=== PATIENT | male | born 1955 | race Caucasian/White ===

== ENCOUNTER 2018-10-01 16:47 | Inpatient (IN) | payer SELFPAY, OTHER | END 2018-10-07 13:21 | disposition other institution (70) | LOC: 4TH 10-03 09:52 → ER 16:47 → ICU 10-02 15:25 → 4TH 10-02 15:25 → ICU 19:07 | DX: T46.902A Poisoning by unspecified agents primarily affecting the cardiovascular system, intentional self-harm, initial encounter (principal); T46.4X2A Poisoning by angiotensin-converting-enzyme inhibitors, intentional self-harm, initial encounter; T39.92XA Poisoning by unspecified nonopioid analgesic, antipyretic and antirheumatic, intentional self-harm, initial encounter; T39.012A Poisoning by aspirin, intentional self-harm, initial encounter; T45.0X2A Poisoning by antiallergic and antiemetic drugs, intentional self-harm, initial encounter; T50.902A Poisoning by unspecified drugs, medicaments and biological substances, intentional self-harm, initial encounter; R53.83 Other fatigue; R47.81 Slurred speech; I44.4 Left anterior fascicular block; F32.9 Major depressive disorder, single episode, unspecified; F10.10 Alcohol abuse, uncomplicated; F19.10 Other psychoactive substance abuse, uncomplicated; I10 Essential (primary) hypertension; E78.00 Pure hypercholesterolemia, unspecified; M25.561 Pain in right knee; M25.461 Effusion, right knee; M25.571 Pain in right ankle and joints of right foot; M77.31 Calcaneal spur, right foot ==

== ENCOUNTER 2021-01-17 08:47 | Inpatient (IN) | payer SELFPAY ==
[~2021-01-17] VITALS: Ht 180.3 cm; Wt 118.3 kg
[2021-01-17] VITALS (11 sets, daily range): BP systolic 90–132; BP diastolic 71–96
[~2021-01-17 08:47] MED LIST: ACET-2267 PO; AMLO5TAB4 PO; CRUT1EAC7 MC; IRON1TAB86 PO; LISI20TA26 PO; MELO15TA39 PO; TRM50T PO
[2021-01-17] MEDS ORDERED: NS IV 1000 ML 1,000 ML IV ONE (09:15)
[2021-01-17] MEDS ORDERED: AZITHROMYCIN INJECTION 500 MG in NS (IVPB) 250 ML IV ONE (09:15)
[2021-01-17] MEDS ORDERED: cefTRIAXone FOR IV USE 1,000 MG in WATER (STERILE) FOR INJECTION 10 ML IV ONE (09:15)
[2021-01-17] MEDS ORDERED: NS IV 1000 ML 1,000 ML IV SCH (09:15)
[2021-01-17 09:22] LABS: ABG BASE EXCESS -5.5 MMOL/L (-2.5-2.5); ABG OXYGEN SATURATION 95 % (94-100); ABG PCO2 26 MMHG (35-45); ABG PH 7.45 (7.37-7.43); ABG PO2 63 MMHG (79-93); ABG TCO2 18.9 MMOL/L (21.0-31.0)
[2021-01-17 09:23] LABS: ALLENS TEST YES-POS; INSPIRED O2 ROOM AIR; VENTILATOR NO
[2021-01-17 09:24] LABS: BASOPHILS # (AUTO) 0.1 10^3/uL (0.0-0.1); BASOPHILS % (AUTO) 1 % (0-10); EOSINOPHILS % (AUTO) 0 % (0-10); HEMATOCRIT 45 % (40-54); LYMPHOCYTES % (AUTO) 11 % (12-44); MEAN CORPUSCULAR HEMOGLOBIN 30 pg (25-34); MEAN CORPUSCULAR HGB CONC 33 g/dL (32-36); MEAN CORPUSCULAR VOLUME 89 fL (80-99); MEAN PLATELET VOLUME 9.8 fL (9.0-12.2); MONOCYTES % (AUTO) 12 % (0-12); NEUTROPHILS # (AUTO) 13.2 10^3/uL (1.8-7.8); NEUTROPHILS % (AUTO) 75 % (42-75); PLATELET COUNT 423 10^3/uL (130-400); WHITE BLOOD COUNT 17.5 10^3/uL (4.3-11.0)
--- NOTE | 2021-01-17 09:26 | ED Chest Pain ---
General Chief Complaint: Chest Pain Stated Complaint: SOB,CP,FAST HB Nursing Triage Note: Pt ambulatory to ER with c/o chest pain that began on Sunday to the left chest with no radiation. Pt also states he has been short of breath for months. Patient also complains of a cough. Pt states this morning he began to sweat and his shirt became soaked with sweat. Pt also has swelling to the left arm which he states is present since sunday. Nursing Sepsis Screen: Possible Severe Sepsis Risk Source: patient Exam Limitations: no limitations History of Present Illness Date Seen by Provider: January 17, 2021 Time Seen by Provider: 08:50 Initial Comments Patient presents ER by private conveyance from Dr[facility] where he and his are visiting because he was having chest pain sweating left arm swelling and pain for the last 24 hours. No history of heart or lung disease. He quit chewing and dipping many years ago. He smokes occasional marijuana. No history of lung disease. He feels short of breath and is worse with exertion. No mention of orthopnea. No mention of swelling in his legs just his left arm. He thinks his left arm is been swelling since last week and has attributed to rheumatoid arthritis for which he uses meloxicam. He says he been off the meloxicam for the past week because he was out. Chest pain is substernal nonreproducible to direct palpation. Not worse with deep inspiration. He has had an occasional cough. No fevers or chills. He had a [employer] COVID-19 vaccine about 1 month prior. No known sick contacts. Patient has a history of hypertension, depression, hyperlipidemia and anemia. Allergies and Home Medications Allergies Coded Allergies: No Known Drug Allergies (Unverified , 10/01/18) Home Medications Acetaminophen 500 Mg Tablet, 500-1,000 MG PO Q6H PRN for PAIN-MILD, (Reported) Amlodipine Besylate 5 Mg Tablet, 5 MG PO DAILY, (Reported) Lisinopril 20 Mg Tablet, 20 MG PO DAILY, (Reported) Meloxicam 15 Mg Tablet, 15 MG PO DAILY, (Reported) Mv, Min #36/Iron,Carbonyl/FA 1 Each Tablet, 1 TAB PO DAILY, (Reported) Patient Home Medication List Home Medication List Reviewed: Yes Review of Systems Review of Systems Constitutional: No chills; diaphoresis; No fever; malaise, weakness EENTM: No Blurred Vision, No Double Vision Respiratory: Cough, Shortness of Air Cardiovascular: Denies Chest Pain, Denies Edema Gastrointestinal: Denies Abdominal Pain, Denies Constipated, Denies Diarrhea, Denies Nausea, Denies Vomiting Genitourinary: Denies Burning, Denies Discharge Musculoskeletal: No back pain, No joint pain Skin: No pruritus, No rash Psychiatric/Neurological: Denies Headache, Denies Numbness All Other Systems Reviewed Negative Unless Noted: Yes Past Nzybvbm-Kprcxd-Xlnrxf Hx Patient Social History Alcohol Use: Regular Use Alcohol Beverage of Choice: Beer (10 a week) Drug of Choice: Cannabis Smoking Status: Former Smoker Type Used: Smokeless Tobacco Recent Infectious Disease Expo: No Past Medical History Surgeries: No Respiratory: No Cardiac: Yes High Cholesterol, Hypertension Neurological: No Genitourinary: No Gastrointestinal: No Musculoskeletal: No Endocrine: No HEENT: No Cancer: No Psychosocial: Yes Depression Integumentary: No Physical Exam Vital Signs Vital Signs - First Documented 01/17/21 01/17/21 08:50 09:10 Temp 35.5 Pulse 161 Resp 22 B/P (MAP) 118/86 (97) Pulse Ox 94 O2 Delivery Room Air O2 Flow Rate 2.00 Capillary Refill : Less Than 3 Seconds Height, Weight, BMI Height: 5'11.00" Weight: 232lbs. oz. 105.129995gv; 34.00 BMI Method:Stated General Appearance: WD/WN, Moderate Distress, Obese HEENT: PERRL/EOMI, Pharynx Normal; No Moist Mucous Membranes Neck: Full Range of Motion, Normal Inspection Respiratory: Lungs Clear, Normal Breath Sounds, Accessory Muscle Use, Respiratory Distress (Mild to moderate oxygen sats in the mid 90s with increased work of breathing.) Cardiovascular: No JVD, Irregularly Irregular, Tachycardia Gastrointestinal: Normal Bowel Sounds, No Organomegaly, Non Tender Extremity: Normal Capillary Refill, Normal Inspection, No Pedal Edema Neurologic/Psychiatric: Alert, Oriented x3, No Motor/Sensory Deficits Skin: Normal Color, Damp, Diaphoresis Focused Exam Lactate Level 01/17/21 09:00: Lactic Acid Level 2.30*H Lactic Acid Level Laboratory Tests Test 01/17/21 09:00 Lactic Acid Level 2.30 MMOL/L (0.50-2.00) *H Progress/Results/Core Measures Results/Orders Lab Results Laboratory Tests Test 01/17/21 09:00 01/17/21 09:04 Range/Units White Blood Count 17.5 H 4.3-11.0 10^3/uL Red Blood Count 5.06 4.30-5.52 10^6/uL Hemoglobin 15.0 13.3-17.7 g/dL Hematocrit 45 40-54 % Mean Corpuscular Volume 89 80-99 fL Mean Corpuscular Hemoglobin 30 25-34 pg Mean Corpuscular Hemoglobin Concent 33 32-36 g/dL Red Cell Distribution Width 13.4 10.0-14.5 % Platelet Count 423 H 130-400 10^3/uL Mean Platelet Volume 9.8 9.0-12.2 fL Immature Granulocyte % (Auto) 1 % Neutrophils (%) (Auto) 75 42-75 % Lymphocytes (%) (Auto) 11 L 12-44 % Monocytes (%) (Auto) 12 0-12 % Eosinophils (%) (Auto) 0 0-10 % Basophils (%) (Auto) 1 0-10 % Neutrophils # (Auto) 13.2 H 1.8-7.8 10^3/uL Lymphocytes # (Auto) 2.0 1.0-4.0 10^3/uL Monocytes # (Auto) 2.0 H 0.0-1.0 10^3/uL Eosinophils # (Auto) 0.0 0.0-0.3 10^3/uL Basophils # (Auto) 0.1 0.0-0.1 10^3/uL Immature Granulocyte # (Auto) 0.2 H 0.0-0.1 10^3/uL Neutrophils % (Manual) 80 % Lymphocytes % (Manual) 13 % Monocytes % (Manual) 6 % Band Neutrophils 1 % Blood Morphology Comment NORMAL Prothrombin Time 14.0 12.2-14.7 SEC INR Comment 1.0 0.8-1.4 Activated Partial Thromboplast Time 34 24-35 SEC D-Dimer 1.93 H 0.00-0.49 UG/ML Sodium Level 140 135-145 MMOL/L Potassium Level 3.9 3.6-5.0 MMOL/L Chloride Level 105 98-107 MMOL/L Carbon Dioxide Level 20 L 21-32 MMOL/L Anion Gap 15 H 5-14 MMOL/L Blood Urea Nitrogen 18 7-18 MG/DL Creatinine 1.42 H 0.60-1.30 MG/DL Estimat Glomerular Filtration Rate 50 BUN/Creatinine Ratio 13 Glucose Level 123 H 70-105 MG/DL Lactic Acid Level 2.30 *H 0.50-2.00 MMOL/L Calcium Level 10.0 8.5-10.1 MG/DL Corrected Calcium 9.7 8.5-10.1 MG/DL Total Bilirubin 2.0 H 0.1-1.0 MG/DL Aspartate Amino Transf (AST/SGOT) 25 5-34 U/L Alanine Aminotransferase (ALT/SGPT) 20 0-55 U/L Alkaline Phosphatase 97 40-136 U/L Troponin I < 0.028 <0.028 NG/ML C-Reactive Protein High Sensitivity 18.99 H 0.00-0.50 MG/DL B-Type Natriuretic Peptide 48.3 <100.0 PG/ML Total Protein 7.9 6.4-8.2 GM/DL Albumin 4.4 3.2-4.5 GM/DL Procalcitonin 0.38 H <0.10 NG/ML Coronavirus 2019 (ESTELA) Not Detected Not Detecte Blood Gas Puncture Site LT RAD Blood Gas Patient Temperature 96.0 Arterial Blood pH 7.45 H 7.37-7.43 Arterial Blood Partial Pressure CO2 26 L 35-45 MMHG Arterial Blood Partial Pressure O2 63 L 79-93 MMHG Arterial Blood HCO3 18 L 23-27 MMOL/L Arterial Blood Total CO2 18.9 L 21.0-31.0 MMOL/L Arterial Blood Oxygen Saturation 95 94-100 % Arterial Blood Base Excess -5.5 L -2.5-2.5 MMOL/L Rodrigo Test YES-POS Blood Gas Ventilator Setting NO Blood Gas Inspired Oxygen ROOM AIR Micro Results Microbiology 01/17/21 Influenza Types A,B Antigen (CELINA) - Final, Complete My Orders Orders - HA MCLAIN Cbc With Automated Diff (01/17/21 09:11) Comprehensive Metabolic Panel (01/17/21 09:11) Blood Culture (01/17/21 09:11) Sputum Culture (01/17/21 09:11) Urinalysis (01/17/21 09:11) Urine Culture (01/17/21 09:11) Protime With Inr (01/17/21 09:11) Partial Thromboplastin Time (01/17/21 09:11) Chest 1 View, Ap/Pa Only (01/17/21 09:11) Ed Iv/Invasive Line Start (01/17/21 09:11) Ed Iv/Invasive Line Start (01/17/21 09:11) Ekg Tracing (01/17/21 09:11) Troponin I (01/17/21 09:11) Vital Signs Adult Sepsis Patie Q15M (01/17/21 09:11) O2 (01/17/21 09:11) Remove Rings In Anticipation O (01/17/21 09:11) Lactic Acid Analyzer (01/17/21 09:11) Influenza A And B Antigens (01/17/21 09:11) Ceftriaxone For Iv Use (Rocephin For I (01/17/21 09:15) Azithromycin Injection (Zithromax Inject (01/17/21 09:15) BNP (01/17/21 09:11) Ed Iv/Invasive Line Start (01/17/21 09:11) Ns Iv 1000 Ml (Sodium Chloride 0.9%) (01/17/21 09:15) Ns Iv 1000 Ml (Sodium Chloride 0.9%) (01/17/21 09:15) Covid 19 Inhouse Test (01/17/21 09:11) Arterial Blood Gas (01/17/21 09:11) Procalcitonin (Pct) (01/17/21 09:19) Hs C Reactive Protein (01/17/21 09:19) Fibrin Degradation Products (01/17/21 09:19) Aspirin Chewable Tablet (Baby Aspirin Ch (01/17/21 09:30) Diltiazem Injection (Cardizem Injection) (01/17/21 09:30) Diltiazem Drip Pre-Mix (Cardizem Drip Pr (01/17/21 09:30) Manual Differential (01/17/21 09:00) Ct Angio Chest W (01/17/21 10:06) Iohexol Injection (Omnipaque 350 Mg/Ml 1 (01/17/21 10:15) Received Contrast (Hold Metformin- Contr (01/17/21 10:15) Sodium Chloride Flush (Catheter Flush Sy (01/17/21 10:15) Ns (Ivpb) (Sodium Chloride 0.9% Ivpb Bag (01/17/21 10:15) Lactated Ringers (Lr 1000 Ml Iv Solution (01/17/21 11:00) Ekg Tracing (01/17/21 11:55) Medications Given in ED Current Medications Medications Dose Ordered Sig/Elise Route Start Time Stop Time Status Last Admin Dose Admin Aspirin 324 mg ONCE ONCE PO 01/17/21 09:30 01/17/21 09:31 DC 01/17/21 09:29 324 MG Azithromycin 500 mg/Sodium Chloride 255 ml @ 250 mls/hr ONCE ONCE IV 01/17/21 09:15 01/17/21 10:16 DC 01/17/21 09:45 250 MLS/HR Ceftriaxone Sodium 1000 mg/ Sterile Water 10 ml @ 200 mls/hr ONCE ONCE IV 01/17/21 09:15 01/17/21 09:19 DC 01/17/21 09:36 200 MLS/HR Diltiazem HCl 10 mg ONCE ONCE IVP 01/17/21 09:30 01/17/21 09:31 DC 01/17/21 09:31 10 MG Iohexol 100 ml ONCE ONCE IV 01/17/21 10:15 01/17/21 10:16 DC 01/17/21 10:52 84 ML Sodium Chloride 10 ml NEEDED PRN IV 01/17/21 10:15 01/17/21 10:52 10 ML Sodium Chloride 100 ml ONCE ONCE IV 01/17/21 10:15 01/17/21 10:16 DC 01/17/21 10:52 80 ML Sodium Chloride 1,000 ml @ 0 mls/hr Q0M ONCE IV 01/17/21 09:15 01/17/21 09:19 DC 01/17/21 09:37 1,000 MLS/HR Vital Signs/I&O 01/17/21 01/17/21 01/17/21 08:50 09:10 10:32 Temp 35.5 Pulse 161 138 Resp 22 20 B/P (MAP) 118/86 (97) 94/77 (83) Pulse Ox 94 94 96 O2 Delivery Room Air Nasal Cannula Nasal Cannula O2 Flow Rate 2.00 2.00 Blood Pressure Mean: 97 Progress Progress Note #1: Time: 09:23 Progress Note Patient appears to be in A. fib with RVR. We will give him some aspirin and use some Cardizem to slow his heart rate down as well as giving him some IV fluids doing a septic work-up based on his increased respiratory rate, cough, increased heart rate possibility of pneumonia. We will get a Covid and flu swab. Initial EKG does not show any significant ST changes. ABG. Patient's oxygen saturations 98% on room air with good plethysmography. Plan to put him on 2 L by nasal cannula just to decrease his work of breathing. Progress Note #2: Time: 11:58 Progress Note Patient cardioverted on the Cardizem. His blood pressure is good 106 systolic. Plan to get a repeat EKG. Initial ECG Impression Date: January 17, 2021 Initial ECG Impression Time: 08:56 Initial ECG Rate: 160 Initial ECG Rhythm: A Fib/Flutter Initial ECG Intervals: QT (483) Initial ECG Impression: Atrial Fibrillation w/RVR Comment Atrial fibrillation with rapid ventricular response, borderline prolonged QTC. No clinically relevant ST elevation or depression. EKG : EKG Time: 12:00 Rate: 89 Rhythm: Normal Sinus Intervals: QT (473) ECG Comparisson: Changed ECG Impression: Normal, Nonspecific Changes Comment Normal sinus rhythm without clinically relevant ST changes. Diagnostic Imaging Diagonstic Imaging: Xray Plain Films/CT/US/NM/MRI: chest Comments NAME: MISTI HENSON [facility] REC#: [id number] PT STATUS: REG ER : 1955 PHYSICIAN: HA MCLAIN MD ADMIT DATE: 01/17/21/ER Draft Date of Exam:01/17/21 CHEST 1 VIEW, AP/PA ONLY EXAMINATION: Portable erect AP chest at 1030 hours. INDICATION: Chest pain. FINDINGS: The heart is mildly enlarged and the heart does seem somewhat more prominent than noted on the prior exam of 10/03/2018. The central pulmonary vascularity is also somewhat more striking than on the prior exam, but there is still no evidence for failure. There is no sign of pneumonia or pleural effusion either. The mediastinum is not widened. The osseous structures are intact. IMPRESSION: There is mild cardiomegaly but there is no evidence for an acute cardiopulmonary abnormality. Dictated on workstation # [id number] Dict: 01/17/21 1037 Trans: 01/17/21 1041 [id number] Interpreted by: VINCENT SALAZAR MD Electronically signed by: Reviewed: Reviewed by Me Diagonstic Imaging: CT (angio) Plain Films/CT/US/NM/MRI: chest Reviewed: Reviewed by Me Departure Communication (Admissions) Time/Spoke to Admitting Phy: 12:05 Discussed the case with Dr. Wilkerson and she agrees to admit the patient. Time/Spoke to Consulting Phy: 12:00 Discussed the case with Dr. Valdez, cardiology recommends [facility] and will see the patient. Impression Primary Impression: Atrial fibrillation with rapid ventricular response Additional Impressions: Sepsis Qualified Codes: A41.9 - Sepsis, unspecified organism Suspect pneumonia Disposition: ADMITTED INPATIENT Condition: Stable Admissions Decision to Admit Reason: Admit from ER (General) Decision to Admit/Date: January 17, 2021 Time/Decision to Admit Time: 09:37 Departure-Patient Inst. Referrals: NO,LOCAL PHYSICIAN (PCP/Family) Primary Care Physician HA MCLAIN January 17, 2021 09:26
[2021-01-17] MEDS ORDERED: dilTIAZem DRIP PRE-MIX 125 ML IV SCH ×2 (09:30→14:00)
[2021-01-17] MEDS ORDERED: ASPIRIN 81 MG CHEW (CHILDREN'S ASA) PO ONE (09:30)
[2021-01-17 09:31] LABS: ALBUMIN 4.4 GM/DL (3.2-4.5)
[2021-01-17 09:32] LABS: CHLORIDE 105 MMOL/L (98-107); POTASSIUM 3.9 MMOL/L (3.6-5.0); SODIUM 140 MMOL/L (135-145)
[2021-01-17 09:34] LABS: GLUCOSE 123 MG/DL (70-105); TOTAL PROTEIN 7.9 GM/DL (6.4-8.2)
[2021-01-17 09:35] LABS: CARBON DIOXIDE 20 MMOL/L (21-32)
[2021-01-17 09:37] LABS: ALKALINE PHOSPHATASE 97 U/L (40-136)
[2021-01-17 09:38] LABS: BAND NEUTROPHILS 1 %; CREATININE SERUM 1.42 MG/DL (0.60-1.30); GFR ESTIMATED 50; LYMPHOCYTES % (MANUAL) 13 %; MONOCYTES % (MANUAL) 6 %; NEUTROPHILS % (MANUAL) 80 %; RBC MORPH NORMAL
[2021-01-17 09:39] LABS: BUN/CREATININE RATIO 13
[2021-01-17 09:40] LABS: ALANINE AMINOTRANSFERASE 20 U/L (0-55)
[2021-01-17 09:56] LABS: FIBRIN DEGRADATION PRODUCTS 1.93 UG/ML (0.00-0.49)
[2021-01-17] MEDS ORDERED: NS 100 ML (IVPB) BAG IV ONE (10:15)
[2021-01-17] MEDS ORDERED: CATHETER FLUSH 10 ML SYR IV PRN (10:15)
[2021-01-17] MEDS ORDERED: HOLD METFORMIN - RECEIVED CONTRAST 20 ML VIAL IV SCH (10:15)
[2021-01-17] MEDS ORDERED: IOHEXOL 350 MG/ML 100 ML (OMNIPAQUE 350) VIAL IV ONE (10:15)
--- NOTE | 2021-01-17 10:41 | Diagnostic Imaging Report ---
EXAMINATION: Portable erect AP chest at 1030 hours. INDICATION: Chest pain. FINDINGS: The heart is mildly enlarged and the heart does seem somewhat more prominent than noted on the prior exam of 10/03/2018. The central pulmonary vascularity is also somewhat more striking than on the prior exam, but there is still no evidence for failure. There is no sign of pneumonia or pleural effusion either. The mediastinum is not widened. The osseous structures are intact. IMPRESSION: There is mild cardiomegaly but there is no evidence for an acute cardiopulmonary abnormality. Dictated by: Dictated on workstation # [id number]
[2021-01-17] MEDS ORDERED: LACTATED RINGERS 1,000 ML IV ONE (11:00)
--- NOTE | 2021-01-17 11:23 | Diagnostic Imaging Report ---
PROCEDURE: CT angiography of the chest with contrast. TECHNIQUE: Multiple contiguous axial images were obtained through the chest after uneventful bolus administration of intravenous contrast. 3D reconstructed CTA MIP acquisitions were also performed. Auto Exposure Controls were utilized during the CT exam to meet ALARA standards for radiation dose reduction. INDICATION: Shortness of breath. Chest pain. COMPARISON: Chest radiograph performed earlier the same date. FINDINGS: This helical CT pulmonary angiogram is diagnostic to the subsegmental level branches of the pulmonary artery and demonstrates no pulmonary emboli. The heart and great vessels are unremarkable. There is no pericardial effusion. Mildly prominent mediastinal lymph node is seen in the right tracheoesophageal groove measuring 0.7 cm in short axis. Prominent lymph nodes are also seen in the left axilla. No focal consolidation or pulmonary mass. No central endobronchial obstructing lesions. Mild bronchial wall thickening is present. No pneumothorax or pleural effusion. No acute osseous abnormalities. Old fracture of the sternum is noted. There is hepatic steatosis. Partial visualization of the gallbladder appears to show abnormally thickened gallbladder wall. IMPRESSION: 1. No acute pulmonary embolus. 2. Mildly prominent mediastinal and left axillary lymph nodes. These are indeterminate and followup may be considered in 12 months. 3. Partially visualized gallbladder demonstrates thickened gallbladder wall. Consider liver gallbladder ultrasound to further evaluate. 4. Hepatic steatosis. 5. Mild bronchial wall thickening, which may represent bronchitis/bronchiolitis. No focal consolidations. Dictated by: Dictated on workstation # [id number]
[2021-01-17] MEDS ORDERED: APIXABAN 5 MG (ELIQUIS) TABLET PO ONE (12:15)
[2021-01-17] MEDS ORDERED: EPINEPHrine 1 MG INJECTION 4 MG in NS (IVPB) 248 ML IV SCH (14:15)
[2021-01-17] MEDS: LACTATED RINGERS 1,000 ML IV SCH ×3 (14:42→23:40)
[2021-01-17] MEDS: NOREPINEPHRINE 8 MG/250 ML 250 ML IV SCH (14:44)
[2021-01-17] MEDS: VASOPRESSIN INJECTION 20 UNIT in NS (IVPB) 100 ML IV SCH ×2 (14:44→23:20)
[2021-01-17] MEDS ORDERED: CHOL200014 PO (15:34)
[2021-01-17] MEDS ORDERED: CETI-458 PO (15:34)
[2021-01-17] MEDS ORDERED: FURO40TA4 PO (15:34)
[2021-01-17] MEDS ORDERED: ASPI-1238 PO (15:34)
[2021-01-17] MEDS ORDERED: DIPH25TA65 PO (15:34)
[2021-01-17] MEDS ORDERED: TURM538C PO (15:34)
[2021-01-17] MEDS ORDERED: ZINC220T3 PO (15:34)
[2021-01-17] MEDS ORDERED: ATOR10TA66 PO (15:34)
[2021-01-17] MEDS ORDERED: FISH1CAP15 PO (15:34)
[2021-01-17] MEDS ORDERED: LISI40TA9 PO (15:34)
[2021-01-17] MEDS: ACETAMINOPHEN 500 MG TAB (TYLENOL) PO PRN (15:57)
--- NOTE | 2021-01-17 16:41 | Consultation-Cardiology ---
HPI-Cardiology Cardiology Consultation: Date of Consultation 01/17/21 Time Seen by a Provider: 16:10 Date of Admission 01-17-21 Attending Physician Eva Wilkerson MD Admitting Physician No,Local Physician Consulting Physician Jessica Valdez MD HPI: Chief Complaint: New onset a-fib with RVR Mr. Henson is a 65 yr old male admitted to ICU 6 from the ED with new onset a- fib with RVR. He was started on a Cardizem gtt and converted to SR with controlled rate. He reports he was recently started on Lisinopril by his PCP a few weeks ago d/t HTN. He reports he has had a dry, hacky cough since. He reports last week he had an episode of left sided chest pressure which lasted for approx a 1 1/2 days constant. He reports it was left sided with no radiation. He reports he has chronic episodes where he breaks out into a sweat, which is not new for him. He reports he has had increasing SOB. He reports this morning he had an appt to see Dr. Dubois and while looking for socks he became weak, felt his heart racing, diaphoretic and lightheaded. He reports he has had these episodes before and they typically last for a few minutes and resolve. He reports he has gouty arthritis and currently has had a flare up in his left hand and left shoulder which has limited his ability to effectively use his left hand. He states he is feeling better at this time. He does not report any fever or chills. Review of Systems-Cardiology Review of Systems Constitutional: No chills, No fever; lightheadedness Eyes: No vision change Ears/Nose/Throat: No epistaxis, No recent hearing loss Respiratory: As described under HPI Cardiovascular: As described under HPI Gastrointestinal: As described under HPI Genitourinary: No dysuria, No hematuria Musculoskeletal: As describe under HPI Skin: No rash on exposed areas, No ulcerations on exposed areas Psychiatric/Neurological: No anxiety, No depression, No seizure, No focal weakness, No syncope Hematologic: No bleeding abnormalities All Other Systems Reviewed Negative Unless Noted: Yes OXK-Muejte-Cckgxm Hx Patient Social History Smoking Status: Former Smoker 2nd Hand Smoke Exposure: No Past Medical History PMH As described under Assessment. Family Medical History Family Medical History: He denies any family h/o CAD or CVA. Allergies and Home Medications Allergies Coded Allergies: No Known Drug Allergies (Unverified , 10/01/18) Home Medications Acetaminophen 500 Mg Tablet, 500-1,000 MG PO Q6H PRN for PAIN-MILD, (Reported) Last Action: Held Amlodipine Besylate 5 Mg Tablet, 5 MG PO DAILY, (Reported) Last Action: Held Aspirin 81 Mg Tablet.dr, 81 MG PO DAILY, (Reported) Last Action: Continued Atorvastatin Calcium 10 Mg Tablet, 10 MG PO HS, (Reported) Last Action: Continued Cetirizine HCl 10 Mg Tablet, 10 MG PO DAILY PRN for ALLERGY SYMPTOMS, (Reported) Last Action: Converted Cholecalciferol (Vitamin D3) 50 Mcg Tablet, 50 MCG PO DAILY, (Reported) Last Action: Converted Diphenhydramine HCl 25 Mg Tablet, 25-50 MG PO HS PRN for SLEEP/ALLERGY SYMPTOMS, (Reported) Last Action: Continued Fish Oil/Dha/Epa 1 Each Capsule, 1 EACH PO DAILY, (Reported) Last Action: Converted Furosemide 40 Mg Tablet, 40 MG PO DAILY, (Reported) Last Action: Continued Lisinopril 40 Mg Tablet, 40 MG PO DAILY, (Reported) Last Action: Held Meloxicam 15 Mg Tablet, 15 MG PO DAILY, (Reported) Last Action: Converted Turmeric Root Extract 538 Mg Capsule, 538 MG PO DAILY, (Reported) Last Action: Held Zinc Sulfate 50 Mg Tablet, 50 MG PO DAILY, (Reported) Last Action: Held Physical Exam-Cardiology Physical Exam Vital Signs/I&O 01/17/21 01/17/21 01/17/21 01/17/21 20:00 20:00 20:12 21:00 Temp 37.0 Pulse 87 82 Resp 21 25 B/P (MAP) 116/78 (91) 119/71 (87) Pulse Ox 93 99 98 O2 Delivery Nasal Cannula Nasal Cannula Nasal Cannula O2 Flow Rate 2.00 2.00 2.00 01/17/21 01/17/21 01/18/21 01/18/21 22:00 23:00 00:00 00:00 Pulse 85 89 86 Resp 20 26 18 B/P (MAP) 122/77 (92) 115/84 (94) 114/77 (89) Pulse Ox 98 96 99 97 O2 Delivery Nasal Cannula Nasal Cannula Nasal Cannula Nasal Cannula O2 Flow Rate 2.00 2.00 2.00 2.00 01/18/21 01/18/21 01/18/21 01/18/21 01:00 01:00 02:00 03:00 Pulse 85 86 90 83 Resp 23 25 24 B/P (MAP) 119/78 (92) 121/70 (87) 125/78 (94) Pulse Ox 95 94 96 O2 Delivery Nasal Cannula Nasal Cannula Nasal Cannula O2 Flow Rate 2.00 2.00 2.00 01/18/21 01/18/21 01/18/21 01/18/21 04:00 04:00 05:00 06:00 Pulse 89 90 96 Resp 22 22 26 B/P (MAP) 141/80 (100) 132/77 (95) 124/79 (94) Pulse Ox 96 99 96 92 O2 Delivery Nasal Cannula Nasal Cannula Nasal Cannula Nasal Cannula O2 Flow Rate 2.00 2.00 2.00 2.00 01/18/21 06:37 Pulse Ox 95 O2 Delivery Nasal Cannula O2 Flow Rate 2.00 01/18/21 00:00 Intake Total 2990 ml Output Total 450 ml Balance 2540 ml Capillary Refill : Less Than 3 Seconds Constitutional: AAO x 3, well-developed, well-nourished HEENT: PERRL, hearing is well preserved, oral hygience is good Neck: No carotid bruit; carotid pulses are 2 + bilaterally Respiratory: No accessory muscle use, No respiratory distress; chest expansion is symmetric, chest is bilaterally symmetric, other (good air entry) Cardiovascular: regular rate-rhythm; No JVD; S1 and S2 Gastrointestinal: No tender; soft, round, audible bowel sounds Extremities: other (left hand with mod swelling and inflammation) Neurologic/Psychiatric: grossly intact Skin: No rash on exposed areas, No ulcerations on exposed areas Data Review Labs Laboratory Tests 01/17/21 09:00: White Blood Count 17.5H, Red Blood Count 5.06, Hemoglobin 15.0, Hematocrit 45, Mean Corpuscular Volume 89, Mean Corpuscular Hemoglobin 30, Mean Corpuscular Hemoglobin Concent 33, Red Cell Distribution Width 13.4, Platelet Count 423H, M abiodun Platelet Volume 9.8, Immature Granulocyte % (Auto) 1, Neutrophils (%) (Auto) 75, Lymphocytes (%) (Auto) 11L, Monocytes (%) (Auto) 12, Eosinophils (%) (Auto) 0, Basophils (%) (Auto) 1, Neutrophils # (Auto) 13.2H, Lymphocytes # (Auto) 2.0, Monocytes # (Auto) 2.0H, Eosinophils # (Auto) 0.0, Basophils # (Auto) 0.1, Immature Granulocyte # (Auto) 0.2H, Neutrophils % (Manual) 80, Lymphocytes % (Manual) 13, Monocytes % (Manual) 6, Band Neutrophils 1, Blood Morphology Comment NORMAL, Prothrombin Time 14.0, INR Comment 1.0, Activated Partial Thromboplast Time 34, D-Dimer 1.93H, Sodium Level 140, Potassium Level 3.9, Chloride Level 105, Carbon Dioxide Level 20L, Anion Gap 15H, Blood Urea Nitrogen 18, Creatinine 1.42H, Estimat Glomerular Filtration Rate 50, BUN/Creatinine Ratio 13, Glucose Level 123H, Lactic Acid Level 2.30*H, Calcium Level 10.0, Corrected Calcium 9.7, Total Bilirubin 2.0H, Aspartate Amino Transf (AST/SGOT) 25, Alanine Aminotransferase (ALT/SGPT) 20, Alkaline Phosphatase 97, Troponin I < 0.028, C-Reactive Protein High Sensitivity 18.99H, B-Type Natriuretic Peptide 48.3, Total Protein 7.9, Albumin 4.4, Procalcitonin 0.38H, Coronavirus 2019 (ESTELA) Not Detected 01/17/21 09:04: Blood Gas Puncture Site LT RAD, Blood Gas Patient Temperature 96.0, Arterial Blood pH 7.45H, Arterial Blood Partial Pressure CO2 26L, Arterial Blood Partial Pressure O2 63L, Arterial Blood HCO3 18L, Arterial Blood Total CO2 18.9L, Arterial Blood Oxygen Saturation 95, Arterial Blood Base Excess -5.5L, Rodrigo Test YES-POS, Blood Gas Ventilator Setting NO, Blood Gas Inspired Oxygen ROOM AIR 01/17/21 12:46: Lactic Acid Level 1.01 01/17/21 15:05: Troponin I < 0.028 01/17/21 20:50: Troponin I < 0.028 01/18/21 04:05: White Blood Count 13.5H, Red Blood Count 4.04L, Hemoglobin 11.8#L, Hematocrit 37L, Mean Corpuscular Volume 91, Mean Corpuscular Hemoglobin 29, Mean Corpuscul ar Hemoglobin Concent 32, Red Cell Distribution Width 13.5, Platelet Count 285, Mean Platelet Volume 9.6, Immature Granulocyte % (Auto) 1, Neutrophils (%) (Auto) 82H, Lymphocytes (%) (Auto) 7L, Monocytes (%) (Auto) 9, Eosinophils (%) (Auto) 1, Basophils (%) (Auto) 1, Neutrophils # (Auto) 11.1H, Lymphocytes # (Auto) 1.0, Monocytes # (Auto) 1.3H, Eosinophils # (Auto) 0.1, Basophils # (Auto) 0.1, Immature Granulocyte # (Auto) 0.1, Sodium Level 138, Potassium Level 4.0, Chloride Level 111H, Carbon Dioxide Level 17L, Anion Gap 10, Blood Urea Nitrogen 13, Creatinine 0.79, Estimat Glomerular Filtration Rate > 60, BUN/Creatinine Ratio 16, Glucose Level 111H, Calcium Level 8.7, Corrected Calcium 9.3, Total Bilirubin 1.2H, Aspartate Amino Transf (AST/SGOT) 24, Alanine Aminotransferase (ALT/SGPT) 17, Alkaline Phosphatase 74, Total Protein 6.0L, Albumin 3.3 Microbiology 01/17/21 Influenza Types A,B Antigen (CELINA) - Final, Complete Radiology NAME: MISTI HENSON [facility] REC#: [id number] PT STATUS: REG ER : 1955 PHYSICIAN: HA MCLAIN MD ADMIT DATE: 01/17/21/ER Draft Date of Exam:01/17/21 CHEST 1 VIEW, AP/PA ONLY EXAMINATION: Portable erect AP chest at 1030 hours. INDICATION: Chest pain. FINDINGS: The heart is mildly enlarged and the heart does seem somewhat more prominent than noted on the prior exam of 10/03/2018. The central pulmonary vascularity is also somewhat more striking than on the prior exam, but there is still no evidence for failure. There is no sign of pneumonia or pleural effusion either. The mediastinum is not widened. The osseous structures are intact. IMPRESSION: There is mild cardiomegaly but there is no evidence for an acute cardiopulmonary abnormality. Dictated on workstation # [id number] Dict: 01/17/21 1037 Trans: 01/17/21 1041 [id number] Interpreted by: VINCENT SALAZAR MD Electronically signed by: NAME: SIXTO,MISTI J MED REC#: [id number] PT STATUS: REG ER : 1955 PHYSICIAN: HA MCLIAN MD ADMIT DATE: 01/17/21/ER Signed Date of Exam:01/17/21 CT ANGIO CHEST W PROCEDURE: CT angiography of the chest with contrast. TECHNIQUE: Multiple contiguous axial images were obtained through the chest after uneventful bolus administration of intravenous contrast. 3D reconstructed CTA MIP acquisitions were also performed. Auto Exposure Controls were utilized during the CT exam to meet ALARA standards for radiation dose reduction. INDICATION: Shortness of breath. Chest pain. COMPARISON: Chest radiograph performed earlier the same date. FINDINGS: This helical CT pulmonary angiogram is diagnostic to the subsegmental level branches of the pulmonary artery and demonstrates no pulmonary emboli. The heart and great vessels are unremarkable. There is no pericardial effusion. Mildly prominent mediastinal lymph node is seen in the right tracheoesophageal groove measuring 0.7 cm in short axis. Prominent lymph nodes are also seen in the left axilla. No focal consolidation or pulmonary mass. No central endobronchial obstructing lesions. Mild bronchial wall thickening is present. No pneumothorax or pleural effusion. No acute osseous abnormalities. Old fracture of the sternum is noted. There is hepatic steatosis. Partial visualization of the gallbladder appears to show abnormally thickened gallbladder wall. IMPRESSION: 1. No acute pulmonary embolus. 2. Mildly prominent mediastinal and left axillary lymph nodes. These are indeterminate and followup may be considered in 12 months. 3. Partially visualized gallbladder demonstrates thickened gallbladder wall. Consider liver gallbladder ultrasound to further evaluate. 4. Hepatic steatosis. 5. Mild bronchial wall thickening, which may represent bronchitis/bronchiolitis. No focal consolidations. Dictated by: Dictated on workstation # [id number] Dict: 01/17/21 1114 Trans: 01/17/[address] [facility] [id number] Interpreted by: ANN-MARIE ABBASI DO Electronically signed by: ANN-MARIE ABBASI DO 01/17/21 1142 ECG Impression ECG Initial ECG Impression: Atrial Fibrillation w/RVR A/P-Cardiology Assessment/Admission Diagnosis New onset a-fib with RVR - first diagnosed on 01-17-21 in the ED - converted to SR Chest pain of undetermined etiology Progressive dyspnea of undetermined etiology HTN HLD Cough of undetermined etiology HLD Obese Gouty arthritis suspected sleep apnea Discussion and Recomendations New onset a-fib with RVR - converted to SR on Cardizem gtt - change to oral OAC with Eliquis Managment of gout/arthritis per medical services Advise echocardiogram to eval structures and function Advise MPI to eval perfusion Monitor lab Replace electrolytes as indicated Stop Lisinopril d/t cough which could be r/t PHYLICIA (-) Further recs will be based on his hospital course We would like to thank medical services for this consult HENNA CARDOSO January 17, 2021 16:41
[2021-01-17] MEDS ORDERED: RT-ALBUTEROL/IPRATROPIUM 3 ML (DUONEB) VIAL INH PRN (17:00)
[2021-01-17] MEDS ORDERED: REGADENOSON 0.4 MG/5 ML SYR (LEXISCAN) IV ONE (17:00)
[2021-01-17] MEDS ORDERED: LORATADINE (CLARITIN) 10 MG TAB PO PRN (17:45)
[2021-01-17] MEDS ORDERED: diphenhydrAMINE 25 MG TAB (BENADRYL) PO PRN (17:45)
--- NOTE | 2021-01-17 17:48 | Consultation-Cardiology ---
HPI-Cardiology Cardiology Consultation: Date of Consultation 01/17/21 Time Seen by a Provider: 17:10 Date of Admission Attending Physician Eva Wilkerson MD Admitting Physician No,Local Physician Consulting Physician NONA NGUYỄN MD, MA, FACP, FACC, [facility] HPI: Chief Complaint: Reason for cardiology consultation: New onset a-fib with RVR HPI Mr. Miller is a 65 yr old male admitted to ICU 6 from the ED with new onset a- fib with RVR. He was started on a Cardizem gtt and converted to SR with controlled rate. He reports he was recently started on Lisinopril by his PCP a few weeks ago d/t HTN. He reports he has had a dry, hacky cough since. He reports last week he had an episode of left sided chest pressure which lasted for approx a 1 1/2 days constant. He reports it was left sided with no radiation. He reports he has chronic episodes where he breaks out into a sweat, which is not new for him. He reports he has had increasing SOB. He reports this morning he had an appt to see Dr. Dubois and while looking for socks he became weak, felt his heart racing, diaphoretic and lightheaded. He reports he has had these episodes before and they typically last for a few minutes and resolve. He reports he has gouty arthritis and currently has had a flare up in his left hand and left shoulder which has limited his ability to effectively use his left hand. He states he is feeling better at this time. He does not report any fever or chills. Review of Systems-Cardiology Review of Systems Constitutional: No chills, No fever; lightheadedness Eyes: No vision change Ears/Nose/Throat: No epistaxis, No recent hearing loss Respiratory: As described under HPI Cardiovascular: As described under HPI Gastrointestinal: As described under HPI Genitourinary: No dysuria, No hematuria Musculoskeletal: As describe under HPI Skin: No rash on exposed areas, No ulcerations on exposed areas Psychiatric/Neurological: No anxiety, No depression, No seizure, No focal weakness, No syncope Hematologic: No bleeding abnormalities All Other Systems Reviewed Negative Unless Noted: Yes DDJ-Qwyhud-Izdkya Hx Patient Social History Smoking Status: Former Smoker 2nd Hand Smoke Exposure: No Past Medical History PMH As described under Assessment. Family Medical History Family Medical History: He denies any family h/o CAD or CVA. Allergies and Home Medications Allergies Coded Allergies: No Known Drug Allergies (Unverified , 10/01/18) Home Medications Acetaminophen 500 Mg Tablet, 500-1,000 MG PO Q6H PRN for PAIN-MILD, (Reported) Last Action: Held Amlodipine Besylate 5 Mg Tablet, 5 MG PO DAILY, (Reported) Last Action: Held Aspirin 81 Mg Tablet.dr, 81 MG PO DAILY, (Reported) Last Action: Continued Atorvastatin Calcium 10 Mg Tablet, 10 MG PO HS, (Reported) Last Action: Continued Cetirizine HCl 10 Mg Tablet, 10 MG PO DAILY PRN for ALLERGY SYMPTOMS, (Reported) Last Action: Converted Cholecalciferol (Vitamin D3) 50 Mcg Tablet, 50 MCG PO DAILY, (Reported) Last Action: Converted Diphenhydramine HCl 25 Mg Tablet, 25-50 MG PO HS PRN for SLEEP/ALLERGY SYMPTOMS, (Reported) Last Action: Continued Fish Oil/Dha/Epa 1 Each Capsule, 1 EACH PO DAILY, (Reported) Last Action: Converted Furosemide 40 Mg Tablet, 40 MG PO DAILY, (Reported) Last Action: Continued Lisinopril 40 Mg Tablet, 40 MG PO DAILY, (Reported) Last Action: Held Meloxicam 15 Mg Tablet, 15 MG PO DAILY, (Reported) Last Action: Converted Turmeric Root Extract 538 Mg Capsule, 538 MG PO DAILY, (Reported) Last Action: Held Zinc Sulfate 50 Mg Tablet, 50 MG PO DAILY, (Reported) Last Action: Held Patient Home Medication List Home Medication List Reviewed: Yes Physical Exam-Cardiology Physical Exam Vital Signs/I&O 01/17/21 01/17/21 01/17/21 01/17/21 08:50 09:10 10:32 13:26 Temp 35.5 Pulse 161 138 89 Resp 22 20 16 B/P (MAP) 118/86 (97) 94/77 (83) 115/75 Pulse Ox 94 94 96 98 O2 Delivery Room Air Nasal Cannula Nasal Cannula Nasal Cannula O2 Flow Rate 2.00 2.00 2.00 01/17/21 01/17/21 01/17/21 01/17/21 13:30 14:00 14:15 14:15 Temp 37.1 Pulse 81 81 Resp 19 19 B/P (MAP) 90/72 (78) 90/72 (78) Pulse Ox 99 98 98 O2 Delivery Nasal Cannula Nasal Cannula Nasal Cannula O2 Flow Rate 2.00 2.00 2.00 01/17/21 01/17/21 01/17/21 01/17/21 14:24 15:00 15:22 16:00 Pulse 81 84 81 Resp 15 10 B/P (MAP) 119/73 (88) 118/75 (89) Pulse Ox 97 97 O2 Delivery Nasal Cannula Nasal Cannula Nasal Cannula O2 Flow Rate 2.00 0.50 2.00 01/17/21 01/17/21 01/17/21 16:43 17:00 17:04 Temp 35.5 Pulse 161 80 Resp 16 B/P (MAP) 132/96 (108) Pulse Ox 94 98 99 O2 Delivery Nasal Cannula Nasal Cannula O2 Flow Rate 2.00 2.00 FiO2 21 Capillary Refill : Less Than 3 Seconds Constitutional: AAO x 3, well-developed, well-nourished HEENT: PERRL, hearing is well preserved, oral hygience is good Neck: No carotid bruit; carotid pulses are 2 + bilaterally Respiratory: No accessory muscle use, No respiratory distress; chest expansion is symmetric, chest is bilaterally symmetric, other (good air entry) Cardiovascular: regular rate-rhythm; No JVD; S1 and S2 Gastrointestinal: No tender; soft, round, audible bowel sounds Extremities: other (left hand with mod swelling and inflammation) Neurologic/Psychiatric: grossly intact Skin: No rash on exposed areas, No ulcerations on exposed areas Data Review Labs Laboratory Tests 01/17/21 09:00: White Blood Count 17.5H, Red Blood Count 5.06, Hemoglobin 15.0, Hematocrit 45, Mean Corpuscular Volume 89, Mean Corpuscular Hemoglobin 30, Mean Corpuscular Hemoglobin Concent 33, Red Cell Distribution Width 13.4, Platelet Count 423H, Mean Platelet Volume 9.8, Immature Granulocyte % (Auto) 1, Neutrophils (%) (Aut o) 75, Lymphocytes (%) (Auto) 11L, Monocytes (%) (Auto) 12, Eosinophils (%) (Auto) 0, Basophils (%) (Auto) 1, Neutrophils # (Auto) 13.2H, Lymphocytes # (Auto) 2.0, Monocytes # (Auto) 2.0H, Eosinophils # (Auto) 0.0, Basophils # (Auto) 0.1, Immature Granulocyte # (Auto) 0.2H, Neutrophils % (Manual) 80, Lymphocytes % (Manual) 13, Monocytes % (Manual) 6, Band Neutrophils 1, Blood Morphology Comment NORMAL, Prothrombin Time 14.0, INR Comment 1.0, Activated Partial Thromboplast Time 34, D-Dimer 1.93H, Sodium Level 140, Potassium Level 3.9, Chloride Level 105, Carbon Dioxide Level 20L, Anion Gap 15H, Blood Urea Nitrogen 18, Creatinine 1.42H, Estimat Glomerular Filtration Rate 50, BUN/Creatinine Ratio 13, Glucose Level 123H, Lactic Acid Level 2.30*H, Calcium Level 10.0, Corrected Calcium 9.7, Total Bilirubin 2.0H, Aspartate Amino Transf (AST/SGOT) 25, Alanine Aminotransferase (ALT/SGPT) 20, Alkaline Phosphatase 97, Troponin I < 0.028, C-Reactive Protein High Sensitivity 18.99H, B-Type Natriuretic Peptide 48.3, Total Protein 7.9, Albumin 4.4, Procalcitonin 0.38H, Coronavirus 2019 (ESTELA) Not Detected 01/17/21 09:04: Blood Gas Puncture Site LT RAD, Blood Gas Patient Temperature 96.0, Arterial Blood pH 7.45H, Arterial Blood Partial Pressure CO2 26L, Arterial Blood Partial Pressure O2 63L, Arterial Blood HCO3 18L, Arterial Blood Total CO2 18.9L, Arterial Blood Oxygen Saturation 95, Arterial Blood Base Excess -5.5L, Rodrigo Test YES-POS, Blood Gas Ventilator Setting NO, Blood Gas Inspired Oxygen ROOM AIR 01/17/21 12:46: Lactic Acid Level 1.01 01/17/21 15:05: Troponin I < 0.028 Microbiology 01/17/21 Influenza Types A,B Antigen (CELINA) - Final, Complete A/P-Cardiology Assessment/Admission Diagnosis New onset a-fib with RVR - first diagnosed on 01-17-21 in the ED - converted to SR Chest pain of undetermined etiology Progressive dyspnea of undetermined etiology HTN HLD Cough of undetermined etiology HLD Obese Polyarthritis, chronic. Pt reports it has been diagnosed as gout Suspected sleep apnea Discussion and Recomendations New onset a-fib with RVR - converted to SR on Cardizem gtt - change to oral OAC with Eliquis Managment of gout/arthritis per Medical services Advise echocardiogram to eval structures and function Advise MPI to eval perfusion Monitor lab Replace electrolytes as indicated Stop Lisinopril d/t cough which could be r/t PHYLICIA (-) Further recs will be based on his hospital course We would like to thank Medical services for this consult NONA NGUYỄN MD FACP FAC [facility]S January 17, 2021 17:48
[2021-01-17] MEDS: RT-ALBUTEROL/IPRATROPIUM 3 ML (DUONEB) VIAL INH SCH (18:43)
[2021-01-17] MEDS: ATORVASTATIN 10 MG TABLET PO SCH (20:16)
[2021-01-17] MEDS: APIXABAN 5 MG (ELIQUIS) TABLET PO SCH (20:16)
[2021-01-18] VITALS (23 sets, daily range): BP systolic 105–156; BP diastolic 59–85
[2021-01-18] MEDS: ACETAMINOPHEN 500 MG TAB (TYLENOL) PO PRN ×4 (00:28→20:43)
[2021-01-18] MEDS: NOREPINEPHRINE 8 MG/250 ML 250 ML IV SCH ×3 (01:19→23:40)
[2021-01-18 04:12] LABS: BASOPHILS # (AUTO) 0.1 10^3/uL (0.0-0.1); BASOPHILS % (AUTO) 1 % (0-10); EOSINOPHILS # (AUTO) 0.1 10^3/uL (0.0-0.3); EOSINOPHILS % (AUTO) 1 % (0-10); HEMATOCRIT 37 % (40-54); HEMOGLOBIN 11.8 g/dL (13.3-17.7); LYMPHOCYTES % (AUTO) 7 % (12-44); MEAN CORPUSCULAR HEMOGLOBIN 29 pg (25-34); MEAN CORPUSCULAR HGB CONC 32 g/dL (32-36); MEAN CORPUSCULAR VOLUME 91 fL (80-99); MEAN PLATELET VOLUME 9.6 fL (9.0-12.2); MONOCYTES # (AUTO) 1.3 10^3/uL (0.0-1.0); MONOCYTES % (AUTO) 9 % (0-12); NEUTROPHILS # (AUTO) 11.1 10^3/uL (1.8-7.8); NEUTROPHILS % (AUTO) 82 % (42-75); PLATELET COUNT 285 10^3/uL (130-400); WHITE BLOOD COUNT 13.5 10^3/uL (4.3-11.0)
[2021-01-18 04:37] LABS: ALANINE AMINOTRANSFERASE 17 U/L (0-55); ALBUMIN 3.3 GM/DL (3.2-4.5); ALKALINE PHOSPHATASE 74 U/L (40-136); BILIRUBIN,TOTAL 1.2 MG/DL (0.1-1.0); BUN/CREATININE RATIO 16; CALCIUM 8.7 MG/DL (8.5-10.1); CARBON DIOXIDE 17 MMOL/L (21-32); CHLORIDE 111 MMOL/L (98-107); CREATININE SERUM 0.79 MG/DL (0.60-1.30); GFR ESTIMATED > 60; GLUCOSE 111 MG/DL (70-105); SODIUM 138 MMOL/L (135-145)
[2021-01-18] MEDS: VASOPRESSIN INJECTION 20 UNIT in NS (IVPB) 100 ML IV SCH ×3 (05:58→23:40)
[2021-01-18] MEDS: LACTATED RINGERS 1,000 ML IV SCH ×2 (06:29→13:37)
[2021-01-18] MEDS: RT-ALBUTEROL/IPRATROPIUM 3 ML (DUONEB) VIAL INH SCH ×4 (06:36→18:44)
[2021-01-18] MEDS: FUROSEMIDE 40 MG (LASIX) TAB PO SCH (07:46)
[2021-01-18] MEDS: VITAMIN D3 25 MCG (1,000 UNITS) TABLET PO SCH (07:46)
[2021-01-18] MEDS: OMEGA 3 (FISH OIL) 1000 MG CAP PO SCH (07:47)
[2021-01-18] MEDS: MELOXICAM 7.5 MG (MOBIC) TABLET PO SCH (07:48)
[2021-01-18] MEDS: cefTRIAXone FOR IV USE 1,000 MG in WATER (STERILE) FOR INJECTION 10 ML IV SCH (07:49)
--- NOTE | 2021-01-18 07:53 | Diagnostic Imaging Report ---
CHEST 1 VIEW, AP/PA ONLY Indication: Shortness of air Comparison: 01/17/2021 Findings: Stable enlargement of the cardiac silhouette. Visualized lungs are clear. Posterior lower lobes are poorly evaluated by portable radiography. No pleural effusion or pneumothorax. Impression: 1. Unchanged enlargement of the cardiac silhouette. No adverse development. Dictated by: Dictated on workstation # [id number]
--- NOTE | 2021-01-18 08:06 | History & Physical-Hospitalist ---
History of Present Illness HPI/Chief Complaint Pt is a 65yoCM with a PMH of HTN, HLD, depression and RA who presented to the ER due to chest pain. He states that he has had intermittent chest pain for the past couple of days with SOB and PATRICK. He also complained of left arm pain and swelling. The left arm pain and swelling have been going on for longer though, a few days to a week. He has had similar pain when he has has RA flares in the past. He also complains of pain in her ankles, hips, and joints. He has previously need a steroid treatment when his pain has gotten this bad before. He does not currently take any DMARDs nor does he see a operating room orderly. He was to go for a stress test today but due to the pain was unable to stand and walk. Source: patient Date Seen 01/18/21 Time Seen by a Provider: 08:00 Attending Physician Enrique Wilkerson MD PCP No,Local Physician Referring Physician Date of Admission January 17, 2021 at 12:10 Home Medications & Allergies Home Medications Reviewed patient Home Medication Reconciliation performed by pharmacy medication reconciliations air moving technician and/or nursing. Patients Allergies have been reviewed. Allergies Allergies Coded Allergies No Known Drug Allergies (Unverified10/01/18) Patient Social History Marrital Status: Smoking Status: Former Smoker Immunizations Up To Date Influenza Vaccine Up-to-Date: No; Not Current First/Initial COVID19 Vaccinat: December 2020 Current Status Primary Language: Kazakh Past Medical History HTN, HLD, RA, Depression Family Medical History Family Hx: No contributory Review of Systems Constitutional: No chills; diaphoresis, fever EENTM: no symptoms reported Respiratory: No cough; dyspnea on exertion, short of breath Cardiovascular: chest pain, edema (left upper arm); No Hx of Intervention, No palpitations Gastrointestinal: No abdominal pain, No constipation, No nausea, No vomiting Genitourinary: No dysuria, No frequency Musculoskeletal: see HPI, joint pain Skin: no symptoms reported Psychiatric/Neurological: No Symptoms Reported Physical Exam Physical Exam Vital Signs Vital Signs - First Documented 01/17/21 01/17/21 01/17/21 08:50 09:10 16:43 Temp 35.5 Pulse 161 Resp 22 B/P (MAP) 118/86 (97) Pulse Ox 94 O2 Delivery Room Air O2 Flow Rate 2.00 FiO2 21 Capillary Refill : Less Than 3 Seconds Height, Weight, BMI Height: 5'11.00" Weight: 232lbs. oz. 105.254895ss; 35.92 BMI Method:Stated General Appearance: No Apparent Distress, Mild Distress (appears umcomfor table), Obese HEENT: PERRL/EOMI, Moist Mucous Membranes Neck: Normal Inspection, Supple Respiratory: Lungs Clear, No Accessory Muscle Use, No Respiratory Distress Cardiovascular: Regular Rate, Rhythm, No JVD, No Murmur Gastrointestinal: Normal Bowel Sounds, Non Tender, Soft Extremity: Normal Capillary Refill, No Calf Tenderness, No Pedal Edema, Swelling (left upper extremity) Neurologic/Psychiatric: Alert, Oriented x3, Normal Mood/Affect Results Results/Procedures Labs Laboratory Tests 01/17/21 09:00 01/18/21 04:05 Patient resulted labs reviewed. Imaging: Reviewed Imaging Report [facility] [place] [place] NAME: MISTI HENSON MED REC#: [id number] PT STATUS: REG ER : 1955 PHYSICIAN: HA MCLAIN MD ADMIT DATE: 01/17/21/ER Draft Date of Exam:01/17/21 CHEST 1 VIEW, AP/PA ONLY EXAMINATION: Portable erect AP chest at 1030 hours. INDICATION: Chest pain. FINDINGS: The heart is mildly enlarged and the heart does seem somewhat more prominent than noted on the prior exam of 10/03/2018. The central pulmonary vascularity is also somewhat more striking than on the prior exam, but there is still no evidence for failure. There is no sign of pneumonia or pleural effusion either. The mediastinum is not widened. The osseous structures are intact. IMPRESSION: There is mild cardiomegaly but there is no evidence for an acute cardiopulmonary abnormality. Dictated on workstation # [id number] Dict: 01/17/21 1037 Trans: 01/17/21 1041 [id number] Interpreted by: VINCENT SALAZAR MD Electronically signed by: [facility] [place], [place] NAME: MISTI HENSON MED REC#: [id number] PT STATUS: REG ER : 1955 PHYSICIAN: HA MCLAIN MD ADMIT DATE: 01/17/21/ER Signed Date of Exam:01/17/21 CT ANGIO CHEST W PROCEDURE: CT angiography of the chest with contrast. TECHNIQUE: Multiple contiguous axial images were obtained through the chest after uneventful bolus administration of intravenous contrast. 3D reconstructed CTA MIP acquisitions were also performed. Auto Exposure Controls were utilized during the CT exam to meet ALARA standards for radiation dose reduction. INDICATION: Shortness of breath. Chest pain. COMPARISON: Chest radiograph performed earlier the same date. FINDINGS: This helical CT pulmonary angiogram is diagnostic to the subsegmental level branches of the pulmonary artery and demonstrates no pulmonary emboli. The heart and great vessels are unremarkable. There is no pericardial effusion. Mildly prominent mediastinal lymph node is seen in the right tracheoesophageal groove measuring 0.7 cm in short axis. Prominent lymph nodes are also seen in the left axilla. No focal consolidation or pulmonary mass. No central endobronchial obstructing lesions. Mild bronchial wall thickening is present. No pneumothorax or pleural effusion. No acute osseous abnormalities. Old fracture of the sternum is noted. There is hepatic steatosis. Partial visualization of the gallbladder appears to show abnormally thickened gallbladder wall. IMPRESSION: 1. No acute pulmonary embolus. 2. Mildly prominent mediastinal and left axillary lymph nodes. These are indeterminate and followup may be considered in 12 months. 3. Partially visualized gallbladder demonstrates thickened gallbladder wall. Consider liver gallbladder ultrasound to further evaluate. 4. Hepatic steatosis. 5. Mild bronchial wall thickening, which may represent bronchitis/bronchiolitis. No focal consolidations. Dictated by: Dictated on workstation # [id number] Dict: 01/17/21 1114 Trans: 01/17/21 1142 CV [id number] Interpreted by: ANN-MARIE ABBASI DO Electronically signed by: ANN-MARIE ABBASI DO 01/17/21 1142 Assessment/Plan Admission Diagnosis A-fib with RVR Admission Status: Inpatient Order (span 2 midnights) Reason for Inpatient Admission: see below Assessment and Plan A-fib with RVR Chest pain left arm swelling Converted out of a fib on cardizem gtt Cardiology consulted, appreciate recs Plan for stress test but unable to tolerate, defer to cardiology for further work up troponin negative On eliquis for stroke prophylaxis D- dimer elevated and CTA negative for PE Will get uppe extremity usg Fever and leukocytosis CXR clear 2 days in a row Will get UA as still pending from yesterday Blood cultures pending Likely viral etiology but continue on Rocephin RA Appears to have acute flare May account for fever Will start on prednisone HTN HLD Continue home meds DVT ppx: On eliquis as above ENRIQUE WILKERSON MD January 18, 2021 08:06
[2021-01-18] MEDS ORDERED: predniSONE 20 MG TAB PO NR (08:34)
[2021-01-18] MEDS: fentaNYL INJ 100 MCG/2 ML AMP IVP PRN (09:05)
[2021-01-18] MEDS: ASPIRIN E.C. 81 MG (ECOTRIN) TAB PO SCH (09:05)
[2021-01-18] MEDS: APIXABAN 5 MG (ELIQUIS) TABLET PO SCH ×2 (09:06→20:43)
--- NOTE | 2021-01-18 10:32 | Progress Note - Cardiology ---
Cardiology SOAP Progress Note Subjective: In bed this morning Reports generalized body aches, joint pain which he feels is d/t his arthritis C/O continued SOB No c/o CP or palpitations Objective: I&O/Vital Signs 01/20/21 01/20/21 01/20/21 01/20/21 06:40 06:56 07:33 09:00 Temp 36.6 36.6 Pulse 71 95 95 Resp 20 B/P (MAP) 154/93 (113) Pulse Ox 96 90 90 O2 Delivery Room Air Room Air 01/20/21 01/20/21 01/20/21 01/20/21 09:00 11:11 11:45 12:32 Temp 36.3 Pulse 94 82 Resp 20 B/P (MAP) 150/84 (106) Pulse Ox 91 93 O2 Delivery Room Air Room Air Room Air 01/20/21 01/20/21 15:07 16:10 Temp 36.6 Pulse 80 Resp 17 B/P (MAP) 142/74 (96) Pulse Ox 92 94 O2 Delivery Room Air Room Air 01/20/21 00:00 Intake Total 1740 ml Output Total 575 ml Balance 1165 ml Weight (Pounds): 232 Weight (Calculated Kilograms): 105.301149 Constitutional: AAO x 3, well-developed, well-nourished Respiratory: No accessory muscle use, No respiratory distress; chest expansion is symmetric, chest is bilaterally symmetric, other (good air entry) Cardiovascular: regular rate-rhythm; No JVD; S1 and S2 Gastrointestional: No tender; soft, round, audible bowel sounds Extremities: other (left hand with mod swelling and inflammation) Neurologic/Psychiatric: grossly intact Skin: No rash on exposed areas, No ulcerations on exposed areas Results/Procedures: Labs Laboratory Tests 01/20/21 05:20: White Blood Count 14.7H, Red Blood Count 4.21L, Hemoglobin 12.3L, Hematocrit 38L , Mean Corpuscular Volume 89, Mean Corpuscular Hemoglobin 29, Mean Corpuscular Hemoglobin Concent 33, Red Cell Distribution Width 13.7, Platelet Count 427H, Mean Platelet Volume 10.1, Immature Granulocyte % (Auto) 1, Neutrophils (%) (Auto) 81H, Lymphocytes (%) (Auto) 12, Monocytes (%) (Auto) 6, Eosinophils (%) (Auto) 1, Basophils (%) (Auto) 1, Neutrophils # (Auto) 11.9H, Lymphocytes # (Auto) 1.7, Monocytes # (Auto) 0.9, Eosinophils # (Auto) 0.1, Basophils # (Auto) 0.1, Immature Granulocyte # (Auto) 0.1, Sodium Level 141, Potassium Level 3.7, Chloride Level 107, Carbon Dioxide Level 23, Anion Gap 11, Blood Urea Nitrogen 21H, Creatinine 0.73, Estimat Glomerular Filtration Rate > 60, BUN/Creatinine Ratio 29, Glucose Level 92, Calcium Level 9.3, Magnesium Level 1.9 Microbiology 01/18/21 Urine Culture - Final, Complete NO GROWTH 01/17/21 MRSA Screen - Final, Complete MRSA not isolated 01/17/21 Blood Culture - Preliminary, Resulted No growth Procedures NAME: MISTI HENSON [facility] REC#: [id number] PT STATUS: ADM IN : 1955 PHYSICIAN: ENRIQUE JOHNSON MD ADMIT DATE: 01/17/21/ICU Signed Date of Exam:01/18/21 CHEST 1 VIEW, AP/PA ONLY CHEST 1 VIEW, AP/PA ONLY Indication: Shortness of air Comparison: 01/17/2021 Findings: Stable enlargement of the cardiac silhouette. Visualized lungs are clear. Posterior lower lobes are poorly evaluated by portable radiography. No pleural effusion or pneumothorax. Impression: 1. Unchanged enlargement of the cardiac silhouette. No adverse development. Dictated by: Dictated on workstation # [id number] Dict: 01/18/21 0751 Trans: 01/18/21 0856 CHERRIE [id number] Interpreted by: MEDINA BROWN MD Electronically signed by: MEDINA BROWN MD 01/18/21 0856 A/P: Assessment: New onset a-fib with RVR - first diagnosed on 01-17-21 in the ED - converted to SR Chest pain of undetermined etiology Progressive dyspnea of undetermined etiology HTN HLD Cough of undetermined etiology HLD Obese Polyarthritis, chronic. Pt reports it has been diagnosed as gout Suspected sleep apnea Plan: New onset a-fib with RVR - converted to SR on Cardizem gtt - continue oral OAC with Eliquis Managment of gout/arthritis per Medical services Unable to go through with stress test today d/t diffuse body/joint discomfort - he requests it be done at a later date d/t his pain Monitor lab Replace electrolytes as indicated Stop Lisinopril d/t cough which could be r/t PHYLICIA (-) HENNA CARDOSO January 18, 2021 10:32
--- NOTE | 2021-01-18 10:55 | Diagnostic Imaging Report ---
PROCEDURE: US venous upper extremity left. INDICATION: Left upper extremity swelling and pain TECHNIQUE: Color and grayscale sonographic images with duplex Doppler evaluation of the upper extremity venous system. CORRELATION STUDY: None FINDINGS: There is no intraluminal filling defect within the visualized portion of the internal jugular, subclavian, axillary, brachial and/or basilic veins to suggest thrombus formation. Where applicable, these vessels demonstrate normal response to compression and augmentation. There is no significant soft tissue fluid collection. IMPRESSION: 1. Negative left upper extremity venous duplex Doppler evaluation. Dictated by: Dictated on workstation # [id number]
[2021-01-18 11:44] LABS: BILIRUBIN,URINE NEGATIVE (NEGATIVE); CLARITY,URINE CLEAR; COLOR,URINE YELLOW; GLUCOSE, URINE (UA) NEGATIVE (NEGATIVE); KETONES,URINE NEGATIVE (NEGATIVE); LEUKOCYTE ESTERASE ,URINE 1+ (NEGATIVE); NITRITE,URINE NEGATIVE (NEGATIVE); PH,URINE 5.5 (5-9); PROTEIN,URINE NEGATIVE (NEGATIVE)
[2021-01-18 12:01] LABS: BACTERIA,URINE TRACE /HPF; SQUAMOUS EPITHELIAL CELL,UR 0-2 /HPF
--- NOTE | 2021-01-18 17:14 | Progress Note - Cardiology ---
Cardiology SOAP Progress Note Subjective: Severe gen joint and back pain Marked gen malaise and weakness No cp No palp or syncope or shortness of breath at rest No n/v/d Objective: I&O/Vital Signs 01/18/21 01/18/21 01/18/21 01/18/21 06:00 06:37 06:55 07:00 Pulse 96 96 96 Resp 26 30 B/P (MAP) 124/79 (94) 125/68 (87) Pulse Ox 92 95 95 O2 Delivery Nasal Cannula Nasal Cannula Nasal Cannula O2 Flow Rate 2.00 2.00 2.00 01/18/21 01/18/21 01/18/21 01/18/21 07:45 07:47 07:48 08:00 Temp 38.5 38.5 38.5 Pulse 98 Resp 38 B/P (MAP) 113/84 (94) Pulse Ox 97 O2 Delivery Nasal Cannula O2 Flow Rate 2.00 01/18/21 01/18/21 01/18/21 01/18/21 08:00 08:17 08:17 08:20 Temp 37.7 37.7 Pulse 98 Resp 38 B/P (MAP) 113/84 (94) Pulse Ox 97 97 O2 Delivery Nasal Cannula Nasal Cannula O2 Flow Rate 2.00 2.00 01/18/21 01/18/21 01/18/21 01/18/21 09:00 09:00 10:00 11:00 Temp 37.7 Pulse 98 98 89 88 Resp 30 30 22 14 B/P (MAP) 156/85 (108) 156/85 (108) 140/76 (97) Pulse Ox 65 65 100 99 O2 Delivery Nasal Cannula Nasal Cannula Nasal Cannula Nasal Cannula O2 Flow Rate 2.00 2.00 2.00 2.00 01/18/21 01/18/21 01/18/21 01/18/21 11:01 12:00 12:00 12:00 Temp 37.0 Pulse 85 Resp 24 B/P (MAP) 128/72 (90) Pulse Ox 100 99 99 O2 Delivery Nasal Cannula Nasal Cannula Nasal Cannula O2 Flow Rate 1.00 1.00 2.00 01/18/21 01/18/21 01/18/21 01/18/21 12:59 13:00 14:00 14:45 Pulse 85 89 86 Resp 13 23 B/P (MAP) 124/72 (89) 122/75 (91) Pulse Ox 98 98 98 O2 Delivery Nasal Cannula Nasal Cannula Room Air O2 Flow Rate 2.00 2.00 01/18/21 01/18/21 01/18/21 15:00 15:28 16:00 Temp 36.9 Pulse 88 122 Resp 17 18 B/P (MAP) 115/73 (87) 105/73 (84) Pulse Ox 100 99 O2 Delivery Nasal Cannula Nasal Cannula O2 Flow Rate 2.00 2.00 01/18/21 00:00 Intake Total 2990 ml Output Total 450 ml Balance 2540 ml Weight (Pounds): 232 Weight (Calculated Kilograms): 105.415059 Constitutional: AAO x 3, well-developed, well-nourished Respiratory: No accessory muscle use, No respiratory distress; chest expansion is symmetric, chest is bilaterally symmetric, other (good air entry) Cardiovascular: regular rate-rhythm; No JVD; S1 and S2 Gastrointestional: No tender; soft, round, audible bowel sounds Extremities: other (left hand with mod swelling and inflammation) Neurologic/Psychiatric: grossly intact Skin: No rash on exposed areas, No ulcerations on exposed areas Results/Procedures: Labs Laboratory Tests 01/17/21 20:50: Troponin I < 0.028 01/18/21 04:05: White Blood Count 13.5H, Red Blood Count 4.04L, Hemoglobin 11.8#L, Hematocrit 37L, Mean Corpuscular Volume 91, Mean Corpuscular Hemoglobin 29, Mean Corpuscular Hemoglobin Concent 32, Red Cell Distribution Width 13.5, Platelet Count 285, Mean Platelet Volume 9.6, Immature Granulocyte % (Auto) 1, Neutrophils (%) (Auto) 82H, Lymphocytes (%) (Auto) 7L, Monocytes (%) (Auto) 9, Eosinophils (%) (Auto) 1, Basophils (%) (Auto) 1, Neutrophils # (Auto) 11.1H, Lymphocytes # (Auto) 1.0, Monocytes # (Auto) 1.3H, Eosinophils # (Auto) 0.1, Basophils # (Auto) 0.1, Immature Granulocyte # (Auto) 0.1, Sodium Level 138, Potassium Level 4.0, Chloride Level 111H, Carbon Dioxide Level 17L, Anion Gap 10, Blood Urea Nitrogen 13, Creatinine 0.79, Estimat Glomerular Filtration Rate > 60, BUN/Creatinine Ratio 16, Glucose Level 111H, Calcium Level 8.7, Corrected Calcium 9.3, Total Bilirubin 1.2H, Aspartate Amino Transf (AST/SGOT) 24, Alanine Aminotransferase (ALT/SGPT) 17, Alkaline Phosphatase 74, Total Protein 6.0L, Albumin 3.3, Procalcitonin 0.37H 01/18/21 11:15: Urine Color YELLOW, Urine Clarity CLEAR, Urine pH 5.5, Urine Specific [place] 1.015L, Urine Protein NEGATIVE, Urine Glucose (UA) NEGATIVE, Urine Ketones NEGATIVE, Urine Nitrite NEGATIVE, Urine Bilirubin NEGATIVE, Urine Urobilinogen 0.2, Urine Leukocyte Esterase 1+H, Urine RBC (Auto) NEGATIVE, Urine RBC NONE, Urine WBC 5-10H, Urine Squamous Epithelial Cells 0-2, Urine Crystals NONE, Urine Bacteria TRACE, Urine Casts NONE, Urine Mucus NEGATIVE, Urine Culture Indicated YES Microbiology 01/17/21 MRSA Screen - Final, Complete MRSA not isolated 01/17/21 Blood Culture - Preliminary, Resulted No growth Laboratory Tests 01/17/21 09:00 01/18/21 04:05 A/P: Assessment: New onset a-fib with RVR - first diagnosed on 01-17-21 in the ED - converted to SR Chest pain of undetermined etiology Progressive dyspnea of undetermined etiology HTN HLD Cough of undetermined etiology HLD Obese Polyarthritis, chronic. Pt reports it has been diagnosed as gout Suspected sleep apnea Plan: Continue long-acting dil OAC with Eliquis Managment of gout/arthritis per Medical services Unable to go through with stress test today d/t diffuse body/joint discomfort - he requests it be done at a later date d/t his pain Monitor lab Replace electrolytes as indicated Stop Lisinopril d/t cough which could be r/t PHYLICIA (-) I discussed his case with Dr Wilkerson on the phone NONA NGUYỄN MD FACP FAC CCDS January 18, 2021 17:14
[2021-01-18] MEDS: ATORVASTATIN 10 MG TABLET PO SCH (20:43)
[2021-01-19] VITALS (13 sets, daily range): BP systolic 110–146; BP diastolic 62–100
[2021-01-19] MEDS: LACTATED RINGERS 1,000 ML IV SCH ×2 (03:54→06:35)
[2021-01-19 04:25] LABS: BASOPHILS % (AUTO) 0 % (0-10); EOSINOPHILS % (AUTO) 0 % (0-10); HEMATOCRIT 35 % (40-54); HEMOGLOBIN 11.6 g/dL (13.3-17.7); LYMPHOCYTES % (AUTO) 7 % (12-44); MEAN CORPUSCULAR HEMOGLOBIN 30 pg (25-34); MEAN CORPUSCULAR HGB CONC 33 g/dL (32-36); MEAN CORPUSCULAR VOLUME 89 fL (80-99); MEAN PLATELET VOLUME 9.6 fL (9.0-12.2); MONOCYTES # (AUTO) 1.1 10^3/uL (0.0-1.0); MONOCYTES % (AUTO) 7 % (0-12); NEUTROPHILS # (AUTO) 13.4 10^3/uL (1.8-7.8); NEUTROPHILS % (AUTO) 86 % (42-75); PLATELET COUNT 333 10^3/uL (130-400); WHITE BLOOD COUNT 15.6 10^3/uL (4.3-11.0)
[2021-01-19 04:36] LABS: CHLORIDE 107 MMOL/L (98-107); POTASSIUM 3.7 MMOL/L (3.6-5.0); SODIUM 141 MMOL/L (135-145)
[2021-01-19 04:38] LABS: CALCIUM 9.1 MG/DL (8.5-10.1); GLUCOSE 117 MG/DL (70-105)
[2021-01-19 04:40] LABS: CARBON DIOXIDE 22 MMOL/L (21-32)
[2021-01-19 04:42] LABS: CREATININE SERUM 0.78 MG/DL (0.60-1.30); GFR ESTIMATED > 60
[2021-01-19 04:43] LABS: BUN/CREATININE RATIO 22
[2021-01-19 04:44] LABS: MAGNESIUM 1.8 MG/DL (1.6-2.4)
[2021-01-19] MEDS: POTASSIUM CL 10MEQ/50ML IVPB 50 ML IV SCH (04:45)
[2021-01-19] MEDS: MAGNESIUM 1 GM/100 ML IVPB 100 ML IV SCH (04:45)
[2021-01-19] MEDS: KCL 20 MEQ TAB (K-DUR) PO SCH (04:46)
[2021-01-19] MEDS: predniSONE 20 MG TAB PO SCH (06:22)
[2021-01-19] MEDS: VASOPRESSIN INJECTION 20 UNIT in NS (IVPB) 100 ML IV SCH (07:26)
[2021-01-19] MEDS: NOREPINEPHRINE 8 MG/250 ML 250 ML IV SCH (07:28)
[2021-01-19] MEDS: RT-ALBUTEROL/IPRATROPIUM 3 ML (DUONEB) VIAL INH SCH ×4 (07:47→20:52)
[2021-01-19] MEDS: ACETAMINOPHEN 500 MG TAB (TYLENOL) PO PRN ×2 (08:11→19:52)
--- NOTE | 2021-01-19 08:11 | Progress Note - Hospitalist ---
Subjective HPI/CC On Admission Date Seen by Provider: January 19, 2021 Time Seen by Provider: 08:07 Pt is a 65yoCM with a PMH of HTN, HLD, depression and RA who presented to the ER due to chest pain. He states that he has had intermittent chest pain for the past couple of days with SOB and PATRICK. He also complained of left arm pain and sw elling. The left arm pain and swelling have been going on for longer though, a few days to a week. He has had similar pain when he has has RA flares in the past. He also complains of pain in her ankles, hips, and joints. He has previously need a steroid treatment when his pain has gotten this bad before. He does not currently take any DMARDs nor does he see a physical instructor. He was to go for a stress test today but due to the pain was unable to stand and walk. Subjective/Events-last exam Pt reports feeling much better today. Pain improved. Has not been out of bed yet though. Encourage OOB activity and plan for PT/OT. Patient requests stress test tomorrow as he thinks he'll be up to it then. I advised him to discuss this with the landing man. Focused Exam Lactate Level 01/17/21 09:00: Lactic Acid Level 2.30*H 01/17/21 12:46: Lactic Acid Level 1.01 Objective Exam Vital Signs Vital Signs Date Time Temp Pulse Resp B/P (MAP) Pulse Ox O2 Delivery O2 Flow Rate FiO2 01/19/21 07:48 91 Room Air 01/19/21 07:33 37.4 01/19/21 07:28 80 146/100 01/19/21 06:00 22 01/18/21 18:00 2.00 01/17/21 16:43 21 Capillary Refill : Less Than 3 Seconds General Appearance: No Apparent Distress, Obese Respiratory: Lungs Clear, No Respiratory Distress Cardiovascular: No Murmur, Tachycardia (regular rate) Gastrointestinal: Normal Bowel Sounds, Soft Extremity: Other (left arm swelling decreased) Neurologic/Psychiatric: Alert, Oriented x3 Results/Procedures Lab Laboratory Tests 01/19/21 04:10 Patient resulted labs reviewed. Imaging: Reviewed Imaging Report Assessment/Plan Assessment and Plan Assess & Plan/Chief Complaint A-fib with RVR Chest pain left arm swelling Remains in sinus rhythm Continue oral cardizem Cardiology consulted, appreciate recs Pt requesting stress test tomorrow troponins negative On eliquis for stroke prophylaxis doppler negative for DVT Fever and leukocytosis UA negative Blood cultures NGTD Likely viral etiology but continue on Rocephin for one more day Leukocytosis down but up today likely due to steroids RA Appears to have acute flare May account for fever Continue prednisone PT/OT Consider IRU HTN HLD Continue home meds DVT ppx: On eliquis as above ENRIQUE JOHNSON MD January 19, 2021 08:11
[2021-01-19] MEDS: OMEGA 3 (FISH OIL) 1000 MG CAP PO SCH (08:12)
[2021-01-19] MEDS: MELOXICAM 7.5 MG (MOBIC) TABLET PO SCH (08:12)
[2021-01-19] MEDS: APIXABAN 5 MG (ELIQUIS) TABLET PO SCH ×2 (08:12→19:51)
[2021-01-19] MEDS: ASPIRIN E.C. 81 MG (ECOTRIN) TAB PO SCH (08:12)
[2021-01-19] MEDS: FUROSEMIDE 40 MG (LASIX) TAB PO SCH (08:13)
[2021-01-19] MEDS: VITAMIN D3 25 MCG (1,000 UNITS) TABLET PO SCH (08:13)
[2021-01-19] MEDS: cefTRIAXone FOR IV USE 1,000 MG in WATER (STERILE) FOR INJECTION 10 ML IV SCH (08:13)
--- NOTE | 2021-01-19 09:48 | Progress Note - Cardiology ---
Cardiology SOAP Progress Note Subjective: Lying in bed States his generalized body pain is somewhat better than yesterday No c/o CP or SOB Objective: I&O/Vital Signs 01/20/21 01/20/21 01/20/21 01/20/21 06:40 06:56 07:33 09:00 Temp 36.6 36.6 Pulse 71 95 95 Resp 20 B/P (MAP) 154/93 (113) Pulse Ox 96 90 90 O2 Delivery Room Air Room Air 01/20/21 01/20/21 01/20/21 01/20/21 09:00 11:11 11:45 12:32 Temp 36.3 Pulse 94 82 Resp 20 B/P (MAP) 150/84 (106) Pulse Ox 91 93 O2 Delivery Room Air Room Air Room Air 01/20/21 01/20/21 15:07 16:10 Temp 36.6 Pulse 80 Resp 17 B/P (MAP) 142/74 (96) Pulse Ox 92 94 O2 Delivery Room Air Room Air 01/20/21 00:00 Intake Total 1740 ml Output Total 575 ml Balance 1165 ml Weight (Pounds): 232 Weight (Calculated Kilograms): 105.580847 Constitutional: AAO x 3, well-developed, well-nourished Respiratory: No accessory muscle use, No respiratory distress; chest expansion is symmetric, chest is bilaterally symmetric, other (good air entry) Cardiovascular: regular rate-rhythm; No JVD; S1 and S2 Gastrointestional: No tender; soft, round, audible bowel sounds Extremities: other (left hand with mod swelling and inflammation) Neurologic/Psychiatric: grossly intact Skin: No rash on exposed areas, No ulcerations on exposed areas Results/Procedures: Labs Laboratory Tests 01/20/21 05:20: White Blood Count 14.7H, Red Blood Count 4.21L, Hemoglobin 12.3L, Hematocrit 38L , Mean Corpuscular Volume 89, Mean Corpuscular Hemoglobin 29, Mean Corpuscular Hemoglobin Concent 33, Red Cell Distribution Width 13.7, Platelet Count 427H, Mean Platelet Volume 10.1, Immature Granulocyte % (Auto) 1, Neutrophils (%) (Auto) 81H, Lymphocytes (%) (Auto) 12, Monocytes (%) (Auto) 6, Eosinophils (%) (Auto) 1, Basophils (%) (Auto) 1, Neutrophils # (Auto) 11.9H, Lymphocytes # (Auto) 1.7, Monocytes # (Auto) 0.9, Eosinophils # (Auto) 0.1, Basophils # (Auto) 0.1, Immature Granulocyte # (Auto) 0.1, Sodium Level 141, Potassium Level 3.7, Chloride Level 107, Carbon Dioxide Level 23, Anion Gap 11, Blood Urea Nitrogen 21H, Creatinine 0.73, Estimat Glomerular Filtration Rate > 60, BUN/Creatinine Ratio 29, Glucose Level 92, Calcium Level 9.3, Magnesium Level 1.9 Microbiology 01/18/21 Urine Culture - Final, Complete NO GROWTH 01/17/21 MRSA Screen - Final, Complete MRSA not isolated 01/17/21 Blood Culture - Preliminary, Resulted No growth Procedures NAME: MISTI HENSON [facility] REC#: [id number] PT STATUS: ADM IN : 1955 PHYSICIAN: ENRIQUE JOHNSON MD ADMIT DATE: 01/17/21/ICU Signed Date of Exam:01/18/21 US VENOUS UPPER EXT LT PROCEDURE: US venous upper extremity left. INDICATION: Left upper extremity swelling and pain TECHNIQUE: Color and grayscale sonographic images with duplex Doppler evaluation of the upper extremity venous system. CORRELATION STUDY: None FINDINGS: There is no intraluminal filling defect within the visualized portion of the internal jugular, subclavian, axillary, brachial and/or basilic veins to suggest thrombus formation. Where applicable, these vessels demonstrate normal response to compression and augmentation. There is no significant soft tissue fluid collection. IMPRESSION: 1. Negative left upper extremity venous duplex Doppler evaluation. Dictated by: Dictated on workstation # [id number] Dict: 01/18/21 1053 Trans: 01/18/21 1054 DO [id number] Interpreted by: JOE HARRIS DO Electronically signed by: JOE HARRIS DO 01/18/21 1054 A/P: Assessment: New onset a-fib with RVR - first diagnosed on 01-17-21 in the ED - converted to SR Chest pain of undetermined etiology Progressive dyspnea of undetermined etiology HTN HLD Cough of undetermined etiology HLD Obese Polyarthritis, chronic. Pt reports it has been diagnosed as gout Suspected sleep apnea Plan: Continue long-acting dil OAC with Eliquis Managment of gout/arthritis per Medical services MPI as an out pt once his arthritis flare up has resolved Monitor lab Replace electrolytes as indicated Stop Lisinopril d/t cough which could be r/t PHYLICIA (-) Discussed with HENNA Abad January 19, 2021 09:48
--- NOTE | 2021-01-19 10:18 | Physical Therapy Evaluation ---
PT Evaluation-General Medical Diagnosis Admission Date January 17, 2021 at 12:10 Medical Diagnosis: a-fib, weakness Onset Date: January 17, 2021 Therapy Diagnosis Therapy Diagnosis: impaired mobility, strength, endurance Height/Weight Height (Feet): 5 Height (Inches): 11.00 Weight (Pounds): 232 Precautions Precautions/Isolations: Fall Prevention, Standard Precautions Referral Physician: Rock Reason for Referral: Evaluation/Treatment Medical History Pertinent Medical History: HTN Additional Medical History hyperlipidemia, RA Reviewed History: Yes Social History Home: Single Level Current Living Status: Significant Other Entry Into Home: Stairs Without Railing PT Steps Into Home: 1 Prior Prior Level of Function SCALE: Activities may be completed with or without assistive devices. 3-Qdnndyakvz-rsmcaqk completes the activity by him/herself with no assistance from a helper. 5-Set-up or Clean-up Assistance-helper sets up or cleans up; patient completes activity. [place] assists only prior to or following the activity. 4-Supervision or Touching Assistance-helper provides verbal cues and/or touching/steadying and/or contact guard assistance as patient completes activity. Assistance may be provided throughout the activity or intermittently. 3-Partial/Moderate Assistance-helper does LESS THAN HALF the effort. [place] lifts, holds or supports trunk or limbs, but provides less than half the effort. 2-Substantial/Maximal Assistance-helper does MORE THAN HALF the effort. [place] lifts or holds trunk or limbs and provides more than half the effort. 4-Lhizvhjuy-abkqch does ALL the effort. Patient does none of the effort to complete the activity. Or, the assistance of 2 or more helpers is required for the patient to complete the activity. If activity was not attempted, code reason: 7-Patient Refused. 9-Not Applicable-not attempted and the patient did not perform the activity before the current illness, exacerbation or injury. 10-Not Attempted due to Environmental Limitations-(lack of equipment, weather restraints, etc.). 88-Not Attempted due to Medical Conditions or Safety Concerns. Bed Mobility: 6 Transfers (B,C,W/C): 6 Gait: 6 Stairs: 6 Indoor Mobility (Ambulation): Independent Stairs: Independent PT Evaluation-Current Subjective Patient in bed pre tx, agrees to PT, has 7/10 arthritis pain all over but specifically complains of his shoulders. Pt/Family Goals "to get stronger" Objective Patient Orientation: Person, Place, Situation ROM/Strength ROM Lower Extremities WNL Strength Lower Extremities LLE (hip flexion 3+/5, knee flexion 3+/5, knee extension 3+/5, dorsiflexion 4- /5), RLE (hip flexion 3+/5, knee flexion 3+/5, knee extension 3+/5, dorsiflexion 4-/5) Sensory Vision: Functional Hearing: Functional Sensation Right Lower Extremit: Intact Sensation Left Lower Extremity: Intact Transfers Roll Left to Right (QC): 3 Lying to Sitting/Side of Bed(Q: 3 Sit to Stand (QC): 3 Chair/Mwf-wn-Hdwlk Xfer(QC): 4 Gait Does the Patient Walk?: Yes Mode of Locomotion: Walk Anticipated Mode of Locomotion: Walk Distance: 5' Gait Assistive Device: FWW Comments/Gait Description CGA, cues for direction and safety, wide ARTURO, unsteady Balance Sitting Static: Fair Sitting Dynamic: Fair Standing Static: Fair Standing Dynamic: Fair Treatment BLE seated exercises x20 (AP, LAQ) Assessment/Needs Patient has impaired mobility, strength, endurance. Patient in recliner post tx with nurse call, phone, tray, all needs met, OT to take over right after PT. Patient needs min assist for supine to sit and sit to stand. Patient's functional mobility is not enough to get around at home safely at this time, needs assist or continued therapy. Rehab Potential: Fair PT Senior Care Goals Storage Administrator Goals PT Storage Administrator Goals Time Frame: January 26, 2021 Roll Left & Right (QC): 6 Sit to Lying (QC): 6 Lying-Sitting on Side/Bed(QC): 6 Sit to Stand (QC): 5 Chair/Uiw-qb-[place]ul[place] Xfer(QC): 5 Walk 10 feet (QC): 5 Walk 50ft with 2 Turns (QC): 5 PT Plan Problem List Problem List: Activity Tolerance, Functional Strength, Safety, Balance, Gait, Transfer, Bed Mobility, ROM Treatment/Plan Treatment Plan: Continue Plan of Care Treatment Plan: Bed Mobility, Education, Functional Activity [place], Functional Strength, Gait, Safety, Therapeutic Exercise, Transfers Treatment Duration: January 26, 2021 Frequency: 6 times per week Estimated Hrs Per Day: .25 hour per day Patient and/or Family Agrees t: Yes Safety Risks/Education Patient Education: Gait Training, Transfer Techniques, Correct Positioning, Safety Issues Teaching Recipient: Patient Teaching Methods: Demonstration, Discussion Response to Teaching: Reinforcement Needed Discharge Recommendations Plan Patient will perform bed mobility and transfer training, balance and endurance training, functional strengthening, stair training, gait training, and education, to improve functional mobility and independence at home. Therapy Discharge Recommendati: Home & Family, Post Acute PT Time/GCodes Time In: 935 Time Out: 950 Total Billed Treatment Time: 15 Total Billed Treatment 1 visit BINH Mcelroy' CHARLEY ARITA PT January 19, 2021 10:18
--- NOTE | 2021-01-19 10:21 | Occupational Therapy Eval ---
OT Evaluation-General/PLF Medical Diagnosis Admission Date January 17, 2021 at 12:10 Medical Diagnosis: a fib with RVR; L UE swelling Onset Date: January 17, 2021 Therapy Diagnosis Therapy Diagnosis: Decreased ADL function Height/Weight Height (Feet): 5 Height (Inches): 11.00 Weight (Pounds): 232 Precautions Precautions/Isolations: Fall Prevention, Standard Precautions Weight Bear Status Weight Bearing Restriction: Full Weight Bearing Referral Physician: Eva Wilkerson MD Referral Reason: Activity Tolerance, Self Care, Evaluation/Treatment, Strengthening/ROM Medical History Pertinent Medical History: HTN Additional Medical History HTN, MLD, Depression, RA. Current History admits to ER with intermittent chest pain for a couple days, experienced SOB and PATRICK with L UE pain (hx of RA)+ swelling for a few days to weeks per pt. CT demo's no PE, no DVT Reviewed History: Yes Social History Home: Single Level Current Living Status: Significant Other Entry Into Home: Stairs Without Railing Steps Into Home: 1 Steps Inside Home: 0 ADL-Prior Level of Function SCALE: Activities may be completed with or without assistive devices. 7-Pukcgdztdp-fxmhjvg completes the activity by him/herself with no assistance from a helper. 5-Set-up or Clean-up Assistance-helper sets up or cleans up; patient completes activity. [place] assists only prior to or following the activity. 4-Supervision or Touching Assistance-helper provides verbal cues and/or touching/steadying and/or contact guard assistance as patient completes activity. Assistance may be provided throughout the activity or intermittently. 3-Partial/Moderate Assistance-helper does LESS THAN HALF the effort. [place] lifts, holds or supports trunk or limbs, but provides less than half the effort. 2-Substantial/Maximal Assistance-helper does MORE THAN HALF the effort. [place] lifts or holds trunk or limbs and provides more than half the effort. 0-Rvdytgltq-srxqjc does ALL the effort. Patient does none of the effort to complete the activity. Or, the assistance of 2 or more helpers is required for the patient to complete the activity. If activity was not attempted, code reason: 7-Patient Refused. 9-Not Applicable-not attempted and the patient did not perform the activity before the current illness, exacerbation or injury. 10-Not Attempted due to Environmental Limitations-(lack of equipment, weather restraints, etc.). 88-Not Attempted due to Medical Conditions or Safety Concerns. ADL PLOF Comments IND with I/ADLs, no use of AD, though has walker. 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 Pt states min A from bed to chair. Pt states R shoulder pain (doesn't rate) states "stiff". Pt states has been on/off, hx of RA, states has "never been in my shoulders before." Pt's L hand wrapped, this is doffed and pt has 15-20 sec pitting edema on dorsum of hand. Pt's hand re-wrapped end of session. Agrees to tx. Mental Status/Objective Patient Orientation: Person, Place, Situation, Normal For Age Attachments: Telemetry Current Glasses/Contacts: No Hearing Aids: No Hand Dominance: Right Upper Extremity ROM WFL BUE proximally (slow/ steady shoulder flexion with increased stiffness of R shoulder) L hand has 2 cm decrease from fingers to palm toward full composite fist (increased dorsal swelling limiting finger flexion) Upper Extremity Coordination R WFL L decreased due to swelling/ hand stiffness. Upper Extremity Sensation WFL BUE per pt. Upper Extremity Strength WFL BUE proximally (4/5 R/ L shoulder flexion, no pain) decreased L freight router due to decreased composite fist ability Edema: L dorsum of hand (15-20 sec pitting) ADL-Treatment Eating (QC): 6 (per pt report, also brings water to mouth with IND.) Oral Hygiene (QC): 6 (per clinical reasoning.) On/Off Footwear (QC): 4 (SBA, increased time, doffs/ dons R sock with increased strain and stiffness in R shoulder. Educated on AE/ sock aide for use in future and where to purchase) Toileting Hygiene (QC): 3 (CGA and min A for thoroughness. ) Other Treatments Pt completes MMT/ ROM and environmental screening. Educated on OT role/ purpose. Completion of retrograde massage dorsum of L hand with wrap doffed. Pt educated on movement benefits, completes fist/ wrist flexion with finger ext/ wrist ext x10 reps. Educated to continue with wrap donned. Dons/ doffs sock with edu on AE- will benefit from sock aide. Pt sit to stand mod A from recliner, able to complete modified bottom hygiene with increased time and CGA, likely will require min A for thoroughness. Use of walker in stance, will require continued balance/ strength/ ADL training. Pt's L bandaging wrapped with increased tension distally with less proximally for optimal edema flow. Pt agrees, left in recliner with all needs met, call light in reach, urinal in reach. Denies needs. Educated to continue AROM of L UE. Education OT Patient Education: Correct positioning, Exercise program, Home exercise program, Purpose of tx/functional activities, Transfer techniques, Use of adapted equipment Teaching Recipient: Patient Teaching Methods: Demonstration, Discussion Response to Teaching: Verbalize Understanding, Return Demonstration OT Group Home Goals Demand Manager Goals Time Frame: January 26, 2021 Eating (QC): 6 Oral Hygiene (QC): 6 Toileting Hygiene (QC): 6 Shower/Bathe Self (QC): 6 Upper Body Dressing (QC): 6 Lower Body Dressing (QC): 6 On/Off Footwear (QC): 6 Additional Goals: 1-Demonstrate ADL Tasks, 2-Verbalize Understanding, 3- ImproveStrength/[place] 1=Demonstrate adherence to instructed precautions during ADL tasks. 2=Patient will verbalize/demonstrate understanding of assistive devices/modifications for ADL. 3=Patient will improve strength/tolerance for activity to enable patient to perform ADL's. OT Education/Plan Problem List/Assessment Assessment: Decreased Activ Tolerance, Decreased UE Strength, Dependent Transfers, Edema, Impaired Bed Mobility, Impaired Coordination, Impaired Funct Balance, Impaired I ADL's, Impaired Self-Care Skills Discharge Recommendations Plan/Recommendations: Continue POC Therapy Discharge Recommendati: Home & Family, Post Acute OT Equpiment Recommendations-D/C: Hip Kit Treatment Plan/Plan of Care Treatment,Training & Education: Yes Patient would benefit from OT for education, treatment and training to promote independence in ADL's, mobility, safety and/or upper extremity function for ADL's. Plan of Care: ADL Retraining, Caregiver Training, Functional Mobility, UE Funct Exercise/Act Treatment Duration: January 26, 2021 Frequency: 5 times per week Estimated Hrs Per Day: .25 hour per day Agreement: Yes Rehab Potential: Good Time/GCodes Start Time: 09:51 Stop Time: 10:08 Total Time Billed (hr/min): 17 Billed Treatment Time 1, EVM (17) LUCERO CAREY OTR January 19, 2021 10:21
--- NOTE | 2021-01-19 12:20 | Progress Note - Cardiology ---
Cardiology SOAP Progress Note Subjective: Gen malaise and weakness Joint pains better, but not resolved No cp or palp or syncope No shortness of breath at rest No n/v/d Objective: I&O/Vital Signs 01/19/21 01/19/21 01/19/21 01/19/21 01:00 01:00 02:00 03:00 Pulse 75 74 75 74 Resp 21 26 17 B/P (MAP) 110/62 (78) 115/70 (85) 121/70 (87) Pulse Ox 95 97 94 O2 Delivery Room Air Room Air Room Air 01/19/21 01/19/21 01/19/21 01/19/21 04:00 04:00 04:00 05:00 Temp 37.2 Pulse 75 71 Resp 20 21 B/P (MAP) 122/72 (89) 136/91 (106) Pulse Ox 99 95 95 O2 Delivery Room Air Room Air Room Air 01/19/21 01/19/21 01/19/21 01/19/21 06:00 06:48 07:00 07:26 Pulse 80 90 78 80 Resp 22 23 B/P (MAP) 146/100 (115) 138/80 (99) 146/100 Pulse Ox 95 92 O2 Delivery Room Air Room Air 01/19/21 01/19/21 01/19/21 01/19/21 07:28 07:33 07:48 08:00 Temp 37.4 Pulse 80 102 Resp 24 B/P (MAP) 146/100 145/84 (104) Pulse Ox 91 91 O2 Delivery Room Air Room Air 01/19/21 01/19/21 01/19/21 01/19/21 08:00 09:00 11:02 12:14 Temp 36.8 Pulse 101 90 Resp 15 18 B/P (MAP) 130/70 (90) 133/80 (97) Pulse Ox 97 94 95 93 O2 Delivery Room Air Room Air Room Air Room Air 01/19/21 00:00 Intake Total 1450 ml Output Total 1875 ml Balance -425 ml Weight (Pounds): 232 Weight (Calculated Kilograms): 105.913990 Constitutional: AAO x 3, well-developed, well-nourished Respiratory: No accessory muscle use, No respiratory distress; chest expansion is symmetric, chest is bilaterally symmetric, other (good air entry) Cardiovascular: regular rate-rhythm; No JVD; S1 and S2 Gastrointestional: No tender; soft, round, audible bowel sounds Extremities: other (left hand with mod swelling and inflammation) Neurologic/Psychiatric: grossly intact Skin: No rash on exposed areas, No ulcerations on exposed areas Results/Procedures: Labs Laboratory Tests 01/19/21 04:10: White Blood Count 15.6H, Red Blood Count 3.92L, Hemoglobin 11.6L, Hematocrit 35L , Mean Corpuscular Volume 89, Mean Corpuscular Hemoglobin 30, Mean Corpuscular Hemoglobin Concent 33, Red Cell Distribution Width 13.5, Platelet Count 333, Mean Platelet Volume 9.6, Immature Granulocyte % (Auto) 1, Neutrophils (%) (Auto ) 86H, Lymphocytes (%) (Auto) 7L, Monocytes (%) (Auto) 7, Eosinophils (%) (Auto) 0, Basophils (%) (Auto) 0, Neutrophils # (Auto) 13.4H, Lymphocytes # (Auto) 1.0, Monocytes # (Auto) 1.1H, Eosinophils # (Auto) 0.0, Basophils # (Auto) 0.0, Immature Granulocyte # (Auto) 0.1, Sodium Level 141, Potassium Level 3.7, Chloride Level 107, Carbon Dioxide Level 22, Anion Gap 12, Blood Urea Nitrogen 17, Creatinine 0.78, Estimat Glomerular Filtration Rate > 60, BUN/Creatinine Ratio 22, Glucose Level 117H, Calcium Level 9.1, Magnesium Level 1.8 Microbiology 01/17/21 MRSA Screen - Final, Complete MRSA not isolated 01/17/21 Blood Culture - Preliminary, Resulted No growth Laboratory Tests 01/18/21 04:05 01/19/21 04:10 A/P: Assessment: New onset a-fib with RVR - first diagnosed on 01-17-21 in the ED - converted to SR Chest pain and shortness of breat of undetermined etiology, currently resolved, no evidence of ACS Echo of 01/18/21: LVEF 60-65%, mild LA enlargement, PASP 25-30 mmHg HTN HLD Cough of undetermined etiology HLD Obese Polyarthritis, chronic. Pt reports it has been diagnosed as gout Suspected sleep apnea Plan: Continue long-acting dilt OAC with Eliquis Managment of gout/arthritis per Medical services [facility] as an out pt once his arthritis flare up has resolved Monitor lab Replace electrolytes as indicated Stop Lisinopril d/t cough which could be r/t PHYLICIA (-) Discussed with NONA Irwin MD FACP FAC CCDS January 19, 2021 12:20
[2021-01-19] MEDS: ATORVASTATIN 10 MG TABLET PO SCH (19:51)
[2021-01-19] MEDS: fentaNYL INJ 100 MCG/2 ML AMP IVP PRN (21:23)
[2021-01-20] VITALS (7 sets, daily range): BP systolic 142–164; BP diastolic 72–93
[2021-01-20] MEDS: predniSONE 20 MG TAB PO SCH (05:12)
[2021-01-20] MEDS: fentaNYL INJ 100 MCG/2 ML AMP IVP PRN ×3 (05:17→20:04)
[2021-01-20 06:21] LABS: BASOPHILS # (AUTO) 0.1 10^3/uL (0.0-0.1); BASOPHILS % (AUTO) 1 % (0-10); EOSINOPHILS # (AUTO) 0.1 10^3/uL (0.0-0.3); EOSINOPHILS % (AUTO) 1 % (0-10); HEMATOCRIT 38 % (40-54); HEMOGLOBIN 12.3 g/dL (13.3-17.7); LYMPHOCYTES # (AUTO) 1.7 10^3/uL (1.0-4.0); LYMPHOCYTES % (AUTO) 12 % (12-44); MEAN CORPUSCULAR HEMOGLOBIN 29 pg (25-34); MEAN CORPUSCULAR HGB CONC 33 g/dL (32-36); MEAN CORPUSCULAR VOLUME 89 fL (80-99); MEAN PLATELET VOLUME 10.1 fL (9.0-12.2); MONOCYTES # (AUTO) 0.9 10^3/uL (0.0-1.0); MONOCYTES % (AUTO) 6 % (0-12); NEUTROPHILS # (AUTO) 11.9 10^3/uL (1.8-7.8); NEUTROPHILS % (AUTO) 81 % (42-75); PLATELET COUNT 427 10^3/uL (130-400); WHITE BLOOD COUNT 14.7 10^3/uL (4.3-11.0)
[2021-01-20 06:26] LABS: CHLORIDE 107 MMOL/L (98-107); POTASSIUM 3.7 MMOL/L (3.6-5.0); SODIUM 141 MMOL/L (135-145)
[2021-01-20 06:28] LABS: CALCIUM 9.3 MG/DL (8.5-10.1); GLUCOSE 92 MG/DL (70-105)
[2021-01-20 06:30] LABS: CARBON DIOXIDE 23 MMOL/L (21-32)
[2021-01-20] MEDS: KCL 20 MEQ TAB (K-DUR) PO SCH (06:30)
[2021-01-20] MEDS: POTASSIUM CL 10MEQ/50ML IVPB 50 ML IV SCH (06:30)
[2021-01-20 06:32] LABS: CREATININE SERUM 0.73 MG/DL (0.60-1.30); GFR ESTIMATED > 60
[2021-01-20 06:33] LABS: BUN/CREATININE RATIO 29
[2021-01-20 06:34] LABS: MAGNESIUM 1.9 MG/DL (1.6-2.4)
[2021-01-20] MEDS: MAGNESIUM 1 GM/100 ML IVPB 100 ML IV SCH (06:35)
[2021-01-20] MEDS: RT-ALBUTEROL/IPRATROPIUM 3 ML (DUONEB) VIAL INH SCH ×4 (06:56→18:39)
[2021-01-20] MEDS ORDERED: cefTRIAXone 1,000 MG IV (ROCEPHIN) VIAL ONE (07:54)
[2021-01-20] MEDS: VITAMIN D3 25 MCG (1,000 UNITS) TABLET PO SCH (08:06)
[2021-01-20] MEDS: APIXABAN 5 MG (ELIQUIS) TABLET PO SCH ×2 (08:07→20:04)
[2021-01-20] MEDS: OMEGA 3 (FISH OIL) 1000 MG CAP PO SCH (08:07)
[2021-01-20] MEDS: FUROSEMIDE 40 MG (LASIX) TAB PO SCH (08:07)
[2021-01-20] MEDS: cefTRIAXone FOR IV USE 1,000 MG in WATER (STERILE) FOR INJECTION 10 ML IV SCH (08:10)
[2021-01-20] MEDS: ASPIRIN E.C. 81 MG (ECOTRIN) TAB PO SCH (08:10)
[2021-01-20] MEDS: MELOXICAM 7.5 MG (MOBIC) TABLET PO SCH (09:00)
--- NOTE | 2021-01-20 09:41 | Progress Note - Cardiology ---
Cardiology SOAP Progress Note Subjective: Joint pains better No cp or palp or syncope No n/v/d No shortness of breath Gen malaise and weakness present Objective: I&O/Vital Signs 01/20/21 01/20/21 01/20/21 01/20/21 00:00 01:00 03:48 06:40 Temp 36.9 36.8 Pulse 80 78 77 71 Resp 18 18 B/P (MAP) 142/72 (95) 164/86 (112) Pulse Ox 96 96 O2 Delivery Room Air Room Air 01/20/21 01/20/21 01/20/21 06:56 07:33 09:00 Temp 36.6 36.6 Pulse 95 95 Resp 20 B/P (MAP) 154/93 (113) Pulse Ox 96 90 90 O2 Delivery Room Air Room Air 01/20/21 00:00 Intake Total 1740 ml Output Total 575 ml Balance 1165 ml Weight (Pounds): 232 Weight (Calculated Kilograms): 105.844635 Constitutional: AAO x 3, well-developed, well-nourished Respiratory: No accessory muscle use, No respiratory distress; chest expansion is symmetric, chest is bilaterally symmetric, other (good air entry) Cardiovascular: regular rate-rhythm; No JVD; S1 and S2 Gastrointestional: No tender; soft, round, audible bowel sounds Extremities: other (left hand with mod swelling and inflammation) Neurologic/Psychiatric: grossly intact Skin: No rash on exposed areas, No ulcerations on exposed areas Results/Procedures: Labs Laboratory Tests 01/20/21 05:20: White Blood Count 14.7H, Red Blood Count 4.21L, Hemoglobin 12.3L, Hematocrit 38L , Mean Corpuscular Volume 89, Mean Corpuscular Hemoglobin 29, Mean Corpuscular Hemoglobin Concent 33, Red Cell Distribution Width 13.7, Platelet Count 427H, Mean Platelet Volume 10.1, Immature Granulocyte % (Auto) 1, Neutrophils (%) (Auto) 81H, Lymphocytes (%) (Auto) 12, Monocytes (%) (Auto) 6, Eosinophils (%) (Auto) 1, Basophils (%) (Auto) 1, Neutrophils # (Auto) 11.9H, Lymphocytes # (Auto) 1.7, Monocytes # (Auto) 0.9, Eosinophils # (Auto) 0.1, Basophils # (Auto) 0.1, Immature Granulocyte # (Auto) 0.1, Sodium Level 141, Potassium Level 3.7, Chloride Level 107, Carbon Dioxide Level 23, Anion Gap 11, Blood Urea Nitrogen 21H, Creatinine 0.73, Estimat Glomerular Filtration Rate > 60, BUN/Creatinine Ratio 29, Glucose Level 92, Calcium Level 9.3, Magnesium Level 1.9 Microbiology 01/18/21 Urine Culture - Final, Complete NO GROWTH 01/17/21 MRSA Screen - Final, Complete MRSA not isolated 01/17/21 Blood Culture - Preliminary, Resulted No growth Laboratory Tests 01/19/21 04:10 01/20/21 05:20 A/P: Assessment: New onset a-fib with RVR - first diagnosed on 01-17-21 in the ED - converted to SR Chest pain and shortness of breat of undetermined etiology, currently resolved, no evidence of ACS Echo of 01/18/21: LVEF 60-65%, mild LA enlargement, PASP 25-30 mmHg HTN HLD Cough of undetermined etiology HLD Obese Polyarthritis, chronic. Pt reports it has been diagnosed as gout Suspected sleep apnea Plan: Continue long-acting dilt OAC with Eliquis Managment of gout/arthritis per Medical services [facility] as an out pt once his arthritis flare up has resolved Monitor lab Replace electrolytes as indicated Stopped Lisinopril d/t cough which could be r/t PHYLICIA (-) NONA NGUYỄN MD FACP FAC CCDS January 20, 2021 09:41
--- NOTE | 2021-01-20 10:00 | Progress Note - Hospitalist ---
Subjective HPI/CC On Admission Date Seen by Provider: January 20, 2021 Time Seen by Provider: 09:59 Pt is a 65yoCM with a PMH of HTN, HLD, depression and RA who presented to the ER due to chest pain. He states that he has had intermittent chest pain for the past couple of days with SOB and PATRICK. He also complained of left arm pain and sw elling. The left arm pain and swelling have been going on for longer though, a few days to a week. He has had similar pain when he has has RA flares in the past. He also complains of pain in her ankles, hips, and joints. He has previously need a steroid treatment when his pain has gotten this bad before. He does not currently take any DMARDs nor does he see a caramel candy maker. He was to go for a stress test today but due to the pain was unable to stand and walk. Subjective/Events-last exam Pt reports doing well. Pain improving. No further chest pain. Focused Exam Lactate Level 01/17/21 12:46: Lactic Acid Level 1.01 Objective Exam Vital Signs Vital Signs Date Time Temp Pulse Resp B/P (MAP) Pulse Ox O2 Delivery O2 Flow Rate FiO2 01/20/21 09:00 36.6 95 90 01/20/21 07:33 20 154/93 (113) Room Air 01/18/21 18:00 2.00 01/17/21 16:43 21 Capillary Refill : Less Than 3 Seconds General Appearance: No Apparent Distress, WD/WN, Obese Respiratory: Lungs Clear, No Respiratory Distress Cardiovascular: Regular Rate, Rhythm, No Murmur Neurologic/Psychiatric: Alert, Oriented x3 Results/Procedures Lab Laboratory Tests 01/20/21 05:20 Patient resulted labs reviewed. Imaging: Reviewed Imaging Report Assessment/Plan Assessment and Plan Assess & Plan/Chief Complaint A-fib with RVR, resolved Chest pain left arm swelling Remains in sinus rhythm Continue oral cardizem Cardiology consulted, appreciate recs Defer stress test timing to cardiology troponins negative On eliquis for stroke prophylaxis doppler negative for DVT in left upper extremity Fever and leukocytosis UA negative Blood cultures NGTD Likely viral etiology or inflammatory but continue on Rocephin for one more day Leukocytosis down but up today likely due to steroids RA Appears to have acute flare May account for fever Continue prednisone PT/OT Consider IRU HTN HLD Continue home meds DVT ppx: On eliquis as above ENRIQUE JOHNSON MD January 20, 2021 10:00
--- NOTE | 2021-01-20 10:13 | Physical Therapy Daily Note ---
PT Daily Note-Current Subjective Patient agrees to PT. Pain Numeric Pain Scale: 5-Moderate Pain Location: Joint Location Body Site: Generalized Pain Description: Ache Mental Status Patient Orientation: Normal For Age Transfers SCALE: Activities may be completed with or without assistive devices. 7-Rmxhlcffap-nsokcif completes the activity by him/herself with no assistance from a helper. 5-Set-up or Clean-up Assistance-helper sets up or cleans up; patient completes activity. [place] assists only prior to or following the activity. 4-Supervision or Touching Assistance-helper provides verbal cues and/or touching/steadying and/or contact guard assistance as patient completes activity. Assistance may be provided throughout the activity or intermittently. 3-Partial/Moderate Assistance-helper does LESS THAN HALF the effort. [place] lifts, holds or supports trunk or limbs, but provides less than half the effort. 2-Substantial/Maximal Assistance-helper does MORE THAN HALF the effort. [place] lifts or holds trunk or limbs and provides more than half the effort. 3-Noyxlmxhx-cawlyj does ALL the effort. Patient does none of the effort to complete the activity. Or, the assistance of 2 or more helpers is required for the patient to complete the activity. If activity was not attempted, code reason: 7-Patient Refused. 9-Not Applicable-not attempted and the patient did not perform the activity before the current illness, exacerbation or injury. 10-Not Attempted due to Environmental Limitations-(lack of equipment, weather restraints, etc.). 88-Not Attempted due to Medical Conditions or Safety Concerns. Roll Left & Right (QC): 6 Lying to Sitting/Side of Bed(Q: 6 Sit to Stand (QC): 6 Chair/Sjt-jh-Odncl Xfer(QC): 6 Gait Training Does the Patient Walk?: Yes Distance: 300' Walk 10 feet (QC): 4 Walk 50 ft with 2 Turns(QC): 4 Walk 150 ft (QC): 4 Gait Assistive Device: FWW SBA for safety/improved gait sequence Exercises Seated Therapy Exercises: Ankle pumps, Long arc quads Seated Reps: 15 Assessment Patient is up in recliner with needs met. Increase activity as tolerated. Patient highly motivated with progress. PT Fpc Goals Dry Room Attendant Goals PT Fpc Goals Time Frame: January 26, 2021 Roll Left & Right (QC): 6 Sit to Lying (QC): 6 Lying-Sitting on Side/Bed(QC): 6 Sit to Stand (QC): 5 Chair/Wix-jd-Pwkgj Xfer(QC): 5 Walk 10 feet (QC): 5 Walk 50ft with 2 Turns (QC): 5 PT Plan Treatment/Plan Treatment Plan: Continue Plan of Care Treatment Plan: Bed Mobility, Education, Functional Activity [place], Functional Strength, Gait, Safety, Therapeutic Exercise, Transfers Treatment Duration: January 26, 2021 Frequency: 6 times per week Estimated Hrs Per Day: .25 hour per day Patient and/or Family Agrees t: Yes Time/GCodes Time In: 810 Time Out: 819 Total Billed Treatment Time: 9 Total Billed Treatment 1 visit FA 9 min DIALLO ARMSTRONG PT January 20, 2021 10:13
--- NOTE | 2021-01-20 13:55 | Occupational Ther Daily Note ---
OT Current Status-Daily Note Subjective Pt laying in bed, agreeable to OT Tx. Mental Status/Objective Patient Orientation: Person, Place, Time, Situation ADL-Treatment Therapy Code Descriptions/Definitions Functional [place] Measure: 0=Not Assessed/NA 4=Minimal Assistance 1=Total Assistance 5=Supervision or Setup 2=Maximal Assistance 6=Modified [place] 3=Moderate Assistance 7=Complete IndependenceSCALE: Activities may be completed with or without assistive devices. 0-Zkpqbhmldj-xlyzkwq completes the activity by him/herself with no assistance from a helper. 5-Set-up or Clean-up Assistance-helper sets up or cleans up; patient completes activity. [place] assists only prior to or following the activity. 4-Supervision or Touching Assistance-helper provides verbal cues and/or touching/steadying and/or contact guard assistance as patient completes activity. Assistance may be provided throughout the activity or intermittently. 3-Partial/Moderate Assistance-helper does LESS THAN HALF the effort. [place] lifts, holds or supports trunk or limbs, but provides less than half the effort. 2-Substantial/Maximal Assistance-helper does MORE THAN HALF the effort. [place] lifts or holds trunk or limbs and provides more than half the effort. 8-Osoyypuls-oxlwsz does ALL the effort. Patient does none of the effort to complete the activity. Or, the assistance of 2 or more helpers is required for the patient to complete the activity. If activity was not attempted, code reason: 7-Patient Refused. 9-Not Applicable-not attempted and the patient did not perform the activity before the current illness, exacerbation or injury. 10-Not Attempted due to Environmental Limitations-(lack of equipment, weather restraints, etc.). 88-Not Attempted due to Medical Conditions or Safety Concerns. On/Off Footwear: 3 (Min A with AE) Toileting Hygiene (QC): 6 (Pt reports IND with hygiene after BM) Other Treatment Pt laying in bed, agreeable to OT Tx. Pt declined toileting as he just returned to bed from bathroom. Pt indicates IND with toileting. Pt transferred supine to sit EOB independently. OT educated pt on using sock aide. Pt able to doff footwear at EOB without AE. Pt threaded sock onto sock aide with min verbal cues, then donned L sock with min A. Pt indicates he is interested in obtaining one at home, OT and pt discussed where to buy one (OT recommends wide sock aide). Pt then donned RLE gripper sock, no AE without assistance. Pt transferred back to bed supine, independently. Pt states he has been completing finger pumps, completing x15 reps BUEs. Post tx, pt laying in bed, call light in reach and all needs met. 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 2=Patient will verbalize/demonstrate understanding of assistive devices/modifications for ADL. 3=Patient will improve strength/tolerance for activity to enable patient to perform ADL's. OT Education/Plan Problem List/Assessment Assessment: Decreased Activ Tolerance, Decreased UE Strength, Impaired I ADL's Discharge Recommendations Plan/Recommendations: Continue POC Equpiment Recommendations-D/C: Sock Aide (wide) Treatment Plan/Plan of Care Patient would benefit from OT for education, treatment and training to promote independence in ADL's, mobility, safety and/or upper extremity function for ADL's. Plan of Care: ADL Retraining, Caregiver Training, Functional Mobility, UE Funct Exercise/Act Treatment Duration: January 26, 2021 Frequency: 5 times per week Estimated Hrs Per Day: .25 hour per day Agreement: Yes Rehab Potential: Good Time/GCodes Start Time: 13:25 Stop Time: 13:38 Total Time Billed (hr/min): 13 Billed Treatment Time 1, ADL JOLYNN PRUITT OT January 20, 2021 13:55
[2021-01-20] MEDS: ATORVASTATIN 10 MG TABLET PO SCH (20:04)
[2021-01-20] MEDS: ACETAMINOPHEN 500 MG TAB (TYLENOL) PO PRN (21:40)
[2021-01-21 00:19] VITALS: BP 153/89
[2021-01-21 03:26] VITALS: BP 148/73
[2021-01-21 05:16] LABS: BASOPHILS # (AUTO) 0.1 10^3/uL (0.0-0.1); BASOPHILS % (AUTO) 0 % (0-10); EOSINOPHILS # (AUTO) 0.1 10^3/uL (0.0-0.3); EOSINOPHILS % (AUTO) 1 % (0-10); HEMATOCRIT 38 % (40-54); HEMOGLOBIN 12.6 g/dL (13.3-17.7); LYMPHOCYTES # (AUTO) 1.8 10^3/uL (1.0-4.0); LYMPHOCYTES % (AUTO) 14 % (12-44); MEAN CORPUSCULAR HEMOGLOBIN 29 pg (25-34); MEAN CORPUSCULAR HGB CONC 33 g/dL (32-36); MEAN CORPUSCULAR VOLUME 89 fL (80-99); MEAN PLATELET VOLUME 9.6 fL (9.0-12.2); MONOCYTES # (AUTO) 0.9 10^3/uL (0.0-1.0); MONOCYTES % (AUTO) 7 % (0-12); NEUTROPHILS # (AUTO) 9.4 10^3/uL (1.8-7.8); NEUTROPHILS % (AUTO) 76 % (42-75); PLATELET COUNT 443 10^3/uL (130-400); WHITE BLOOD COUNT 12.4 10^3/uL (4.3-11.0)
[2021-01-21 05:23] LABS: CHLORIDE 106 MMOL/L (98-107); POTASSIUM 3.8 MMOL/L (3.6-5.0); SODIUM 142 MMOL/L (135-145)
[2021-01-21 05:25] LABS: CALCIUM 9.2 MG/DL (8.5-10.1); GLUCOSE 90 MG/DL (70-105)
[2021-01-21 05:27] LABS: CARBON DIOXIDE 24 MMOL/L (21-32)
[2021-01-21 05:29] LABS: CREATININE SERUM 0.73 MG/DL (0.60-1.30); GFR ESTIMATED > 60
[2021-01-21 05:30] LABS: BUN/CREATININE RATIO 29
[2021-01-21] MEDS: MAGNESIUM 1 GM/100 ML IVPB 100 ML IV SCH (05:56)
[2021-01-21] MEDS: POTASSIUM CL 10MEQ/50ML IVPB 50 ML IV SCH (05:56)
[2021-01-21] MEDS: KCL 20 MEQ TAB (K-DUR) PO SCH (05:57)
[2021-01-21] MEDS: predniSONE 20 MG TAB PO SCH (06:27)
[2021-01-21] MEDS: ACETAMINOPHEN 500 MG TAB (TYLENOL) PO PRN (06:27)
[2021-01-21] MEDS: RT-ALBUTEROL/IPRATROPIUM 3 ML (DUONEB) VIAL INH SCH ×2 (07:01→10:59)
[2021-01-21] MEDS: VITAMIN D3 25 MCG (1,000 UNITS) TABLET PO SCH (08:45)
[2021-01-21] MEDS: ASPIRIN E.C. 81 MG (ECOTRIN) TAB PO SCH (08:45)
[2021-01-21] MEDS: OMEGA 3 (FISH OIL) 1000 MG CAP PO SCH (08:45)
[2021-01-21] MEDS: MELOXICAM 7.5 MG (MOBIC) TABLET PO SCH (08:45)
[2021-01-21] MEDS: APIXABAN 5 MG (ELIQUIS) TABLET PO SCH (08:45)
[2021-01-21] MEDS: FUROSEMIDE 40 MG (LASIX) TAB PO SCH (08:45)
--- NOTE | 2021-01-21 09:14 | Progress Note - Cardiology ---
Cardiology SOAP Progress Note Subjective: Lying in bed States he wants to go home today No c/o CP, SOB or palpitations Objective: I&O/Vital Signs Weight (Pounds): 232 Weight (Calculated Kilograms): 105.251084 Constitutional: AAO x 3, well-developed, well-nourished Respiratory: No accessory muscle use, No respiratory distress; chest expansion is symmetric, chest is bilaterally symmetric, other (good air entry) Cardiovascular: regular rate-rhythm; No JVD; S1 and S2 Gastrointestional: No tender; soft, round, audible bowel sounds Extremities: other (left hand with mod swelling and inflammation) Neurologic/Psychiatric: grossly intact Skin: No rash on exposed areas, No ulcerations on exposed areas Results/Procedures: Labs Microbiology 01/18/21 Urine Culture - Final, Complete NO GROWTH 01/17/21 MRSA Screen - Final, Complete MRSA not isolated 01/17/21 Blood Culture - Final, Complete No growth A/P: Assessment: New onset a-fib with RVR - first diagnosed on 01-17-21 in the ED - converted to SR Chest pain and shortness of breat of undetermined etiology, currently resolved, no evidence of ACS Echo of 01/18/21: LVEF 60-65%, mild LA enlargement, PASP 25-30 mmHg HTN HLD Cough of undetermined etiology HLD Obese Polyarthritis, chronic. Pt reports it has been diagnosed as gout Suspected sleep apnea Plan: Continue long-acting dilt OAC with Eliquis Managment of gout/arthritis per Medical services [facility] as an out pt once his arthritis flare up has resolved Stopped Lisinopril d/t cough which could be r/t PHYLICIA (-) - cough has resolved OK to d/c home from cardiac stand point with out pt f/u in 2 weeks Continue current cardiac medication regimen HENNA CARDOSO January 21, 2021 09:14
[2021-01-21] MEDS ORDERED: ASPI-1238 PO (09:16)
[2021-01-21] MEDS ORDERED: APIX5TAB PO (09:16)
[2021-01-21] MEDS ORDERED: DILT240C91 PO (09:16)
--- NOTE | 2021-01-21 09:30 | Progress Note - Hospitalist ---
Subjective HPI/CC On Admission Date Seen by Provider: January 21, 2021 Time Seen by Provider: 09:27 Pt is a 65yoCM with a PMH of HTN, HLD, depression and RA who presented to the ER due to chest pain. He states that he has had intermittent chest pain for the past couple of days with SOB and PATRICK. He also complained of left arm pain and sw elling. The left arm pain and swelling have been going on for longer though, a few days to a week. He has had similar pain when he has has RA flares in the past. He also complains of pain in her ankles, hips, and joints. He has previously need a steroid treatment when his pain has gotten this bad before. He does not currently take any DMARDs nor does he see a director of first impressions. He was to go for a stress test today but due to the pain was unable to stand and walk. Objective Exam Vital Signs Vital Signs Date Time Temp Pulse Resp B/P (MAP) Pulse Ox O2 Delivery O2 Flow Rate FiO2 01/21/21 07:02 91 Room Air 01/21/21 07:00 88 01/21/21 03:26 36.4 17 148/73 (98) 01/18/21 18:00 2.00 01/17/21 16:43 21 Capillary Refill : Less Than 3 Seconds Results/Procedures Lab Laboratory Tests 01/21/21 04:53 Patient resulted labs reviewed. Imaging: Reviewed Imaging Report Assessment/Plan Assessment and Plan Assess & Plan/Chief Complaint A-fib with RVR, resolved Chest pain left arm swelling Remains in sinus rhythm Continue oral cardizem Cardiology consulted, appreciate recs Defer stress test timing to cardiology troponins negative On eliquis for stroke prophylaxis doppler negative for DVT in left upper extremity Fever and leukocytosis UA negative Blood cultures NGTD Likely viral etiology or inflammatory but continue on Rocephin for one more day Leukocytosis down but up today likely due to steroids RA Appears to have acute flare May account for fever Continue prednisone PT/OT Consider IRU HTN HLD Continue home meds DVT ppx: On eliquis as above ENRIQUE JOHNSON MD January 21, 2021 09:30
--- NOTE | 2021-01-21 09:31 | Discharge Summary ---
Diagnosis/Chief Complaint Date of Admission January 17, 2021 at 12:10 Date of Discharge Discharge Date: January 20, 2021 Admission Diagnosis A-fib with RVR Primary Care No,Local Physician Discharge Summary Procedures/Consulations Dr Valdez- Cardiology Discharge Physical Exam Allergies: Coded Allergies: No Known Drug Allergies (Unverified , 10/01/18) Vitals & I&Os Vital Signs Date Time Temp Pulse Resp B/P (MAP) Pulse Ox O2 Delivery O2 Flow Rate FiO2 01/21/21 09:00 91 Room Air 01/21/21 07:00 88 01/21/21 03:26 36.4 17 148/73 (98) 01/18/21 18:00 2.00 01/17/21 16:43 21 General Appearance: No Apparent Distress, WD/WN, Obese Cardiovascular: Regular Rate, Rhythm, No Murmur Gastrointestinal: Normal Bowel Sounds, Soft Neurologic/Psychiatric: Alert, Oriented x3 Hospital Course Patient was admitted to the hospital with new onset atrial fibrillation with rapid ventricular rate. He was started on cardizem gtt and converted to sinus rhythm. He was then switched to oral cardizem and did well. He was started on Eliquis for stroke prophylaxis. He was also having an RA flare and was treated with prednisone which resolved his symptoms. He was to have a stress test while inpatient but declined due to his pain. He is to follow up with Dr Valdez and his PCP Dr Dubois in the next week. Labs (last 24 hrs) Laboratory Tests 01/21/21 04:53: White Blood Count 12.4H, Red Blood Count 4.32, Hemoglobin 12.6L, Hematocrit 38L, Mean Corpuscular Volume 89, Mean Corpuscular Hemoglobin 29, Mean Corpuscular Hemoglobin Concent 33, Red Cell Distribution Width 13.4, Platelet Count 443H, Mean Platelet Volume 9.6, Immature Granulocyte % (Auto) 1, Neutrophils (%) (Auto) 76H, Lymphocytes (%) (Auto) 14, Monocytes (%) (Auto) 7, Eosinophils (%) (Auto) 1, Basophils (%) (Auto) 0, Neutrophils # (Auto) 9.4H, Lymphocytes # (Auto) 1.8, Monocytes # (Auto) 0.9, Eosinophils # (Auto) 0.1, Basophils # (Auto) 0.1, Immature Granulocyte # (Auto) 0.1, Sodium Level 142, Potassium Level 3.8, Chloride Level 106, Carbon Dioxide Level 24, Anion Gap 12, Blood Urea Nitrogen 21H, Creatinine 0.73, Estimat Glomerular Filtration Rate > 60, BUN/Creatinine Ratio 29, Glucose Level 90, Calcium Level 9.2, Magnesium Level 2.0 Microbiology 01/18/21 Urine Culture - Final, Complete NO GROWTH 01/17/21 MRSA Screen - Final, Complete MRSA not isolated 01/17/21 Blood Culture - Preliminary, Resulted No growth Patient resulted labs reviewed. Pending Labs Laboratory Tests 01/21/21 04:53: White Blood Count 12.4, Red Blood Count 4.32, Hemoglobin 12.6, Hematocrit 38, Mean Corpuscular Volume 89, Mean Corpuscular Hemoglobin 29, Mean Corpuscular Hem oglobin Concent 33, Red Cell Distribution Width 13.4, Platelet Count 443, Mean Platelet Volume 9.6, Immature Granulocyte % (Auto) 1, Neutrophils (%) (Auto) 76, Lymphocytes (%) (Auto) 14, Monocytes (%) (Auto) 7, Eosinophils (%) (Auto) 1, Basophils (%) (Auto) 0, Neutrophils # (Auto) 9.4, Lymphocytes # (Auto) 1.8, Monocytes # (Auto) 0.9, Eosinophils # (Auto) 0.1, Basophils # (Auto) 0.1, Immature Granulocyte # (Auto) 0.1, Sodium Level 142, Potassium Level 3.8, Chloride Level 106, Carbon Dioxide Level 24, Anion Gap 12, Blood Urea Nitrogen 21, Creatinine 0.73, Estimat Glomerular Filtration Rate > 60, BUN/Creatinine Ratio 29, Glucose Level 90, Calcium Level 9.2, Magnesium Level 2.0 Imaging: Reviewed Imaging Report Discussion & Recommendations Discharge Planning: >30 minutes discharge planning Discharge Home Medications: Active Scripts Active Prednisone 20 Mg Tab 20 Mg PO DAILY Take 3 tabs(60mg)daily,decrease by 1/2 tab(10mg)every other day. Aspirin EC (Aspirin) 81 Mg Tablet.dr 81 Mg PO DAILY Diltiazem 24Hr ER (Diltiazem HCl) 240 Mg Cap.er.24h 240 Mg PO DAILY Eliquis (Apixaban) 5 Mg Tablet 5 Mg PO BID Reported Benadryl Allergy (Diphenhydramine HCl) 25 Mg Tablet 25-50 Mg PO HS PRN Allergy Relief (Cetirizine HCl) 10 Mg Tablet 10 Mg PO DAILY PRN Fish Oil 1,200 mg Fish Oil (Fish Oil/Dha/Epa) 1 Each Capsule 1 Each PO DAILY Zinc (Zinc Sulfate) 50 Mg Tablet 50 Mg PO DAILY Vitamin D3 (Cholecalciferol (Vitamin D3)) 50 Mcg Tablet 50 Mcg PO DAILY Turmeric (Turmeric Root Extract) 538 Mg Capsule 538 Mg PO DAILY Atorvastatin Calcium 10 Mg Tablet 10 Mg PO HS Furosemide 40 Mg Tablet 40 Mg PO DAILY Meloxicam 15 Mg Tablet 15 Mg PO DAILY Tylenol Extra Strength (Acetaminophen) 500 Mg Tablet 500-1,000 Mg PO Q6H PRN Instructions to patient/family Please see electronic discharge instructions given to patient. Copy Copies To 1: MARLO DUBOIS KATELYN M MD January 21, 2021 09:31
[2021-01-21] MEDS ORDERED: PRD20T PO (09:37)
--- NOTE | 2021-01-21 09:38 | Discharge Inst-Simple/Standard ---
Discharge Inst-Standard Discharge Medications New, Converted or Re-Newed RX: Transmitted to Pharmacy Patient Instructions/Follow Up Plan of Care/Instructions/FU: Please continue to take your medications as written. Please follow up with your primary care doctor to follow up this hospital stay. Activity as Tolerated: Yes Discharge Diet: No Restrictions Return to The Hospital For: Chest pain, shortness of breath, racing heart, confusion, weakness, increasing pain, if you feel you are getting worse. ENRIQUE JOHNSON MD January 21, 2021 09:38
--- NOTE | 2021-01-21 10:29 | Physical Therapy Daily Note ---
PT Daily Note-Current Subjective Patient agrees to PT. Reports he is going home on this date. Mental Status Patient Orientation: Normal For Age Transfers SCALE: Activities may be completed with or without assistive devices. 8-Vmjylywdxg-pwefbfj completes the activity by him/herself with no assistance from a helper. 5-Set-up or Clean-up Assistance-helper sets up or cleans up; patient completes activity. [place] assists only prior to or following the activity. 4-Supervision or Touching Assistance-helper provides verbal cues and/or touching/steadying and/or contact guard assistance as patient completes activity. Assistance may be provided throughout the activity or intermittently. 3-Partial/Moderate Assistance-helper does LESS THAN HALF the effort. [place] lifts, holds or supports trunk or limbs, but provides less than half the effort. 2-Substantial/Maximal Assistance-helper does MORE THAN HALF the effort. [place] lifts or holds trunk or limbs and provides more than half the effort. 3-Ejwifwgul-ofcdxv does ALL the effort. Patient does none of the effort to complete the activity. Or, the assistance of 2 or more helpers is required for the patient to complete the activity. If activity was not attempted, code reason: 7-Patient Refused. 9-Not Applicable-not attempted and the patient did not perform the activity before the current illness, exacerbation or injury. 10-Not Attempted due to Environmental Limitations-(lack of equipment, weather restraints, etc.). 88-Not Attempted due to Medical Conditions or Safety Concerns. Roll Left & Right (QC): 6 Lying to Sitting/Side of Bed(Q: 6 Sit to Stand (QC): 6 Chair/Nsw-bi-Aodsn Xfer(QC): 6 Gait Training Does the Patient Walk?: Yes Distance: 275' Walk 10 feet (QC): 6 Walk 50 ft with 2 Turns(QC): 6 Walk 150 ft (QC): 6 Gait Assistive Device: FWW antalgic, functional gait sequence Exercises Seated Therapy Exercises: Ankle pumps, Shoulder Flex, Long arc quads, Shoulder Abd, Hip flexion Seated Reps: 10 Assessment Patient tolerated treatment well and is highly motivated to return to home on this date with girlfriend. PT Care Home Goals Care Home Goals PT Fancy Sewer Goals Time Frame: January 26, 2021 Roll Left & Right (QC): 6 Sit to Lying (QC): 6 Lying-Sitting on Side/Bed(QC): 6 Sit to Stand (QC): 5 Chair/Olx-ym-Gzcmd Xfer(QC): 5 Walk 10 feet (QC): 5 Walk 50ft with 2 Turns (QC): 5 PT Plan Treatment/Plan Treatment Plan: Discontinue PT, goals met Treatment Plan: Bed Mobility, Education, Functional Activity [place], Functional Strength, Gait, Safety, Therapeutic Exercise, Transfers Treatment Duration: January 26, 2021 Frequency: 6 times per week Estimated Hrs Per Day: .25 hour per day Patient and/or Family Agrees t: Yes Time/GCodes Time In: 1017 Time Out: 1026 Total Billed Treatment Time: 9 Total Billed Treatment 1 visit FA 9 min DIALLO ARMSTRONG PT January 21, 2021 10:29
--- NOTE | 2021-01-21 12:10 | Progress Note - Cardiology ---
Cardiology SOAP Progress Note Subjective: Gen weakness has improved No cp or palp or syncope or shortness of breath No n/v/d Objective: I&O/Vital Signs 01/21/21 01/21/21 01/21/21 01/21/21 00:19 01:00 03:26 07:00 Temp 36.5 36.4 Pulse 80 73 82 88 Resp 17 17 B/P (MAP) 153/89 (110) 148/73 (98) Pulse Ox 92 93 O2 Delivery Room Air Room Air 01/21/21 01/21/21 07:02 09:00 Pulse Ox 91 91 O2 Delivery Room Air Room Air 01/21/21 00:00 Intake Total 1450 ml Output Total 2415 ml Balance -965 ml Weight (Pounds): 232 Weight (Calculated Kilograms): 105.077931 Constitutional: AAO x 3, well-developed, well-nourished Respiratory: No accessory muscle use, No respiratory distress; chest expansion is symmetric, chest is bilaterally symmetric, other (good air entry) Cardiovascular: regular rate-rhythm; No JVD; S1 and S2 Gastrointestional: No tender; soft, round, audible bowel sounds Extremities: other (left hand with mod swelling and inflammation) Neurologic/Psychiatric: grossly intact Skin: No rash on exposed areas, No ulcerations on exposed areas Results/Procedures: Labs Laboratory Tests 01/21/21 04:53: White Blood Count 12.4H, Red Blood Count 4.32, Hemoglobin 12.6L, Hematocrit 38L, Mean Corpuscular Volume 89, Mean Corpuscular Hemoglobin 29, Mean Corpuscular Hemoglobin Concent 33, Red Cell Distribution Width 13.4, Platelet Count 443H, Mean Platelet Volume 9.6, Immature Granulocyte % (Auto) 1, Neutrophils (%) (Auto) 76H, Lymphocytes (%) (Auto) 14, Monocytes (%) (Auto) 7, Eosinophils (%) ( Auto) 1, Basophils (%) (Auto) 0, Neutrophils # (Auto) 9.4H, Lymphocytes # (Auto) 1.8, Monocytes # (Auto) 0.9, Eosinophils # (Auto) 0.1, Basophils # (Auto) 0.1, Immature Granulocyte # (Auto) 0.1, Sodium Level 142, Potassium Level 3.8, C hloride Level 106, Carbon Dioxide Level 24, Anion Gap 12, Blood Urea Nitrogen 21H, Creatinine 0.73, Estimat Glomerular Filtration Rate > 60, BUN/Creatinine Ratio 29, Glucose Level 90, Calcium Level 9.2, Magnesium Level 2.0 Microbiology 01/18/21 Urine Culture - Final, Complete NO GROWTH 01/17/21 MRSA Screen - Final, Complete MRSA not isolated 01/17/21 Blood Culture - Preliminary, Resulted No growth A/P: Assessment: New onset a-fib with RVR - first diagnosed on 01-17-21 in the ED - converted to SR Chest pain and shortness of breat of undetermined etiology, currently resolved, no evidence of ACS Echo of 01/18/21: LVEF 60-65%, mild LA enlargement, PASP 25-30 mmHg HTN HLD Cough of undetermined etiology HLD Obese Polyarthritis, chronic. Pt reports it has been diagnosed as gout Suspected sleep apnea Plan: Continue long-acting dilt OAC with Eliquis Managment of gout/arthritis per Medical services [facility] as an out pt once his arthritis flare up has resolved Stopped Lisinopril d/t cough which could be r/t PHYLICIA (-) - cough has resolved OK to d/c home from cardiac stand point with out pt f/u in 2 weeks NONA NGUYỄN MD FACP FAC CCDS January 21, 2021 12:10
--- NOTE | 2021-01-21 14:32 | Occupational Ther Daily Note ---
OT Current Status-Daily Note Subjective Pt AxO, no pain, upright in recliner. Pt state d/c home today without concerns upon d/c. States will be working with friend with dementia, though s/o will be present during this time at work as well for support. Mental Status/Objective Patient Orientation: Normal For Age ADL-Treatment Therapy Code Descriptions/Definitions Functional [place] Measure: 0=Not Assessed/NA 4=Minimal Assistance 1=Total Assistance 5=Supervision or Setup 2=Maximal Assistance 6=Modified [place] 3=Moderate Assistance 7=Complete IndependenceSCALE: Activities may be completed with or without assistive devices. 9-Ysoomsxjrl-tcwyuhf completes the activity by him/herself with no assistance f rom a helper. 5-Set-up or Clean-up Assistance-helper sets up or cleans up; patient completes activity. [place] assists only prior to or following the activity. 4-Supervision or Touching Assistance-helper provides verbal cues and/or touching/steadying and/or contact guard assistance as patient completes activity. Assistance may be provided throughout the activity or intermittently. 3-Partial/Moderate Assistance-helper does LESS THAN HALF the effort. [place] lifts, holds or supports trunk or limbs, but provides less than half the effort. 2-Substantial/Maximal Assistance-helper does MORE THAN HALF the effort. [place] lifts or holds trunk or limbs and provides more than half the effort. 4-Spjcjtxba-uztale does ALL the effort. Patient does none of the effort to complete the activity. Or, the assistance of 2 or more helpers is required for the patient to complete the activity. If activity was not attempted, code reason: 7-Patient Refused. 9-Not Applicable-not attempted and the patient did not perform the activity before the current illness, exacerbation or injury. 10-Not Attempted due to Environmental Limitations-(lack of equipment, weather restraints, etc.). 88-Not Attempted due to Medical Conditions or Safety Concerns. Eating (QC): 6 Oral Hygiene (QC): 6 Shower/Bathe Self (QC): 6 (States no difficulty) Upper Body Dressing (QC): 7 Lower Body Dressing (QC): 7 On/Off Footwear: 6 (donned socks IND.) Other Treatment Pt denies ADLs/ dressing. Encouraged as he is leaving this pm. Pt denies. Pt agrees to UE ex with OT demo'ing each ex with hand out provided. Pt completes 5/5 ther ex with red theraband with no c/o pain, good ability. Pt requires min cues for more difficult positioning. Pt expresses desire to return home with no concerns. Pt to d/c this afternoon. Therefore, d/c OT services at this time. Pt denies questions on HEP, encouraged to continue safe movement, complete HEP 2-3x per day and cease ex if any pain. Left in recliner with all needs met, call light in reach . Education OT Patient Education: Correct positioning, Exercise program, Home exercise program, Progress toward Goal/Update tx plan, Purpose of tx/functional activities, Safety issues Teaching Recipient: Patient Teaching Methods: Demonstration, Handout, Discussion Response to Teaching: Verbalize Understanding, Return Demonstration OT Rip/Mould Operator Goals Rip/Mould Operator Goals Time Frame: January 26, 2021 Eating (QC): 6 Oral Hygiene (QC): 6 Toileting Hygiene (QC): 6 Shower/Bathe Self (QC): 6 Upper Body Dressing (QC): 6 Lower Body Dressing (QC): 6 On/Off Footwear (QC): 6 Additional Goals: 1-Demonstrate ADL Tasks, 2-Verbalize Understanding, 3- ImproveStrength/[place] 1=Demonstrate adherence to instructed precautions during ADL tasks. 2=Patient will verbalize/demonstrate understanding of assistive devices/modifications for ADL. 3=Patient will improve strength/tolerance for activity to enable patient to perform ADL's. OT Education/Plan Problem List/Assessment Assessment: No Skilled OT Needs ID'd Discharge Recommendations Plan/Recommendations: Discontinue OT Therapy Discharge Recommendati: Home & Family Treatment Plan/Plan of Care Treatment,Training & Education: Yes Patient would benefit from OT for education, treatment and training to promote independence in ADL's, mobility, safety and/or upper extremity function for ADL's. Plan of Care: ADL Retraining, Caregiver Training, Functional Mobility, UE Funct Exercise/Act Treatment Duration: January 26, 2021 Frequency: 5 times per week Estimated Hrs Per Day: .25 hour per day Agreement: Yes Rehab Potential: Good Time/GCodes Start Time: 13:42 Stop Time: 13:55 Total Time Billed (hr/min): 13 Billed Treatment Time 1, EX (13) LUCERO CAREY OTR January 21, 2021 14:32
[2021-01-21 15:56] VITALS: BP 144/85
[2021-01-21 16:40] VITALS: BP 144/85
--- NOTE | 2021-01-26 22:33 | Physician Query Clarification ---
PQ-Uncertain Diagnosis Admission/Discharge Admission Date: January 17, 2021 at 12:10 Discharge Date: January 21, 2021 at 16:40 ENRIQUE Torres MD The medical record reflects the following clinical scenario: History/Risk Factors:65 y/o male patient admitted with new onset atrial fibrillation with rapid ventricular rate, started on Cardizem gtt, sepsis was documented only in ER provider notes only. Clinical Findings: Pulse-161, lactic acidosis- 2.30, wbc-17.5 and blood culture -no growth. Treatment:Ceftriaxone, azithromycin. Question: Is Sepsis a clinically valid diagnosis? Sepsis was documented in the Er provider notes, 01/17 with no further documentation in the medical record. Please document a response in Progress Note or Discharge Summary. 1. Yes, clinically valid, condition resolved. 2. No, condition ruled out. 3. Other, with explanation of clinical findings. 4. Undetermined, no explanation for clinical findings. PHYSICIAN RESPONSE Diagnosis clinically valid: No, conditon ruled out Please remember a lack of response to the above will prompt a phone page by CDI/Coding staff. In responding to this query, please exercise your independent professional judgment. The purpose of this communication is to more accurately reflect the complexity of your patients condition. The fact that a question is asked does not imply that any particular answer is desired or expected. Thank you for your timely response to this clarification. Requestors name: [ ] Phone # [ ] THIS PHYSICIAN QUERY FORM IS A PERMANENT PART OF THE MEDICAL RECORD HAROONERMIAS January 26, 2021 22:33 ENRIQUE JOHNSON MD February 01, 2021 12:46
== END 2021-01-21 16:40 | disposition home or self-care (01) | DRG 310 ==
LOC: EDUNIT# 08:47 → ER 08:50 → ICU 12:10 → 4TH 01-19 10:59
PROVIDERS: ADMIT Family Medicine; ATTEND Family Medicine
DX: I48.91 Unspecified atrial fibrillation (principal); M10.9 Gout, unspecified; Z20.822 Contact with and (suspected) exposure to COVID-19; I10 Essential (primary) hypertension; F32.9 Major depressive disorder, single episode, unspecified; Z87.891 Personal history of nicotine dependence; E78.00 Pure hypercholesterolemia, unspecified; M06.9 Rheumatoid arthritis, unspecified; R50.9 Fever, unspecified; D72.829 Elevated white blood cell count, unspecified; R07.9 Chest pain, unspecified; M79.89 Other specified soft tissue disorders; T38.0X5A Adverse effect of glucocorticoids and synthetic analogues, initial encounter; R06.02 Shortness of breath; R05 Cough; M13.0 Polyarthritis, unspecified; G47.39 Other sleep apnea; E66.9 Obesity, unspecified; R06.09 Other forms of dyspnea; Z79.899 Other long term (current) drug therapy; Z68.36 Body mass index [BMI] 36.0-36.9, adult; Z79.82 Long term (current) use of aspirin; Z79.01 Long term (current) use of anticoagulants
CPT/HCPCS: 36415; 71045; 71275; 80048; 80053; 81000; 82805; 83605; 83735; 83880; 84145; 84484; 85007; 85025; 85027; 85379; 85610; 85730; 86141; 87040; 87081; 87088; 87635; 87804; 93005; 93306; 94640; 94664; 94760; 96361; 96365; 96375; 96376; 99291

== ENCOUNTER → 2021-03-23 | Outpatient (CLI) | payer SELFPAY ==
[~2021-03-23] MED LIST changes: +APIX5TAB PO; +ASPI-1238 PO; +ATOR10TA66 PO; +CETI-458 PO; +CHOL200014 PO; +DILT240C91 PO; +DIPH25TA65 PO; +FISH1CAP15 PO; +FURO40TA4 PO; +LISI40TA9 PO; +PRD20T PO; +TURM538C PO; +ZINC220T3 PO
== END ==
LOC: LAB 09:34
PROVIDERS: ATTEND Family Medicine
DX: M10.9 Gout, unspecified (principal)
CPT/HCPCS: 36415; 84550

== ENCOUNTER → 2023-02-09 | Outpatient (CLI) | payer SELFPAY ==
[~2023-02-09] MED LIST changes: -CHOL200014 PO; +CHOL200052 PO
[2023-02-09 08:30] LABS: HEMATOCRIT 46 % (40-54); HEMOGLOBIN 15.7 g/dL (13.3-17.7); MEAN CORPUSCULAR HEMOGLOBIN 30 pg (25-34); MEAN CORPUSCULAR HGB CONC 34 g/dL (32-36); MEAN CORPUSCULAR VOLUME 87 fL (80-99); MEAN PLATELET VOLUME 9.8 fL (9.0-12.2); PLATELET COUNT 319 10^3/uL (130-400); WHITE BLOOD COUNT 8.1 10^3/uL (4.3-11.0)
[2023-02-09 08:57] LABS: ALBUMIN 4.3 GM/DL (3.2-4.5); BILIRUBIN,TOTAL 1.3 MG/DL (0.1-1.0); CALCIUM 9.7 MG/DL (8.5-10.1); CREATININE SERUM 0.95 MG/DL (0.60-1.30); POTASSIUM 4.2 MMOL/L (3.6-5.0)
== END ==
LOC: LAB 08:15
PROVIDERS: ATTEND Family Medicine
DX: I10 Essential (primary) hypertension (principal); I25.10 Atherosclerotic heart disease of native coronary artery without angina pectoris; E78.5 Hyperlipidemia, unspecified
CPT/HCPCS: 36415; 80053; 80061; 84153; 84443; 85027

== ENCOUNTER 2023-04-08 16:30 | Inpatient (IN) | payer SELFPAY ==
[~2023-04-08] VITALS: Ht 180.3 cm; Wt 113.4 kg
[2023-04-08] MEDS ORDERED: VANCOMYCIN INJECTION 1,000 MG in NS (IVPB) 250 ML 250 ML IV ONE (16:45)
[2023-04-08] MEDS ORDERED: PIPERACILLIN SODIUM/TAZOBACTAM 4.5 GM in NS (IVPB) 100 ML 100 ML IV ONE (16:45)
--- NOTE | 2023-04-08 16:48 | ED Integumentary General ---
General Chief Complaint: Skin/Wound Problems Stated Complaint: ULCERS ON FEET Nursing Triage Note: Patient c/o ulcer to Lt. foot that he has had about 1 year with goint to his "middle toe." Patient states he started having fevers last night with it being 101.7. Patient denies any Hx. of DM or injury. Patient states the ulcers are getting worse. Source: patient Exam Limitations: no limitations ([facility]) History of Present Illness Date Seen by Provider: Apr 08, 2023 Time Seen by Provider: 16:45 Initial Comments Patient is a 67-year-old male who presents to ED with left foot pain, left foot ulcer and second toe pain. Patient states he has been dealing with a ulcer to his left plantar foot. Has been dressing the wound with a topical ointment. States about a week ago started having some redness and swelling migrating to the left second toe and left dorsum foot. Noted a abscess versus ulcer to the left foot that eventually ruptured resulted in drainage over the past few days. Notes an odor. Reports normal sensation. Does have pain to the left foot. Denies history of diabetes. History of A-fib currently on Eliquis. States he had a temperature of one 1.7 last night. Reports increased swelling and pain to left lower extremity. Patient denies vomiting, diarrhea, chest pain, shortness of breath, headache or dizziness. Patient cleaned the foot with water and bleach mixture. ([facility] [place]) Allergies and Home Medications Allergies Coded Allergies: No Known Drug Allergies (Unverified , 10/01/18) Patient Home Medication List Home Medication List Reviewed: Yes ([facility] [place]) Acetaminophen (Tylenol Extra Strength) 500 Mg Tablet, 500-1,000 MG PO Q6H PRN for PAIN-MILD, (Reported) Entered as Reported by: FARHAT CANTU on 10/02/18 1020 Apixaban (Eliquis) 5 Mg Tablet, 5 MG PO BID Prescribed by: HENNA CARDOSO on 01/21/21 0916 Aspirin (Aspirin EC) 81 Mg Tablet.dr, 81 MG PO DAILY Prescribed by: HENNA CARDOSO on 01/21/21 0916 Atorvastatin Calcium (Atorvastatin Calcium) 10 Mg Tablet, 10 MG PO HS, (Reported) Entered as Reported by: OLI HODGES on 01/17/21 1534 Cetirizine HCl (Allergy Relief) 10 Mg Tablet, 10 MG PO DAILY PRN for ALLERGY SYMPTOMS, (Reported) Entered as Reported by: OLI HODGES on 01/17/21 153 Cholecalciferol (Vitamin D3) (Vitamin D3) 50 Mcg Tablet, 50 MCG PO DAILY, (Reported) Entered as Reported by: OLI HODGES on 01/17/21 153 Diltiazem HCl (Diltiazem 24Hr ER) 240 Mg Cap.er.24h, 240 MG PO DAILY Prescribed by: HENNA CARDOSO on 01/21/21 0916 Diphenhydramine HCl (Benadryl Allergy) 25 Mg Tablet, 25-50 MG PO HS PRN for SLEEP/ALLERGY SYMPTOMS, (Reported) Entered as Reported by: OLI HODGES on 01/17/21 153 Fish Oil/Dha/Epa (Fish Oil 1,200 mg Fish Oil) 1 Each Capsule, 1 EACH PO DAILY, (Reported) Entered as Reported by: OLI HODGES on 01/17/21 153 Furosemide (Furosemide) 40 Mg Tablet, 40 MG PO DAILY, (Reported) Entered as Reported by: OLI HODGES on 01/17/21 153 Meloxicam (Meloxicam) 15 Mg Tablet, 15 MG PO DAILY, (Reported) Entered as Reported by: FARHAT CANTU on 10/02/18 1020 Prednisone (Prednisone) 20 Mg Tab, 20 MG PO DAILY Prescribed by: ENRIQUE JOHNSON on 01/21/21 0937 Turmeric Root Extract (Turmeric) 538 Mg Capsule, 538 MG PO DAILY, (Reported) Entered as Reported by: OLI HODGES on 01/17/21 153 Zinc Sulfate (Zinc) 50 Mg Tablet, 50 MG PO DAILY, (Reported) Entered as Reported by: OLI HODGES on 01/17/21 153 Review of Systems Review of Systems Constitutional: No chills, No diaphoresis, No fever, No malaise, No weakness EENTM: No blurred vision, No double vision Respiratory: No cough, No dyspnea on exertion Cardiovascular: No chest pain Gastrointestinal: No abdominal pain, No diarrhea, No vomiting Genitourinary: No decreased output, No discharge Musculoskeletal: No back pain; joint pain, joint swelling, muscle pain Skin: change in color ([place]) All Other Systems Reviewed Negative Unless Noted: Yes ([place] [place]) Past Ktsitci-Jiguqo-Ozuqvc Hx Seasonal Allergies Seasonal Allergies: No ([place] [place]) Past Medical History Surgeries: Yes Tonsillectomy Respiratory: No Cardiac: Yes High Cholesterol, Hypertension Neurological: No Genitourinary: No Gastrointestinal: No Musculoskeletal: No Endocrine: No HEENT: No Cancer: No Psychosocial: No Depression Integumentary: No ([place] [place]) Family Medical History No contributory ([place] [place]) Physical Exam Vital Signs Vital Signs - First Documented 04/08/23 16:36 Temp 37.0 Pulse 95 Resp 20 B/P (MAP) 139/83 (101) O2 Delivery Room Air (ZAINAB RESENDEZ MD) Vital Signs Capillary Refill : ([place] [place]) General Appearance: WD/WN, no apparent distress HEENT: PERRL/EOMI, normal ENT inspection, TMs normal, pharynx normal Neck: non-tender, full range of motion, supple Cardiovascular: regular rate, rhythm, no edema, no gallop, no JVD Respiratory: chest non-tender, lungs clear, normal breath sounds, no respiratory distress, no accessory muscle use Gastrointestinal: normal bowel sounds, non tender, soft, no organomegaly Back: normal inspection, no CVA tenderness, no vertebral tenderness Extremities: other (Neurovascular intact left lower extremity. Left lower extremity with swelling erythema and warmth. Cap refill less than 2. 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 Purulent drainage and swelling of the left second toe. Ulcer noted to the left plantar foot. Odor noted.) ([place] [place]) Progress/Results/Core Measures Results/Orders Lab Results Laboratory Tests Test 04/08/23 16:50 Range/Units White Blood Count 18.7 H 4.3-11.0 10^3/uL Red Blood Count 4.63 4.30-5.52 10^6/uL Hemoglobin 14.0 13.3-17.7 g/dL Hematocrit 41 40-54 % Mean Corpuscular Volume 88 80-99 fL Mean Corpuscular Hemoglobin 30 25-34 pg Mean Corpuscular Hemoglobin Concent 34 32-36 g/dL Red Cell Distribution Width 13.5 10.0-14.5 % Platelet Count 437 H 130-400 10^3/uL Mean Platelet Volume 9.7 9.0-12.2 fL Immature Granulocyte % (Auto) 1 % Neutrophils (%) (Auto) 86 H 42-75 % Lymphocytes (%) (Auto) 5 L 12-44 % Monocytes (%) (Auto) 8 0-12 % Eosinophils (%) (Auto) 0 0-10 % Basophils (%) (Auto) 1 0-10 % Neutrophils # (Auto) 16.0 H 1.8-7.8 10^3/uL Lymphocytes # (Auto) 0.9 L 1.0-4.0 10^3/uL Monocytes # (Auto) 1.4 H 0.0-1.0 10^3/uL Eosinophils # (Auto) 0.1 0.0-0.3 10^3/uL Basophils # (Auto) 0.1 0.0-0.1 10^3/uL Immature Granulocyte # (Auto) 0.3 H 0.0-0.1 10^3/uL Neutrophils % (Manual) 82 % Lymphocytes % (Manual) 7 % Monocytes % (Manual) 7 % Eosinophils % (Manual) 1 % Band Neutrophils 3 % Erythrocyte Sedimentation Rate 98 H 0-30 MM/HR Sodium Level 140 135-145 MMOL/L Potassium Level 3.3 L 3.6-5.0 MMOL/L Chloride Level 107 98-107 MMOL/L Carbon Dioxide Level 18 L 21-32 MMOL/L Anion Gap 15 H 5-14 MMOL/L Blood Urea Nitrogen 39 H 7-18 MG/DL Creatinine 1.77 H 0.60-1.30 MG/DL Estimat Glomerular Filtration Rate 41 BUN/Creatinine Ratio 22 Glucose Level 129 H 70-105 MG/DL Lactic Acid Level 1.06 0.50-2.00 MMOL/L Calcium Level 10.1 8.5-10.1 MG/DL Corrected Calcium 10.7 H 8.5-10.1 MG/DL Total Bilirubin 1.0 0.1-1.0 MG/DL Aspartate Amino Transf (AST/SGOT) 36 H 5-34 U/L Alanine Aminotransferase (ALT/SGPT) 27 0-55 U/L Alkaline Phosphatase 125 40-136 U/L C-Reactive Protein High Sensitivity 44.63 H 0.00-0.50 MG/DL Total Protein 6.9 6.4-8.2 GM/DL Albumin 3.3 3.2-4.5 GM/DL (ZAINAB RESENDEZ MD) Medications Given in ED Current Medications Medications Dose Ordered Sig/Elise Route Start Time Stop Time Status Last Admin Dose Admin Piperacillin Sod/ Tazobactam Sod 4.5 gm/Sodium Chloride 100 ml @ 200 mls/hr ONCE ONCE IV 04/08/23 16:45 04/08/23 17:14 DC 04/08/23 17:24 200 MLS/HR Vancomycin HCl 1000 mg/Sodium Chloride 250 ml @ 250 mls/hr ONCE ONCE IV 04/08/23 16:45 04/08/23 17:44 DC 04/08/23 17:58 250 MLS/HR (ZAINAB RESENDEZ MD) Vital Signs/I&O 04/08/23 16:36 Temp 37.0 Pulse 95 Resp 20 B/P (MAP) 139/83 (101) O2 Delivery Room Air (ZAINAB RESENDEZ MD) Blood Pressure Mean: 101 Departure Communication (PCP) Reviewed previous ER visits, H&P, lab testing. Differential diagnosis cellulitis, osteomyelitis, abscess. On exam of the left foot swelling erythema drainage of the left big toe. 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 Tenderness to palpate the left second toe. Erythematous streaking with swelling of the left leg noted. Dorsalis pedis pulses and posterior tibialis pulses noted. Patient was not tachycardic or febrile. Septic protocol was initiated. CBC, CMP, CRP, blood cultures and lactic acid was ordered. White blood count returned 18. Chemistry BUN 39, creatinine 1.77, GFR 41. CRP of 44. Normal lactic acid. Started on vancomycin and Zosyn. Wound culture was obtained. X-ray did not show any bony destruction at this time. Patient was discussed with Dr. Christian general surgeon. Request n.p.o. after midnight. Stop the Eliquis. Concerned that his second toe will need to be surgically removed. Patient was discussed with Dr. Saunders hospitalist who accept the patient. Patient will be started on a liter of fluid for the acute kidney injury. Change of his creatinine from his last lab drawl in January. Patient is on Lasix. Denies history of CHF. ([place] [place]) Impression Primary Impression: Cellulitis Additional Impression: Sepsis Disposition: ADMITTED INPATIENT Condition: Stable Admissions Decision to Admit Reason: Admit from ER (General) Decision to Admit/Date: Apr 08, 2023 Time/Decision to Admit Time: 17:42 ([place] [place]) Departure-Patient Inst. Referrals: MARLO CALABRESE DO (PCP/Family) Primary Care Physician ATTENDING PHYSICIAN NOTE: I was physically present as attending physician in the emergency department during the care of this patient, but I was not directly involved in the decision making or delivery of care for this patient. (ZAINAB RESENDEZ MD) [place] Apr 08, 2023 16:48 ZAINAB RESENDEZ MD Apr 08, 2023 19:09
[2023-04-08 17:01] LABS: BASOPHILS # (AUTO) 0.1 10^3/uL (0.0-0.1); BASOPHILS % (AUTO) 1 % (0-10); EOSINOPHILS # (AUTO) 0.1 10^3/uL (0.0-0.3); EOSINOPHILS % (AUTO) 0 % (0-10); HEMATOCRIT 41 % (40-54); LYMPHOCYTES # (AUTO) 0.9 10^3/uL (1.0-4.0); LYMPHOCYTES % (AUTO) 5 % (12-44); MEAN CORPUSCULAR HEMOGLOBIN 30 pg (25-34); MEAN CORPUSCULAR HGB CONC 34 g/dL (32-36); MEAN CORPUSCULAR VOLUME 88 fL (80-99); MEAN PLATELET VOLUME 9.7 fL (9.0-12.2); MONOCYTES # (AUTO) 1.4 10^3/uL (0.0-1.0); MONOCYTES % (AUTO) 8 % (0-12); NEUTROPHILS % (AUTO) 86 % (42-75); PLATELET COUNT 437 10^3/uL (130-400); WHITE BLOOD COUNT 18.7 10^3/uL (4.3-11.0)
[2023-04-08 17:13] LABS: ALBUMIN 3.3 GM/DL (3.2-4.5); POTASSIUM 3.3 MMOL/L (3.6-5.0)
[2023-04-08 17:15] LABS: CALCIUM 10.1 MG/DL (8.5-10.1)
[2023-04-08 17:16] LABS: TOTAL PROTEIN 6.9 GM/DL (6.4-8.2)
[2023-04-08 17:20] LABS: CREATININE SERUM 1.77 MG/DL (0.60-1.30)
[2023-04-08 17:29] LABS: BAND NEUTROPHILS 3 %; LYMPHOCYTES % (MANUAL) 7 %; MONOCYTES % (MANUAL) 7 %; NEUTROPHILS % (MANUAL) 82 %
[2023-04-08 17:30] LABS: EOSINOPHILS % (MANUAL) 1 %
--- NOTE | 2023-04-08 17:32 | Diagnostic Imaging Report ---
INDICATION: 2nd toe pain. EXAMINATION: Left foot, 04/08/2023. FINDINGS: Marked degenerative changes seen at the 1st metatarsophalangeal joint. Hammertoe deformities noted in the remaining toes limiting evaluation. There is severe soft tissue swelling about the 2nd toe. No underlying osseous destructive change is appreciated with no fracture visualized. No dislocation. Lateral view with minimal subluxation questioned at the 2nd metatarsal phalangeal joint, correlate clinically. On the lateral view as well there is a lucency noted along the plantar soft tissues of the forefoot. This could be due to ulceration laceration but no abnormality along the skin. Subcutaneous air from infectious process not excluded. IMPRESSION: 1. Chronic findings at the great toe. 2. Marked soft tissue swelling of 2nd toe with no destructive changes in the underlying osseous structures. Questioned subluxation at the 2nd metatarsal phalangeal joint noted. 3. Lucency in the plantar soft tissues of the forefoot, see above discussion. Dictated by: Dictated on workstation # [id number]
[2023-04-08] MEDS ORDERED: MELATONIN 3 MG TABLET PO PRN (18:30)
[2023-04-08] MEDS ORDERED: BISACODYL 10 MG SUPPOSITORY PR PRN (18:30)
[2023-04-08] MEDS ORDERED: diphenhydrAMINE 25 MG TAB (BENADRYL) PO PRN (18:30)
[2023-04-08] MEDS ORDERED: LACTULOSE SYRUP 10GM/15ML (ENULOSE) 30ML UDC PO PRN (18:30)
[2023-04-08] MEDS ORDERED: ANTACID SUSP 30 ML UDC (MYLANTA) PO PRN (18:30)
[2023-04-08] MEDS ORDERED: ONDANSETRON 4 MG/2 ML (SDV) Z0FRAN IV PRN (18:30)
[2023-04-08] MEDS ORDERED: VANCOMYCIN INJECTION 0.1 MG in NS (IVPB) 250 ML 250 ML IV SCH (18:30)
[2023-04-08] MEDS ORDERED: polyethylene glycoL POWDER 17 GM (MIRALAX) PACK PO PRN (18:30)
[2023-04-08] MEDS ORDERED: ONDANSETRON 4 MG (ZOFRAN) ORAL DISSOLVE TAB PO PRN (18:30)
[2023-04-08] MEDS ORDERED: CALCIUM CARBONATE 500 MG CHEW TABLET PO PRN (18:30)
[2023-04-08] MEDS ORDERED: diphenhydrAMINE 50 MG/ML INJ (BENADRYL) IVP PRN (18:30)
[2023-04-08] MEDS ORDERED: MILK OF MAGNESIA 400 MG/5 ML 30 ML UDC PO PRN (18:30)
[2023-04-08] MEDS ORDERED: NS IV 1000 ML 1,000 ML ONE (18:43)
[2023-04-08] MEDS: NS IV 1000 ML 1,000 ML IV SCH (18:47)
[2023-04-08 19:46] VITALS: BP 124/77
[2023-04-08] MEDS ORDERED: VANCOMYCIN 1250 MG/NS 250 ML PREMIX IV SCH (21:15)
[2023-04-08] MEDS: SENNOSIDES 8.6 MG (SENOKOT) TAB PO SCH (21:20)
[2023-04-08] MEDS: DOCUSATE SODIUM 100 MG CAPSULE PO SCH (21:20)
[2023-04-08] MEDS: inSUlin ASPART (NovoLOG) 1 UNIT/0.01 ML (CHARGE PER UNIT) SC SCH (21:45)
[2023-04-08] MEDS: PIPERACILLIN SODIUM/TAZOBACTAM 4.5 GM in NS (IVPB) 100 ML 100 ML IV SCH (23:40)
[2023-04-08 23:41] VITALS: BP 155/84
[2023-04-08] MEDS: ACETAMINOPHEN 325 MG TABLET PO PRN (23:48)
[2023-04-09] MEDS: NS IV 1000 ML 1,000 ML IV SCH ×3 (03:37→20:25)
[2023-04-09 03:38] VITALS: BP 128/69
[2023-04-09 05:41] LABS: BASOPHILS # (AUTO) 0.1 10^3/uL (0.0-0.1); BASOPHILS % (AUTO) 1 % (0-10); EOSINOPHILS # (AUTO) 0.1 10^3/uL (0.0-0.3); EOSINOPHILS % (AUTO) 1 % (0-10); HEMATOCRIT 37 % (40-54); HEMOGLOBIN 12.3 g/dL (13.3-17.7); LYMPHOCYTES # (AUTO) 1.2 10^3/uL (1.0-4.0); LYMPHOCYTES % (AUTO) 8 % (12-44); MEAN CORPUSCULAR HEMOGLOBIN 29 pg (25-34); MEAN CORPUSCULAR HGB CONC 33 g/dL (32-36); MEAN CORPUSCULAR VOLUME 89 fL (80-99); MEAN PLATELET VOLUME 9.8 fL (9.0-12.2); MONOCYTES # (AUTO) 1.3 10^3/uL (0.0-1.0); MONOCYTES % (AUTO) 9 % (0-12); NEUTROPHILS # (AUTO) 12.3 10^3/uL (1.8-7.8); NEUTROPHILS % (AUTO) 79 % (42-75); PLATELET COUNT 411 10^3/uL (130-400); WHITE BLOOD COUNT 15.5 10^3/uL (4.3-11.0)
[2023-04-09 06:02] LABS: CALCIUM 9.3 MG/DL (8.5-10.1); CREATININE SERUM 1.28 MG/DL (0.60-1.30); POTASSIUM 3.3 MMOL/L (3.6-5.0)
[2023-04-09] MEDS: inSUlin ASPART (NovoLOG) 1 UNIT/0.01 ML (CHARGE PER UNIT) SC SCH ×4 (06:04→21:58)
[2023-04-09 07:25] VITALS: BP 126/71
[2023-04-09] MEDS: VANCOMYCIN 750 MG/NS 250 ML IVPB IV SCH ×4 (07:39→20:25)
[2023-04-09] MEDS: PIPERACILLIN SODIUM/TAZOBACTAM 4.5 GM in NS (IVPB) 100 ML 100 ML IV SCH ×3 (07:39→23:34)
[2023-04-09] MEDS: DOCUSATE SODIUM 100 MG CAPSULE PO SCH ×2 (07:43→20:24)
[2023-04-09] MEDS: SENNOSIDES 8.6 MG (SENOKOT) TAB PO SCH ×2 (07:43→20:24)
[2023-04-09] MEDS ORDERED: LOSA100T58 PO (09:48)
[2023-04-09] MEDS ORDERED: CALC-250 PO (09:48)
[2023-04-09] MEDS ORDERED: APIX5TAB PO (09:49)
[2023-04-09] MEDS ORDERED: DILT240C90 PO (09:49)
[2023-04-09] MEDS ORDERED: IBUP-2473 PO (09:51)
[2023-04-09] MEDS ORDERED: MULT-436 PO (09:52)
[2023-04-09] MEDS ORDERED: ASPI-1238 PO (09:52)
[2023-04-09 11:09] VITALS: BP 136/75
--- NOTE | 2023-04-09 11:47 | Physical Therapy Evaluation ---
PT Evaluation-General Medical Diagnosis Admission Date Apr 08, 2023 at 18:09 Medical Diagnosis: Cellulitis, left foot pain Onset Date: Apr 08, 2023 Therapy Diagnosis Therapy Diagnosis: Gait deficit, strength deficit Height/Weight Height (Feet): 5 Height (Inches): 11.00 Weight (Pounds): 232 Precautions Precautions/Isolations: Fall Prevention, Standard Precautions Weight Bear Status Right Lower Extremity: Right Full Weight Bearing Left Lower Extremity: Left Partial Weight Bearing Patient was instructed in heel only weight bearing due to wound Referral Physician: Dr. Saunders Reason for Referral: Evaluation/Treatment Medical History Pertinent Medical History: HTN Reviewed History: Yes Social History Home: Single Level Current Living Status: Significant Other Entry Into Home: Stairs Without Railing PT Steps Into Home: 2 Prior Prior Level of Function SCALE: Activities may be completed with or without assistive devices. 0-Zmyamjtmfn-dffgmyf completes the activity by him/herself with no assistance from a helper. 5-Set-up or Clean-up Assistance-helper sets up or cleans up; patient completes activity. [place] assists only prior to or following the activity. 4-Supervision or Touching Assistance-helper provides verbal cues and/or to uching/steadying and/or contact guard assistance as patient completes activity. Assistance may be provided throughout the activity or intermittently. 3-Partial/Moderate Assistance-helper does LESS THAN HALF the effort. [place] lifts, holds or supports trunk or limbs, but provides less than half the effort. 2-Substantial/Maximal Assistance-helper does MORE THAN HALF the effort. [place] lifts or holds trunk or limbs and provides more than half the effort. 6-Zakekkxhj-xohneq does ALL the effort. Patient does none of the effort to complete the activity. Or, the assistance of 2 or more helpers is required for the patient to complete the activity. If activity was not attempted, code reason: 7-Patient Refused. 9-Not Applicable-not attempted and the patient did not perform the activity before the current illness, exacerbation or injury. 10-Not Attempted due to Environmental Limitations-(lack of equipment, weather restraints, etc.). 88-Not Attempted due to Medical Conditions or Safety Concerns. Bed Mobility: 6 Transfers (B,C,W/C): 6 Gait: 6 Stairs: 6 Indoor Mobility (Ambulation): Independent Stairs: Independent Prior Devices Use: None Has FWW at home PT Evaluation-Current Objective Patient Orientation: Person, Place, Time, Situation Attachments: IV ROM/Strength ROM Lower Extremities WFLs BLEs all planes except left foot/ankle. Strength Lower Extremities 3+/5 BLEs all planes except left foot/ankle N/A Sensory Vision: Functional Hearing: Functional Sensation Right Lower Extremit: Intact Sensation Left Lower Extremity: Impaired Sensation Lower Extremities Left foot patient reports hurts, but unable to identify light touch Transfers Roll Left to Right (QC): 3 Sit to Lying (QC): 3 Lying to Sitting/Side of Bed(Q: 3 Sit to Stand (QC): 3 Chair/Cyd-lj-Bgtns Xfer(QC): 3 Gait Does the Patient Walk?: Yes Mode of Locomotion: Walk Anticipated Mode of Locomotion: Walk Distance: 4' Gait Assistive Device: FWW Balance Sitting Static: Good Sitting Dynamic: Good Standing Static: Fair Standing Dynamic: Poor Assessment/Needs Patient left foot/toes displays mild drainage which increases with mobility. Patient performs all observed bed mobility and transfers with min A. Patient ambulates 4 feet with FWW, with CGA and heel only weight bearing on left LE to avoid pressure on the left forefoot/toes. Patient in chair post treatment with all needs met, nursing notified, call light in reach. Rehab Potential: Fair PT Biostatistics Professor Goals Biostatistics Professor Goals PT Biostatistics Professor Goals Time Frame: May 12, 2023 Roll Left & Right (QC): 6 Sit to Lying (QC): 6 Lying-Sitting on Side/Bed(QC): 6 Sit to Stand (QC): 6 Chair/Rrq-uh-Gmhox Xfer(QC): 5 Toilet Transfer (QC): 5 Does the Patient Walk: Yes Walk 10 feet (QC): 4 Walk 50ft with 2 Turns (QC): 4 Walk 150 ft (QC): 4 1 Step (curb) (QC): 3 4 Steps (QC): 3 PT Plan Problem List Problem List: Activity Tolerance, Functional Strength, Safety, Balance, Gait, Transfer, Bed Mobility, ROM Treatment/Plan Treatment Plan: Continue Plan of Care Treatment Plan: Bed Mobility, Education, Functional Activity [place], Functional Strength, Group Therapy, Gait, Safety, Therapeutic Exercise, Transfers Treatment Duration: May 17, 2023 Frequency: 6 times per week Estimated Hrs Per Day: .25 hour per day Patient and/or Family Agrees t: Yes Safety Risks/Education Patient Education: Gait Training, Transfer Techniques Teaching Recipient: Patient Teaching Methods: Demonstration, Discussion Response to Teaching: Verbalize Understanding, Return Demonstration Time Time In: 1046 Time Out: 1100 DATE: Apr 09, 2023 Total Billed Treatment Time: 14 Total Billed Treatment Visit, JENIFER WYMAN PT Apr 09, 2023 11:47
--- NOTE | 2023-04-09 11:56 | Consultation-Cardiology ---
HPI-Cardiology Cardiology Consultation Date of Consultation 04/09/23 Date of Admission Time Seen by Provider: 11:50 Indication: Nonhealing wound LLE HPI Patient is a 67 y/o male with Hx of PAF, has been maintained on Eliquis, HTN, HLP. Presented to the ER with complaints of nonhealing wound to left 2nd toe for the past year, c/o increased swelling and erythema to LLE last week and onset of fever yesterday. Denies any recent chest pain, dyspnea, dizziness or lightheadedness. Home Medications & Allergies Allergies: Coded Allergies: No Known Drug Allergies (Unverified , 10/01/18) Home Medication List Reviewed: Yes IAL-Codksq-Hzbquw Hx Patient Social History Drug of Choice: Cannabis Smoking Status: Former Smoker Type Used: Smokeless Tobacco 2nd Hand Smoke Exposure: No Recent Hopitalizations: No Alcohol Use?: No Past Medical History PAF, HTN, HLP Review of Systems-General Review of Systems Constitutional: No chills, No diaphoresis, No fever, No malaise, No weakness EENTM: No blurred vision, No double vision Respiratory: No cough, No dyspnea on exertion Cardiovascular: No chest pain Gastrointestinal: No abdominal pain, No diarrhea, No vomiting Genitourinary: No decreased output, No discharge Musculoskeletal: No back pain; joint pain, joint swelling, muscle pain Skin: change in color All Other Systems Reviewed Negative Unless Noted: Yes Reviewed Test Results Reviewed Test Results Lab Laboratory Tests 04/08/23 16:50: White Blood Count 18.7H, Red Blood Count 4.63, Hemoglobin 14.0, Hematocrit 41, Mean Corpuscular Volume 88, Mean Corpuscular Hemoglobin 30, Mean Corpuscular Hemoglobin Concent 34, Red Cell Distribution Width 13.5, Platelet Count 437H, Mean Platelet Volume 9.7, Immature Granulocyte % (Auto) 1, Neutrophils (%) (Auto) 86H, Lymphocytes (%) (Auto) 5L, Monocytes (%) (Auto) 8, Eosinophils (%) (Auto) 0, Basophils (%) (Auto) 1, Neutrophils # (Auto) 16.0H, Lymphocytes # (Auto) 0.9L, Monocytes # (Auto) 1.4H, Eosinophils # (Auto) 0.1, Basophils # (Auto) 0.1, Immature Granulocyte # (Auto) 0.3H, Neutrophils % (Manual) 82, Lymphocytes % (Manual) 7, Monocytes % (Manual) 7, Eosinophils % (Manual) 1, Band Neutrophils 3, Erythrocyte Sedimentation Rate 98H, Sodium Level 140, Potassium Level 3.3L, Chloride Level 107, Carbon Dioxide Level 18L, Anion Gap 15H, Blood Urea Nitrogen 39H, Creatinine 1.77H, Estimat Glomerular Filtration Rate 41, BUN/Creatinine Ratio 22, Glucose Level 129H, Lactic Acid Level 1.06, Calcium Level 10.1, Corrected Calcium 10.7H, Total Bilirubin 1.0, Aspartate Amino Transf (AST/SGOT) 36H, Alanine Aminotransferase (ALT/SGPT) 27, Alkaline Phosphatase 125, C-Reactive Protein High Sensitivity 44.63H, Total Protein 6.9, Albumin 3.3 04/09/23 05:30: Sodium Level 141, Potassium Level 3.3L, Chloride Level 110H, Carbon Dioxide Level 18L, Anion Gap 13, Blood Urea Nitrogen 35H, Creatinine 1.28, Estimat Glomerular Filtration Rate 61, BUN/Creatinine Ratio 27, Glucose Level 92, Calcium Level 9.3 04/09/23 05:35: White Blood Count 15.5H, Red Blood Count 4.19L, Hemoglobin 12.3L, Hematocrit 37L , Mean Corpuscular Volume 89, Mean Corpuscular Hemoglobin 29, Mean Corpuscular Hemoglobin Concent 33, Red Cell Distribution Width 13.8, Platelet Count 411H, Mean Platelet Volume 9.8, Immature Granulocyte % (Auto) 3, Neutrophils (%) (Auto) 79H, Lymphocytes (%) (Auto) 8L, Monocytes (%) (Auto) 9, Eosinophils (%) (Auto) 1, Basophils (%) (Auto) 1, Neutrophils # (Auto) 12.3H, Lymphocytes # (Auto) 1.2, Monocytes # (Auto) 1.3H, Eosinophils # (Auto) 0.1, Basophils # (Auto) 0.1, Immature Granulocyte # (Auto) 0.4H 04/09/23 10:51: Glucometer 88 Microbiology 04/08/23 Blood Culture - Preliminary, Resulted Gram Positive Cocci In Chains See Comments 04/08/23 Gram Stain, Resulted Pending 04/08/23 Wound Culture - Preliminary, Resulted Strep, Beta Hemolytic Group B Physical Exam Physical Exam Vital Signs Vital Signs - First Documented 04/08/23 04/08/23 16:36 19:46 Temp 37.0 Pulse 95 Resp 20 B/P (MAP) 139/83 (101) Pulse Ox 94 O2 Delivery Room Air Capillary Refill : Height, Weight, BMI Height: 5'11.00" Weight: 232lbs. oz. 105.410497rj; 34.88 BMI Method:Stated General Appearance: No Apparent Distress, WD/WN HEENT: PERRL/EOMI Neck: Non Tender, Supple Respiratory: Chest Non Tender, Lungs Clear, Normal Breath Sounds, No Accessory Muscle Use, No Respiratory Distress Cardiovascular: Regular Rate, Rhythm, No JVD, No Murmur Gastrointestinal: Non Tender, Soft Extremity: Pedal Edema, Swelling A/P-Cardiology Admission Diagnosis LLE cellulitis LLE nonhealing wound PAF HTN Assessment/Plan LLE cellulitis, nonhealing wound left second toe. Patient reports wound has been present for approx 1 year, onset of cellulitis approx 1 week ago. Currently on IV antibiotics, planning to evaluate BLE arterial duplex. PAF, has been maintained on Eliquis, cardizem as outpatient. Echo of 01/18/21: LV EF 60-65%, mild LA enlargement, PASP 25-30 mmHg HTN, restart home medications and continue to monitor. HLP, evaluate lipid profile Obesity Probable underlying YESENIA Thank you for allowing us to participate in the management of Mr. Miller. This is Julissa Latham PA-C, as a scribe for Dr. Agarwal. Patient was seen and evaluated with Julissa, I interviewed and examined the patient, discussed the management plan and agree with the current scribed note Patient was admitted for worsening edema and pain with cellulitis and gangrene on his foot, scheduled for evaluation possible amputation of his second left toe. Has +3 pedal edema. Has history of paroxysmal atrial fibrillation Patient is scheduled for arterial Doppler, maintained on oral anticoagulation with Eliquis Restart blood pressure and cholesterol medication Educated about compliance with medications. JULISSA HATHAWAY Apr 09, 2023 11:56 ALEJANDRO AGARWAL MD Apr 09, 2023 14:49
--- NOTE | 2023-04-09 11:58 | Occupational Therapy Eval ---
OT Evaluation-General/PLF Medical Diagnosis Admission Date Apr 08, 2023 at 18:09 Medical Diagnosis: Cellulitis, left foot pain Onset Date: Apr 08, 2023 Therapy Diagnosis Therapy Diagnosis: weakness Height/Weight Height (Feet): 5 Height (Inches): 11.00 Weight (Pounds): 232 Precautions Precautions/Isolations: Fall Prevention, Standard Precautions, Pressure Ulcer Weight Bear Status Weight Bearing Restriction: Partial Weight Bearing (heel cris LLE) Referral Physician: Dr. Saunders Referral Reason: Self Care, Evaluation/Treatment Medical History Pertinent Medical History: HTN Additional Medical History Patient is a 67-year-old male who presents to ED with left foot pain, left foot ulcer and second toe pain. Patient states he has been dealing with a ulcer to his left plantar foot. Has been dressing the wound with a topical ointment. States about a week ago started having some redness and swelling migrating to the left second toe and left dorsum foot. Noted a abscess versus ulcer to the left foot that eventually ruptured resulted in drainage over the past few days. Notes an odor. Reports normal sensation. Does have pain to the left foot. Reviewed History: Yes Social History Home: Single Level Current Living Status: Significant Other Entry Into Home: Stairs Without Railing Steps Into Home: 2 ADL-Prior Level of Function SCALE: Activities may be completed with or without assistive devices. 6-Zjfsjbdiiv-mhqtksy completes the activity by him/herself with no assistance from a helper. 5-Set-up or Clean-up Assistance-helper sets up or cleans up; patient completes activity. [place] assists only prior to or following the activity. 4-Supervision or Touching Assistance-helper provides verbal cues and/or touching/steadying and/or contact guard assistance as patient completes activity. Assistance may be provided throughout the activity or intermittently. 3-Partial/Moderate Assistance-helper does LESS THAN HALF the effort. [place] lifts, holds or supports trunk or limbs, but provides less than half the effort. 2-Substantial/Maximal Assistance-helper does MORE THAN HALF the effort. [place] lifts or holds trunk or limbs and provides more than half the effort. 7-Bcfqspwcm-qyrnwp does ALL the effort. Patient does none of the effort to complete the activity. Or, the assistance of 2 or more helpers is required for the patient to complete the activity. If activity was not attempted, code reason: 7-Patient Refused. 9-Not Applicable-not attempted and the patient did not perform the activity before the current illness, exacerbation or injury. 10-Not Attempted due to Environmental Limitations-(lack of equipment, weather restraints, etc.). 88-Not Attempted due to Medical Conditions or Safety Concerns. Self Care: Independent Functional Cognition: Independent Drive Self: Yes OT Current Status Subjective Agreeable to OT Pain Numeric Pain Scale: 7 Location: Left Location Body Site: Foot Pain Description: Throbbing (when positioned downward) Mental Status/Objective Patient Orientation: Person, Place, Time, Situation Attachments: IV Current Upper Extremity ROM BUE ROM WFLS Upper Extremity Coordination INTACT Upper Extremity Strength -4/5 BUE ADL-Treatment Eating (QC): 88 (NPO) Oral Hygiene (QC): 5 Shower/Bathe Self (QC): 88 Upper Body Dressing (QC): 4 Lower Body Dressing (QC): 2 On/Off Footwear (QC): 2 Toileting Hygiene (QC): 7 (using urinal) Education OT Patient Education: Correct positioning, Modified ADL techniques, Progress toward Goal/Update tx plan, Purpose of tx/functional activities, Reviewed precautions, Rehab process, Safety issues, Transfer techniques Teaching Recipient: Patient Teaching Methods: Demonstration, Discussion Response to Teaching: Reinforcement Needed OT Freight Coordinator Goals Freight Coordinator Goals Toileting Hygiene (QC): 5 Shower/Bathe Self (QC): 5 Upper Body Dressing (QC): 5 Lower Body Dressing (QC): 5 1=Demonstrate adherence to instructed precautions during ADL tasks. 2=Patient will verbalize/demonstrate understanding of assistive devices/modifications for ADL. 3=Patient will improve strength/tolerance for activity to enable patient to p erform ADL's. OT Education/Plan Problem List/Assessment Assessment: Decreased Activ Tolerance, Decreased Safety Aware, Decreased UE Strength, Impaired Self-Care Skills Discharge Recommendations Plan/Recommendations: Continue POC Therapy Discharge Recommendati: Post Acute OT Treatment Plan/Plan of Care Treatment,Training & Education: Yes Patient would benefit from OT for education, treatment and training to promote independence in ADL's, mobility, safety and/or upper extremity function for ADL's. Plan of Care: ADL Retraining, Concurrent Therapy, Functional Mobility, Group Exercise/Act as Ind, UE Funct Exercise/Act Treatment Duration: Apr 13, 2023 Frequency: 3 times per week (3-5times per week) Estimated Hrs Per Day: .25 hour per day Agreement: Yes Rehab Potential: Fair Time Start Time: 11:30 Stop Time: 11:46 DATE: Apr 09, 2023 Total Time Billed (hr/min): 16 Billed Treatment Time EVM 16 YAZMIN SANDY OT Apr 09, 2023 11:58
--- NOTE | 2023-04-09 12:12 | History & Physical-Hospitalist ---
ROMAN ESCALERA 04/09/23 1212: History of Present Illness HPI/Chief Complaint Alexander Miller is a 67 yo M with a PMH of obesity, HTN, hyperlipidemia and AFib who presented to the ED on 04/08 for for left 2nd toe pain, swelling and discoloration x 10 days and a left plantar ulcer x 1 year. He was found to have severe sepsis due to cellulitis vs osteomyelitis and was admitted to [facility]. He states that his ulcer has been asymptomatic and stable in size (~ 1 cm); he has been applying Providine to the area 2x/day. Around 10 days ago, a "blue-black color" and swelling "spread" from the site of the ulcer to the ankle and 2nd toe, after which he began to experience pain of the tenderness of the 2nd toe, particularly with toe flexion and walking. This morning, he rates his pain as a 7/10. He denies sensory changes to the lower extremity. He has a 15- pack year smoking history and quit roughly 25 years ago. He does not drink alcohol or use other [facility] drugs. He denies any history of abnormal blood sugar and or incidences of extremity pain/numbness outside of this event. He denies cardiac conditions other than Afib and takes furosemide for hypertension. He claims to see his PCP regularly (last appointment was 1 month ago). He denies N/V/D, SOB, or chest pain. Source: patient Exam Limitations: no limitations Date Seen 04/09/23 Time Seen by a Provider: 11:30 Attending Physician Audi Dubois DO PCP Admitting Physician: Abbi Saunders MD Attending Physician: Abbi Saunders MD Referring Physician Date of Admission Apr 08, 2023 at 18:09 Home Medications & Allergies Home Medications Reviewed patient Home Medication Reconciliation performed by pharmacy medication reconciliations claims technician and/or nursing. Patients Allergies have been reviewed. Allergies Allergies Coded Allergies No Known Drug Allergies (Unverified10/01/18) Past Tzwsncr-Tanntg-Qgjsso Hx Patient Social History Marrital Status: single Tobacco Use?: No Smoking Status: Former Smoker Use of E-Cig and/or Vaping dev: No Substance use?: No Alcohol Use?: No Alcohol Frequency: Once in a while Pt feels they are or have been: No Seasonal Allergies Seasonal Allergies: No Current Status Advance Directives: No Communicates: Verbally Primary Language: Afghan Preferred Spoken Language: Afghan Is interpretation needed?: No Implanted or Applied Medical D: None Past Medical History Surgeries: Tonsillectomy High Cholesterol, Hypertension Depression HTN, HLD, RA, Depression Family Medical History No contributory Review of Systems Constitutional: no symptoms reported EENTM: no symptoms reported Gastrointestinal: no symptoms reported Genitourinary: no symptoms reported Skin: change in color (blue discloration of 2nd toe and ankle), lesions (plantar ulcer ), other (plantar ulcer ) Psychiatric/Neurological: No Symptoms Reported Physical Exam Physical Exam Vital Signs Vital Signs - First Documented 04/08/23 04/08/23 16:36 19:46 Temp 37.0 Pulse 95 Resp 20 B/P (MAP) 139/83 (101) Pulse Ox 94 O2 Delivery Room Air Capillary Refill : Height, Weight, BMI Height: 5'11.00" Weight: 232lbs. oz. 105.314171rm; 34.88 BMI Method:Stated General Appearance: No Apparent Distress HEENT: PERRL/EOMI Neck: Non Tender, Supple Respiratory: Chest Non Tender, Lungs Clear, Normal Breath Sounds Cardiovascular: Regular Rate, Rhythm, No Murmur, Other (normal radial pulses and normal right popliteal artery pulse. left lower extremity periperal pulses difficult to assess due to swelling. ) Gastrointestinal: Normal Bowel Sounds, Non Tender Extremity: No Calf Tenderness, Inflammation (left foot), Pedal Edema (2+ pitting on dorsum of left foot ), Other (1 cm ulcer on plantar foot; necrotic changes of left 2nd toe, marked edema and warmth of toes and dorsal foot, minimal leg hair bilaterally) Neurologic/Psychiatric: Alert, Oriented x3 Skin: Normal Color, Warm/Dry Results Results/Procedures Labs Laboratory Tests 04/08/23 16:50 04/09/23 05:30 04/09/23 05:35 Patient resulted labs reviewed. Assessment/Plan Admission Diagnosis Left foot ulcer, left foot cellulitis, severe sepsis Assessment and Plan Plantar ulcer of the left foot Cellulitis vs osteomyelitis of the left foot Severe sepsis - CXR 04/08 showing marked soft tissue swelling of 2nd toe with no destructive changes in the underlying osseous structures - Peripheral cultures resulted gram + cocci in chains, wound culture resulted Group B streptococcus - Vancomycin 750 mg 250 ml @ 250/hr and Piperacillin-Tazobactam 4.5 gm 100 ml @ 25 mL/hr - Surgery consulted; they plan to take patient to the OR for debridement and assess need for further intervention - No history of DM; glucose readings have been within normal ranges (92-129) since admission and A1c is pending - Peripheral vascular disease is a likely inciting factor in the context of HTN, HLD, and smoking history; doppler US ordered and cardiology consulted HIRAM - Secondary to severe sepsis - Creatinine 1.28 compared to 1.77 at admission (04/08) - Continue IV fluids HTN - Normotensive at this time - Hold losartan and furosemide until resolution of HIRAM Atrial fibrillation - Continue diltiazem 240 mg - Continue apixaban; will hold prior to surgery Hypokalemia - Start KCl ENRIQUE WILKERSON MD 04/09/23 1503: Assessment/Plan Admission Diagnosis Admission Status: Inpatient Order (span 2 midnights) Reason for Inpatient Admission: see below Assessment and Plan Pt admitted with severe sepsis from cellulitis and concern for underlying oxteomyelitis. Continue IV abx. Discussed with Dr Christian and likely to go to OR tomorrow for amputation. Given chronicity of ulcer and will get arterial study to evaluate for PAD and consult cardiology. Hold eliquis for surgery. Supervisory-Addendum Brief Verification & Attestation Participated in pt care: history, MDM, physical Personally performed: exam, history, MDM, supervision of care Care discussed with: Medical Student Procedures: n/a Results interpretation: Verified all documentation Verification and Attestation of Medical Student E/M Service A medical student performed and documented this service in my presence. I reviewed and verified all information documented by the medical student and made modifications to such information, when appropriate. I personally performed the physical exam and medical decision making. Enrique Wilkerson, Apr 09, 2023,15:03 ROMAN ESCALERA Apr 09, 2023 12:12 ENRIQUE WILKERSON MD Apr 09, 2023 15:03
[2023-04-09 16:04] VITALS: BP 135/76
[2023-04-09] MEDS: ACETAMINOPHEN 325 MG TABLET PO PRN ×2 (16:06→20:25)
--- NOTE | 2023-04-09 16:33 | Diagnostic Imaging Report ---
PROCEDURE: US Bilateral lower extremity arterial. TECHNIQUE: Multiple real-time grayscale images are obtained through both lower extremity arterial systems with color Doppler imaging and color Doppler spectral analysis. INDICATION: Nonhealing wound of the left foot. FINDINGS: In the right leg, the patient has triphasic waveforms and normal transition from the groin to the ankles. In the left leg, the patient has triphasic waveforms in the common and deep femoral arteries but monophasic in the superficial femoral artery which is maintained throughout the left leg. There are still normal velocities throughout the left leg. IMPRESSION: There is no occlusion or hemodynamically significant stenosis seen in the arterial system of the left leg. Dictated by: Dictated on workstation # [id number]
--- NOTE | 2023-04-09 18:31 | Consultation - Surgery ---
History of Present Illness History of Present Illness Patient Consulted On(ying/time) 04/09/23 18:26 Date Seen by Provider: Apr 09, 2023 Time Seen by Provider: 12:30 Reason for Visit: Nonhealing wound LLE History of Present Illness Issue consult requested for left second toe infection and plantar wound left foot. Patient is 67-year-old male who states he has had a wound on the bottom of his left foot for approximately a year. He has been taking care of himself. Patient last 2 weeks started having swelling and some drainage from his left second toe. It continued to worsen and nothing made it better nothing made it worse. Patient seeks further evaluation emergency department. X-rays did not demonstrate any bony erosion. Allergies and Home Medications Allergies Coded Allergies: No Known Drug Allergies (Unverified , 10/01/18) Patient Home Medication List Home Medication List Reviewed: Yes Acetaminophen (Tylenol Extra Strength) 500 Mg Tablet, 1,000 MG PO Q6H PRN for PAIN-MILD, (Reported) Entered as Reported by: FARHAT CANTU on 10/02/18 1020 Last Action: Reviewed Apixaban (Eliquis) 5 Mg Tablet, 5 MG PO BID, (Reported) Entered as Reported by: CARLENE ANNE on 04/09/23948 Last Action: Reviewed Aspirin (Aspirin EC) 81 Mg Tablet.dr, 81 MG PO DAILY, (Reported) Entered as Reported by: CARLENE ANNE on 04/09/23951 Last Action: Reviewed Atorvastatin Calcium (Atorvastatin Calcium) 10 Mg Tablet, 10 MG PO HS, (R eported) Entered as Reported by: OLI HODGES on 01/17/211533 Last Action: Reviewed Cholecalciferol (Vitamin D3) (Vitamin D3) 125 Mcg (5000 Unit) Tablet, 250 MCG PO DAILY, (Reported) Entered as Reported by: CARLENE ANNE on 04/09/2348 Last Action: Reviewed Diltiazem HCl (Diltiazem 24Hr Cd) 240 Mg Cap.er.24h, 240 MG PO DAILY, (Reported) Entered as Reported by: CARLENE ANNE on 04/09/23948 Last Action: Continued Furosemide (Furosemide) 40 Mg Tablet, 40 MG PO DAILY, (Reported) Entered as Reported by: OLI HODGES on 01/17/211533 Last Action: Reviewed Ibuprofen (Ibuprofen) 200 Mg Tablet, 600 MG PO Q8H PRN for PAIN-MILD (1-4), (Reported) Entered as Reported by: CARLENE ANNE on 04/09/23 0951 Last Action: Reviewed Losartan Potassium (Losartan Potassium) 100 Mg Tablet, 100 MG PO DAILY, (Reported) Entered as Reported by: CARLENE ANNE on 04/09/23 0948 Last Action: Reviewed Meloxicam (Meloxicam) 15 Mg Tablet, 15 MG PO DAILY, (Reported) Entered as Reported by: FARHAT CANTU on 10/02/18 1020 Last Action: Reviewed Multivitamin with Minerals (One Daily Complete) 1 Each Tablet, 1 EACH PO DAILY, (Reported) Entered as Reported by: CARLENE ANNE on 04/09/23 0952 Last Action: Reviewed Zinc Sulfate (Zinc) 50 Mg Tablet, 50 MG PO DAILY, (Reported) Entered as Reported by: OLI HODGES on 01/17/21 1534 Last Action: Reviewed Discontinued Medications Cholecalciferol (Vitamin D3) (Vitamin D3) 50 Mcg Tablet, 50 MCG PO DAILY, (Reported) Discontinued Reason: Prescription changed Entered as Reported by: OLI HODGES on 01/17/21 153 Past Nzmnyvx-Vnenle-Yrykcr Hx Patient Social History Drug of Choice: Cannabis Smoking Status: Former Smoker Former Smoker, Quit: Sep 17, 2019 Type Used: Smokeless Tobacco 2nd Hand Smoke Exposure: No Recent Hopitalizations: No Alcohol Use?: No Seasonal Allergies Seasonal Allergies: No Surgeries History of Surgeries: Yes Surgeries: Tonsillectomy Respiratory History of Respiratory Disorde: No Cardiovascular History of Cardiac Disorders: Yes Cardiac Disorders: High Cholesterol, Hypertension Neurological History of Neurological Disord: No Genitourinary History of Genitourinary Disor: No Gastrointestinal History of Gastrointestinal Di: No Musculoskeletal History of Musculoskeletal Dis: No Endocrine History of Endocrine Disorders: No HEENT History of HEENT Disorders: No Cancer History of Cancer: No Psychosocial History of Psychiatric Problem: No Behavioral Health Disorders: Depression Integumentary History of Skin or Integumenta: No Reviewed Nursing Assessment Reviewed/Agree w Nursing PMH: Yes Family Medical History Significant Family History: No Pertinent Family Hx Review of Systems-General Constitutional: No chills, No diaphoresis EENTM: No blurred vision, No double vision Respiratory: No cough, No dyspnea on exertion Cardiovascular: No chest pain, No palpitations Gastrointestinal: No nausea, No vomiting Genitourinary: No decreased output, No discharge Musculoskeletal: No back pain; other (left foot infection) Skin: other (left foot erythema) Psychiatric/Neurological: Denies Anxiety, Denies Depressed, Denies Emotional Problems All Other Systems Reviewed Negative Unless Noted: Yes (Negative excepted noted.) Physical Exam-General Problems Physical Exam Vital Signs Vital Signs - First Documented 04/08/23 04/08/23 16:36 19:46 Temp 37.0 Pulse 95 Resp 20 B/P (MAP) 139/83 (101) Pulse Ox 94 O2 Delivery Room Air Capillary Refill : General Appearance: WD/WN, no apparent distress HEENT: PERRL/EOMI, normal ENT inspection Neck: non-tender, supple Respiratory: chest non-tender, no respiratory distress, no accessory muscle use Cardiovascular: regular rate, rhythm, no JVD Gastrointestinal: non tender, soft Rectal: deferred Back: normal inspection, no CVA tenderness Extremities: swelling, other (left second toe with edema and drainage, plantar chronic ulcer) Neurologic/Psychiatric: alert, normal mood/affect, oriented x 3 Skin: warm/dry, other (erythema left foot) Lymphatic: no adenopathy Data Review Labs Laboratory Tests 04/09/23 05:30: Sodium Level 141, Potassium Level 3.3L, Chloride Level 110H, Carbon Dioxide Level 18L, Anion Gap 13, Blood Urea Nitrogen 35H, Creatinine 1.28, Estimat Glomerular Filtration Rate 61, BUN/Creatinine Ratio 27, Glucose Level 92, Calcium Level 9.3 04/09/23 05:35: White Blood Count 15.5H, Red Blood Count 4.19L, Hemoglobin 12.3L, Hematocrit 37L , Mean Corpuscular Volume 89, Mean Corpuscular Hemoglobin 29, Mean Corpuscular Hemoglobin Concent 33, Red Cell Distribution Width 13.8, Platelet Count 411H, Mean Platelet Volume 9.8, Immature Granulocyte % (Auto) 3, Neutrophils (%) (Auto) 79H, Lymphocytes (%) (Auto) 8L, Monocytes (%) (Auto) 9, Eosinophils (%) (Auto) 1, Basophils (%) (Auto) 1, Neutrophils # (Auto) 12.3H, Lymphocytes # (Auto) 1.2, Monocytes # (Auto) 1.3H, Eosinophils # (Auto) 0.1, Basophils # (Auto) 0.1, Immature Granulocyte # (Auto) 0.4H 04/09/23 10:51: Glucometer 88 04/09/23 16:07: Glucometer 86 Microbiology 04/08/23 Blood Culture - Preliminary, Resulted Strep, Beta Hemolytic Group B See Comments 04/08/23 Gram Stain - Final, Resulted 04/08/23 Wound Culture - Preliminary, Resulted Strep, Beta Hemolytic Group B Assessment/Plan Assessment/Plan Assessment/Plan left foot cellulitis left 2nd toe abscess chronic plantar ulcer left foot on abx anticoagulation on hold discussed risks and benefits of left second toe amputation all other indicated procedures i think this is necessary due to the severeity of the infection of the toe. Will need wound care till healed Would also benefit from wound care for the chronic ulcer npo after midnight. surgery tomorrow. OSEAS TUBBS DO Apr 09, 2023 18:31
[2023-04-09 19:45] VITALS: BP 125/71
[2023-04-09 23:30] VITALS: BP 125/58
[2023-04-10] VITALS (9 sets, daily range): BP systolic 123–144; BP diastolic 60–78
[2023-04-10] MEDS: ACETAMINOPHEN 325 MG TABLET PO PRN (00:17)
[2023-04-10] MEDS: NS IV 1000 ML 1,000 ML IV SCH ×2 (02:38→05:06)
[2023-04-10] MEDS: inSUlin ASPART (NovoLOG) 1 UNIT/0.01 ML (CHARGE PER UNIT) SC SCH ×4 (05:01→22:02)
[2023-04-10] MEDS ORDERED: LIDOCAINE/EPI 1%-1:100,000 (XYLOCAINE) 20ML ONE (06:51)
[2023-04-10] MEDS ORDERED: ONDANSETRON 4 MG/2 ML (SDV) Z0FRAN ONE (06:59)
[2023-04-10] MEDS ORDERED: fentaNYL INJ 100 MCG/2 ML AMP ONE (06:59)
[2023-04-10] MEDS ORDERED: MIDAZOLAM 2 MG/2 ML (VERSED) VIAL ONE (06:59)
[2023-04-10] MEDS ORDERED: PROPOFOL INJECTION 50 ML IV ONE (07:29)
--- NOTE | 2023-04-10 07:36 | Progress Note - Surgery ---
Subjective Date Seen by a Provider: Apr 10, 2023 Time Seen by a Provider: 07:24 Subjective/Events-last exam No changes or concerns. Foot still with some drainage from left 2nd toe. Denies n/v fever sweats chills shortness of breath or chest pain. Focused Exam Lactate Level 04/08/23 16:50: Lactic Acid Level 1.06 Objective Exam Vital Signs Date Time Temp Pulse Resp B/P (MAP) Pulse Ox O2 Delivery O2 Flow Rate FiO2 04/10/23 04:41 37.6 78 18 129/72 (91) 94 Room Air 04/10/23 01:00 70 04/09/23 23:30 37.4 79 18 125/58 (80) 94 Room Air 04/09/23 20:30 Room Air 04/09/23 19:45 37.4 73 18 125/71 (89) 94 Room Air 04/09/23 19:01 78 04/09/23 17:28 37.2 04/09/23 16:36 36.6 04/09/23 16:06 37.9 04/09/23 16:04 37.9 76 18 135/76 (95) 94 Room Air 04/09/23 13:00 76 04/09/23 11:09 37.2 81 18 136/75 (95) 93 Room Air 04/09/23 08:00 Room Air I & O 04/10/23 07:00 Intake Total 3790 ml Output Total 1800 ml Balance 1990 ml Capillary Refill : General Appearance: No Apparent Distress, WD/WN HEENT: PERRL/EOMI Neck: Non Tender, Supple Respiratory: Chest Non Tender, No Accessory Muscle Use, No Respiratory Distress Cardiovascular: Regular Rate, Rhythm, No JVD, No Murmur Gastrointestinal: non tender, soft Extremity: Pedal Edema, Swelling, Other (left 2nd toe erythema and with abscess, ) Neurologic/Psychiatric: Alert, Oriented x3 Skin: Normal Color, Warm/Dry, Other (dorsum of foot superificial skin changes and chronic ulcer plantar surface) Lymphatic: No Adenopathy Results Lab Laboratory Tests 04/09/23 10:51: Glucometer 88 04/09/23 16:07: Glucometer 86 04/09/23 20:54: Glucometer 92 04/10/23 04:44: Glucometer 94 Microbiology 04/08/23 Blood Culture - Preliminary, Resulted Strep, Beta Hemolytic Group B See Comments 04/08/23 Gram Stain - Final, Resulted 04/08/23 Wound Culture - Preliminary, Resulted Strep, Beta Hemolytic Group B Assessment/Plan Assessment/Plan Assessment/Plan left foot cellulitis left 2nd toe abscess chronic plantar ulcer left foot on abx anticoagulation on hold discussed risks and benefits of left second toe amputation all other indicated procedures i think this is necessary due to the severity of the infection of the toe. Will need wound care till healed Would also benefit from wound care for the chronic ulcer npo surgery today OSEAS TUBBS DO Apr 10, 2023 07:36
[2023-04-10] MEDS ORDERED: TROUGH ORDER-PHARMACY XX NR (08:00)
--- NOTE | 2023-04-10 08:12 | Progress Note-Post Operative ---
Post-Operative Progess Note Surgeon (s)/Flamer Sealer (s) Surgeon OSEAS TUBBS DO Flamer Sealer: na Pre-Operative Diagnosis left 2nd to abscess Post-Operative Diagnosis same Procedure & Operative Findings Date of Procedure 04/10/23 Procedure Performed/Findings left ankle block, amputation left 2nd toe Anesthesia Type mac c block Estimated Blood Loss Estimated blood loss (mL): minimal Specimens/Packing Specimens Removed left 2nd toe, culture Packing: iodoform OSEAS TUBBS DO Apr 10, 2023 08:11
[2023-04-10] MEDS ORDERED: morphine INJ 10 MG/ML 1ML (SYR OR VIAL) IVP ONE (08:15)
--- NOTE | 2023-04-10 08:16 | Anesthesia-General Post-Op ---
MAC Patient Condition Mental Status/LOC: Same as Preop Cardiovascular: Satisfactory Nausea/Vomiting: Absent Respiratory: Satisfactory Pain: Controlled Complications: Absent Post Op Complications Complications None Follow Up Care/Instructions Patient Instructions None needed. Anesthesiology Discharge Order Discharge Order Patient is doing well, no complaints, stable vital signs, no apparent adverse anesthesia problems. No complications reported per nursing. HANANE PICHARDO CRNA Apr 10, 2023 08:16
[2023-04-10] MEDS ORDERED: LACTATED RINGERS 1,000 ML IV PRN (08:30)
[2023-04-10 09:02] LABS: BASOPHILS # (AUTO) 0.1 10^3/uL (0.0-0.1); BASOPHILS % (AUTO) 1 % (0-10); EOSINOPHILS # (AUTO) 0.1 10^3/uL (0.0-0.3); EOSINOPHILS % (AUTO) 1 % (0-10); HEMATOCRIT 37 % (40-54); HEMOGLOBIN 12.2 g/dL (13.3-17.7); LYMPHOCYTES # (AUTO) 1.4 10^3/uL (1.0-4.0); LYMPHOCYTES % (AUTO) 10 % (12-44); MEAN CORPUSCULAR HEMOGLOBIN 30 pg (25-34); MEAN CORPUSCULAR HGB CONC 33 g/dL (32-36); MEAN CORPUSCULAR VOLUME 90 fL (80-99); MEAN PLATELET VOLUME 9.5 fL (9.0-12.2); MONOCYTES # (AUTO) 1.3 10^3/uL (0.0-1.0); MONOCYTES % (AUTO) 9 % (0-12); NEUTROPHILS # (AUTO) 10.3 10^3/uL (1.8-7.8); NEUTROPHILS % (AUTO) 74 % (42-75); PLATELET COUNT 422 10^3/uL (130-400); WHITE BLOOD COUNT 13.9 10^3/uL (4.3-11.0)
[2023-04-10 09:21] LABS: CALCIUM 9.4 MG/DL (8.5-10.1); CREATININE SERUM 0.83 MG/DL (0.60-1.30); POTASSIUM 3.6 MMOL/L (3.6-5.0)
[2023-04-10] MEDS: DOCUSATE SODIUM 100 MG CAPSULE PO SCH ×2 (09:26→20:02)
[2023-04-10] MEDS: SENNOSIDES 8.6 MG (SENOKOT) TAB PO SCH ×2 (09:26→20:02)
[2023-04-10] MEDS ORDERED: PIPERACILLIN SODIUM/TAZOBACTAM 4.5 GM in NS (IVPB) 100 ML 100 ML IV SCH (09:30)
[2023-04-10] MEDS: ceFAZolin INJECTION 2,000 MG in NS (IVPB) 50 ML 50 ML IV SCH ×2 (10:17→17:53)
[2023-04-10] MEDS: VANCOMYCIN 1 GM/NS 250 ML IVPB IV SCH ×4 (10:18→22:08)
--- NOTE | 2023-04-10 10:35 | Occupational Ther Daily Note ---
OT Current Status-Daily Note Subjective Feels a little groggy Pain Numeric Pain Scale: 4 Location: Right Pain Description: Throbbing Mental Status/Objective Patient Orientation: Person, Place, Time, Situation ADL-Treatment Moved to EOB w/ VCs, GF is present during session, Therapy Code Descriptions/Definitions Functional [place] Measure: 0=Not Assessed/NA 4=Minimal Assistance 1=Total Assistance 5=Supervision or Setup 2=Maximal Assistance 6=Modified [place] 3=Moderate Assistance 7=Complete IndependenceSCALE: Activities may be completed with or without assistive devices. 0-Kkzurkwivx-pggfggs completes the activity by him/herself with no assistance from a helper. 5-Set-up or Clean-up Assistance-helper sets up or cleans up; patient completes activity. [place] assists only prior to or following the activity. 4-Supervision or Touching Assistance-helper provides verbal cues and/or touching/steadying and/or contact guard assistance as patient completes activity. Assistance may be provided throughout the activity or intermittently. 3-Partial/Moderate Assistance-helper does LESS THAN HALF the effort. [place] lifts, holds or supports trunk or limbs, but provides less than half the effort. 2-Substantial/Maximal Assistance-helper does MORE THAN HALF the effort. [place] lifts or holds trunk or limbs and provides more than half the effort. 4-Jyhpgzsas-bfqtwj does ALL the effort. Patient does none of the effort to complete the activity. Or, the assistance of 2 or more helpers is required for the patient to complete the activity. If activity was not attempted, code reason: 7-Patient Refused. 9-Not Applicable-not attempted and the patient did not perform the activity before the current illness, exacerbation or injury. 10-Not Attempted due to Environmental Limitations-(lack of equipment, weather restraints, etc.). 88-Not Attempted due to Medical Conditions or Safety Concerns. Eating (QC): 6 Oral Hygiene (QC): 5 Shower/Bathe Self (QC): 88 Upper Body Dressing (QC): 5 Lower Body Dressing (QC): 3 On/Off Footwear: 2 Toileting Hygiene (QC): 3 Toilet Transfer (QC): 3 HEEL pressure only or WB transfer Other Treatment Chair pushups instructed for Strength gains. Education OT Patient Education: Correct positioning, Exercise program Teaching Recipient: Patient, Significant Other Teaching Methods: Demonstration, Discussion Response to Teaching: Verbalize Understanding, Reinforcement Needed OT Bullet Assembly Press Operator Goals Group Home Goals Toileting Hygiene (QC): 5 Shower/Bathe Self (QC): 5 Upper Body Dressing (QC): 5 Lower Body Dressing (QC): 5 1=Demonstrate adherence to instructed precautions during ADL tasks. 2=Patient will verbalize/demonstrate understanding of assistive devices/modifications for ADL. 3=Patient will improve strength/tolerance for activity to enable patient to perform ADL's. OT Education/Plan Discharge Recommendations Plan/Recommendations: Continue POC Therapy Discharge Recommendati: Post Acute OT Treatment Plan/Plan of Care Treatment,Training & Education: Yes Patient would benefit from OT for education, treatment and training to promote independence in ADL's, mobility, safety and/or upper extremity function for ADL's. Plan of Care: ADL Retraining, Concurrent Therapy, Functional Mobility, Group Exercise/Act as Ind, UE Funct Exercise/Act Treatment Duration: Apr 13, 2023 Frequency: 3 times per week (3-5times per week) Estimated Hrs Per Day: .25 hour per day Agreement: Yes Rehab Potential: Fair Time Start Time: 09:30 Stop Time: 09:48 DATE: Apr 10, 2023 Total Time Billed (hr/min): 18 Billed Treatment Time ADL 18 YAZMIN SANDY OT Apr 10, 2023 10:35
--- NOTE | 2023-04-10 10:52 | Progress Note - Hospitalist ---
ROMAN ESCALERA 04/10/23 1052: Subjective HPI/CC On Admission Alexander Miller is a 67 yo M with a PMH of obesity, HTN, hyperlipidemia and AFib who presented to the ED on 04/08 for for left 2nd toe pain, swelling and discoloration x 10 days and a left plantar ulcer x 1 year. He was found to have severe sepsis due to cellulitis vs osteomyelitis and was admitted to [facility]. He states that his ulcer has been asymptomatic and stable in size (~ 1 cm); he has been applying Providine to the area 2x/day. Around 10 days ago, a "blue-black color" and swelling "spread" from the site of the ulcer to the ankle and 2nd toe, after which he began to experience pain of the tenderness of the 2nd toe, particularly with toe flexion and walking. This morning, he rates his pain as a 7/10. He denies sensory changes to the lower extremity. He has a 15- pack year smoking history and quit roughly 25 years ago. He does not drink alcohol or use other [facility] drugs. He denies any history of abnormal blood sugar and or incidences of extremity pain/numbness outside of this event. He denies cardiac conditions other than Afib and takes furosemide for hypertension. He claims to see his PCP regularly (last appointment was 1 month ago). He denies N/V/D, SOB, or chest pain. Subjective/Events-last exam The patient underwent amputation of the left 2nd digit this morning. He appears comfortable and and rates his foot pain as a 5-6 at this time. He denies chills, dysuria, chest pain, palpitations, shortness of breath and N/V/D. Focused Exam Lactate Level 04/08/23 16:50: Lactic Acid Level 1.06 Objective Exam Vital Signs Vital Signs Date Time Temp Pulse Resp B/P (MAP) Pulse Ox O2 Delivery O2 Flow Rate FiO2 04/10/23 08:57 37.4 72 18 128/70 (89) 92 Room Air 0.00 Capillary Refill : General Appearance: No Apparent Distress HEENT: PERRL/EOMI, Moist Mucous Membranes Neck: Non Tender, Supple Respiratory: Lungs Clear, Normal Breath Sounds Cardiovascular: Regular Rate, Rhythm, Normal Peripheral Pulses Gastrointestinal: Normal Bowel Sounds, Non Tender Extremity: No Calf Tenderness Neurologic/Psychiatric: Alert, Oriented x3 Results/Procedures Lab Laboratory Tests 04/10/23 08:50 Patient resulted labs reviewed. Assessment/Plan Assessment and Plan Assess & Plan/Chief Complaint Plantar ulcer of the left foot Cellulitis vs osteomyelitis of the left foot S/p amuptation of the left 2nd digit (04/10) Severe sepsis - resolved as of 04/10 - CXR 04/08 showing marked soft tissue swelling of 2nd toe with no destructive changes in the underlying osseous structures - Peripheral cultures resulted gram + cocci in chains, wound culture resulted Group B streptococcus - Cefazolin 50 ml @ 100 mls/lhr since 04/10; vancomycin and piperacillin- tazobactam from 04/08 - 04/10 - Bilateral lower extremity arterial US on 04/09 negative for occlusion or hemodynamically significant stenosis - Prediabetes; AIc this visit 6.0 without prior history of hyperglycemia HIRAM - resolved as of 04/10 Prediabetes - New diagnosis - HbAIc this visit 6.0 Atrial fibrillation - Continue diltiazem 240 mg - Holding home apixiban - Plan to restart DVT prophylaxis on 04/11 HTN - Normotensive at this time - Continue holding losartan and furosemide ENRIQUE WILKERSON MD 04/10/23 1329: Assessment/Plan Assessment and Plan Assess & Plan/Chief Complaint Patient POD #0 from amputation of 2nd toe today. Continue IV abx. Pain regimen. Wound care to see. Supervisory-Addendum Brief Verification & Attestation Participated in pt care: history, MDM, physical Personally performed: exam, history, MDM, supervision of care Care discussed with: Medical Student Procedures: n/a Results interpretation: Verified all documentation Verification and Attestation of Medical Student E/M Service A medical student performed and documented this service in my presence. I reviewed and verified all information documented by the medical student and made modifications to such information, when appropriate. I personally performed the physical exam and medical decision making. Enrique Wilkerson, Apr 10, 2023,13:29 ROMAN ESCALERA Apr 10, 2023 10:52 ENRIQUE WILKERSON MD Apr 10, 2023 13:29
--- NOTE | 2023-04-10 11:59 | Physical Therapy Daily Note ---
PT Daily Note-Current Subjective Patient sitting in chair with family in the room, agreeable to treatment. Rates pain at 7/10 in left foot. Messaged Dr. Christian who gave verbal order for left foot Heel only weight bearing. Pain Section J - Health Conditions 1. Rarely or not at all 2. Occasionally 3. Frequently 4. Almost constantly 8. Unable to answer Pain Effect on Sleep: 2 Pain Interference with Therapy: 3 Pain Interference w/Day-to-Day: 3 Mental Status Patient Orientation: Person, Place, Time, Situation Transfers SCALE: Activities may be completed with or without assistive devices. 6-Xawfvigdfl-inpeyyh completes the activity by him/herself with no assistance from a helper. 5-Set-up or Clean-up Assistance-helper sets up or cleans up; patient completes activity. [place] assists only prior to or following the activity. 4-Supervision or Touching Assistance-helper provides verbal cues and/or touching/steadying and/or contact guard assistance as patient completes activity. Assistance may be provided throughout the activity or intermittently. 3-Partial/Moderate Assistance-helper does LESS THAN HALF the effort. [place] lifts, holds or supports trunk or limbs, but provides less than half the effort. 2-Substantial/Maximal Assistance-helper does MORE THAN HALF the effort. [place] lifts or holds trunk or limbs and provides more than half the effort. 4-Palyilehm-godqxx does ALL the effort. Patient does none of the effort to complete the activity. Or, the assistance of 2 or more helpers is required for the patient to complete the activity. If activity was not attempted, code reason: 7-Patient Refused. 9-Not Applicable-not attempted and the patient did not perform the activity before the current illness, exacerbation or injury. 10-Not Attempted due to Environmental Limitations-(lack of equipment, weather restraints, etc.). 88-Not Attempted due to Medical Conditions or Safety Concerns. Sit to Stand (QC): 3 Chair/Gzp-kt-Knqed Xfer(QC): 3 Weight Bearing Right Lower Extremity: Right Full Weight Bearing Left Lower Extremity: Left Partial Weight Bearing Patient was instructed in heel only weight bearing due to wound Gait Training Does the Patient Walk?: No and Walking Goal IS indicated Exercises Supine Ex: Ankle pumps, Quad Set, Glut sets Supine Reps: 20 Seated Therapy Exercises: Long arc quads, Hip flexion, Hamstring Curls, Hip abd/add Seated Reps: 10 Assessment Current Status: Fair Progress Patient had surgery this morning of left toe amputation. Patient performed the above listed therapeutic exercises. Patient performed sit to stand with min/mod A and focus on heel only weight bearing. Patient able to tolerate standing ~2 minutes. Patient in chair post treatment with all needs met, nursing notified, call light in hand. PT Curriculum Facilitator Goals Curriculum Facilitator Goals PT Curriculum Facilitator Goals Time Frame: May 12, 2023 Roll Left & Right (QC): 6 Sit to Lying (QC): 6 Lying-Sitting on Side/Bed(QC): 6 Sit to Stand (QC): 6 Chair/Juj-im-Czxkx Xfer(QC): 5 Toilet Transfer (QC): 5 Does the Patient Walk: Yes Walk 10 feet (QC): 4 Walk 50ft with 2 Turns (QC): 4 Walk 150 ft (QC): 4 1 Step (curb) (QC): 3 4 Steps (QC): 3 PT Plan Treatment/Plan Treatment Plan: Continue Plan of Care Treatment Plan: Bed Mobility, Education, Functional Activity [place], Functional Strength, Group Therapy, Gait, Safety, Therapeutic Exercise, Transfers Treatment Duration: May 17, 2023 Frequency: 6 times per week Estimated Hrs Per Day: .25 hour per day Patient and/or Family Agrees t: Yes Safety Risks/Education Patient Education: Transfer Techniques Teaching Recipient: Patient Teaching Methods: Demonstration, Discussion Response to Teaching: Reinforcement Needed Time Time In: 1022 Time Out: 1040 DATE: Apr 10, 2023 Total Billed Treatment Time: 18 Total Billed Treatment Visit, Ex JENIFER MARTIN PT Apr 10, 2023 11:59
--- NOTE | 2023-04-10 13:38 | OPERATIVE REPORT ---
DATE OF SERVICE: 04/10/2023 PREOPERATIVE DIAGNOSIS: Left second toe abscess. POSTOPERATIVE DIAGNOSIS: Left second toe abscess. PROCEDURE: Left ankle block amputation of the left second toe. SURGEON: Oseas Christian DO ANESTHESIA: MAC with block. ESTIMATED BLOOD LOSS: Minimal. COMPLICATIONS: None. INDICATIONS: The patient is a 67-year-old male with an abscess left second toe and cellulitis of the left lower extremity. This toe due to the infection does not appear to be viable and we discussed risks and benefits, and options and he wishes to proceed with procedure. Consent was signed in chart. DESCRIPTION OF PROCEDURE: The patient was taken to the operating suite where he was prepped and draped in sterile fashion. Timeout was performed. Left ankle block was performed by injecting posterior, medial and lateral aspects of the ankle and then fanning the local on the dorsal aspect of the foot. Once block effect took place, a #15 blade scalpel was used to circumferentially cut around the base of the left second toe. Cautery was used to cut down through the skin down through the subcutaneous tissues, tendons until I was at the base of the metatarsal joint. This was then amputated. Hemostasis was achieved. A culture was obtained. The wound was then irrigated with copious amounts of irrigation and then packed with iodoform. The patient tolerated the procedure well without complications, taken to recovery room in stable condition. Job ID: [id number] DocumentID: [id number] Dictated Date: 04/10/2023 08:40:42 Paralegal Instructor Date: 04/10/2023 13:36:00 Dictated By: OSEAS CHRISTIAN DO
[2023-04-11] VITALS (7 sets, daily range): BP systolic 128–164; BP diastolic 68–90
[2023-04-11] MEDS: ceFAZolin INJECTION 2,000 MG in NS (IVPB) 50 ML 50 ML IV SCH ×2 (00:50→09:51)
[2023-04-11] MEDS: ACETAMINOPHEN 325 MG TABLET PO PRN ×3 (00:59→12:45)
[2023-04-11] MEDS: inSUlin ASPART (NovoLOG) 1 UNIT/0.01 ML (CHARGE PER UNIT) SC SCH ×4 (06:02→20:13)
[2023-04-11 06:27] LABS: BASOPHILS # (AUTO) 0.1 10^3/uL (0.0-0.1); BASOPHILS % (AUTO) 1 % (0-10); EOSINOPHILS # (AUTO) 0.1 10^3/uL (0.0-0.3); EOSINOPHILS % (AUTO) 1 % (0-10); HEMATOCRIT 35 % (40-54); HEMOGLOBIN 11.5 g/dL (13.3-17.7); LYMPHOCYTES # (AUTO) 1.4 10^3/uL (1.0-4.0); LYMPHOCYTES % (AUTO) 10 % (12-44); MEAN CORPUSCULAR HEMOGLOBIN 30 pg (25-34); MEAN CORPUSCULAR HGB CONC 33 g/dL (32-36); MEAN CORPUSCULAR VOLUME 91 fL (80-99); MEAN PLATELET VOLUME 9.6 fL (9.0-12.2); MONOCYTES # (AUTO) 1.4 10^3/uL (0.0-1.0); MONOCYTES % (AUTO) 10 % (0-12); NEUTROPHILS # (AUTO) 10.5 10^3/uL (1.8-7.8); NEUTROPHILS % (AUTO) 73 % (42-75); PLATELET COUNT 407 10^3/uL (130-400); WHITE BLOOD COUNT 14.5 10^3/uL (4.3-11.0)
[2023-04-11 06:30] LABS: POTASSIUM 3.8 MMOL/L (3.6-5.0)
[2023-04-11 06:31] LABS: CALCIUM 9.2 MG/DL (8.5-10.1)
[2023-04-11 06:35] LABS: CREATININE SERUM 0.75 MG/DL (0.60-1.30)
[2023-04-11] MEDS: SENNOSIDES 8.6 MG (SENOKOT) TAB PO SCH ×2 (07:48→19:59)
[2023-04-11] MEDS: DOCUSATE SODIUM 100 MG CAPSULE PO SCH ×2 (07:48→19:59)
--- NOTE | 2023-04-11 09:44 | Occupational Ther Daily Note ---
OT Current Status-Daily Note Subjective Patient voices concerns w/ going home and reports none will be able to help him. OT facilitated Patient in problem solving Dc plan and availability of friends or family and girlfriend to assist once home. Pain Numeric Pain Scale: 8 Location: Left Location Body Site: Foot Pain Description: Ache, Pressure Mental Status/Objective Patient Orientation: Person, Place, Time, Situation Attachments: IV, Oxygen ADL-Treatment Saturated bed, odor of garments. OT intervention for full shower and garment change, water resistance bag on areas for IV and amputation of foot provided. Patient education for posture w/ mobility, transfers and sitting on shower bench, education to use all other limbs/ extremities to perform tasks and recall with patient that only heel WB permitted, Therapy Code Descriptions/Definitions Functional [place] Measure: 0=Not Assessed/NA 4=Minimal Assistance 1=Total Assistance 5=Supervision or Setup 2=Maximal Assistance 6=Modified [place] 3=Moderate Assistance 7=Complete IndependenceSCALE: Activities may be completed with or without assistive devices. 8-Hxxvkdokcy-qutmihk completes the activity by him/herself with no assistance from a helper. 5-Set-up or Clean-up Assistance-helper sets up or cleans up; patient completes activity. Paia assists only prior to or following the activity. 4-Supervision or Touching Assistance-helper provides verbal cues and/or touching/steadying and/or contact guard assistance as patient completes activity. Assistance may be provided throughout the activity or intermittently. 3-Partial/Moderate Assistance-helper does LESS THAN HALF the effort. Paia lifts, holds or supports trunk or limbs, but provides less than half the effort. 2-Substantial/Maximal Assistance-helper does MORE THAN HALF the effort. Paia lifts or holds trunk or limbs and provides more than half the effort. 7-Salvxlktp-ivuabn does ALL the effort. Patient does none of the effort to complete the activity. Or, the assistance of 2 or more helpers is required for the patient to complete the activity. If activity was not attempted, code reason: 7-Patient Refused. 9-Not Applicable-not attempted and the patient did not perform the activity before the current illness, exacerbation or injury. 10-Not Attempted due to Environmental Limitations-(lack of equipment, weather restraints, etc.). 88-Not Attempted due to Medical Conditions or Safety Concerns. Eating (QC): 6 Oral Hygiene (QC): 5 Bathing Location: L Arm, R Arm, L Upper Leg, R Upper Leg, R Lower Leg (including foot), Abdomen, Buttocks, Perineal Area Shower/Bathe Self (QC): 3 (Assistance required for back, below knees front/back legs, buttock and with standing to cleanse jean area) Upper Body Dressing (QC): 4 Lower Body Dressing (QC): 3 On/Off Footwear: 3 Toileting Hygiene (QC): 4 Toilet Transfer (QC): 4 Multiple cues for posture, Patient continually leans forearms on FWW handles Other Treatment AROM THE EX for BLEs d/t slow responses and timeliness to position self to EOB and lift LEs for bathing and dressing tasks. Patient attempts several times to hold thigh to lift LE off floor, OT facilitate use of muscles in leg to move leg. Reminded patient that the amputation w/ of toe and movement of remaining limbs and joints is imperative to better circulation and mobility. HEP provided on white board for patient to complete several times throughout the day Education OT Patient Education: Correct positioning, Exercise program, Home exercise program, Modified ADL techniques, Progress toward Goal/Update tx plan, Purpose of tx/functional activities, Reviewed precautions, Rehab process, Safety issues, Transfer techniques, Use of adapted equipment Teaching Recipient: Patient Teaching Methods: Demonstration, Handout, Discussion Response to Teaching: Verbalize Understanding, Reinforcement Needed OT Detention Goals Embryology Professor Goals Toileting Hygiene (QC): 5 Shower/Bathe Self (QC): 5 Upper Body Dressing (QC): 5 Lower Body Dressing (QC): 5 1=Demonstrate adherence to instructed precautions during ADL tasks. 2=Patient will verbalize/demonstrate understanding of assistive devices/modifications for ADL. 3=Patient will improve strength/tolerance for activity to enable patient to perform ADL's. OT Education/Plan Problem List/Assessment Assessment: Decreased Activ Tolerance, Decreased UE Strength, Impaired Bed Mobility, Impaired Coordination, Impaired Funct Balance, Impaired Self-Care Skills Discharge Recommendations Plan/Recommendations: Continue POC Treatment Plan/Plan of Care Treatment,Training & Education: Yes Patient would benefit from OT for education, treatment and training to promote independence in ADL's, mobility, safety and/or upper extremity function for ADL's. Plan of Care: ADL Retraining, Concurrent Therapy, Functional Mobility, Group Exercise/Act as Ind, UE Funct Exercise/Act Treatment Duration: Apr 13, 2023 Frequency: 3 times per week (3-5times per week) Estimated Hrs Per Day: .25 hour per day Agreement: Yes Rehab Potential: Fair Time Start Time: 09:32 Stop Time: 10:20 DATE: Apr 11, 2023 Total Time Billed (hr/min): 58 Billed Treatment Time ADL 3, EX 1 58 min YAZMIN SANDY OT Apr 11, 2023 09:44
[2023-04-11] MEDS: VANCOMYCIN 1 GM/NS 250 ML IVPB IV SCH ×4 (09:51→21:58)
[2023-04-11] MEDS ORDERED: APIXABAN 5 MG TABLET PO ONE (10:45)
--- NOTE | 2023-04-11 11:12 | Cardiology Progress Note ---
Subjective Date Seen by Provider: Apr 11, 2023 Time Seen by Provider: 08:40 Subjective/Events-last exam Patient asleep in bed, easily awakens to answer questions. Denies any chest pain or palpitations. Focused Exam Lactate Level 04/08/23 16:50: Lactic Acid Level 1.06 Objective-Cardiology Exam Last Set of Vital Signs Vital Signs 04/11/23 15:35 Temp 37.5 Pulse 76 Resp 22 B/P (MAP) 164/81 (108) Pulse Ox 94 O2 Delivery Nasal Cannula O2 Flow Rate 1.00 I&O Intake and Output 04/11/23 00:00 Intake Total 3680 ml Output Total 1950 ml Balance 1730 ml Intake Oral 1600 ml IV Total 2080 ml Output Urine Total 1950 ml General: Alert, Oriented X3 HEENT: Atraumatic Neck: Supple Lungs: Clear to Auscultation Heart: Regular Rate, Normal S1, Normal S2 Abdomen: Normal Bowel Sounds, Soft Extremities: Other (LLE cellulitis and edema. L foot with C/D/I dressing.) Neuro: Normal Speech, Cranial Nerves 3-12 NL Psych/Mental Status: Mental Status NL, Mood NL Results Lab Laboratory Tests 04/11/23 05:50 A/P-Cardiology Admission Diagnosis LLE cellulitis LLE nonhealing wound PAF HTN Assessment/Plan LLE cellulitis, nonhealing wound left second toe. Patient reports wound has been present for approx 1 year, onset of cellulitis approx 1 week ago. Currently on IV antibiotics. s/p Left 2nd toe amputation with Dr. Christian on 04/10/23. Arterial duplex done 04/09/23 showing no occlusion or hemodynamically significant stenosis seen in the arterial system of the left leg. PAF, has been maintained on Eliquis, cardizem as outpatient. Echo of 01/18/21: LVEF 60-65%, mild LA enlargement, PASP 25-30 mmHg. Restart Eliquis when ok with surgeon. HTN, mildly elevated, continue to monitor. HLP, evaluate lipid profile Obesity Probable underlying YESENIA Supervisory-Addendum Brief Supervisory Addendum Participated in pt care: history, MDM, physical Personally performed: exam, history, MDM Care discussed with: ISMAEL Results interpretation: Verified all documentation Notes: Patient was seen and evaluated with Julissa, examination performed, management plan was discussed, agree with the current scribed note, I made few changes to the note using Italic font Patient was seen at bedside, laying down comfortably Underwent his amputation yesterday Recovering well Denied any chest pain Monitor blood pressure No changes today. Restart Nirav. JULISSA HATHAWAY Apr 11, 2023 11:12 ALEJANDRO VILA MD Apr 11, 2023 15:37
[2023-04-11] MEDS ORDERED: HYPOCHLOROUS ACID/NaCl (VASHE) 250 ML IR SCH (12:30)
[2023-04-11] MEDS ORDERED: IOHEXOL 350 MG/ML 100 ML (OMNIPAQUE 350) VIAL IV ONE (12:45)
[2023-04-11] MEDS ORDERED: HOLD METFORMIN - RECEIVED CONTRAST 20 ML VIAL IV SCH (12:45)
[2023-04-11] MEDS ORDERED: NS 100 ML (IVPB) BAG IV ONE (12:45)
[2023-04-11] MEDS ORDERED: FUROSEMIDE 40 MG/4 ML INJ (LASIX) IVP ONE (13:15)
--- NOTE | 2023-04-11 13:30 | Diagnostic Imaging Report ---
PROCEDURE: US left lower extremity venous. TECHNIQUE: Multiple real-time grayscale images were obtained over the left lower extremity in various projections. Additional duplex Doppler and color Doppler images were also obtained. INDICATION: Left leg pain and swelling. FINDINGS: The veins of the left leg have good color filling and compressibility. There is phasic flow and normal response to augmentation. IMPRESSION: Negative venous Doppler of the left leg. Dictated by: Dictated on workstation # [id number]
--- NOTE | 2023-04-11 15:26 | Diagnostic Imaging Report ---
PROCEDURE: CT left lower extremity with contrast. TECHNIQUE: Multiple axial images of the left lower extremity were obtained after intravenous administration of iodinated contrast. Auto Exposure Controls were utilized during the CT exam to meet ALARA standards for radiation dose reduction. INDICATION: Left foot and ankle cellulitis and osteomyelitis. COMPARISON: Radiographs from 04/08/2023. FINDINGS: No acute fracture is seen in the left foot. There has been amputation of the second toe at the MTP joint since the prior exam. There is packing in the wound, which extends down to the bone. No erosion or periosteal reaction is seen of the second metatarsal head. There is severe degenerative change in the first MTP joint. There are moderate degenerative changes in the ankle. Alignment appears normal. No findings of osteomyelitis are appreciated on CT. MRI is more sensitive for evaluation. There is superficial soft tissue edema about the ankle and foot. There is a soft tissue ulceration plantar to the second MTP joint with underlying edema. No rim-enhancing fluid collections are seen. There is generalized muscular atrophy. There is mildly increased fluid in the flexor hallucis longus tendon sheath posteriorly and inferiorly. Tendons and ligaments are not well evaluated by CT. There is calcification in the Achilles tendon which may be from remote injury. IMPRESSION: 1. Recent postsurgical changes from second toe amputation with the open defect extending down to the second metatarsal head. No CT findings of osteomyelitis are seen. 2. Soft tissue ulceration plantar to the second MTP joint with underlying edema. No rim-enhancing fluid collection is seen. 3. Degenerative changes in the left foot, most severe at the first MTP joint. 4. Flexor hallucis longus tenosynovitis. 5. Diffuse superficial soft tissue edema. Dictated by: Dictated on workstation # [id number]
--- NOTE | 2023-04-11 15:27 | Physical Therapy Progress Note ---
Therapy Progress Note Patient refused PT treatment due to severe pain. Will attempt treatment again tomorrow and progress per patient tolerance. JENIFER MARTIN PT Apr 11, 2023 15:26
[2023-04-11] MEDS ORDERED: PIPERACILLIN SODIUM/TAZOBACTAM 4.5 GM in NS (IVPB) 100 ML 100 ML IV NR (15:30)
--- NOTE | 2023-04-11 17:16 | Progress Note - Hospitalist ---
ROMAN ESCALERA 04/11/23 1716: Subjective HPI/CC On Admission Alexander Miller is a 67 yo M with a PMH of obesity, HTN, hyperlipidemia and AFib who presented to the ED on 04/08 for for left 2nd toe pain, swelling and discoloration x 10 days and a left plantar ulcer x 1 year. He was found to have severe sepsis due to cellulitis vs osteomyelitis and was admitted to [facility]. He states that his ulcer has been asymptomatic and stable in size (~ 1 cm); he has been applying Providine to the area 2x/day. Around 10 days ago, a "blue-black color" and swelling "spread" from the site of the ulcer to the ankle and 2nd toe, after which he began to experience pain of the tenderness of the 2nd toe, particularly with toe flexion and walking. This morning, he rates his pain as a 7/10. He denies sensory changes to the lower extremity. He has a 15- pack year smoking history and quit roughly 25 years ago. He [facility] not drink alcohol or use other [facility]. He denies any history of abnormal blood sugar and or incidences of extremity pain/numbness outside of this event. He denies cardiac conditions other than Afib and takes furosemide for hypertension. He claims to see his PCP regularly (last appointment was 1 month ago). He denies N/V/D, SOB, or chest pain. Subjective/Events-last exam The patient reports unchanged left foot pain (6-7/10). He notes that he has had a decreased appetite post-op and that he has not had a bowel movement says since admission. He endorses normal urine output (0.72 ml/kg/hr yesterday). He denies chest pain, shortness of breath, N/V/D Objective Exam Vital Signs Vital Signs Date Time Temp Pulse Resp B/P (MAP) Pulse Ox O2 Delivery O2 Flow Rate FiO2 04/11/23 15:35 37.5 76 22 164/81 (108) 94 Nasal Cannula 1.00 Capillary Refill : General Appearance: No Apparent Distress HEENT: PERRL/EOMI Respiratory: Chest Non Tender, No Respiratory Distress Cardiovascular: Regular Rate, Rhythm Gastrointestinal: Non Tender Extremity: No Calf Tenderness, Pedal Edema (pitting edema of the left lower extremity) Neurologic/Psychiatric: Alert, Oriented x3, Other (sensation intact bilateral lower extremities ) Skin: Normal Color Results/Procedures Lab Laboratory Tests 04/11/23 05:50 Patient resulted labs reviewed. Assessment/Plan Assessment and Plan Assess & Plan/Chief Complaint Plantar ulcer of the left foot Cellulitis vs osteomyelitis of the left foot 1 day s/p amuptation of the left 2nd digit (04/10) Severe sepsis - resolved as of 04/10 - CXR 04/08 showing marked soft tissue swelling of 2nd toe with no destructive changes in the underlying osseous structures - Peripheral cultures resulted gram + cocci in chains, wound culture resulted Group B streptococcus - Wound culture resulted s. aureus, psuedomonas, beta hemolytic gorup B; susceptibility pending - Piperacillin-Tazobactam restarted 04/11, Cefazolin since 04/10; Vancomycin and piperacillin-tazobactam from 04/08 - 04/10 - Bilateral lower extremity arterial US on 04/09 negative for occlusion or hemodynamically significant stenosis - Prediabetes; AIc this visit 6.0 without prior history of hyperglycemia HIRAM - resolved as of 04/10 Prediabetes - New diagnosis - HbAIc this visit 6.0 Atrial fibrillation - Continue diltiazem 240 mg - Restarted apixiban 5 mg 04/11 HTN - Normotensive at this time - Continue holding losartan and furosemide ENRIQUE WILKERSON MD 04/11/23 1900: Assessment/Plan Assessment and Plan Assess & Plan/Chief Complaint Patient reports doing ok today. Still having pain but controlled with meds. Pseudomonas growing on culture now so will resume Vanc. Wound care consult. Concerned about edema so CT ordered to evaluate for soft tissue infection. Discussed with Dr Trejo for wound care and with Dr Christian for surgery. PT/OT to continue. Supervisory-Addendum Brief Verification & Attestation Participated in pt care: history, MDM, physical Personally performed: exam, history, MDM, supervision of care Care discussed with: Medical Student Procedures: n/a Results interpretation: Verified all documentation Verification and Attestation of Medical Student E/M Service A medical student performed and documented this service in my presence. I reviewed and verified all information documented by the medical student and made modifications to such information, when appropriate. I personally performed the physical exam and medical decision making. Enrique Wilkerson, Apr 11, 2023,18:55 ROMAN ESCALERA Apr 11, 2023 17:16 ENRIQUE WILKERSON MD Apr 11, 2023 19:00
--- NOTE | 2023-04-11 18:29 | Progress Note - Surgery ---
Subjective Date Seen by a Provider: Apr 11, 2023 Time Seen by a Provider: 18:25 Subjective/Events-last exam Pain controlled. Swelling in left foot. Some raw superficial dorsal aspect of foot. Was previously soaking in bleach water. Had fever earlier thinks it broke now. Denies n/v fever sweats chills shortness of breath or chest pain. Objective Exam Vital Signs Date Time Temp Pulse Resp B/P (MAP) Pulse Ox O2 Delivery O2 Flow Rate FiO2 04/11/23 15:35 37.5 76 22 164/81 (108) 94 Nasal Cannula 1.00 04/11/23 14:32 38.2 04/11/23 13:00 78 04/11/23 12:45 38.9 04/11/23 12:45 38.9 04/11/23 11:38 37.3 84 20 152/80 (104) 92 Nasal Cannula 2.00 04/11/23 08:30 Nasal Cannula 2.00 04/11/23 08:10 36.6 68 18 153/81 (105) 90 Nasal Cannula 2.00 04/11/23 07:00 62 04/11/23 06:04 37.0 04/11/23 05:56 37.0 04/11/23 04:57 37.8 04/11/23 04:05 37.8 68 18 128/73 (91) 89 Room Air 04/11/23 01:00 86 04/11/23 00:59 37.8 04/11/23 00:41 37.8 77 20 151/79 (103) 90 Room Air 04/10/23 20:02 37.6 77 22 132/67 (88) 90 Room Air 04/10/23 20:00 37.6 77 22 132/60 (84) 90 Room Air 04/10/23 19:25 Room Air 04/10/23 19:00 69 I & O 04/11/23 07:00 Intake Total 2630 ml Output Total 1825 ml Balance 805 ml Capillary Refill : General Appearance: No Apparent Distress HEENT: PERRL/EOMI Neck: Non Tender, Supple Respiratory: Chest Non Tender, No Respiratory Distress Cardiovascular: Regular Rate, Rhythm Gastrointestinal: non tender, soft Extremity: No Calf Tenderness, Pedal Edema (pitting edema of the left lower extremity), Other (left second toe open wound) Neurologic/Psychiatric: Alert, Oriented x3, Other (sensation intact bilateral lower extremities ) Skin: Normal Color Lymphatic: No Adenopathy Results Lab Laboratory Tests 04/10/23 19:17: Glucometer 109 04/11/23 05:50: White Blood Count 14.5H, Red Blood Count 3.86L, Hemoglobin 11.5L, Hematocrit 35L , Mean Corpuscular Volume 91, Mean Corpuscular Hemoglobin 30, Mean Corpuscular Hemoglobin Concent 33, Red Cell Distribution Width 14.1, Platelet Count 407H, Mean Platelet Volume 9.6, Immature Granulocyte % (Auto) 6, Neutrophils (%) (Auto) 73, Lymphocytes (%) (Auto) 10L, Monocytes (%) (Auto) 10, Eosinophils (%) (Auto) 1, Basophils (%) (Auto) 1, Neutrophils # (Auto) 10.5H, Lymphocytes # (Auto) 1.4, Monocytes # (Auto) 1.4H, Eosinophils # (Auto) 0.1, Basophils # (Auto) 0.1, Immature Granulocyte # (Auto) 0.9H, Sodium Level 140, Potassium Level 3.8, Chloride Level 110H, Carbon Dioxide Level 20L, Anion Gap 10, Blood Urea Nitrogen 16, Creatinine 0.75, Estimat Glomerular Filtration Rate 98, BUN/Creatinine Ratio 21, Glucose Level 102, Calcium Level 9.2 04/11/23 05:53: Glucometer 92 04/11/23 11:26: Glucometer 79 04/11/23 15:49: Glucometer 84 Microbiology 04/10/23 Gram Stain - Final, Resulted 04/10/23 Anaerobic Culture, Resulted Pending 04/10/23 Surgical Culture - Preliminary, Resulted Strep, Beta Hemolytic Group B Staphylococcus species Culture In Progress 04/10/23 Fungal Culture 1 - Preliminary, Resulted Culture In Progress 04/09/23 MRSA Screen - Final, Complete MRSA not isolated 04/08/23 Blood Culture - Final, Complete Strep, Beta Hemolytic Group B See Comments Assessment/Plan Assessment/Plan Assessment/Plan left foot cellulitis left 2nd toe abscess chronic plantar ulcer left foot s/p left second toe amputation on abx Ct left lower ext:1. Recent postsurgical changes from second toe amputation with the open defect extending down to the second metatarsal head. No CT findings of osteomyelitis are seen. 2. Soft tissue ulceration plantar to the second MTP joint with underlying edema. No rim-enhancing fluid collection is seen. 3. Degenerative changes in the left foot, most severe at the first MTP joint. 4. Flexor hallucis longus tenosynovitis. 5. Diffuse superficial soft tissue edema. Will need wound care till healed Would also benefit from wound care for the chronic ulcer Fever resolved, continue to monitor. Heal walking on left foot. Incentive spirometry OSEAS TUBBS DO Apr 11, 2023 18:29
--- NOTE | 2023-04-11 18:41 | Wound Care Assessment ---
Wound Care Assessment Date Seen by Provider: Apr 11, 2023 Time Seen by Provider: 18:35 Chief Complaint L 1 toe and foot infection HPI This 67 year old gentleman presented to the ER with gross edema and erythema to left foot. He reports ulceration to L. 2 toe and plantar foot for >1 year. His PCP (Dr. Dubois) advised he see wound care long ago (September) but patient declined due to a desire to "continue working and ability to heal it up himself". He is noted to now have GBS bacteremia as well as wound infection. He was taken to the OR for surgical debridement/amputation yesterday. He does have a wound on his plantar MTH that probes up to site of amputation. He does also have significant edema and maceration extending to above his ankle. On my visualization today, he had weeping from his lateral malleolus and anterior foot concerning for further infection, abscess or residual osteomyelitis. I did check CT to rule out necrotizing fasciitis as well. CT did not reveal necrotizing fasciitis, further abscess, or osteomyelitis. He is currently on broad spectrum antibiotics with a culture primarily positive for GBS, but also with MSSA and pseudomonas in small amounts. BC also positive for GBS. He does not have a h/o DM2. Arterial dopplers with monophasic flow to L. superficial femoral without significant stenosis. Further evaluation may be indicated in the future should he fail to heal. He does have risk factors for PAD (atrial fibrillation). Past Medical History: Admits Heart Disease, Admits Peripheral Artery Disease Smoking Status: Former Smoker Recreational Drug Use: No Review of Systems General: Other (Obesity) Exam Vital Signs Date Time Temp Pulse Resp B/P (MAP) Pulse Ox O2 Delivery O2 Flow Rate FiO2 04/11/23 15:35 37.5 76 22 164/81 (108) 94 Nasal Cannula 1.00 Capillary Refill : General Appearance: WD/WN, obese HEENT: other (Normal hearing) Neck: full range of motion Respiratory: other (continuous O2 and SOA with conversation) Extremities: pedal edema Neurologic/Psychiatric: alert, normal mood/affect, oriented x 3 Skin Problem Location: lower extremities Skin Character: bullous, drainage, erythema, swelling Wound assessment: amputation of 2 toe. Exposed bone appears viable. There is no epithelialization. Drainage is large and serosanguous. Granulation is none. Necrotic is none. Margins flat. Probes from amputation site to plantar surface (2 MTH). Weeping over anterior foot extending to ankle with fluctuance. Results Laboratory Tests 04/10/23 19:17: Glucometer 109 04/11/23 05:50: White Blood Count 14.5H, Red Blood Count 3.86L, Hemoglobin 11.5L, Hematocrit 35L , Mean Corpuscular Volume 91, Mean Corpuscular Hemoglobin 30, Mean Corpuscular Hemoglobin Concent 33, Red Cell Distribution Width 14.1, Platelet Count 407H, Mean Platelet Volume 9.6, Immature Granulocyte % (Auto) 6, Neutrophils (%) (Auto) 73, Lymphocytes (%) (Auto) 10L, Monocytes (%) (Auto) 10, Eosinophils (%) (Auto) 1, Basophils (%) (Auto) 1, Neutrophils # (Auto) 10.5H, Lymphocytes # (Auto) 1.4, Monocytes # (Auto) 1.4H, Eosinophils # (Auto) 0.1, Basophils # (Auto) 0.1, Immature Granulocyte # (Auto) 0.9H, Sodium Level 140, Potassium Level 3.8, Chloride Level 110H, Carbon Dioxide Level 20L, Anion Gap 10, Blood Urea Nitrogen 16, Creatinine 0.75, Estimat Glomerular Filtration Rate 98, BUN/Creatinine Ratio 21, Glucose Level 102, Calcium Level 9.2 04/11/23 05:53: Glucometer 92 04/11/23 11:26: Glucometer 79 04/11/23 15:49: Glucometer 84 Microbiology 04/10/23 Gram Stain - Final, Resulted 04/10/23 Anaerobic Culture, Resulted Pending 04/10/23 Surgical Culture - Preliminary, Resulted Strep, Beta Hemolytic Group B Staphylococcus species Culture In Progress 04/10/23 Fungal Culture 1 - Preliminary, Resulted Culture In Progress 04/09/23 MRSA Screen - Final, Complete MRSA not isolated 04/08/23 Blood Culture - Final, Complete Strep, Beta Hemolytic Group B See Comments Microbiology 04/10/23 Gram Stain - Final, Resulted 04/10/23 Anaerobic Culture, Resulted Pending 04/10/23 Surgical Culture - Preliminary, Resulted Strep, Beta Hemolytic Group B Staphylococcus species Culture In Progress 04/10/23 Fungal Culture 1 - Preliminary, Resulted Culture In Progress 04/09/23 MRSA Screen - Final, Complete MRSA not isolated Assessment/Plan/Dx Assessment: 1. Osteomyelitis 2 toe with chronic ulceration 2. Cellulitis L. foot/ankle 3. Peripheral neuropathy 4. GBS bacteremia (source wound infection) 5. Obesity 6. Atrial fibrillation 7. PAD Plan: 1. Vashe packing daily and prn. Would be reasonable candidate for wound vac once compliance established and periwound amenable (not currently). 2. Agree with antibiotics (per primary team). Prolonged targeted course indicated with his bacteremia and presumed osteomyelitis 3. Will need podiatry upon healing for orthotics 4. Primary team 5. Primary team 6. Primary team 7. Should patient fail to heal with conventional treatments, further arterial evaluation may be indicated in light of ultrasound and medical history JASON BEAULIEU MD Apr 11, 2023 18:41
[2023-04-11] MEDS: APIXABAN 5 MG TABLET PO SCH (19:59)
[2023-04-11] MEDS ORDERED: TROUGH ORDER-PHARMACY XX NR (21:00)
[2023-04-11] MEDS: PIPERACILLIN SODIUM/TAZOBACTAM 4.5 GM in NS (IVPB) 100 ML 100 ML IV SCH (21:58)
[2023-04-12 03:55] VITALS: BP 148/82
[2023-04-12] MEDS: PIPERACILLIN SODIUM/TAZOBACTAM 4.5 GM in NS (IVPB) 100 ML 100 ML IV SCH ×3 (04:57→22:34)
[2023-04-12] MEDS: inSUlin ASPART (NovoLOG) 1 UNIT/0.01 ML (CHARGE PER UNIT) SC SCH ×4 (05:00→21:01)
[2023-04-12 06:07] LABS: BASOPHILS # (AUTO) 0.1 10^3/uL (0.0-0.1); BASOPHILS % (AUTO) 1 % (0-10); EOSINOPHILS # (AUTO) 0.1 10^3/uL (0.0-0.3); EOSINOPHILS % (AUTO) 1 % (0-10); HEMATOCRIT 37 % (40-54); LYMPHOCYTES # (AUTO) 1.4 10^3/uL (1.0-4.0); LYMPHOCYTES % (AUTO) 9 % (12-44); MEAN CORPUSCULAR HEMOGLOBIN 30 pg (25-34); MEAN CORPUSCULAR HGB CONC 33 g/dL (32-36); MEAN CORPUSCULAR VOLUME 91 fL (80-99); MEAN PLATELET VOLUME 9.5 fL (9.0-12.2); MONOCYTES # (AUTO) 1.2 10^3/uL (0.0-1.0); MONOCYTES % (AUTO) 7 % (0-12); NEUTROPHILS # (AUTO) 12.2 10^3/uL (1.8-7.8); NEUTROPHILS % (AUTO) 76 % (42-75); PLATELET COUNT 405 10^3/uL (130-400); WHITE BLOOD COUNT 16.1 10^3/uL (4.3-11.0)
[2023-04-12 06:21] LABS: POTASSIUM 3.7 MMOL/L (3.6-5.0)
[2023-04-12 06:23] LABS: CALCIUM 9.5 MG/DL (8.5-10.1)
[2023-04-12 06:27] LABS: CREATININE SERUM 0.76 MG/DL (0.60-1.30)
[2023-04-12 07:27] VITALS: BP 164/88
[2023-04-12] MEDS: SENNOSIDES 8.6 MG (SENOKOT) TAB PO SCH ×2 (08:27→19:17)
[2023-04-12] MEDS: DOCUSATE SODIUM 100 MG CAPSULE PO SCH ×2 (08:27→19:16)
[2023-04-12] MEDS: APIXABAN 5 MG TABLET PO SCH ×2 (08:27→19:17)
--- NOTE | 2023-04-12 09:09 | Cardiology Progress Note ---
Subjective Date Seen by Provider: Apr 12, 2023 Time Seen by Provider: 08:25 Subjective/Events-last exam Patient is in bed, denies any chest pain or dyspnea. Objective-Cardiology Exam Last Set of Vital Signs Vital Signs 04/12/23 15:19 Temp 37.8 Pulse 78 Resp 18 B/P (MAP) 137/75 (95) Pulse Ox 98 O2 Delivery Nasal Cannula O2 Flow Rate 2.50 I&O Intake and Output 04/12/23 00:00 Intake Total 2230 ml Output Total 2275 ml Balance -45 ml Intake Oral 1880 ml IV Total 350 ml Output Urine Total 2275 ml General: Alert, Oriented X3 HEENT: Atraumatic Neck: Supple Lungs: Clear to Auscultation Heart: Regular Rate, Normal S1, Normal S2 Abdomen: Normal Bowel Sounds, Soft Extremities: Other (LLE cellulitis and edema. L foot with C/D/I dressing.) Neuro: Normal Speech, Cranial Nerves 3-12 NL Psych/Mental Status: Mental Status NL, Mood NL Results Lab Laboratory Tests 04/12/23 05:58 A/P-Cardiology Admission Diagnosis LLE cellulitis LLE nonhealing wound PAF HTN Assessment/Plan LLE cellulitis, nonhealing wound left second toe. Patient reports wound has been present for approx 1 year, onset of cellulitis approx 1 week ago. Currently on IV antibiotics. s/p Left 2nd toe amputation with Dr. Christian on 04/10/23. Arterial duplex done 04/09/23 showing no occlusion or hemodynamically significant stenosis seen in the arterial system of the left leg. PAF, has been maintained on Eliquis, cardizem as outpatient. Echo of 01/18/21: LVEF 60-65%, mild LA enlargement, PASP 25-30 mmHg. Eliquis restarted. Hypertension, poor control, maintained on losartan I will add hydrochlorothiazide 25 mg daily Hyperlipidemia, I will evaluate lipid profile in a.m. Obesity Probable underlying YESENIA LEE HATHAWAY Apr 12, 2023 09:09 ALEJANDRO VILA MD Apr 12, 2023 15:38
[2023-04-12] MEDS: VANCOMYCIN 1 GM/NS 250 ML IVPB IV SCH ×4 (10:33→21:09)
--- NOTE | 2023-04-12 10:59 | Physical Therapy Daily Note ---
PT Daily Note-Current Subjective Patient agrees to therapy. Pain Numeric Pain Scale: 8 Location: Left Location Body Site: Foot Pain Description: Acute Section J - Health Conditions 1. Rarely or not at all 2. Occasionally 3. Frequently 4. Almost constantly 8. Unable to answer Pain Effect on Sleep: 2 Pain Interference with Therapy: 3 Pain Interference w/Day-to-Day: 3 Transfers SCALE: Activities may be completed with or without assistive devices. 2-Uiucryunag-sozgopv completes the activity by him/herself with no assistance from a helper. 5-Set-up or Clean-up Assistance-helper sets up or cleans up; patient completes activity. [place] assists only prior to or following the activity. 4-Supervision or Touching Assistance-helper provides verbal cues and/or touc kaveh/steadying and/or contact guard assistance as patient completes activity. Assistance may be provided throughout the activity or intermittently. 3-Partial/Moderate Assistance-helper does LESS THAN HALF the effort. [place] lifts, holds or supports trunk or limbs, but provides less than half the effort. 2-Substantial/Maximal Assistance-helper does MORE THAN HALF the effort. [place] lifts or holds trunk or limbs and provides more than half the effort. 7-Ukatpkdfw-mqjycy does ALL the effort. Patient does none of the effort to complete the activity. Or, the assistance of 2 or more helpers is required for the patient to complete the activity. If activity was not attempted, code reason: 7-Patient Refused. 9-Not Applicable-not attempted and the patient did not perform the activity before the current illness, exacerbation or injury. 10-Not Attempted due to Environmental Limitations-(lack of equipment, weather restraints, etc.). 88-Not Attempted due to Medical Conditions or Safety Concerns. Sit to Stand (QC): 1 (attempted to attain stand, however, unable to complete) Weight Bearing Right Lower Extremity: Right Full Weight Bearing Left Lower Extremity: Left Partial Weight Bearing Patient was instructed in heel only weight bearing due to wound Exercises Supine Ex: Ankle pumps, Quad Set, Heel Slides, Straight leg raise Supine Reps: 12 (in recliner with bilateral LE elevated) Seated Therapy Exercises: Long arc quads Seated Reps: 15 Assessment Patient progressing slowly with treatment plan. Patient, per physician, will transfer to [facility] tomorrow 04/13/2023 PT Fdc Goals Fdc Goals PT Java Android Developer Goals Time Frame: May 12, 2023 Roll Left & Right (QC): 6 Sit to Lying (QC): 6 Lying-Sitting on Side/Bed(QC): 6 Sit to Stand (QC): 6 Chair/Ijv-or-Ghivk Xfer(QC): 5 Toilet Transfer (QC): 5 Does the Patient Walk: Yes Walk 10 feet (QC): 4 Walk 50ft with 2 Turns (QC): 4 Walk 150 ft (QC): 4 1 Step (curb) (QC): 3 4 Steps (QC): 3 PT Plan Treatment/Plan Treatment Plan: Continue Plan of Care Treatment Plan: Bed Mobility, Education, Functional Activity [place], Functional Strength, Group Therapy, Gait, Safety, Therapeutic Exercise, Transfers Treatment Duration: May 17, 2023 Frequency: 6 times per week Estimated Hrs Per Day: .25 hour per day Patient and/or Family Agrees t: Yes Time Time In: 927 Time Out: 950 DATE: Apr 12, 2023 Total Billed Treatment Time: 23 Total Billed Treatment 1 visit EX x 2 23 min DIALLO ARMSTRONG PT Apr 12, 2023 10:59
[2023-04-12] MEDS: FUROSEMIDE 40 MG (LASIX) TAB PO SCH (11:17)
[2023-04-12] MEDS: ACETAMINOPHEN 325 MG TABLET PO PRN ×2 (11:18→19:16)
[2023-04-12] MEDS: LOSARTAN 100 MG (COZAAR) TABLET PO SCH (11:18)
--- NOTE | 2023-04-12 11:23 | Occupational Ther Daily Note ---
OT Current Status-Daily Note Subjective Agreeable to OT intervention, rates arreola /, nurse notified and patient provided pain medication, OT returned following pain reduction. Pain Numeric Pain Scale: 8 Comment: Nicolasa reports arreola radiates towards knes from Anterior mid distal limb Mental Status/Objective Patient Orientation: Person, Place, Time, Situation Attachments: IV, Telemetry ADL-Treatment Requires Max assist to don sock for preparation to stand and perform BUE ther ex. Patient initially agrees to stand and changes his mind, stating he is too tired Therapy Code Descriptions/Definitions Functional [place] Measure: 0=Not Assessed/NA 4=Minimal Assistance 1=Total Assistance 5=Supervision or Setup 2=Maximal Assistance 6=Modified [place] 3=Moderate Assistance 7=Complete IndependenceSCALE: Activities may be completed with or without assistive devices. 7-Wioqmhbxys-qnhdbqq completes the activity by him/herself with no assistance from a helper. 5-Set-up or Clean-up Assistance-helper sets up or cleans up; patient completes activity. [place] assists only prior to or following the activity. 4-Supervision or Touching Assistance-helper provides verbal cues and/or touching/steadying and/or contact guard assistance as patient completes activity. Assistance may be provided throughout the activity or intermittently. 3-Partial/Moderate Assistance-helper does LESS THAN HALF the effort. [place] lifts, holds or supports trunk or limbs, but provides less than half the effort. 2-Substantial/Maximal Assistance-helper does MORE THAN HALF the effort. [place] lifts or holds trunk or limbs and provides more than half the effort. 6-Pvirmvzvl-dkjqti does ALL the effort. Patient does none of the effort to complete the activity. Or, the assistance of 2 or more helpers is required for the patient to complete the activity. If activity was not attempted, code reason: 7-Patient Refused. 9-Not Applicable-not attempted and the patient did not perform the activity before the current illness, exacerbation or injury. 10-Not Attempted due to Environmental Limitations-(lack of equipment, weather restraints, etc.). 88-Not Attempted due to Medical Conditions or Safety Concerns. Eating (QC): 6 Oral Hygiene (QC): 6 (sitting) Shower/Bathe Self (QC): 88 (do not uncover wound at this time) Upper Body Dressing (QC): 5 Lower Body Dressing (QC): 3 On/Off Footwear: 3 Toileting Hygiene (QC): 3 Toilet Transfer (QC): 2 Other Treatment Functional ther ex intervention d/t patient lack of mobility and movement when not in presence of therapy team Education OT Patient Education: Correct positioning, Exercise program, Modified ADL techniques, Progress toward Goal/Update tx plan, Purpose of tx/functional activities, Reviewed precautions, Rehab process, Safety issues, Transfer techniques Teaching Recipient: Patient Teaching Methods: Demonstration, Discussion Response to Teaching: Verbalize Understanding, Reinforcement Needed OT Jail Goals Pharmacy Salesperson Goals Toileting Hygiene (QC): 5 Shower/Bathe Self (QC): 5 Upper Body Dressing (QC): 5 Lower Body Dressing (QC): 5 1=Demonstrate adherence to instructed precautions during ADL tasks. 2=Patient will verbalize/demonstrate understanding of assistive devices/modifications for ADL. 3=Patient will improve strength/tolerance for activity to enable patient to perform ADL's. OT Education/Plan Problem List/Assessment Assessment: Decreased Activ Tolerance, Decreased Safety Aware, Decreased UE Strength, Impaired Bed Mobility, Impaired Coordination, Impaired Funct Balance, Impaired I ADL's, Impaired Self-Care Skills Discharge Recommendations Plan/Recommendations: Continue POC Therapy Discharge Recommendati: Post Acute OT Treatment Plan/Plan of Care Treatment,Training & Education: Yes Patient would benefit from OT for education, treatment and training to promote independence in ADL's, mobility, safety and/or upper extremity function for ADL's. Plan of Care: ADL Retraining, Concurrent Therapy, Functional Mobility, Group Exercise/Act as Ind, UE Funct Exercise/Act Treatment Duration: Apr 13, 2023 Frequency: 3 times per week (3-5times per week) Estimated Hrs Per Day: .25 hour per day Agreement: Yes Rehab Potential: Fair Time Start Time: 09:05 Stop Time: 09:18 DATE: Apr 12, 2023 Total Time Billed (hr/min): 23 Billed Treatment Time [id number] 13 minutes, interrupted time resume [id number] EX 2 23 min YAZMIN SANDY OT Apr 12, 2023 11:23
--- NOTE | 2023-04-12 11:40 | Diagnostic Imaging Report ---
EXAMINATION: Chest 1 view HISTORY: Shortness breath COMPARISON: 01/18/2021 FINDINGS: The lungs are clear without edema or pneumonia. No pleural effusion or pneumothorax. Heart size is normal. IMPRESSION: 1. Clear lungs. Dictated by: Dictated on workstation # [id number]
[2023-04-12 12:00] VITALS: BP 166/88
--- NOTE | 2023-04-12 13:29 | Progress Note - Surgery ---
Subjective Date Seen by a Provider: Apr 12, 2023 Time Seen by a Provider: 11:10 Subjective/Events-last exam Sitting in chair. Less edema to left leg. It is feeling better as well. Lasix helps he states. Has a little shortness of breath. Denies n/v fever sweats chill or chest pain. Objective Exam Vital Signs Date Time Temp Pulse Resp B/P (MAP) Pulse Ox O2 Delivery O2 Flow Rate FiO2 04/12/23 12:00 38.0 85 22 166/88 (114) 37 Nasal Cannula 2.00 04/12/23 08:46 Nasal Cannula 2.00 04/12/23 07:27 36.7 79 20 164/88 (113) 97 Nasal Cannula 2.00 04/12/23 07:03 71 04/12/23 03:55 36.6 65 20 148/82 (104) 95 Nasal Cannula 1.00 04/12/23 01:04 67 04/11/23 23:17 36.0 66 20 135/68 (90) 94 Nasal Cannula 1.00 04/11/23 20:11 Nasal Cannula 1.00 04/11/23 19:58 37.6 82 18 162/90 (114) 95 Nasal Cannula 2.00 04/11/23 19:00 86 04/11/23 15:35 37.5 76 22 164/81 (108) 94 Nasal Cannula 1.00 04/11/23 14:32 38.2 I & O 04/12/23 06:59 Intake Total 2030 ml Output Total 2200 ml Balance -170 ml Capillary Refill : General Appearance: No Apparent Distress HEENT: PERRL/EOMI Neck: Non Tender, Supple Respiratory: Chest Non Tender, No Respiratory Distress Cardiovascular: Regular Rate, Rhythm Gastrointestinal: non tender, soft Extremity: No Calf Tenderness, Pedal Edema (pitting edema of the left lower extremity- less than yesterday), Other (left second toe open wound) Neurologic/Psychiatric: Alert, Oriented x3, Other (sensation intact bilateral lower extremities ) Skin: Normal Color, Other (left foot with dorsal aspect superficial emaceration) Lymphatic: No Adenopathy Results Lab Laboratory Tests 04/11/23 15:49: Glucometer 84 04/11/23 20:11: Glucometer 161H 04/11/23 21:10: Vancomycin Level Trough 9.6L 04/11/23 23:21: Glucometer 139H 04/12/23 04:59: Glucometer 114H 04/12/23 05:58: White Blood Count 16.1H, Red Blood Count 4.04L, Hemoglobin 12.0L, Hematocrit 37L , Mean Corpuscular Volume 91, Mean Corpuscular Hemoglobin 30, Mean Corpuscular Hemoglobin Concent 33, Red Cell Distribution Width 13.8, Platelet Count 405H, Mean Platelet Volume 9.5, Immature Granulocyte % (Auto) 7, Neutrophils (%) (Auto) 76H, Lymphocytes (%) (Auto) 9L, Monocytes (%) (Auto) 7, Eosinophils (%) (Auto) 1, Basophils (%) (Auto) 1, Neutrophils # (Auto) 12.2H, Lymphocytes # (Auto) 1.4, Monocytes # (Auto) 1.2H, Eosinophils # (Auto) 0.1, Basophils # (Auto) 0.1, Immature Granulocyte # (Auto) 1.1H, Sodium Level 140, Potassium Level 3.7, Chloride Level 108H, Carbon Dioxide Level 23, Anion Gap 9, Blood Urea Nitrogen 14, Creatinine 0.76, Estimat Glomerular Filtration Rate 97, BUN/Creatinine Ratio 18, Glucose Level 104, Calcium Level 9.5 04/12/23 11:08: Glucometer 96 Microbiology 04/10/23 Gram Stain - Final, Resulted 04/10/23 Anaerobic Culture, Resulted Pending 04/10/23 Surgical Culture - Preliminary, Resulted Strep, Beta Hemolytic Group B Staphylococcus species Culture In Progress 04/10/23 Fungal Culture 1 - Preliminary, Resulted Culture In Progress 04/09/23 MRSA Screen - Final, Complete MRSA not isolated 04/08/23 Blood Culture - Final, Complete Strep, Beta Hemolytic Group B See Comments Assessment/Plan Assessment/Plan Assessment/Plan left foot cellulitis left 2nd toe abscess chronic plantar ulcer left foot s/p left second toe amputationon abx Will need wound care till healed Would also benefit from wound care for the chronic ulcer Heal walking on left foot. Incentive spirometry Will get chest xray since slight shortness of breath. Dressing changed with wound care OSEAS TUBBS DO Apr 12, 2023 13:29
[2023-04-12 15:19] VITALS: BP 137/75
[2023-04-12] MEDS: MELOXICAM 7.5 MG (MOBIC) TABLET PO SCH (15:58)
--- NOTE | 2023-04-12 16:12 | Discharge Summary ---
ROMAN ESCALERA 04/12/23 1612: Diagnosis/Chief Complaint Date of Admission Apr 08, 2023 at 18:09 Date of Discharge Discharge Date: Apr 13, 2023 Admission Diagnosis Cellulitis vs osteomyelitis Severe sepsis Acute kidney injury Primary Care Audi Dubois DO Discharge Diagnosis S/p amputation of the left second digit Edema of left lower extremity Leukocytosis Discharge Summary Discharge Physical Exam Allergies: Coded Allergies: No Known Drug Allergies (Unverified , 10/01/18) Vitals & I&Os Vital Signs Date Time Temp Pulse Resp B/P (MAP) Pulse Ox O2 Delivery O2 Flow Rate FiO2 04/12/23 13:54 81 04/12/23 12:00 38.0 22 166/88 (114) 37 Nasal Cannula 2.00 General Appearance: No Apparent Distress HEENT: PERRL/EOMI Respiratory: Chest Non Tender, Lungs Clear, Normal Breath Sounds, No Accessory Muscle Use Cardiovascular: Regular Rate, Rhythm Gastrointestinal: Normal Bowel Sounds, Non Tender Extremity: Swelling (left lower extremity; improved compared to yesterday's assesment ) Skin: Normal Color, Warm/Dry, Other (sparse leg hair bilaterally ) Neurologic/Psychiatric: Alert, Oriented x3, Other (sensation intact) Hospital Course Alexander Miller is a 67 yo M with a PMH of obesity, HTN, hyperlipidemia and AFib who presented to the ED on 04/08 for left 2nd toe pain rated 7/10, swelling and discoloration x 10 days and a left plantar ulcer x 1 year. He described the ulcer as asymptomatic and stated he had treated with area with Providine 2x/day and soaked his feet in "bleach water" once the day prior to admission. He denies any history of diabetes/hyperglycemia. ED workup revealed WBC of 18, CRP of 45, BUN of 39, creatinine of 1.77. CXR showed marked soft tissue swelling of the second toe without destructive changes in underlying osseus structures. Empiric coverage with vancomycin and zosin initiated and general surgery was consulted. He was admitted to [facility] for management of cellulitis vs osteomyelitis, severe sepsis, and acute kidney injury secondary to sepsis. General surgery felt the 2nd digit required amputation, therefor no MRI/further workup for osteomyelitis was done at that time. Debridement and amputation was performed on 04/10. The patient's HIRAM and sepsis resolved this day. Peripheral cultures resulted Group B streptococcus on 04/10, and wound cultures resulted Group B streptococcus, staphylococcus aureus, psuedomonas aeruginosa on 04/11; empiric antibiotics were narrowed to Cefazolin on 04/10 and piperacillin-tazobactram was restarted on 04/11. The patient developed progressive left lower extremity post- op and began to feel bilateral pain below the knee; wound care ordered CT due to concerns of worsening soft tissue infection. CT did not reveal necrotizing fasciitis, further abscess, or osteomyelitis. The factors precipitating the patient's ulcer and cellulitis remain unclear; AIc resulted 6.0 and a lower extremity arterial US was negative for occlusion or hemodynamically significant stenosis. Occupational therapy graded the patient's dressing, on/off footwhere, and toilet hygeine/transfer at 2-3 with intermediate designer goals of 5; the patient was therefore transferred to inpatient rehab on 04/12. Labs (last 24 hrs) Laboratory Tests 04/11/23 20:11: Glucometer 161H 04/11/23 21:10: Vancomycin Level Trough 9.6L 04/11/23 23:21: Glucometer 139H 04/12/23 04:59: Glucometer 114H 04/12/23 05:58: White Blood Count 16.1H, Red Blood Count 4.04L, Hemoglobin 12.0L, Hematocrit 37L , Mean Corpuscular Volume 91, Mean Corpuscular Hemoglobin 30, Mean Corpuscular Hemoglobin Concent 33, Red Cell Distribution Width 13.8, Platelet Count 405H, Mean Platelet Volume 9.5, Immature Granulocyte % (Auto) 7, Neutrophils (%) (Auto) 76H, Lymphocytes (%) (Auto) 9L, Monocytes (%) (Auto) 7, Eosinophils (%) (Auto) 1, Basophils (%) (Auto) 1, Neutrophils # (Auto) 12.2H, Lymphocytes # (Auto) 1.4, Monocytes # (Auto) 1.2H, Eosinophils # (Auto) 0.1, Basophils # (Auto) 0.1, Immature Granulocyte # (Auto) 1.1H, Sodium Level 140, Potassium Level 3.7, Chloride Level 108H, Carbon Dioxide Level 23, Anion Gap 9, Blood Urea Nitrogen 14, Creatinine 0.76, Estimat Glomerular Filtration Rate 97, BUN/Creatinine Ratio 18, Glucose Level 104, Calcium Level 9.5 04/12/23 11:08: Glucometer 96 Microbiology 04/10/23 Gram Stain - Final, Resulted 04/10/23 Anaerobic Culture, Resulted Pending 04/10/23 Surgical Culture - Preliminary, Resulted Strep agalactiae Group B Staphylococcus species Culture In Progress 04/10/23 Fungal Culture 1 - Preliminary, Resulted Culture In Progress 04/09/23 MRSA Screen - Final, Complete MRSA not isolated 04/08/23 Blood Culture - Final, Complete Strep, Beta Hemolytic Group B See Comments Patient resulted labs reviewed. Pending Labs Laboratory Tests 04/12/23 11:08: Glucometer 96 Discharge Home Medications: Active Scripts Active Reported One Daily Complete (Multivitamin with Minerals) 1 Each Tablet 1 Each PO DAILY Aspirin EC (Aspirin) 81 Mg Tablet.dr 81 Mg PO DAILY Ibuprofen 200 Mg Tablet 600 Mg PO Q8H PRN TAKES 3 (200MG) TABS Eliquis (Apixaban) 5 Mg Tablet 5 Mg PO BID Diltiazem 24Hr Cd (Diltiazem HCl) 240 Mg Cap.er.24h 240 Mg PO DAILY Losartan Potassium 100 Mg Tablet 100 Mg PO DAILY Vitamin D3 (Cholecalciferol (Vitamin D3)) 125 Mcg (5000 Unit) Tablet 250 Mcg PO DAILY TAKES 2 (125MCG) TABS Zinc (Zinc Sulfate) 50 Mg Tablet 50 Mg PO DAILY Atorvastatin Calcium 10 Mg Tablet 10 Mg PO HS Furosemide 40 Mg Tablet 40 Mg PO DAILY Meloxicam 15 Mg Tablet 15 Mg PO DAILY Tylenol Extra Strength (Acetaminophen) 500 Mg Tablet 1,000 Mg PO Q6H PRN TAKES 2 (500MG) TABS Instructions to patient/family Please see electronic discharge instructions given to patient. ENRIQUE WILKERSON MD 04/13/23 0938: Discharge Summary Discharge Physical Exam Allergies: Coded Allergies: No Known Drug Allergies (Unverified , 10/01/18) Discussion & Recommendations Discharge Planning: >30 minutes discharge planning Supervisory-Addendum Brief Verification & Attestation Participated in pt care: history, MDM, physical Personally performed: exam, history, MDM, supervision of care Care discussed with: Medical Student Procedures: n/a Results interpretation: Verified all documentation Verification and Attestation of Medical Student E/M Service A medical student performed and documented this service in my presence. I reviewed and verified all information documented by the medical student and made modifications to such information, when appropriate. I personally performed the physical exam and medical decision making. Enrique Wilkerson, Apr 13, 2023,09:38 ROMAN ESCALERA Apr 12, 2023 16:12 ENRIQUE WILKERSON MD Apr 13, 2023 09:38
[2023-04-12 19:10] VITALS: BP 145/81
[2023-04-12 23:23] VITALS: BP 116/62
[2023-04-13 03:56] VITALS: BP 143/76
[2023-04-13] MEDS: PIPERACILLIN SODIUM/TAZOBACTAM 4.5 GM in NS (IVPB) 100 ML 100 ML IV SCH (04:39)
[2023-04-13] MEDS: inSUlin ASPART (NovoLOG) 1 UNIT/0.01 ML (CHARGE PER UNIT) SC SCH (05:28)
[2023-04-13 05:44] LABS: BASOPHILS # (AUTO) 0.1 10^3/uL (0.0-0.1); BASOPHILS % (AUTO) 1 % (0-10); EOSINOPHILS # (AUTO) 0.1 10^3/uL (0.0-0.3); EOSINOPHILS % (AUTO) 0 % (0-10); HEMATOCRIT 37 % (40-54); HEMOGLOBIN 12.3 g/dL (13.3-17.7); LYMPHOCYTES # (AUTO) 1.3 10^3/uL (1.0-4.0); LYMPHOCYTES % (AUTO) 7 % (12-44); MEAN CORPUSCULAR HEMOGLOBIN 30 pg (25-34); MEAN CORPUSCULAR HGB CONC 34 g/dL (32-36); MEAN CORPUSCULAR VOLUME 90 fL (80-99); MEAN PLATELET VOLUME 9.3 fL (9.0-12.2); MONOCYTES # (AUTO) 1.1 10^3/uL (0.0-1.0); MONOCYTES % (AUTO) 6 % (0-12); NEUTROPHILS # (AUTO) 14.4 10^3/uL (1.8-7.8); NEUTROPHILS % (AUTO) 81 % (42-75); PLATELET COUNT 435 10^3/uL (130-400); WHITE BLOOD COUNT 17.9 10^3/uL (4.3-11.0)
[2023-04-13 05:51] LABS: POTASSIUM 3.4 MMOL/L (3.6-5.0)
[2023-04-13 05:52] LABS: CALCIUM 9.5 MG/DL (8.5-10.1)
[2023-04-13 05:56] LABS: CREATININE SERUM 0.77 MG/DL (0.60-1.30)
[2023-04-13 07:30] VITALS: BP 143/86
--- NOTE | 2023-04-13 08:20 | Progress Note - Hospitalist ---
Subjective HPI/CC On Admission Date Seen by Provider: Apr 13, 2023 Alexander Miller is a 67 yo M with a PMH of obesity, HTN, hyperlipidemia and AFib who presented to the ED on 04/08 for for left 2nd toe pain, swelling and discoloration x 10 days and a left plantar ulcer x 1 year. He was found to have severe sepsis due to cellulitis vs osteomyelitis and was admitted to [facility] [place]. He states that his ulcer has been asymptomatic and stable in size (~ 1 cm); he has been applying Providine to the area 2x/day. Around 10 days ago, a "blue-black color" and swelling "spread" from the site of the ulcer to the ankle and 2nd toe, after which he began to experience pain of the tenderness of the 2nd toe, particularly with toe flexion and walking. This morning, he rates his pain as a 7/10. He denies sensory changes to the lower extremity. He has a 15- pack year smoking history and quit roughly 25 years ago. He does not drink alcohol or use other friends hospital drugs. He denies any history of abnormal blood sugar and or incidences of extremity pain/numbness outside of this event. He denies cardiac conditions other than Afib and takes furosemide for hypertension. He c laims to see his PCP regularly (last appointment was 1 month ago). He denies N/V/D, SOB, or chest pain. Subjective/Events-last exam Pt was to DC yesterday to IRF but due to arthritic pain delayed. Reports feeling better today. Will DC to IRF. Objective Exam Vital Signs Vital Signs Date Time Temp Pulse Resp B/P (MAP) Pulse Ox O2 Delivery O2 Flow Rate FiO2 04/13/23 07:30 36.2 75 18 143/86 (105) 95 Nasal Cannula 2.00 Capillary Refill : General Appearance: No Apparent Distress, Chronically ill Cardiovascular: Regular Rate, Rhythm, No Murmur Gastrointestinal: Normal Bowel Sounds, Soft Extremity: Other (left leg wrapped in gauze and PHYLICIA bandage) Neurologic/Psychiatric: Alert, Oriented x3 Results/Procedures Lab Laboratory Tests 04/13/23 05:32 Patient resulted labs reviewed. Assessment/Plan Assessment and Plan Assess & Plan/Chief Complaint Plan to DC to IRF for intensive therapy. He will continue on IV abx there. Surgery following. Resumed NSAIDs as creatinine is better. Will need to follow up with surgery or wound care up final discharge. ENRIQUE JOHNSON MD Apr 13, 2023 08:20
[2023-04-13] MEDS: DOCUSATE SODIUM 100 MG CAPSULE PO SCH (08:43)
[2023-04-13] MEDS: SENNOSIDES 8.6 MG (SENOKOT) TAB PO SCH (08:43)
[2023-04-13] MEDS: FUROSEMIDE 40 MG (LASIX) TAB PO SCH (08:46)
[2023-04-13] MEDS: VANCOMYCIN 1 GM/NS 250 ML IVPB IV SCH ×2 (08:46)
[2023-04-13] MEDS: APIXABAN 5 MG TABLET PO SCH (08:46)
[2023-04-13] MEDS: LOSARTAN 100 MG (COZAAR) TABLET PO SCH (08:46)
[2023-04-13] MEDS: MELOXICAM 7.5 MG (MOBIC) TABLET PO SCH (08:46)
[2023-04-13] MEDS ORDERED: MIRTAZAPINE 15 MG (REMERON) TAB PO SCH (09:00)
--- NOTE | 2023-04-13 10:45 | Cardiology Progress Note ---
Subjective Date Seen by Provider: Apr 13, 2023 Time Seen by Provider: 10:44 Subjective/Events-last exam Patient was seen at bedside, laying down in bed. No new complaint Review of Systems General: No Chills, No Night Sweats, No Fatigue, No Malaise, No Appetite, No Other HEENT: No Head Aches, No Visual Changes, No Eye Pain, No Ear Pain, No Dysphasia, No Sinus Congestion, No Post Nasal Drip, No Sore Throat, No Other Pulmonary: No Dyspnea, No Cough, No Pleuritic Chest Pain, No Other Cardiovascular: No: Chest Pain, Palpitations, Orthopnea, Paroxysmal Noc. Dyspnea, Edema, Lt Headedness, Other Objective-Cardiology Exam Last Set of Vital Signs Vital Signs 04/13/23 04/13/23 07:30 08:00 Temp 36.2 Pulse 75 Resp 18 B/P (MAP) 143/86 (105) Pulse Ox 95 O2 Delivery Nasal Cannula O2 Flow Rate 2.00 I&O Intake and Output 04/13/23 00:00 Intake Total 3310 ml Output Total 2400 ml Balance 910 ml Intake Oral 2710 ml IV Total 600 ml Output Urine Total 2400 ml General: Alert, Oriented X3 HEENT: Atraumatic Neck: Supple Lungs: Clear to Auscultation Heart: Regular Rate, Normal S1, Normal S2 Abdomen: Normal Bowel Sounds, Soft Extremities: No Clubbing, Other (LLE cellulitis and edema. L foot with C/D/I dressing.) Skin: No Rashes Neuro: Normal Speech, Cranial Nerves 3-12 NL Psych/Mental Status: Mental Status NL, Mood NL Results Lab Laboratory Tests 04/13/23 05:32 A/P-Cardiology Admission Diagnosis LLE cellulitis LLE nonhealing wound PAF HTN Assessment/Plan LLE cellulitis, nonhealing wound left second toe. Patient reports wound has been present for approx 1 year, onset of cellulitis approx 1 week ago. Currently on IV antibiotics. s/p Left 2nd toe amputation with Dr. Christian on 04/10/23. Arterial duplex done 04/09/23 showing no occlusion or hemodynamically significant stenosis seen in the arterial system of the left leg. PAF, has been maintained on Eliquis, cardizem as outpatient. Echo of 01/18/21: LVEF 60-65%, mild LA enlargement, PASP 25-30 mmHg. Eliquis restarted. Hypertension, better control, maintained on losartan and hydrochlorothiazide Continue to monitor Hyperlipidemia, I will evaluate lipid profile in a.m. Obesity Probable underlying YESENIA ALEJANDRO VILA MD Apr 13, 2023 10:45
== END 2023-04-13 10:30 | DRG 854 ==
LOC: EDUNIT# 16:30 → ER 16:33 → 4TH 18:09
PROVIDERS: ADMIT Internal Medicine; ATTEND Internal Medicine
PROC: 0Y6S0Z0 Detachment at Left 2nd Toe, Complete, Open Approach (ICD-10-PCS; principal; 2023-04-10 07:29)
DX: A41.9 Sepsis, unspecified organism (principal); L02.612 Cutaneous abscess of left foot; L03.116 Cellulitis of left lower limb; L97.429 Non-pressure chronic ulcer of left heel and midfoot with unspecified severity; N17.9 Acute kidney failure, unspecified; M86.8X7 Other osteomyelitis, ankle and foot; I48.0 Paroxysmal atrial fibrillation; I10 Essential (primary) hypertension; E66.9 Obesity, unspecified; G47.33 Obstructive sleep apnea (adult) (pediatric); Z87.891 Personal history of nicotine dependence; Z79.82 Long term (current) use of aspirin; Z79.899 Other long term (current) drug therapy; E78.00 Pure hypercholesterolemia, unspecified; F32.A Depression, unspecified; R65.20 Severe sepsis without septic shock; Z68.34 Body mass index [BMI] 34.0-34.9, adult; Z79.01 Long term (current) use of anticoagulants; E87.6 Hypokalemia
CPT/HCPCS: 36415; 71045; 73630; 73701; 80048; 80053; 80061; 80202; 82947; 83036; 83605; 85007; 85025; 85027; 85652; 86141; 87040; 87070; 87075; 87077; 87081; 87101; 87186; 87205; 93925; 94664; 96374; 96375

== ENCOUNTER 2023-04-13 08:34 | Inpatient (IN) | payer SELFPAY ==
[~2023-04-13] VITALS: Ht 180.3 cm; Wt 114.3 kg
[~2023-04-13 08:34] MED LIST changes: +CALC-250 PO; +DILT240C90 PO; +IBUP-2473 PO; +LOSA100T58 PO; +MULT-436 PO
--- NOTE | 2023-04-13 10:59 | PM&R Post Admission Assessment ---
PM&R Date of Visit: Apr 13, 2023 Time of Visit: 11:00 History of Present Illness Chief complaint: Debility following left second toe amputation from osteomyelitis HPI: This is a 67-year-old male clinic patient of Dr. Dubois who has a past medical history of hypertension who presents to inpatient rehab after a slow recovery from left second toe amputation due to osteomyelitis that have been present for about a year. He is having a difficult time recovering and will need aggressive therapy. I did review his [facility] course. It appears that he has no evidence of any vascular stenosis that required intervention in order to help the amputation site heal. Past Tadrjkp-Drowhq-Satnkg Hx Past Med/Social Hx: Reviewed Nursing Past Med/Soc Hx, Reviewed and Corrections made Patient Social History Marrital Status: single Employed/Student: retired Alcohol Use: Denies Use Alcohol Beverage of Choice: Beer Drug of Choice: Cannabis Smoking Status: Former Smoker Former Smoker, Quit: Sep 17, 2019 Type Used: Smokeless Tobacco 2nd Hand Smoke Exposure: No Recent Hopitalizations: No Seasonal Allergies Seasonal Allergies: No Past Medical History Surgeries: Orthopedic, Tonsillectomy Cardiac: Atrial Fibrillation, High Cholesterol, Hypertension Psychosocial: Depression Family History No Pertinent Family Hx No contributory 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 PM&R Allergy/Meds/Data Review Allergies Coded Allergies: No Known Drug Allergies (Unverified , 10/01/18) Home Medications Scheduled Apixaban (Eliquis), 5 MG PO BID, (Reported) Aspirin (Aspirin EC), 81 MG PO DAILY, (Reported) Atorvastatin Calcium (Atorvastatin Calcium), 10 MG PO HS, (Reported) Cholecalciferol (Vitamin D3) (Vitamin D3), 250 MCG PO DAILY, (Reported) Diltiazem HCl (Diltiazem 24Hr Cd), 240 MG PO DAILY, (Reported) Furosemide (Furosemide), 40 MG PO DAILY, (Reported) Losartan Potassium (Losartan Potassium), 100 MG PO DAILY, (Reported) Meloxicam (Meloxicam), 15 MG PO DAILY, (Reported) Multivitamin with Minerals (One Daily Complete), 1 EACH PO DAILY, (Reported) Zinc Sulfate (Zinc), 50 MG PO DAILY, (Reported) Scheduled PRN Acetaminophen (Tylenol Extra Strength), 1,000 MG PO Q6H PRN for PAIN-MILD, (Reported) Ibuprofen (Ibuprofen), 600 MG PO Q8H PRN for PAIN-MILD (1-4), (Reported) Discontinued Medications Cholecalciferol (Vitamin D3) (Vitamin D3), 50 MCG PO DAILY, (Reported) Discontinued Reason: Prescription changed Current Medications Current Medications Reviewed Review of Systems Constitutional: see HPI, malaise, weakness Cardiovascular: no symptoms reported Gastrointestinal: no symptoms reported Genitourinary: no symptoms reported Musculoskeletal: no symptoms reported Skin: no symptoms reported Psychiatric/Neurological: Weakness Physical Exam Physical Exam Vital Signs Capillary Refill : Height, Weight, BMI Height: 5'11.00" Weight: 232lbs. oz. [id number]; 34.88 BMI Method:Stated General Appearance: No Apparent Distress, WD/WN, Chronically ill Eyes: Bilateral Eye Normal Inspection, Bilateral Eye PERRL HEENT: PERRL/EOMI, Normal ENT Inspection, Pharynx Normal Neck: Full Range of Motion, Normal Inspection, Non Tender, Supple, Carotid Bruit Respiratory: Chest Non Tender, Lungs Clear, Normal Breath Sounds, No Accessory Muscle Use, No Respiratory Distress Cardiovascular: Regular Rate, Rhythm, No Edema, No Gallop, No JVD, No Murmur, Normal Peripheral Pulses Gastrointestinal: Normal Bowel Sounds, No Organomegaly, No Pulsatile Mass, Non Tender, Soft Back: Normal Inspection, No CVA Tenderness, No Vertebral Tenderness Extremity: Normal Capillary Refill, Normal Inspection, Normal Range of Motion, Non Tender, No Calf Tenderness, No Pedal Edema Neurologic/Psychiatric: Alert, Oriented x3, estate planning director II-XII Norm as Tested, Abnormal Gait, Depressed Affect, Motor Weakness (Generalized weakness) Skin: Normal Color, Warm/Dry, Other ( left foot in dressing) Lymphatic: No Adenopathy PM&R Medical Assessment & Plan REHAB/MEDICAL ASSESSMENT AND PLAN: REHAB IMPAIRMENT GROUP: Debility ETIOLOGIC DIAGNOSIS: Amputation of left second toe due to osteomyelitis and chronic ulceration The comorbidities that impact the patients function and/or functional outcome by: advanced age, noncompliance history, slow healing amputation site high risk for infection REHAB PLAN: The patient is being admitted to our comprehensive inpatient rehabilitation facility and can tolerate the intensity of service consisting of at least: 180 minutes of therapy a day, 5 out of 7 days a week Rehab treatment will consist of: PT and OT will focus on regaining function with use of assistive devices in order to regain function with use of other t echniques to increase ADL independence in order to return home with significant other The patient/family has a good understanding of our discharge process and will benefit from an interdisciplinary inpatient rehabilitation program. The patient has potential to make improvement and is in need of at least two of the following multidisciplinary therapies including but not limited to physical, occupational, speech, and prosthetics and orthotics. Additionally the patient will need services from respiratory, nutritional services, wound care, psychology, etc. (Customize this to each patient). Given the patients complex condition and risk of further medical complications, rehabilitation services cannot be safely or effectively provided at a lower level of care such as a detention facility. BARRIERS TO DISCHARGE: history of noncompliance ESTIMATED LOS: 10 days DISPOSITION: home RELEVANT CHANGES SINCE PREADMISSION SCREENING: I have compared the patients medical and functional status at the time of the preadmission screening and there are: no changes PROGNOSIS: good REHABILITATION GOALS: 1. PT and OT will focus on regaining function with use of assistive devices in order to regain function with use of other techniques to increase ADL independ ence in order to return home with significant other All the above goals were reviewed with the patient and he/she is in agreement. By signing this document, I acknowledge that I have personally performed a full physical examination on this patient within 24 hours of admission to this inpatient rehabilitation facility and have determined the patient to be able to tolerate the above course of treatment at an intensive level for a reasonable period of time. I will be completing a detailed individualized Plan of Care for this patient by day #4 of the patients stay based upon the Preadmission Screen, the Post-Admission Evaluation, and the therapy evaluations. Admission Dx/Comorbidities: (1) Amputation of toe ICD Codes: S98.139A - Complete traumatic amputation of one unspecified lesser toe, initial encounter (2) Atrial fibrillation with rapid ventricular response Status: Acute ICD Codes: I48.91 - Unspecified atrial fibrillation Assessment/Plan Assessment and Plan Assess & Plan/Chief Complaint Assessment: Debility following left second toe amputation with slow recovery History of left second toe osteomyelitis Hypertension Hyperlipidemia Atrial fibrillation Rheumatoid arthritis Peripheral vascular disease Obesity Plan: Home meds Cardiology appreciated Fall risk Pain control IBAN LEI DO Apr 13, 2023 10:59
[2023-04-13] MEDS ORDERED: ALPRAZolam 0.25 MG TABLET PO PRN (11:00)
[2023-04-13] MEDS ORDERED: diphenhydrAMINE 25 MG TABLET PO PRN ×2 (11:00→11:15)
[2023-04-13] MEDS ORDERED: guaiFENesin/CODEINE 10ML UDC PO PRN (11:00)
[2023-04-13] MEDS ORDERED: LOPERAMIDE 2 MG (IMODIUM) TABLET PO PRN (11:00)
[2023-04-13] MEDS ORDERED: MELATONIN 3 MG TABLET PO PRN ×2 (11:00→11:15)
[2023-04-13] MEDS ORDERED: BISACODYL 10 MG SUPPOSITORY PR PRN ×2 (11:00→11:15)
[2023-04-13] MEDS ORDERED: DOCUSATE SODIUM 100 MG CAPSULE PO PRN (11:00)
[2023-04-13] MEDS ORDERED: Sodium Phosphate/Sodium Biphosphate ADULT enema PR PRN (11:00)
[2023-04-13] MEDS ORDERED: LACTULOSE SYRUP 10GM/15ML 30ML UDC PO PRN (11:00)
[2023-04-13] MEDS ORDERED: ONDANSETRON 4 MG (ZOFRAN) ORAL DISSOLVE TAB PO PRN ×2 (11:00→11:15)
[2023-04-13] MEDS ORDERED: CALCIUM CARBONATE 500 MG CHEW TABLET PO PRN ×2 (11:00→11:15)
--- NOTE | 2023-04-13 11:00 | Occupational Therapy Eval ---
OT Evaluation-General/PLF Medical Diagnosis Admission Date Apr 13, 2023 at 10:30 Medical Diagnosis: s/p 2nd left toe ampuation, debility Onset Date: Apr 08, 2023 Therapy Diagnosis Therapy Diagnosis: weakness, debility Height/Weight Height (Feet): 5 Height (Inches): 11.00 Weight (Pounds): 232 Precautions Precautions/Isolations: Fall Prevention, Standard Precautions Weight Bear Status Weight Bearing Restriction: Partial Weight Bearing WBS (Ord/Comment): HEEL weight only, may wear ortho boot Referral Referral Reason: Activity Tolerance, Self Care, Evaluation/Treatment, Strengthening/ROM Medical History Pertinent Medical History: HTN Additional Medical History Patient is a 67-year-old male who presents to ED 04/08/23 with left foot pain, left foot ulcer and second toe pain. Patient states he has been dealing with a ulcer to his left plantar foot. Has been dressing the wound with a topical o intment. States about a week ago started having some redness and swelling migrating to the left second toe and left dorsum foot. Noted a abscess versus ulcer to the left foot that eventually ruptured resulted in drainage over the past few days. Left 2nd toe amputation 04/10/23/ Transfer to [facility] 04/13/23 Current History Additional PMH: suicide attemtpt Reviewed History: Yes Social History Home: Single Level Current Living Status: Significant Other Steps Into Home: 2 ADL-Prior Level of Function SCALE: Activities may be completed with or without assistive devices. 9-Ezurlgpgbt-ihhmhbc completes the activity by him/herself with no assistance from a helper. 5-Set-up or Clean-up Assistance-helper sets up or cleans up; patient completes activity. Distant assists only prior to or following the activity. 4-Supervision or Touching Assistance-helper provides verbal cues and/or touching/steadying and/or contact guard assistance as patient completes activity. Assistance may be provided throughout the activity or intermittently. 3-Partial/Moderate Assistance-helper does LESS THAN HALF the effort. Distant lif ts, holds or supports trunk or limbs, but provides less than half the effort. 2-Substantial/Maximal Assistance-helper does MORE THAN HALF the effort. Distant lifts or holds trunk or limbs and provides more than half the effort. 6-Wxxxmgkmk-tjizdh does ALL the effort. Patient does none of the effort to complete the activity. Or, the assistance of 2 or more helpers is required for the patient to complete the activity. If activity was not attempted, code reason: 7-Patient Refused. 9-Not Applicable-not attempted and the patient did not perform the activity before the current illness, exacerbation or injury. 10-Not Attempted due to Environmental Limitations-(lack of equipment, weather restraints, etc.). 88-Not Attempted due to Medical Conditions or Safety Concerns. ADL PLOF Comments Has FWW at home, does not use Self Care: Independent Functional Cognition: Independent DME/Equipment: Grab Bars, Tub/Shower OT Current Status Subjective Agreeable to OT Pain Numeric Pain Scale: 8 Location Body Site: Knee Mental Status/Objective Patient Orientation: Person, Place, Time, Situation Attachments: Oxygen (2.5 liters NC) Current Glasses/Contacts: Yes Hearing Aids: No Dentures/Partials: No Hand Dominance: Right Upper Extremity ROM BUE ROM WFLS Upper Extremity Coordination INTACT GOOD BUEs Upper Extremity Sensation BUE INTACT Upper Extremity Strength 4/5 BUE, however ashley snot sustain w/ mobility and use of FWW to offload for heel WB only LLE Frequent leaning forward w/ forearms on handles of FWW ADL-Treatment Eating (QC): 88 Oral Hygiene (QC): 88 Shower/Bathe Self (QC): 88 Upper Body Dressing (QC): 88 Lower Body Dressing (QC): 88 On/Off Footwear (QC): 88 Toileting Hygiene (QC): 88 ADL not performed, patient will shower later in day, LLE wound dressing change scheduled Education OT Patient Education: Correct positioning, Exercise program, Modified ADL techniques, Progress toward Goal/Update tx plan, Purpose of tx/functional activities, Reviewed precautions, Rehab process, Safety issues, Transfer techniques, Use of adapted equipment Teaching Recipient: Patient Teaching Methods: Demonstration, Discussion Response to Teaching: Verbalize Understanding, Reinforcement Needed BIMS CAM BIMS Expression of Ideas and Wants: Without Difficulty Understanding Verbal Content: Understands Brief Interview/Mental Status: Yes IRF LAMIN BIMS: IRF LAMIN BIMS Response (Comments) Value Repitition of Three Words Three 3 Recalls Socks Yes, No Cue Required 2 Recalls Blue Yes, No Cue Required 2 Recalls Bed Yes, No Cue Required 2 Year Correct 3 Month Accurate Within 5 Days 2 Day Correct 1 Total 15 Patient Normally Able to Recal: Staff Names and faces, That he/she in a [facility] CAM Mental Status Change/Baseline: 0 Inattention: 0 Disorganized thinkin Altered level of consciousness: 0 OT Short Term Goals Short Term Goals Time Frame: Apr 18, 2023 Eatin Oral hygiene: 6 OT Mcfp Goals Mcfp Goals Eating (QC): 6 Oral Hygiene (QC): 6 Toileting Hygiene (QC): 6 Shower/Bathe Self (QC): 6 Upper Body Dressing (QC): 6 Lower Body Dressing (QC): 6 On/Off Footwear (QC): 6 1=Demonstrate adherence to instructed precautions during ADL tasks. 2=Patient will verbalize/demonstrate understanding of assistive devices/modifications for ADL. 3=Patient will improve strength/tolerance for activity to enable patient to perform ADL's. OT Education/Plan Problem List/Assessment Assessment: Decreased Activ Tolerance, Decreased UE Strength, Impaired Funct Balance, Impaired I ADL's, Impaired Self-Care Skills Discharge Recommendations Plan/Recommendations: Continue POC Treatment Plan/Plan of Care Treatment,Training & Education: Yes Patient would benefit from OT for education, treatment and training to promote independence in ADL's, mobility, safety and/or upper extremity function for ADL's. Plan of Care: ADL Retraining, Caregiver Training, Concurrent Therapy, Functio nal Mobility, Group Exercise/Act as Ind, Orthotic Fitting/Training, UE Funct Exercise/Act Treatment Duration: Apr 27, 2023 Frequency: At least 5 of 7 days/Wk (IRF) Estimated Hrs Per Day: 1.5 hours per day Agreement: Yes Rehab Potential: Good Time Start Time: 11:10 Stop Time: 11:30 DATE: Apr 13, 2023 Total Time Billed (hr/min): 20 Billed Treatment Time EVM 20 min YAZMIN SANDY OT Apr 13, 2023 11:00
[2023-04-13] MEDS ORDERED: polyethylene glycoL POWDER 17 GM (MIRALAX) PACK PO PRN (11:15)
[2023-04-13] MEDS ORDERED: MILK OF MAGNESIA 400 MG/5 ML 30 ML UDC PO PRN (11:15)
[2023-04-13] MEDS ORDERED: diphenhydrAMINE INJ 50 MG/ML VIAL IVP PRN (11:15)
[2023-04-13] MEDS ORDERED: ONDANSETRON 4 MG/2 ML (SDV) Z0FRAN IV PRN (11:15)
[2023-04-13] MEDS ORDERED: ANTACID SUSP 30 ML UDC (MYLANTA) PO PRN (11:15)
[2023-04-13] MEDS ORDERED: ACETAMINOPHEN 325 MG TABLET PO PRN (11:15)
--- NOTE | 2023-04-13 11:35 | Wound Care Assessment ---
Wound Care Assessment Date Seen by Provider: Apr 13, 2023 Time Seen by Provider: 11:29 Chief Complaint Cellulitis, GBS bacteremia, presumed osteomyelitis HPI This 67 year old gentleman presented to the ER with gross edema and erythema to left foot. He reports ulceration to L. 2 toe and plantar foot for >1 year. His PCP (Dr. Dubois) advised he see wound care long ago (September) but patient declined due to a desire to "continue working and ability to heal it up himself". He is noted to have GBS bacteremia as well as wound infection. He was taken to the OR for surgical debridement/amputation. He does have a wound on his plantar MTH that probes to site of amputation. I did check CT to rule out necrotizing fasciitis as well. CT did not reveal necrotizing fasciitis, further abscess, or osteomyelitis. He is currently on vancomycin and zosyn appropriately with a culture primarily positive for GBS, but also with MSSA and pseudomonas in small amounts. He does not have a h/o DM2. Arterial dopplers with monophasic flow to L. superficial femoral without significant stenosis. Further evaluation may be indicated in the future should he fail to heal. He does have risk factors for PAD (atrial fibrillation).Today, his edema and erythema are greatly improved. Wound bed still needs improvement in viability. I will order continued dressings accordingly and strongly urged he follow up as outpatient with my clinic. He remains high risk for loss of limb. Past Medical History: Admits Heart Disease, Admits Peripheral Artery Disease Review of Systems General: Other (Obesity) Pulmonary: Dyspnea (with conversation (improved)) Cardiovascular: Edema Exam Capillary Refill : General Appearance: no apparent distress, obese HEENT: other (No hearing loss) Neck: full range of motion Respiratory: no accessory muscle use, other (SOA with conversation (improved)) Extremities: pedal edema Neurologic/Psychiatric: alert, normal mood/affect, oriented x 3 Skin: other Skin Problem Location: lower extremities Skin Character: bullous, drainage, erythema, swelling Wound assessment: 3.5x1.5x1.5cm. The epithelialization is none. There is tunneling to the plantar surface at 2 MTH. Drainage is large and serosanguinous. Granulation is none. Necrotic is large and slough. Margins flat. There is viable bone exposed. Erythema, edema and weeping of periwound (greatly improved from last evaluation) Assessment/Plan/Dx Assessment: 1. Osteomyelitis 2 toe with chronic ulceration 2. Cellulitis L. foot/ankle 3. Peripheral neuropathy 4. GBS bacteremia (source wound infection) 5. Obesity 6. Atrial fibrillation 7. PAD Plan: 1. Vashe packing bid. Barrier ointment to periwound (thick layer bid). May consider wound vac if periwound improves 2. Agree with vanc and zosyn. Prolonged targeted course indicated with his bacteremia and presumed osteomyelitis 3. Will need podiatry upon healing for orthotics 4. Primary team 5. Primary team 6. Primary team 7. Should patient fail to heal with conventional treatments, further arterial evaluation may be indicated in light of ultrasound and medical history JASON BEAULIEU MD Apr 13, 2023 11:35
[2023-04-13] MEDS: oxyCODONE IMMEDIATE RELEASE 5 MG TABLET PO PRN ×3 (11:53→22:20)
--- NOTE | 2023-04-13 11:54 | ST Cognitive Linguistic Eval ---
Speech Evaluation-General Medical Diagnosis s/p 2nd left toe ampuation, debility Onset Date: Apr 08, 2023 Therapy Diagnosis Therapy Diagnosis: WNL Cognition Precautions Precautions/Isolations: Fall Prevention, Standard Precautions Referral Referring Physician: Dr. Pickett Reason for Referral: Evaluation/Treatment Medical History Pertinent Medical History: HTN suicide attempt Current History Patient is a 67-year-old male who presents to ED 04/08/23 with left foot pain, left foot ulcer and second toe pain. Patient states he has been dealing with a ulcer to his left plantar foot. Has been dressing the wound with a topical ointment. States about a week ago started having some redness and swelling migrating to the left second toe and left dorsum foot. Noted a abscess versus ulcer to the left foot that eventually ruptured resulted in drainage over the past few days. Left 2nd toe amputation 04/10/23/ Transfer to ARU 04/13/23 Reviewed History: Yes Social History Current Living Status: Significant Other Speech PLF-Current Status Prior Level of Function Pt reports he lives at home with his girlfriend. He states he manages his own medications and typically takes them from a bottle. He reports his girlfriend assists with managing the finances. 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 Subjective Pt is sitting up in the recliner. Pt was just transfered to ARU. Pt is pleasant and cooperative. Pt appears slightly lethargic and as if he doesn't feel well. Pain Numeric Pain Scale: 8 Location: Right, Left Location Body Site: Knee Language Eval: Auditory Comprehends Simple Yes/No Ques: Functional Follows 1-Step Commands: Functional Follows General Conversations: Functional Language Eval: Verbal Language Completes Spontaneous Greeting: Functional Imitates Simple Words/Phrases: Functional Word Finding: Functional Requests Basic Needs: Functional States Basic Personal Info: Functional Objective Cognitive Domain Attention: WNL Memory: Mild Problem Solving: Functional Executive Functions: WNL Visuospatial Skills: WNL Composite Severity Rating: WNL Clock Drawing Severity Rating: WNL Score: 25 Objective Formal/Standardized Tests SLUMS Results Oral Motor/Speech Production Appears WNL Impression Pt's cognition appears WNL at this time. Pt does well with answering orientation questions, completing mental manipulation, executive functioning and problems. Pt demonstrates slight difficulty with delay recall of words, he was able to recall 2/5 independently and 5/5 with min verbal prompts. JUNIOR ASSISTANT MANAGER will see pt for one more session to complete medication management. Speech Short Term Goals Short Term Goals Short Term Goals Pt to complete medication management with 100% accuracy independently. Speech-Plan Patient/Family Goals Patient/Family Goals: Pt's goal is to return home with his girlfriend. Treatment Plan Speech Therapy Treatment Plan: Continue Plan of Care Frequency: 1 time per week Estimated Hrs Per Day: .25 hour per day Rehab Potential: Good Pt/Family Agrees to Plan: Yes Safety Risks/Education Teaching Recipient: Patient Teaching Methods: Discussion Response to Teaching: Verbalize Understanding Education Topics Provided: Pt educated on the role of the JUNIOR ASSISTANT MANAGER, purpose of evaluation, results, and recommendations. Pt receptive and verbalized understanding. Discharge Recommendations Pt will likely not require speech therapy services following d/c from ARU. Time Speech Therapy Time In: 10:50 Speech Therapy Time Out: 11:10 DATE: Apr 13, 2023 Total Billed Time: 20 Billed Treatment Time S/L Audra Quezada Speech Therapy Apr 13, 2023 11:54
[2023-04-13] MEDS: PIPERACILLIN SODIUM/TAZOBACTAM 4.5 GM in NS (IVPB) 100 ML 100 ML IV SCH ×2 (11:57→20:38)
--- NOTE | 2023-04-13 13:36 | Physical Therapy Evaluation ---
PT Evaluation-General Medical Diagnosis Admission Date Apr 13, 2023 at 10:30 Medical Diagnosis: S/P 2nd left toe amputation, debility Onset Date: Apr 08, 2023 Therapy Diagnosis Therapy Diagnosis: Decreased strength, Decreased functional mobility Height/Weight Height (Feet): 5 Height (Inches): 11.00 Weight (Pounds): 232 Precautions Precautions/Isolations: Fall Prevention, Standard Precautions Weight Bear Status Right Lower Extremity: Right Full Weight Bearing Left Lower Extremity: Left Partial Weight Bearing Patient was instructed in L heel only weight bearing due to wound Referral Physician: Piyush Reason for Referral: Evaluation/Treatment Medical History Pertinent Medical History: HTN Additional Medical History High cholesterol, HTN, Depression Current History 04/08/23 pt went to ED for L foot pain; 04/10/23 s/p L 2nd toe amputation; 04/13/23 ARU admission Reviewed History: Yes Social History Home: Single Level Current Living Status: Significant Other Entry Into Home: Stairs Without Railing PT Steps Into Home: 2 Pt lives in a single story home with his SO. 2 steps to enter with no HR. Tub shower, no SC, GBs, tall toilet Prior Prior Level of Function SCALE: Activities may be completed with or without assistive devices. 4-Xazrubuveh-ejmstgh completes the activity by him/herself with no assistance from a helper. 5-Set-up or Clean-up Assistance-helper sets up or cleans up; patient completes activity. [place] assists only prior to or following the activity. 4-Supervision or Touching Assistance-helper provides verbal cues and/or touching/steadying and/or contact guard assistance as patient completes activity. Assistance may be provided throughout the activity or intermittently. 3-Partial/Moderate Assistance-helper does LESS THAN HALF the effort. [place] lifts, holds or supports trunk or limbs, but provides less than half the effort. 2-Substantial/Maximal Assistance-helper does MORE THAN HALF the effort. [place] lifts or holds trunk or limbs and provides more than half the effort. 6-Tygxpolnp-rrjcwm does ALL the effort. Patient does none of the effort to complete the activity. Or, the assistance of 2 or more helpers is required for the patient to complete the activity. If activity was not attempted, code reason: 7-Patient Refused. 9-Not Applicable-not attempted and the patient did not perform the activity before the current illness, exacerbation or injury. 10-Not Attempted due to Environmental Limitations-(lack of equipment, weather restraints, etc.). 88-Not Attempted due to Medical Conditions or Safety Concerns. Bed Mobility: 6 Transfers (B,C,W/C): 6 Gait: 6 Stairs: 6 Wheelchair Mobility: 9 Indoor Mobility (Ambulation): Independent Stairs: Independent Prior Devices Use: None At PLOF, pt was Int with no AD and driving. Pt has a FWW and SPC. PT Evaluation-Current Subjective Pt is agreeable to PT eval. Reported B knee pain at 8/10. Pain Numeric Pain Scale: 8 Location Body Site: Knee (B) Section J - Health Conditions 1. Rarely or not at all 2. Occasionally 3. Frequently 4. Almost constantly 8. Unable to answer Pain Effect on Sleep: 4 Pain Interference with Therapy: 4 Pain Interference w/Day-to-Day: 4 Pt/Family Goals Safely return home Objective Patient Orientation: Person, Place, Time, Situation Attachments: IV ROM/Strength ROM Upper Extremities See OT eval ROM Lower Extremities WFL Strength Upper Extremities See OT note Strength Lower Extremities B LE MMT = 3+/5 grossly Integumentary/Posture Integumentary See nurses note Bowel Incontinence: No Bladder Incontinence: No Sensory Vision: Functional Hearing: Functional Hand Dominance: Right Sensation Right Upper Extremit: Intact Sensation Left Upper Extremity: Intact Sensation Right Lower Extremit: Intact Sensation Left Lower Extremity: Intact Transfers Roll Left & Right (QC): 4 Sit to Lying (QC): 3 Lying to Sitting/Side of Bed(Q: 4 Sit to Stand (QC): 2 Chair/Osa-ox-Pfafb Xfer(QC): 2 Toilet Transfer (QC): 2 Car Transfer (QC): 88 Gait Does the Patient Walk?: Yes Mode of Locomotion: Both Anticipated Mode of Locomotion: Walk Walk 10 feet (QC): 3 Walk 50 ft with 2 Turns(QC): 88 Walk 150 ft (QC): 88 Walking 10ft/uneven surface-QC: 88 Distance: 10ft Gait Assistive Device: FWW Wheelchair Training Does the Pt Use a Wheelchair?: No Wheel 50 ft with 2 turns (QC): 9 Wheel 150 ft (QC): 9 Type of Wheelchair: N/A Stairs 1 Step (curb) (QC): 88 4 Steps (QC): 88 12 Steps (QC): 88 Walking Assistive Device: Walker Balance Sitting Static: Good Sitting Dynamic: Fair Standing Static: Fair Standing Dynamic: Poor Picking up an Object (QC): 3 Special Test Comments KU standing balance scale = 1+/5 (goal = 4/5) Treatment PT eval completed Assessment/Needs Pt tolerated PT eval well with good effort Rehab Potential: Good Post Rehab Potential-Barriers: B knee pain; weakness Equipment Needs SC, ramp PT Mcfp Goals Mcfp Goals PT Mcfp Goals Time Frame: Apr 25, 2023 Roll Left to Right (QC): 6 (Pt will be Mod I with bed mobility ) Sit to Lying (QC): 6 (Pt will be Mod I with bed mobility ) Lying-Sitting on Side/Bed(QC): 6 (Pt will be Mod I with bed mobility ) Sit to Stand (QC): 4 (Pt will be SBA for functional transfers ) Chair/Jkg-tu-Crozh Xfer(QC): 4 (Pt will be SBA for functional transfers ) Toilet/Commode Transfer (QC): 4 (Pt will be SBA for functional transfers ) Car Transfer (QC): 4 (Pt will be SBA for functional transfers ) Does the Patient Walk: Yes Walk 10 feet (QC): 4 (Pt will be SBA for walking with the FWW ) Walk 10ft-Uneven Surface(QC): 4 (Pt will be SBA for walking with the FWW ) Walk 50ft with 2 Turns (QC): 4 (Pt will be SBA for walking with the FWW ) Walk 150 ft (QC): 4 (Pt will be SBA for walking with the FWW ) Does the Pt use WC or Scooter?: No Wheel 50 feet with 2 turns (QC: 9 Type: N/A Wheel 150 feet: 9 Type: N/A 1 Step (curb) (QC): 4 (SBA for steps ) 4 Steps (QC): 4 (SBA for steps ) 12 Steps (QC): 9 Picking up an Object (QC): 6 (with hides inspector ) KU standing balance goal = 4/5 PT Plan Problem List Problem List: Activity Tolerance, Functional Strength, Safety, Balance, Gait, Transfer, Bed Mobility, ROM Treatment/Plan Treatment Plan: Continue Plan of Care Treatment Plan: Bed Mobility, Concurrent Therapy, Education, Functional Activity [place], Functional Strength, Group Therapy, Gait, Safety, Therapeutic Exercise, Transfers Treatment Duration: Apr 25, 2023 Frequency: At least 5 of 7 days/Wk (IRF) Estimated Hrs Per Day: 1.5 hours per day Patient and/or Family Agrees t: Yes Safety Risks/Education Patient Education: Gait Training, Transfer Techniques, Issued Written HEP, Reviewed Precautions, Reviewed Use of Ice, Correct Positioning, Safety Issues Teaching Recipient: Patient Teaching Methods: Demonstration, Discussion Response to Teaching: Verbalize Understanding, Return Demonstration, Reinforcement Needed Discharge Recommendations Therapy Discharge Recommendati: Home & Family Equpiment Recommendations-D/C: Shower Chair Discharge Status/Home Program Cont per POC Barriers to Progress B knee pain; weakness Target Placement Home with family Time Time In: 1130 Time Out: 1155 DATE: Apr 13, 2023 Total Billed Treatment Time: 25 Total Billed Treatment 25 min ANTONIO ANNE PT Apr 13, 2023 13:36
--- NOTE | 2023-04-13 14:57 | Occupational Ther Daily Note ---
OT Current Status-Daily Note Subjective Pt alert, sitting in recliner. Pt agrees to therapy. Pt c/o knee pain 02/24. Co-treat with PT([id number]), skills of 2 clinicians required to decrease fall risk, increase overall strength, decrease knee/foot pain and increase activity tolerance. PT focusing on sit to stands, ambulation, bed mobility and transfers while OT focusing on B UE placement during mobility, functional mobility and ADLs. Mental Status/Objective Patient Orientation: Person, Place, Time, Situation ADL-Treatment Set up for UBD. Sponge bath sitting in recliner, pt cleansed upper body, jean area and upper legs then assist for lower legs/R foot and 2 person assist when cleansing buttocks due to pt unable to offload hands to reach buttocks. Pt requires assistance for footwear and to thread clothing over feet then assist to hike pants over hips. Pt declines oral care though demonstrates ability to complete independently in sitting. Pt continues to need 2 person assist for safety to complete sit to stand and SPT using FWW. See PT notes for ambulation distance and assist. Mod A for EOB <--> supine. After therapy, pt lying in bed with call light/phone in reach. All needs met in room. Therapy Code Descriptions/Definitions Functional [place] Measure: 0=Not Assessed/NA 4=Minimal Assistance 1=Total Assistance 5=Supervision or Setup 2=Maximal Assistance 6=Modified [place] 3=Moderate Assistance 7=Complete IndependenceSCALE: Activities may be completed with or without assistive devices. 3-Ryxhiombns-lhaowdi completes the activity by him/herself with no assistance from a helper. 5-Set-up or Clean-up Assistance-helper sets up or cleans up; patient completes activity. [place] assists only prior to or following the activity. 4-Supervision or Touching Assistance-helper provides verbal cues and/or touching/steadying and/or contact guard assistance as patient completes activity. Assistance may be provided throughout the activity or intermittently. 3-Partial/Moderate Assistance-helper does LESS THAN HALF the effort. [place] lifts, holds or supports trunk or limbs, but provides less than half the effort. 2-Substantial/Maximal Assistance-helper does MORE THAN HALF the effort. [place] lifts or holds trunk or limbs and provides more than half the effort. 2-Oqahzxbal-asujjr does ALL the effort. Patient does none of the effort to complete the activity. Or, the assistance of 2 or more helpers is required for the patient to complete the activity. If activity was not attempted, code reason: 7-Patient Refused. 9-Not Applicable-not attempted and the patient did not perform the activity before the current illness, exacerbation or injury. 10-Not Attempted due to Environmental Limitations-(lack of equipment, weather restraints, etc.). 88-Not Attempted due to Medical Conditions or Safety Concerns. Eating (QC): 6 Oral Hygiene (QC): 6 Shower/Bathe Self (QC): 1 Upper Body Dressing (QC): 5 Lower Body Dressing (QC): 1 On/Off Footwear: 2 Toileting Hygiene (QC): 1 OT Short Term Goals Short Term Goals Time Frame: Apr 18, 2023 Eatin Oral hygiene: 6 OT Intermediate Goals Intermediate Goals Acute change in mental status: 0 Inattention: 0 Disorganized thinkin Altered level of consciousness: 0 Eating (QC): 6 Oral Hygiene (QC): 6 Toileting Hygiene (QC): 6 Shower/Bathe Self (QC): 6 Upper Body Dressing (QC): 6 Lower Body Dressing (QC): 6 On/Off Footwear (QC): 6 1=Demonstrate adherence to instructed precautions during ADL tasks. 2=Patient will verbalize/demonstrate understanding of assistive devices/modifications for ADL. 3=Patient will improve strength/tolerance for activity to enable patient to perform ADL's. OT Education/Plan Problem List/Assessment Assessment: Decreased Activ Tolerance, Decreased UE Strength, Impaired Bed Mobility, Impaired Funct Balance, Impaired Self-Care Skills, Restricted Funct UE ROM Discharge Recommendations Plan/Recommendations: Continue POC Treatment Plan/Plan of Care Patient would benefit from OT for education, treatment and training to promote independence in ADL's, mobility, safety and/or upper extremity function for ADL's. Plan of Care: ADL Retraining, Caregiver Training, Concurrent Therapy, Functional Mobility, Group Exercise/Act as Ind, Orthotic Fitting/Training, UE Funct Exercise/Act Treatment Duration: Apr 27, 2023 Frequency: At least 5 of 7 days/Wk (IRF) Estimated Hrs Per Day: 1.5 hours per day Agreement: Yes Rehab Potential: Good Time Start Time: 13:20 Stop Time: 14:20 DATE: Apr 13, 2023 Total Time Billed (hr/min): 60 Billed Treatment Time 1 visit-ADL 3 (50 min) FA 1 (10 min) co-treat with PT 60 min EUFEMIA BOWEN Apr 13, 2023 14:57
--- NOTE | 2023-04-13 15:13 | Physical Therapy Daily Note ---
PT Daily Note-Current Subjective Pt alert, sitting in recliner. Pt agrees to PT/OT Pt c/o B knee pain 02/24. Co-tx with OT ([id number]), skills of 2 clinicians required to decrease fall risk, increase overall strength, decrease knee/foot pain and increase activity tolerance. PT focusing on sit to stands, ambulation, bed mobility and transfers, while OT focusing on B UE placement during mobility, functional mobility and ADLs. Pain Numeric Pain Scale: 6 Location Body Site: Knee (B) Section J - Health Conditions 1. Rarely or not at all 2. Occasionally 3. Frequently 4. Almost constantly 8. Unable to answer Pain Effect on Sleep: 4 Pain Interference with Therapy: 4 Pain Interference w/Day-to-Day: 4 Mental Status Attachments: IV Transfers SCALE: Activities may be completed with or without assistive devices. 7-Ntbtveoszy-yuquxih completes the activity by him/herself with no assistance from a helper. 5-Set-up or Clean-up Assistance-helper sets up or cleans up; patient completes activity. [place] assists only prior to or following the activity. 4-Supervision or Touching Assistance-helper provides verbal cues and/or touching/steadying and/or contact guard assistance as patient completes activity. Assistance may be provided throughout the activity or intermittently. 3-Partial/Moderate Assistance-helper does LESS THAN HALF the effort. [place] lifts, holds or supports trunk or limbs, but provides less than half the effort. 2-Substantial/Maximal Assistance-helper does MORE THAN HALF the effort. [place] lifts or holds trunk or limbs and provides more than half the effort. 7-Dweotkfir-mvtelw does ALL the effort. Patient does none of the effort to complete the activity. Or, the assistance of 2 or more helpers is required for the patient to complete the activity. If activity was not attempted, code reason: 7-Patient Refused. 9-Not Applicable-not attempted and the patient did not perform the activity be fore the current illness, exacerbation or injury. 10-Not Attempted due to Environmental Limitations-(lack of equipment, weather restraints, etc.). 88-Not Attempted due to Medical Conditions or Safety Concerns. Sit to Lying (QC): 4 Sit to Stand (QC): 2 Chair/Sho-ey-Eengf Xfer(QC): 2 Weight Bearing Right Lower Extremity: Right Full Weight Bearing Left Lower Extremity: Left Partial Weight Bearing Patient was instructed in L heel only weight bearing due to wound Gait Training Does the Patient Walk?: Yes Walk 10 feet (QC): 3 Gait Assistive Device: FWW Treatments Set up for UBD. Sponge bath sitting in recliner, pt cleansed upper body, jean area and upper legs then assist for lower legs/R foot and 2 person assist when cleansing buttocks due to pt unable to offload hands to reach buttocks. Pt re quires assistance for footwear and to thread clothing over feet then assist to hike pants over hips. Pt declines oral care though demonstrates ability to complete independently in sitting. Pt continues to need 2 person assist for safety to complete sit to stand and SPT using FWW. Pt completed sit to stand transfers x 2 from recliner with Min A x 2. Pt ambulated 10ft with the FWW and Min A (w/c follow). Pt required Mod A x 2 from the w/c. Pt completed w/c > bed stand turn transfer with Min A with the FWW. Pt sit to supine with SBA/Min A. Pt edu about HEP, with handout provided. After therapy, pt lying in bed with call light/phone in reach and ice on L knee. All needs met in room. Assessment Current Status: Good Progress Pt tolerated PT well with good effort PT Chemical Analytical Sampler Goals Chemical Analytical Sampler Goals PT Chemical Analytical Sampler Goals Time Frame: Apr 25, 2023 Roll Left & Right (QC): 6 (Pt will be Mod I with bed mobility ) Sit to Lying (QC): 6 (Pt will be Mod I with bed mobility ) Lying-Sitting on Side/Bed(QC): 6 (Pt will be Mod I with bed mobility ) Sit to Stand (QC): 4 (Pt will be SBA for functional transfers ) Chair/Zbx-oi-Uqisf Xfer(QC): 4 (Pt will be SBA for functional transfers ) Toilet Transfer (QC): 4 (Pt will be SBA for functional transfers ) Car Transfer (QC): 4 (Pt will be SBA for functional transfers ) Does the Patient Walk: Yes Walk 10 feet (QC): 4 (Pt will be SBA for walking with the FWW ) Walk 50ft with 2 Turns (QC): 4 (Pt will be SBA for walking with the FWW ) Walk 150 ft (QC): 4 (Pt will be SBA for walking with the FWW ) Walking 10ft on Uneven Surface: 4 (Pt will be SBA for walking with the FWW ) 1 Step (curb) (QC): 4 (SBA for steps ) 4 Steps (QC): 4 (SBA for steps ) 12 Steps (QC): 9 Picking up an Object (QC): 6 (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 ) Does the Pt use WC or Scooter?: No Wheel 50 feet with 2 turns (QC: 9 Type: N/A Wheel 150 feet: 9 Type: N/A PT Plan Problem List Problem List: Activity Tolerance, Functional Strength, Safety, Balance, Gait, Transfer, Bed Mobility, ROM Treatment/Plan Treatment Plan: Continue Plan of Care Treatment Plan: Bed Mobility, Concurrent Therapy, Education, Functional Activity [place], Functional Strength, Group Therapy, Gait, Safety, Therapeutic Exercise, Transfers Treatment Duration: Apr 25, 2023 Frequency: At least 5 of 7 days/Wk (IRF) Estimated Hrs Per Day: 1.5 hours per day Patient and/or Family Agrees t: Yes Safety Risks/Education Patient Education: Gait Training, Transfer Techniques, Issued Written HEP, Reviewed Precautions, Reviewed Use of Ice, Safety Issues Teaching Recipient: Patient Teaching Methods: Demonstration, Discussion Response to Teaching: Verbalize Understanding, Return Demonstration, Reinforcement Needed Discharge Recommendations Therapy Discharge Recommendati: Home & Family Equpiment Recommendations-D/C: Shower Chair Discharge Status/Home Program Cont per POC Barriers to Progress B knee pain/weakness Target Placement Home with family Time Time In: 1320 Time Out: 1420 DATE: Apr 13, 2023 Total Billed Treatment Time: 60 Total Billed Treatment 60 min total; co-tx for 60 min from [id number] FA x 2 GT x 1 EX x 1 ANTONIO REICH PT Apr 13, 2023 15:13
[2023-04-13] MEDS: inSUlin ASPART 1 UNIT/0.01 ML (PER UNIT) SC SCH ×2 (16:49→22:18)
[2023-04-13 20:01] VITALS: BP 123/71
[2023-04-13] MEDS ORDERED: DOCUSATE SODIUM 100 MG CAPSULE PO SCH (21:00)
[2023-04-13] MEDS ORDERED: SENNA W/DOCUSATE (SENOKOT S) TABLET PO SCH (21:00)
[2023-04-13] MEDS: polyethylene glycoL POWDER 17 GM (MIRALAX) PACK PO SCH (22:00)
[2023-04-13] MEDS: SENNOSIDES 8.6 MG (SENOKOT) TAB PO SCH (22:20)
[2023-04-13] MEDS: DOCUSATE SODIUM 100 MG CAPSULE PO SCH (22:20)
[2023-04-13] MEDS: VANCOMYCIN INJECTION 1,000 MG in NS (IVPB) 250 ML 250 ML IV SCH (22:25)
[2023-04-13] MEDS: APIXABAN 5 MG TABLET PO SCH (22:25)
[2023-04-14] MEDS: PIPERACILLIN SODIUM/TAZOBACTAM 4.5 GM in NS (IVPB) 100 ML 100 ML IV SCH ×3 (04:24→20:17)
[2023-04-14 05:57] LABS: BASOPHILS # (AUTO) 0.1 10^3/uL (0.0-0.1); BASOPHILS % (AUTO) 1 % (0-10); EOSINOPHILS # (AUTO) 0.1 10^3/uL (0.0-0.3); EOSINOPHILS % (AUTO) 1 % (0-10); HEMATOCRIT 36 % (40-54); HEMOGLOBIN 11.9 g/dL (13.3-17.7); LYMPHOCYTES # (AUTO) 1.2 10^3/uL (1.0-4.0); LYMPHOCYTES % (AUTO) 8 % (12-44); MEAN CORPUSCULAR HEMOGLOBIN 30 pg (25-34); MEAN CORPUSCULAR HGB CONC 33 g/dL (32-36); MEAN CORPUSCULAR VOLUME 89 fL (80-99); MEAN PLATELET VOLUME 9.4 fL (9.0-12.2); MONOCYTES # (AUTO) 1.1 10^3/uL (0.0-1.0); MONOCYTES % (AUTO) 6 % (0-12); NEUTROPHILS # (AUTO) 13.4 10^3/uL (1.8-7.8); NEUTROPHILS % (AUTO) 80 % (42-75); PLATELET COUNT 452 10^3/uL (130-400); WHITE BLOOD COUNT 16.6 10^3/uL (4.3-11.0)
[2023-04-14 06:15] LABS: ALBUMIN 2.8 GM/DL (3.2-4.5)
[2023-04-14 06:16] LABS: CALCIUM 9.4 MG/DL (8.5-10.1)
[2023-04-14 06:18] LABS: TOTAL PROTEIN 6.3 GM/DL (6.4-8.2)
[2023-04-14 06:19] LABS: BILIRUBIN,TOTAL 0.6 MG/DL (0.1-1.0)
[2023-04-14 06:21] LABS: CREATININE SERUM 0.8 MG/DL (0.60-1.30)
[2023-04-14] MEDS: inSUlin ASPART 1 UNIT/0.01 ML (PER UNIT) SC SCH ×4 (06:27→21:45)
--- NOTE | 2023-04-14 06:52 | PM&R Progress Note ---
Subjective HPI/CC On Admission Date Seen by Provider: Apr 14, 2023 Time Seen by Provider: 12:30 Subjective/Events-last exam 04/14/2023: Very slow recovery Patient seems to lack the motivation overall on an on-going basis Updated patient on his borderline DM with hga1c 6.0 so offered DM education Sunday Wound needs aggressive care IV abx maintained Review of Systems General: Fatigue, Malaise Musculoskeletal: leg pain Objective Exam Vital Signs Vital Signs Date Time Temp Pulse Resp B/P (MAP) Pulse Ox O2 Delivery O2 Flow Rate FiO2 04/14/23 08:03 94 Room Air 0.00 04/14/23 07:40 37.5 77 18 130/78 (95) Capillary Refill : General Appearance: No Apparent Distress, WD/WN, Chronically ill HEENT: PERRL/EOMI, Normal ENT Inspection, Pharynx Normal Neck: Full Range of Motion, Normal Inspection, Non Tender, Supple, Carotid Bruit Respiratory: Chest Non Tender, Lungs Clear, Normal Breath Sounds, No Accessory Muscle Use, No Respiratory Distress Cardiovascular: Regular Rate, Rhythm, No Edema, No Gallop, No JVD, No Murmur, Normal Peripheral Pulses Gastrointestinal: Normal Bowel Sounds, No Organomegaly, No Pulsatile Mass, Non Tender, Soft Back: Normal Inspection, No CVA Tenderness, No Vertebral Tenderness Extremity: Normal Capillary Refill, Normal Inspection, Normal Range of Motion, Non Tender, No Calf Tenderness, No Pedal Edema Neurologic/Psychiatric: Alert, Oriented x3, laborer laboratory II-XII Norm as Tested, Abnormal Gait, Depressed Affect, Motor Weakness (Generalized weakness) Skin: Normal Color, Warm/Dry, Other ( left foot in dressing) Lymphatic: No Adenopathy Results/Procedures Lab Laboratory Tests 04/14/23 05:50 Patient resulted labs reviewed. FIM Transfers Therapy Code Descriptions/Definitions Functional [place] Measure: 0=Not Assessed/NA 4=Minimal Assistance 1=Total Assistance 5=Supervision or Setup 2=Maximal Assistance 6=Modified [place] 3=Moderate Assistance 7=Complete IndependenceSCALE: Activities may be completed with or without assistive devices. 1-Vjyaqwcgya-dffcpkd completes the activity by him/herself with no assistance from a helper. 5-Set-up or Clean-up Assistance-helper sets up or cleans up; patient completes activity. [place] assists only prior to or following the activity. 4-Supervision or Touching Assistance-helper provides verbal cues and/or touching/steadying and/or contact guard assistance as patient completes activity. Assistance may be provided throughout the activity or intermittently. 3-Partial/Moderate Assistance-helper does LESS THAN HALF the effort. [place] lifts, holds or supports trunk or limbs, but provides less than half the effort. 2-Substantial/Maximal Assistance-helper does MORE THAN HALF the effort. [place] lifts or holds trunk or limbs and provides more than half the effort. 5-Lngjeocmu-ywectc does ALL the effort. Patient does none of the effort to complete the activity. Or, the assistance of 2 or more helpers is required for the patient to complete the activity. If activity was not attempted, code reason: 7-Patient Refused. 9-Not Applicable-not attempted and the patient did not perform the activity before the current illness, exacerbation or injury. 10-Not Attempted due to Environmental Limitations-(lack of equipment, weather restraints, etc.). 88-Not Attempted due to Medical Conditions or Safety Concerns. Roll Left to Right (QC): 4 Sit to Lying (QC): 4 Sit to Stand (QC): 2 Chair/Hkc-nn-Zwqla Xfer(QC): 2 Car Transfer (QC): 88 Gait Training Does the Patient Walk?: Yes Walk 10 feet (QC): 3 Walk 50 ft with 2 Turns(QC): 88 Walk 150 ft (QC): 88 Walking 10ft/uneven surface-QC: 88 Gait Assistive Device: FWW Wheelchair Training Does the Pt Use a Wheelchair?: No Wheel 50 ft with 2 turns (QC): 9 Wheel 150 ft (QC): 9 Type of Wheelchair: N/A Stair Training 1 Step (curb) (QC): 88 4 Steps (QC): 88 12 Steps (QC): 88 Balance Picking up an Object (QC): 3 ADL-Treatment Eating (QC): 6 Oral Hygiene (QC): 6 Shower/Bathe Self (QC): 1 Upper Body Dressing (QC): 5 Lower Body Dressing (QC): 1 On/Off Footwear (QC): 2 Toileting Hygiene (QC): 1 Assessment/Plan Assessment and Plan Assess & Plan/Chief Complaint Assessment: Debility following left second toe amputation with slow recovery History of left second toe osteomyelitis Hypertension Hyperlipidemia Atrial fibrillation Rheumatoid arthritis Peripheral vascular disease Obesity DM HGA1C 6.0 04/08/23 Poor motivation Constipation Plan: Home meds Cardiology appreciated Fall risk Pain control 04/14/2023: DM education Sunday Aggressive bowel regimen (1) Amputation of toe (2) Atrial fibrillation with rapid ventricular response Status: IBAN Guillermo DO Apr 14, 2023 06:51
--- NOTE | 2023-04-14 06:52 | Individualized Plan of Care ---
Individualized Plan of Care Rehab Nursing IPOC Order Admission Date Apr 13, 2023 at 10:30 Current Orders Orders Admission Arrival Bed Request (04/13/23 10:41) Admission Order(Inpt,Obs,Sdc) (04/13/23 10:59) Vital Signs: Per Unit Policy ( 08,16,00 (04/13/23 10:59) Garret Cardenas 09,21 (04/13/23 10:59) Sequential Compression Device [id number] (04/13/23 10:59) Alumnae Secretary-Inpt Rehab Con (04/13/23 10:59) Rehab Nursing Orders-Ipoc (04/13/23 10:59) Physical Therapy Rehab Orders (04/13/23 10:59) Occupational Therapy Rehab Ord (04/13/23 10:59) Speech Therapy Rehab Orders (04/13/23 10:59) Cbc With Automated Diff (04/14/23 06:00) Comprehensive Metabolic Panel (04/14/23 06:00) Precautions (Aru) (04/13/23 10:59) Weekly Weight WEEK (04/13/23 10:59) Rehab-Intensity Of Therapy (04/13/23 10:59) Initiate Admission Nursing Pro .admission (04/13/23 10:59) Alprazolam Tablet (Alprazolam Tablet) (04/13/23 11:00) Calcium Carbonate Chew Tablet (Calcium C (04/13/23 11:00) Diphenhydramine Tablet (Benadryl Tablet) (04/13/23 11:00) Docusate Sodium Capsule (Colace Capsule) (04/13/23 21:00) Docusate Sodium Capsule (Colace Capsule) (04/13/23 11:00) Bisacodyl Suppository (Bisacodyl Supposi (04/13/23 11:00) Lactulose Oral Solution (Enulose Oral So (04/13/23 11:00) Na Phos/Na Biphos Enema (Fleet Enema Vasyl (04/13/23 11:00) Guaifenesin/Codeine Syrup (Robitussin Ac (04/13/23 11:00) Loperamide Tablet (Imodium Tablet) (04/13/23 11:00) Melatonin Tablet (Melatonin Tablet) (04/13/23 11:00) Polyethylene Glycol Powder Pkt (Miralax (04/13/23 21:00) Ondansetron Oral Dissolve Tab (Zofran (04/13/23 11:00) Senna S Tablet (Senokot S Tablet) (04/13/23 21:00) Acetaminophen Tablet (Acetaminophen Ta (04/13/23 11:00) Initiate Admission Nursing Pro .admission (04/13/23 10:59) Code/Resuscitation (04/13/23 11:01) Accucheck Achs ACHS (04/13/23 11:01) Dressing Order (Intervention) DAILY (04/13/23 11:01) Incentive Spirometry (Nursing) Q2H (04/13/23 11:01) Vital Signs: Every 4 Hours (Or (04/13/23 11:01) Weight Bearing Restrictions (04/13/23 11:01) Apixaban Tablet (Apixaban Tablet) (04/13/23 21:00) Diphenhydramine Injection (Benadryl Inje (04/13/23 11:15) Diphenhydramine Tablet (Benadryl Tablet) (04/13/23 11:15) Docusate Sodium Capsule (Colace Capsule) (04/13/23 21:00) Bisacodyl Suppository (Bisacodyl Supposi (04/13/23 11:15) Lactulose Oral Solution (Enulose Oral So (04/13/23 11:15) Furosemide Tablet (Lasix Tablet) (04/14/23 09:00) Hydrochlorothiazide Cap/Tablet (Hctz Cap (04/14/23 09:00) Losartan Tablet (Cozaar Tablet) (04/14/23 09:00) Melatonin Tablet (Melatonin Tablet) (04/13/23 11:15) Meloxicam Tablet (Mobic Tablet) (04/14/23 09:00) Magnesium Hydroxide Oral Susp (Mom Oral (04/13/23 11:15) Polyethylene Glycol Powder Pkt (Miralax (04/13/23 11:15) Antacid Suspension (Mylanta Suspension (04/13/23 11:15) Insulin Aspart (Novolog) (Novolog (Charg (04/13/23 16:00) Sennosides Tablet (Senokot Tablet) (04/13/23 21:00) Calcium Carbonate Chew Tablet (Calcium C (04/13/23 11:15) Acetaminophen Tablet (Acetaminophen Ta (04/13/23 11:15) Vancomycin Injection (Vancomycin Injecti (04/13/23 22:00) Piperacillin Sodium/Tazobactam (Zosyn Vi (04/13/23 12:00) Ondansetron Injection (Zofran Injectio (04/13/23 11:15) Ondansetron Oral Dissolve Tab (Zofran (04/13/23 11:15) Diltiazem Cd 24 Hr Capsule (Cardizem Cd (04/14/23 09:00) Oxycodone Immediate Rel Tablet (Oxyir Ta (04/13/23 11:15) Consult General Surgery (04/13/23 11:01) Consult Wound Care Physician (04/13/23 11:01) Incentive Spirometry Initial (04/13/23 11:01) Incentive Spirometry (Nursing) Q2H (04/13/23 11:01) Dressing Order (Intervention) BID (04/13/23 11:25) Hypochlorous Acid/Sod Chloride (Vashe Wo (04/13/23 11:30) Heart Healthy (04/13/23 Lunch) Patient Visit (04/13/23 ) Speech Sound Lang Comp (04/13/23 ) Patient Visit (04/13/23 ) Pt Eval Moderate Complexity (04/13/23 ) Patient Visit (04/13/23 ) Functional Activities, Ea 15 (04/13/23 ) Gait Training, Ea 15 Min (04/13/23 ) Exercise Therap, Ea 15 Min (04/13/23 ) Potassium Chloride (Tablet) (K Dur Table (04/14/23 07:00) Trough Order (Trough Order-Pharmacy Orde (04/15/23 09:00) Vancomycin,Trough (04/15/23 09:00) Diabetes Education (04/14/23 13:02) Rehab Nursing Orders: Ongoing Assess. of Function Status, Bladder Management, Bladder Scan, Bladder Training, Bowel Management, Bowel Training, Disease Management & Educaiton, DVT Prophylaxis, Fall Prevention, Fluid/Electrolyte/Nutrition Mgmt, Infection Prevention, Medication Management & Education, Management of Risks & Complications, Management of Skin Intergrity, Nutrition Management, Pain Management, Patient/Family Support, Safety Management, Weight Bearing Precaution, Wound Management Intensity of Therapy to be met Patient to be seen: Min.3h per day/5 of 7d PT IPOC Problem List: Activity Tolerance, Functional Strength, Safety, Balance, Gait, Transfer, Bed Mobility, ROM Treatment Plan: Continue Plan of Care Bed Mobility, Concurrent Therapy, Education, Functional Activity [place], Functional Strength, Group Therapy, Gait, Safety, Therapeutic Exercise, Transfers Treatment Duration: Apr 25, 2023 Frequency: At least 5 of 7 days/Wk (IRF) Estimated Hrs Per Day: 1.5 hours per day OT IPOC Problems: Decreased Activ Tolerance, Decreased UE Strength, Impaired Bed Mobility, Impaired Funct Balance, Impaired Self-Care Skills, Restricted Funct UE ROM OT Treatment, Training and Edu: Yes Plan of Care: ADL Retraining, Caregiver Training, Concurrent Therapy, Functional Mobility, Group Exercise/Act as Ind, Orthotic Fitting/Training, UE Funct Exercise/Act Treatment Duration: Apr 27, 2023 Frequency: At least 5 of 7 days/Wk (IRF) Estimated Hrs Per Day: 1.[address] IPOC Speech Therapy Treatment Plan: Continue Plan of Care Treatment Duration: Apr 13, 2023 Frequency: 1 time per week Estimated Hrs Per Day: .25 hour per day Alumnae Secretary/Case Mgmt Alumnae Secretary/Case Managemen: Discharge Planning Dietitian/Robotics Software Engineer Dietitian/Robotics Software Engineer to monitor nutritional status and make changes and/or recommendations as needed and work with speech pathology on dietary upgrades as the occur. Physician IPOC Medical Issues being managed closely and that require the 24 hour availability of a physician: Recent toe amputation with current wound infection and borderline DM which is new will require close monitoring especially given poor motivation in general Medical Issues: Bowel/Bladder Function, DVT Prophylaxis, Falls Precautions, Fluid/Electrolyte/Nutrition Balance, Infection Protection, Pain Management, Weight Bearing Precautions, Wound Care Brief Synthesis of Preadmission Screen, Post-Admission Evaluation, and Therapy Evaluations: PT OT will focus on regaining function in order to return back to baseline with increasing stamina and independence in ADL's Medical Prognosis: Fair Anticipated Length of Stay: 10 days BIAN LEI DO Apr 14, 2023 06:52
[2023-04-14] MEDS: oxyCODONE IMMEDIATE RELEASE 5 MG TABLET PO PRN ×5 (07:16→23:55)
[2023-04-14 07:40] VITALS: BP 130/78
[2023-04-14] MEDS: ACETAMINOPHEN 325 MG TABLET PO PRN (07:46)
[2023-04-14] MEDS: DOCUSATE SODIUM 100 MG CAPSULE PO SCH ×2 (07:47→21:45)
[2023-04-14] MEDS: FUROSEMIDE 40 MG TABLET PO SCH (07:47)
[2023-04-14] MEDS: POTASSIUM CHLORIDE 20 MEQ TABLET PO SCH (07:47)
[2023-04-14] MEDS: MELOXICAM 7.5 MG (MOBIC) TABLET PO SCH (07:48)
[2023-04-14] MEDS: APIXABAN 5 MG TABLET PO SCH ×2 (07:48→22:14)
[2023-04-14] MEDS: dilTIAZem ER 240 MG CAPSULE PO SCH (07:48)
[2023-04-14] MEDS: LOSARTAN 100 MG (COZAAR) TABLET PO SCH (07:48)
[2023-04-14] MEDS: polyethylene glycoL POWDER 17 GM (MIRALAX) PACK PO SCH ×2 (07:48→21:45)
[2023-04-14] MEDS: SENNOSIDES 8.6 MG (SENOKOT) TAB PO SCH ×2 (07:49→21:45)
[2023-04-14] MEDS: VANCOMYCIN INJECTION 1,000 MG in NS (IVPB) 250 ML 250 ML IV SCH ×2 (09:58→22:14)
[2023-04-14] MEDS: LACTULOSE SYRUP 10GM/15ML 30ML UDC PO PRN (13:06)
[2023-04-14 20:15] VITALS: BP 116/74
[2023-04-15] MEDS: PIPERACILLIN SODIUM/TAZOBACTAM 4.5 GM in NS (IVPB) 100 ML 100 ML IV SCH ×3 (04:12→20:21)
[2023-04-15] MEDS: POTASSIUM CHLORIDE 20 MEQ TABLET PO SCH (06:31)
[2023-04-15] MEDS: inSUlin ASPART 1 UNIT/0.01 ML (PER UNIT) SC SCH ×4 (06:31→20:51)
[2023-04-15] MEDS: oxyCODONE IMMEDIATE RELEASE 5 MG TABLET PO PRN ×5 (06:32→22:55)
--- NOTE | 2023-04-15 06:55 | PM&R Progress Note ---
Subjective HPI/CC On Admission Date Seen by Provider: Apr 15, 2023 Time Seen by Provider: 12:00 Subjective/Events-last exam 04/15/2023: Patient doing about the same Poor motivation Flat affect Midline will be attempted because Dr. Christian wants IV antibiotics to continue 04/14/2023: Very slow recovery Patient seems to lack the motivation overall on an on-going basis Updated patient on his borderline DM with hga1c 6.0 so offered DM education Sunday Wound needs aggressive care IV abx maintained Review of Systems General: Fatigue, Malaise Objective Exam Vital Signs Vital Signs Date Time Temp Pulse Resp B/P (MAP) Pulse Ox O2 Delivery O2 Flow Rate FiO2 04/15/23 08:34 36.3 66 18 119/65 (83) 95 04/14/23 21:30 Room Air 04/14/23 08:03 0.00 Capillary Refill : General Appearance: No Apparent Distress, WD/WN, Chronically ill HEENT: PERRL/EOMI, Normal ENT Inspection, Pharynx Normal Neck: Full Range of Motion, Normal Inspection, Non Tender, Supple, Carotid Bruit Respiratory: Chest Non Tender, Lungs Clear, Normal Breath Sounds, No Accessory Muscle Use, No Respiratory Distress Cardiovascular: Regular Rate, Rhythm, No Edema, No Gallop, No JVD, No Murmur, Normal Peripheral Pulses Gastrointestinal: Normal Bowel Sounds, No Organomegaly, No Pulsatile Mass, Non Tender, Soft Back: Normal Inspection, No CVA Tenderness, No Vertebral Tenderness Extremity: Normal Capillary Refill, Normal Inspection, Normal Range of Motion, Non Tender, No Calf Tenderness, No Pedal Edema Neurologic/Psychiatric: Alert, Oriented x3, building coordinator II-XII Norm as Tested, Abnormal Gait, Depressed Affect, Motor Weakness (Generalized weakness) Skin: Normal Color, Warm/Dry, Other ( left foot in dressing) Lymphatic: No Adenopathy Results/Procedures Lab Patient resulted labs reviewed. FIM Transfers Therapy Code Descriptions/Definitions Functional [place] Measure: 0=Not Assessed/NA 4=Minimal Assistance 1=Total Assistance 5=Supervision or Setup 2=Maximal Assistance 6=Modified [place] 3=Moderate Assistance 7=Complete IndependenceSCALE: Activities may be completed with or without assistive devices. 3-Jddjsclxnu-wyiqzdh completes the activity by him/herself with no assistance from a helper. 5-Set-up or Clean-up Assistance-helper sets up or cleans up; patient completes activity. [place] assists only prior to or following the activity. 4-Supervision or Touching Assistance-helper provides verbal cues and/or touching/steadying and/or contact guard assistance as patient completes ac tivity. Assistance may be provided throughout the activity or intermittently. 3-Partial/Moderate Assistance-helper does LESS THAN HALF the effort. [place] lifts, holds or supports trunk or limbs, but provides less than half the effort. 2-Substantial/Maximal Assistance-helper does MORE THAN HALF the effort. [place] lifts or holds trunk or limbs and provides more than half the effort. 3-Hyngmwqvk-ytanqx does ALL the effort. Patient does none of the effort to complete the activity. Or, the assistance of 2 or more helpers is required for the patient to complete the activity. If activity was not attempted, code reason: 7-Patient Refused. 9-Not Applicable-not attempted and the patient did not perform the activity before the current illness, exacerbation or injury. 10-Not Attempted due to Environmental Limitations-(lack of equipment, weather restraints, etc.). 88-Not Attempted due to Medical Conditions or Safety Concerns. Roll Left to Right (QC): 4 Sit to Lying (QC): 4 Sit to Stand (QC): 2 Chair/Klj-xb-Wmezg Xfer(QC): 2 Car Transfer (QC): 88 Gait Training Does the Patient Walk?: Yes Walk 10 feet (QC): 3 Walk 50 ft with 2 Turns(QC): 88 Walk 150 ft (QC): 88 Walking 10ft/uneven surface-QC: 88 Gait Assistive Device: FWW Wheelchair Training Does the Pt Use a Wheelchair?: No Wheel 50 ft with 2 turns (QC): 9 Wheel 150 ft (QC): 9 Type of Wheelchair: N/A Stair Training 1 Step (curb) (QC): 88 4 Steps (QC): 88 12 Steps (QC): 88 Balance Picking up an Object (QC): 3 ADL-Treatment Eating (QC): 6 Oral Hygiene (QC): 6 Shower/Bathe Self (QC): 1 Upper Body Dressing (QC): 5 Lower Body Dressing (QC): 1 On/Off Footwear (QC): 2 Toileting Hygiene (QC): 1 Assessment/Plan Assessment and Plan Assess & Plan/Chief Complaint Assessment: Debility following left second toe amputation with slow recovery History of left second toe osteomyelitis Hypertension Hyperlipidemia Atrial fibrillation Rheumatoid arthritis Peripheral vascular disease Obesity DM HGA1C 6.0 04/08/23 Poor motivation Constipation Plan: Home meds Cardiology appreciated Fall risk Pain control 04/14/2023: DM education Sunday Aggressive bowel regimen 04/15/2023: Midline Supportive care (1) Amputation of toe (2) Atrial fibrillation with rapid ventricular response Status: Acute IBAN LEI DO Apr 15, 2023 06:55
[2023-04-15 08:34] VITALS: BP 119/65
[2023-04-15] MEDS: APIXABAN 5 MG TABLET PO SCH ×2 (08:38→21:56)
[2023-04-15] MEDS: MELOXICAM 7.5 MG (MOBIC) TABLET PO SCH (08:38)
[2023-04-15] MEDS: LOSARTAN 100 MG (COZAAR) TABLET PO SCH (08:38)
[2023-04-15] MEDS: FUROSEMIDE 40 MG TABLET PO SCH (08:39)
[2023-04-15] MEDS: dilTIAZem ER 240 MG CAPSULE PO SCH (08:39)
[2023-04-15] MEDS: DOCUSATE SODIUM 100 MG CAPSULE PO SCH ×2 (08:43→21:56)
[2023-04-15] MEDS: SENNOSIDES 8.6 MG (SENOKOT) TAB PO SCH ×2 (08:43→21:56)
[2023-04-15] MEDS ORDERED: TROUGH ORDER-PHARMACY XX ONE (09:00)
--- NOTE | 2023-04-15 10:06 | Progress Note - Surgery ---
Subjective Date Seen by a Provider: Apr 15, 2023 Time Seen by a Provider: 10:02 Subjective/Events-last exam Doing okay. Foot feeling better. Swelling down. Tolerating dressing changes. Objective Exam Vital Signs Date Time Temp Pulse Resp B/P (MAP) Pulse Ox O2 Delivery O2 Flow Rate FiO2 04/15/23 08:34 36.3 66 18 119/65 (83) 95 04/14/23 21:30 95 Room Air 04/14/23 20:15 37.3 78 20 116/74 (88) 95 Room Air I & O 04/15/23 07:00 Intake Total 1550 ml Output Total 2100 ml Balance -550 ml Capillary Refill : General Appearance: No Apparent Distress, WD/WN, Chronically ill HEENT: PERRL/EOMI, Normal ENT Inspection, Pharynx Normal Neck: Full Range of Motion, Normal Inspection, Non Tender, Supple, Carotid Bruit Respiratory: Chest Non Tender, Normal Breath Sounds, No Accessory Muscle Use, No Respiratory Distress Cardiovascular: Regular Rate, Rhythm, No JVD Gastrointestinal: non tender, soft Extremity: Normal Capillary Refill, Normal Range of Motion, Non Tender, No Calf Tenderness, No Pedal Edema, Pedal Edema, Other (left 2nd toe ampuation open wo und and small ucer plantar surface) Neurologic/Psychiatric: Alert, Oriented x3, piece goods packer II-XII Norm as Tested, Abnormal Gait, Depressed Affect, Motor Weakness (Generalized weakness) Skin: Normal Color, Warm/Dry, Other ( left foot in dressing) Lymphatic: No Adenopathy Results Lab Laboratory Tests 04/14/23 12:38: Glucometer 151H 04/14/23 16:43: Glucometer 104 04/14/23 21:49: Glucometer 132H 04/15/23 06:22: Glucometer 146H 04/15/23 09:45: Assessment/Plan Assessment/Plan Assessment/Plan left 2nd toe open wound lower ext edema foot looking slightly better continue wound care. OSEAS TUBBS DO Apr 15, 2023 10:06
[2023-04-15] MEDS: VANCOMYCIN INJECTION 1,000 MG in NS (IVPB) 250 ML 250 ML IV SCH ×2 (10:40→21:56)
[2023-04-15] MEDS: polyethylene glycoL POWDER 17 GM (MIRALAX) PACK PO SCH ×2 (11:02→20:51)
[2023-04-15 19:34] VITALS: BP 132/69
[2023-04-16] MEDS: PIPERACILLIN SODIUM/TAZOBACTAM 4.5 GM in NS (IVPB) 100 ML 100 ML IV SCH ×3 (04:04→21:07)
[2023-04-16] MEDS: oxyCODONE IMMEDIATE RELEASE 5 MG TABLET PO PRN ×5 (04:04→21:07)
[2023-04-16 06:14] LABS: BASOPHILS # (AUTO) 0.1 10^3/uL (0.0-0.1); BASOPHILS % (AUTO) 0 % (0-10); EOSINOPHILS # (AUTO) 0.1 10^3/uL (0.0-0.3); EOSINOPHILS % (AUTO) 0 % (0-10); HEMATOCRIT 36 % (40-54); LYMPHOCYTES # (AUTO) 1.4 10^3/uL (1.0-4.0); LYMPHOCYTES % (AUTO) 9 % (12-44); MEAN CORPUSCULAR HEMOGLOBIN 30 pg (25-34); MEAN CORPUSCULAR HGB CONC 33 g/dL (32-36); MEAN CORPUSCULAR VOLUME 89 fL (80-99); MEAN PLATELET VOLUME 9.1 fL (9.0-12.2); MONOCYTES # (AUTO) 0.6 10^3/uL (0.0-1.0); MONOCYTES % (AUTO) 4 % (0-12); NEUTROPHILS # (AUTO) 13.4 10^3/uL (1.8-7.8); NEUTROPHILS % (AUTO) 85 % (42-75); PLATELET COUNT 686 10^3/uL (130-400); WHITE BLOOD COUNT 15.7 10^3/uL (4.3-11.0)
--- NOTE | 2023-04-16 06:21 | PM&R Progress Note ---
Subjective HPI/CC On Admission Date Seen by Provider: Apr 16, 2023 Time Seen by Provider: 09:00 Subjective/Events-last exam 04/16/2023: Improved overall No pain reported IV abx maintained Midline maintained Labs reviewed 04/15/2023: Patient doing about the same Poor motivation Flat affect Midline will be attempted because Dr. Christian wants IV antibiotics to continue 04/14/2023: Very slow recovery Patient seems to lack the motivation overall on an on-going basis Updated patient on his borderline DM with hga1c 6.0 so offered DM education Sunday Wound needs aggressive care IV abx maintained Review of Systems General: Fatigue, Malaise Objective Exam Vital Signs Vital Signs Date Time Temp Pulse Resp B/P (MAP) Pulse Ox O2 Delivery O2 Flow Rate FiO2 04/16/23 20:10 36.3 71 20 157/88 (111) 95 Room Air 04/16/23 07:41 0.00 0.00 Capillary Refill : General Appearance: No Apparent Distress, WD/WN, Chronically ill HEENT: PERRL/EOMI, Normal ENT Inspection, Pharynx Normal Neck: Full Range of Motion, Normal Inspection, Non Tender, Supple, Carotid Bruit Respiratory: Chest Non Tender, Lungs Clear, Normal Breath Sounds, No Accessory Muscle Use, No Respiratory Distress Cardiovascular: Regular Rate, Rhythm, No Edema, No Gallop, No JVD, No Murmur, Normal Peripheral Pulses Gastrointestinal: Normal Bowel Sounds, No Organomegaly, No Pulsatile Mass, Non Tender, Soft Back: Normal Inspection, No CVA Tenderness, No Vertebral Tenderness Extremity: Normal Capillary Refill, Normal Inspection, Normal Range of Motion, Non Tender, No Calf Tenderness, No Pedal Edema Neurologic/Psychiatric: Alert, Oriented x3, administrative receptionist II-XII Norm as Tested, Abnormal Gait, Depressed Affect, Motor Weakness (Generalized weakness) Skin: Normal Color, Warm/Dry, Other ( left foot in dressing) Lymphatic: No Adenopathy Results/Procedures Lab Laboratory Tests 04/16/23 06:05 Patient resulted labs reviewed. FIM Transfers Therapy Code Descriptions/Definitions Functional [place] Measure: 0=Not Assessed/NA 4=Minimal Assistance 1=Total Assistance 5=Supervision or Setup 2=Maximal Assistance 6=Modified [place] 3=Moderate Assistance 7=Complete IndependenceSCALE: Activities may be completed with or without assistive devices. 9-Tqgklkqhyv-glfeneu completes the activity by him/herself with no assistance from a helper. 5-Set-up or Clean-up Assistance-helper sets up or cleans up; patient completes activity. [place] assists only prior to or following the activity. 4-Supervision or Touching Assistance-helper provides verbal cues and/or touching/steadying and/or contact guard assistance as patient completes activity. Assistance may be provided throughout the activity or intermittently. 3-Partial/Moderate Assistance-helper does LESS THAN HALF the effort. [place] lifts, holds or supports trunk or limbs, but provides less than half the effort. 2-Substantial/Maximal Assistance-helper does MORE THAN HALF the effort. [place] lifts or holds trunk or limbs and provides more than half the effort. 0-Mwkuhcugn-knwewn does ALL the effort. Patient does none of the effort to complete the activity. Or, the assistance of 2 or more helpers is required for the patient to complete the activity. If activity was not attempted, code reason: 7-Patient Refused. 9-Not Applicable-not attempted and the patient did not perform the activity before the current illness, exacerbation or injury. 10-Not Attempted due to Environmental Limitations-(lack of equipment, weather restraints, etc.). 88-Not Attempted due to Medical Conditions or Safety Concerns. Roll Left to Right (QC): 4 Sit to Lying (QC): 4 Sit to Stand (QC): 2 Chair/Pqu-vs-Cwuxx Xfer(QC): 2 Car Transfer (QC): 88 Gait Training Does the Patient Walk?: Yes Walk 10 feet (QC): 3 Walk 50 ft with 2 Turns(QC): 88 Walk 150 ft (QC): 88 Walking 10ft/uneven surface-QC: 88 Gait Assistive Device: FWW Wheelchair Training Does the Pt Use a Wheelchair?: No Wheel 50 ft with 2 turns (QC): 9 Wheel 150 ft (QC): 9 Type of Wheelchair: N/A Stair Training 1 Step (curb) (QC): 88 4 Steps (QC): 88 12 Steps (QC): 88 Balance Picking up an Object (QC): 3 ADL-Treatment Eating (QC): 6 Oral Hygiene (QC): 6 Shower/Bathe Self (QC): 1 Upper Body Dressing (QC): 5 Lower Body Dressing (QC): 1 On/Off Footwear (QC): 2 Toileting Hygiene (QC): 1 Assessment/Plan Assessment and Plan Assess & Plan/Chief Complaint Assessment: Debility following left second toe amputation with slow recovery History of left second toe osteomyelitis Hypertension Hyperlipidemia Atrial fibrillation Rheumatoid arthritis Peripheral vascular disease Obesity DM HGA1C 6.0 04/08/23 Poor motivation Constipation Plan: Home meds Cardiology appreciated Fall risk Pain control 04/14/2023: DM education Sunday Aggressive bowel regimen 04/15/2023: Midline Supportive care 04/16/2023: IV abx via midline (1) Amputation of toe (2) Atrial fibrillation with rapid ventricular response Status: Acute IBAN LEI DO Apr 16, 2023 06:21
[2023-04-16 06:22] LABS: ALBUMIN 2.9 GM/DL (3.2-4.5); POTASSIUM 3.6 MMOL/L (3.6-5.0)
[2023-04-16 06:23] LABS: CALCIUM 9.8 MG/DL (8.5-10.1)
[2023-04-16 06:24] LABS: TOTAL PROTEIN 6.8 GM/DL (6.4-8.2)
[2023-04-16 06:26] LABS: BILIRUBIN,TOTAL 0.6 MG/DL (0.1-1.0)
[2023-04-16 06:28] LABS: CREATININE SERUM 0.77 MG/DL (0.60-1.30)
[2023-04-16] MEDS: inSUlin ASPART 1 UNIT/0.01 ML (PER UNIT) SC SCH ×4 (06:31→21:14)
[2023-04-16 06:55] LABS: EOSINOPHILS % (MANUAL) 2 %; LYMPHOCYTES % (MANUAL) 8 %; MONOCYTES % (MANUAL) 7 %; NEUTROPHILS % (MANUAL) 83 %; RBC MORPH NORMAL
[2023-04-16 06:56] LABS: PLATELET ESTIMATE INCREASED; TOXIC GRANULATION/VACUOLAZATIO 2+
[2023-04-16] MEDS: POTASSIUM CHLORIDE 20 MEQ TABLET PO SCH (06:58)
[2023-04-16 07:41] VITALS: BP 132/69
[2023-04-16 08:05] VITALS: BP 155/88
[2023-04-16] MEDS: MELOXICAM 7.5 MG (MOBIC) TABLET PO SCH (08:18)
[2023-04-16] MEDS: DOCUSATE SODIUM 100 MG CAPSULE PO SCH ×2 (08:18→21:08)
[2023-04-16] MEDS: dilTIAZem ER 240 MG CAPSULE PO SCH (08:18)
[2023-04-16] MEDS: LOSARTAN 100 MG (COZAAR) TABLET PO SCH (08:18)
[2023-04-16] MEDS: FUROSEMIDE 40 MG TABLET PO SCH (08:18)
[2023-04-16] MEDS: APIXABAN 5 MG TABLET PO SCH ×2 (08:18→21:07)
[2023-04-16] MEDS: SENNOSIDES 8.6 MG (SENOKOT) TAB PO SCH ×2 (08:18→21:07)
[2023-04-16] MEDS: polyethylene glycoL POWDER 17 GM (MIRALAX) PACK PO SCH ×2 (08:20→21:08)
--- NOTE | 2023-04-16 08:47 | Occupational Ther Daily Note ---
OT Current Status-Daily Note Subjective Pt alert, lying in bed. Pt agrees to therapy. Pt c/o knee pain, nrsg aware and brought pain meds. Mental Status/Objective Patient Orientation: Person, Place, Time Attachments: IV ADL-Treatment Pt agrees to shower. Independent with eating. Pt mod A for sit <--> stand from higher surface. SPT using FWW, min A. Transferred in/out of shower using w/c, grabbars and BSC. Pt completed shower sitting 100% of the time on BSC using grabbars, LHS and hand held shower, set up for covering IV site and L foot. Set up for UBD. Pt threaded feet into pants then min A to stabilize in standing while pt hiked over hips. Max A for footwear. Independent sitting at sink for oral care and grooming. After session, pt sitting in recliner with call l ight/phone in reach. All needs met in room. Therapy Code Descriptions/Definitions Functional [place] Measure: 0=Not Assessed/NA 4=Minimal Assistance 1=Total Assistance 5=Supervision or Setup 2=Maximal Assistance 6=Modified [place] 3=Moderate Assistance 7=Complete IndependenceSCALE: Activities may be completed with or without assistive devices. 4-Chpdbfslad-mclzzrr completes the activity by him/herself with no assistance from a helper. 5-Set-up or Clean-up Assistance-helper sets up or cleans up; patient completes activity. [place] assists only prior to or following the activity. 4-Supervision or Touching Assistance-helper provides verbal cues and/or touching/steadying and/or contact guard assistance as patient completes activity. Assistance may be provided throughout the activity or intermittently. 3-Partial/Moderate Assistance-helper does LESS THAN HALF the effort. [place] lifts, holds or supports trunk or limbs, but provides less than half the effort. 2-Substantial/Maximal Assistance-helper does MORE THAN HALF the effort. [place] lifts or holds trunk or limbs and provides more than half the effort. 6-Lsdgeaket-crsxht does ALL the effort. Patient does none of the effort to complete the activity. Or, the assistance of 2 or more helpers is required for the patient to complete the activity. If activity was not attempted, code reason: 7-Patient Refused. 9-Not Applicable-not attempted and the patient did not perform the activity before the current illness, exacerbation or injury. 10-Not Attempted due to Environmental Limitations-(lack of equipment, weather restraints, etc.). 88-Not Attempted due to Medical Conditions or Safety Concerns. Eating (QC): 6 Oral Hygiene (QC): 6 Shower/Bathe Self (QC): 5 Upper Body Dressing (QC): 5 Lower Body Dressing (QC): 3 On/Off Footwear: 2 Education OT Patient Education: Modified ADL techniques, Transfer techniques Teaching Recipient: Patient Teaching Methods: Demonstration, Discussion Response to Teaching: Verbalize Understanding, Return Demonstration, Reinforcement Needed OT Short Term Goals Short Term Goals Time Frame: Apr 18, 2023 Eatin Oral hygiene: 6 OT Half-Way Goals Injection Molding Supervisor Goals Acute change in mental status: 0 Inattention: 0 Disorganized thinkin Altered level of consciousness: 0 Eating (QC): 6 Oral Hygiene (QC): 6 Toileting Hygiene (QC): 6 Shower/Bathe Self (QC): 6 Upper Body Dressing (QC): 6 Lower Body Dressing (QC): 6 On/Off Footwear (QC): 6 1=Demonstrate adherence to instructed precautions during ADL tasks. 2=Patient will verbalize/demonstrate understanding of assistive devices/modifications for ADL. 3=Patient will improve strength/tolerance for activity to enable patient to perform ADL's. OT Education/Plan Problem List/Assessment Assessment: Decreased Activ Tolerance, Decreased UE Strength, Impaired Funct Balance, Impaired Self-Care Skills Discharge Recommendations Plan/Recommendations: Continue POC Treatment Plan/Plan of Care Patient would benefit from OT for education, treatment and training to promote independence in ADL's, mobility, safety and/or upper extremity function for ADL's. Plan of Care: ADL Retraining, Caregiver Training, Concurrent Therapy, Functional Mobility, Group Exercise/Act as Ind, Orthotic Fitting/Training, UE Funct Exercise/Act Treatment Duration: Apr 27, 2023 Frequency: At least 5 of 7 days/Wk (IRF) Estimated Hrs Per Day: 1.5 hours per day Agreement: Yes Rehab Potential: Good Time Start Time: 07:15 Stop Time: 08:45 DATE: Apr 16, 2023 Total Time Billed (hr/min): 90 Billed Treatment Time 1 visit-ADL 6 (90 min) EUFEMIA BOWEN Apr 16, 2023 08:47
[2023-04-16] MEDS: VANCOMYCIN INJECTION 1,000 MG in NS (IVPB) 250 ML 250 ML IV SCH ×2 (09:02→20:01)
--- NOTE | 2023-04-16 09:53 | Physical Therapy Daily Note ---
PT Daily Note-Current Subjective PT in recliner upon entering the room and willing for therapy. pt stated 7/10 pain in B Knees and has already been given pain med. pt to speak with about B Knee pain this day. PT was left in recliner with call light and all needs met at the end of therapy. pt pain did not increase. Pain Section J - Health Conditions 1. Rarely or not at all 2. Occasionally 3. Frequently 4. Almost constantly 8. Unable to answer Pain Effect on Sleep: 4 Pain Interference with Therapy: 4 Pain Interference w/Day-to-Day: 4 Mental Status Patient Orientation: Person, Place, Time, Situation Transfers SCALE: Activities may be completed with or without assistive devices. 4-Dacrcddrhu-kzznyzn completes the activity by him/herself with no assistance from a helper. 5-Set-up or Clean-up Assistance-helper sets up or cleans up; patient completes activity. [place] assists only prior to or following the activity. 4-Supervision or Touching Assistance-helper provides verbal cues and/or touching/steadying and/or contact guard assistance as patient completes activity. Assistance may be provided throughout the activity or intermittently. 3-Partial/Moderate Assistance-helper does LESS THAN HALF the effort. [place] lifts, holds or supports trunk or limbs, but provides less than half the effort. 2-Substantial/Maximal Assistance-helper does MORE THAN HALF the effort. [place] lifts or holds trunk or limbs and provides more than half the effort. 9-Xeuenqoeh-hziuez does ALL the effort. Patient does none of the effort to complete the activity. Or, the assistance of 2 or more helpers is required for the patient to complete the activity. If activity was not attempted, code reason: 7-Patient Refused. 9-Not Applicable-not attempted and the patient did not perform the activity before the current illness, exacerbation or injury. 10-Not Attempted due to Environmental Limitations-(lack of equipment, weather restraints, etc.). 88-Not Attempted due to Medical Conditions or Safety Concerns. Sit to Stand (QC): 4 Weight Bearing Right Lower Extremity: Right Full Weight Bearing Left Lower Extremity: Left Partial Weight Bearing Patient was instructed in L heel only weight bearing due to wound Gait Training Walk 10 feet (QC): 4 Treatments PT is able to preform sit to stand transfers x 5 with CGA at // bars pushing up from WC standing at // bar for 30 sec. pt executed stand pivot transfers with CGA and RW from WC to chair with CGA x 5. PT is able to ambulate 15 with RW and CGA 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 Quality Assurance/R&D Lab Technician Goals [facility] Goals PT Quality Assurance/R&D Lab Technician Goals Time Frame: Apr 25, 2023 Roll Left & Right (QC): 6 (Pt will be Mod I with bed mobility ) Sit to Lying (QC): 6 (Pt will be Mod I with bed mobility ) Lying-Sitting on Side/Bed(QC): 6 (Pt will be Mod I with bed mobility ) Sit to Stand (QC): 4 (Pt will be SBA for functional transfers ) Chair/Xkn-cx-Nckoj Xfer(QC): 4 (Pt will be SBA for functional transfers ) Toilet Transfer (QC): 4 (Pt will be SBA for functional transfers ) Car Transfer (QC): 4 (Pt will be SBA for functional transfers ) Does the Patient Walk: Yes Walk 10 feet (QC): 4 (Pt will be SBA for walking with the FWW ) Walk 50ft with 2 Turns (QC): 4 (Pt will be SBA for walking with the FWW ) Walk 150 ft (QC): 4 (Pt will be SBA for walking with the FWW ) Walking 10ft on Uneven Surface: 4 (Pt will be SBA for walking with the FWW ) 1 Step (curb) (QC): 4 (SBA for steps ) 4 Steps (QC): 4 (SBA for steps ) 12 Steps (QC): 9 Picking up an Object (QC): 6 (with supervisor grips ) Does the Pt use WC or Scooter?: No Wheel 50 feet with 2 turns (QC: 9 Type: N/A Wheel 150 feet: 9 Type: N/A PT Plan Treatment/Plan Treatment Plan: Continue Plan of Care Treatment Plan: Bed Mobility, Concurrent Therapy, Education, Functional Activity [place], Functional Strength, Group Therapy, Gait, Safety, Therapeutic Exercise, Transfers Treatment Duration: Apr 25, 2023 Frequency: At least 5 of 7 days/Wk (IRF) Estimated Hrs Per Day: 1.5 hours per day Patient and/or Family Agrees t: Yes Time Time In: 0900 Time Out: 0930 DATE: Apr 16, 2023 Total Billed Treatment Time: 30 Total Billed Treatment 1 EX x 2 Sarika Garcia [employer] Apr 16, 2023 09:53
[2023-04-16] MEDS: HYPOCHLOROUS ACID/NaCl (VASHE) 250 ML IR SCH (13:24)
--- NOTE | 2023-04-16 13:39 | Physical Therapy Daily Note ---
PT Daily Note-Current Subjective PT in recliner upon arrival and willing for therapy. pt reports 7/10 pain in B K and has already had pain med. pt was left in recliner with call light and all needs met after therapy. Pain Section J - Health Conditions 1. Rarely or not at all 2. Occasionally 3. Frequently 4. Almost constantly 8. Unable to answer Pain Effect on Sleep: 4 Pain Interference with Therapy: 4 Pain Interference w/Day-to-Day: 4 Transfers SCALE: Activities may be completed with or without assistive devices. 9-Cefcgxebrd-cpsejhp completes the activity by him/herself with no assistance from a helper. 5-Set-up or Clean-up Assistance-helper sets up or cleans up; patient completes activity. [place] assists only prior to or following the activity. 4-Supervision or Touching Assistance-helper provides verbal cues and/or touching/steadying and/or contact guard assistance as patient completes activity. Assistance may be provided throughout the activity or intermittently. 3-Partial/Moderate Assistance-helper does LESS THAN HALF the effort. [place] lifts, holds or supports trunk or limbs, but provides less than half the effort. 2-Substantial/Maximal Assistance-helper does MORE THAN HALF the effort. [place] lifts or holds trunk or limbs and provides more than half the effort. 6-Gnocaidvj-jesowl does ALL the effort. Patient does none of the effort to complete the activity. Or, the assistance of 2 or more helpers is required for the patient to complete the activity. If activity was not attempted, code reason: 7-Patient Refused. 9-Not Applicable-not attempted and the patient did not perform the activity before the current illness, exacerbation or injury. 10-Not Attempted due to Environmental Limitations-(lack of equipment, weather restraints, etc.). 88-Not Attempted due to Medical Conditions or Safety Concerns. Weight Bearing Right Lower Extremity: Right Full Weight Bearing Left Lower Extremity: Left Partial Weight Bearing Patient was instructed in L heel only weight bearing due to wound Treatments PT is able to preform sit to stand transfers x 5 with CGA at // bars pushing up from WC standing at // bar for 30 sec. pt executed stand pivot transfers with CGA and RW from WC to chair with CGA x 5. 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 Goals Time Frame: Apr 25, 2023 Roll Left & Right (QC): 6 (Pt will be Mod I with bed mobility ) Sit to Lying (QC): 6 (Pt will be Mod I with bed mobility ) Lying-Sitting on Side/Bed(QC): 6 (Pt will be Mod I with bed mobility ) Sit to Stand (QC): 4 (Pt will be SBA for functional transfers ) Chair/Itt-aj-Vcutu Xfer(QC): 4 (Pt will be SBA for functional transfers ) Toilet Transfer (QC): 4 (Pt will be SBA for functional transfers ) Car Transfer (QC): 4 (Pt will be SBA for functional transfers ) Does the Patient Walk: Yes Walk 10 feet (QC): 4 (Pt will be SBA for walking with the FWW ) Walk 50ft with 2 Turns (QC): 4 (Pt will be SBA for walking with the FWW ) Walk 150 ft (QC): 4 (Pt will be SBA for walking with the FWW ) Walking 10ft on Uneven Surface: 4 (Pt will be SBA for walking with the FWW ) 1 Step (curb) (QC): 4 (SBA for steps ) 4 Steps (QC): 4 (SBA for steps ) 12 Steps (QC): 9 Picking up an Object (QC): 6 (with fire department battalion chief ) Does the Pt use WC or Scooter?: No Wheel 50 feet with 2 turns (QC: 9 Type: N/A Wheel 150 feet: 9 Type: N/A PT Plan Treatment/Plan Treatment Plan: Continue Plan of Care Treatment Plan: Bed Mobility, Concurrent Therapy, Education, Functional Activity Chetan, Functional Strength, Group Therapy, Gait, Safety, Therapeutic Exercise, Transfers Treatment Duration: Apr 25, 2023 Frequency: At least 5 of 7 days/Wk (IRF) Estimated Hrs Per Day: 1.5 hours per day Patient and/or Family Agrees t: Yes Time Time In: 1030 Time Out: 1130 DATE: Apr 16, 2023 Total Billed Treatment Time: 60 Total Billed Treatment 1 FA x 3 GT x 1 Sarika Garcia SEQUINS SPOOLER Apr 16, 2023 13:39
[2023-04-16 20:10] VITALS: BP 157/88
[2023-04-17] MEDS: oxyCODONE IMMEDIATE RELEASE 5 MG TABLET PO PRN ×5 (01:11→19:32)
[2023-04-17] MEDS: PIPERACILLIN SODIUM/TAZOBACTAM 4.5 GM in NS (IVPB) 100 ML 100 ML IV SCH ×3 (04:21→22:40)
--- NOTE | 2023-04-17 05:44 | PM&R Progress Note ---
Subjective HPI/CC On Admission Date Seen by Provider: Apr 17, 2023 Time Seen by Provider: 09:00 Subjective/Events-last exam 04/17/2023: Patient doing much better Ambulating around better Pain is still an issue Bowel regimen maintained Changing out midline due to irritated site on right arm 04/16/2023: Improved overall No pain reported IV abx maintained Midline maintained Labs reviewed 04/15/2023: Patient doing about the same Poor motivation Flat affect Midline will be attempted because Dr. Christian wants IV antibiotics to continue 04/14/2023: Very slow recovery Patient seems to lack the motivation overall on an on-going basis Updated patient on his borderline DM with hga1c 6.0 so offered DM education Sunday Wound needs aggressive care IV abx maintained Review of Systems General: Fatigue, Malaise Objective Exam Vital Signs Vital Signs Date Time Temp Pulse Resp B/P (MAP) Pulse Ox O2 Delivery O2 Flow Rate FiO2 04/17/23 20:10 Room Air 04/17/23 20:10 36.5 70 16 137/75 (95) 93 04/16/23 07:41 0.00 0.00 Capillary Refill : General Appearance: No Apparent Distress, WD/WN, Chronically ill HEENT: PERRL/EOMI, Normal ENT Inspection, Pharynx Normal Neck: Full Range of Motion, Normal Inspection, Non Tender, Supple, Carotid Bruit Respiratory: Chest Non Tender, Lungs Clear, Normal Breath Sounds, No Accessory Muscle Use, No Respiratory Distress Cardiovascular: Regular Rate, Rhythm, No Edema, No Gallop, No JVD, No Murmur, Normal Peripheral Pulses Gastrointestinal: Normal Bowel Sounds, No Organomegaly, No Pulsatile Mass, Non Tender, Soft Back: Normal Inspection, No CVA Tenderness, No Vertebral Tenderness Extremity: Normal Capillary Refill, Normal Inspection, Normal Range of Motion, Non Tender, No Calf Tenderness, No Pedal Edema Neurologic/Psychiatric: Alert, Oriented x3, studio engineer II-XII Norm as Tested, Abnormal Gait, Depressed Affect, Motor Weakness (Generalized weakness) Skin: Normal Color, Warm/Dry, Other ( left foot in dressing) Lymphatic: No Adenopathy Results/Procedures Lab Patient resulted labs reviewed. [facility] Transfers Therapy Code Descriptions/Definitions Functional [place] Measure: 0=Not Assessed/NA 4=Minimal Assistance 1=Total Assistance 5=Supervision or Setup 2=Maximal Assistance 6=Modified [place] 3=Moderate Assistance 7=Complete IndependenceSCALE: Activities may be completed with or without assistive devices. 2-Hvwutuildu-pyrbjyr completes the activity by him/herself with no assistance from a helper. 5-Set-up or Clean-up Assistance-helper sets up or cleans up; patient completes activity. [place] assists only prior to or following the activity. 4-Supervision or Touching Assistance-helper provides verbal cues and/or touching/steadying and/or contact guard assistance as patient completes activity. Assistance may be provided throughout the activity or intermittently. 3-Partial/Moderate Assistance-helper does LESS THAN HALF the effort. [place] lifts, holds or supports trunk or limbs, but provides less than half the effort. 2-Substantial/Maximal Assistance-helper does MORE THAN HALF the effort. [place] lifts or holds trunk or limbs and provides more than half the effort. 8-Xqsldrhkj-slttxs does ALL the effort. Patient does none of the effort to complete the activity. Or, the assistance of 2 or more helpers is required for the patient to complete the activity. If activity was not attempted, code reason: 7-Patient Refused. 9-Not Applicable-not attempted and the patient did not perform the activity before the current illness, exacerbation or injury. 10-Not Attempted due to Environmental Limitations-(lack of equipment, weather restraints, etc.). 88-Not Attempted due to Medical Conditions or Safety Concerns. Roll Left to Right (QC): 4 Sit to Lying (QC): 4 Sit to Stand (QC): 4 Chair/Ufu-ne-Nxrnr Xfer(QC): 2 Car Transfer (QC): 88 Gait Training Does the Patient Walk?: Yes Walk 10 feet (QC): 4 Walk 50 ft with 2 Turns(QC): 88 Walk 150 ft (QC): 88 Walking 10ft/uneven surface-QC: 88 Gait Assistive Device: FWW Wheelchair Training Does the Pt Use a Wheelchair?: No Wheel 50 ft with 2 turns (QC): 9 Wheel 150 ft (QC): 9 Type of Wheelchair: N/A Stair Training 1 Step (curb) (QC): 88 4 Steps (QC): 88 12 Steps (QC): 88 Balance Picking up an Object (QC): 3 ADL-Treatment Eating (QC): 6 Oral Hygiene (QC): 6 Shower/Bathe Self (QC): 5 Upper Body Dressing (QC): 5 Lower Body Dressing (QC): 3 On/Off Footwear (QC): 2 Toileting Hygiene (QC): 1 Assessment/Plan Assessment and Plan Assess & Plan/Chief Complaint Assessment: Debility following left second toe amputation with slow recovery History of left second toe osteomyelitis Hypertension Hyperlipidemia Atrial fibrillation Rheumatoid arthritis Peripheral vascular disease Obesity DM HGA1C 6.0 04/08/23 Poor motivation Constipation Plan: Home meds Cardiology appreciated Fall risk Pain control 04/14/2023: DM education Sunday Aggressive bowel regimen 04/15/2023: Midline Supportive care 04/16/2023: IV abx via midline 04/17/2023: Supportive care Change out midline (1) Amputation of toe (2) Atrial fibrillation with rapid ventricular response Status: Acute IBAN LEI DO Apr 17, 2023 05:44
[2023-04-17] MEDS: inSUlin ASPART 1 UNIT/0.01 ML (PER UNIT) SC SCH ×4 (06:45→20:04)
[2023-04-17] MEDS: POTASSIUM CHLORIDE 20 MEQ TABLET PO SCH (06:49)
[2023-04-17 07:23] VITALS: BP 143/79
[2023-04-17] MEDS: dilTIAZem ER 240 MG CAPSULE PO SCH (07:59)
[2023-04-17] MEDS: MELOXICAM 7.5 MG (MOBIC) TABLET PO SCH (08:00)
[2023-04-17] MEDS: FUROSEMIDE 40 MG TABLET PO SCH (08:00)
[2023-04-17] MEDS: APIXABAN 5 MG TABLET PO SCH ×2 (08:00→20:00)
[2023-04-17] MEDS: polyethylene glycoL POWDER 17 GM (MIRALAX) PACK PO SCH ×2 (08:00→19:51)
[2023-04-17] MEDS: LOSARTAN 100 MG (COZAAR) TABLET PO SCH (08:00)
[2023-04-17] MEDS: DOCUSATE SODIUM 100 MG CAPSULE PO SCH ×2 (08:00→20:00)
[2023-04-17] MEDS: SENNOSIDES 8.6 MG (SENOKOT) TAB PO SCH ×2 (09:34→20:00)
--- NOTE | 2023-04-17 09:34 | Physical Therapy Daily Note ---
PT Daily Note-Current Subjective PT in bed upon arrival and finishing up IV med. pt willing for therapy. pt stated 6/10 pain in B knees and ankles when in bed and preforming any activity. pt stated ankle pain felt like a "rock bruise". pt right arm is swollen and nursing is looking into changing pic line to other arm. pt was left in recliner with right arm probed up and call light with all needs met. Pain Section J - Health Conditions 1. Rarely or not at all 2. Occasionally 3. Frequently 4. Almost constantly 8. Unable to answer Pain Effect on Sleep: 4 Pain Interference with Therapy: 4 Pain Interference w/Day-to-Day: 4 Transfers SCALE: Activities may be completed with or without assistive devices. 5-Ywiqjxqshm-vbwbcqb completes the activity by him/herself with no assistance from a helper. 5-Set-up or Clean-up Assistance-helper sets up or cleans up; patient completes activity. [place] assists only prior to or following the activity. 4-Supervision or Touching Assistance-helper provides verbal cues and/or touching/steadying and/or contact guard assistance as patient completes activity. Assistance may be provided throughout the activity or intermittently. 3-Partial/Moderate Assistance-helper does LESS THAN HALF the effort. [place] lifts, holds or supports trunk or limbs, but provides less than half the effort. 2-Substantial/Maximal Assistance-helper does MORE THAN HALF the effort. [place] lifts or holds trunk or limbs and provides more than half the effort. 2-Fdyokgzwl-ntevck does ALL the effort. Patient does none of the effort to complete the activity. Or, the assistance of 2 or more helpers is required for the patient to complete the activity. If activity was not attempted, code reason: 7-Patient Refused. 9-Not Applicable-not attempted and the patient did not perform the activity before the current illness, exacerbation or injury. 10-Not Attempted due to Environmental Limitations-(lack of equipment, weather restraints, etc.). 88-Not Attempted due to Medical Conditions or Safety Concerns. Sit to Stand (QC): 4 Chair/Kmc-ao-Dcymk Xfer(QC): 4 Toilet Transfer (QC): 4 Car Transfer (QC): 4 Weight Bearing Right Lower Extremity: Right Full Weight Bearing Left Lower Extremity: Left Partial Weight Bearing Patient was instructed in L heel only weight bearing due to wound Gait Training Walk 10 feet (QC): 4 Walk 50 ft with 2 Turns(QC): 4 Wheelchair Training Wheel 50 ft with 2 turns (QC): 9 Wheel 150 ft (QC): 9 Exercises Supine Ex: Bridging, Ankle pumps, Quad Set, Rolling, Glut sets, Heel Slides, Short Arc Quads, Straight leg raise, Hip abd/add Supine Reps: 12 Treatments pt preformed bed ther-ex in all planes of motion for 2 sets of 12 each. pt was able to preform bed mobility with SBA and preform sit to stand from EOB with SBA. pt ambulated a total of 96ft with RW and SBA for 34 ft with a rest break then 62 ft to be finished. secondary to B ankle and knee pain. pt preformed car transfer with SBA with VC of 50% for correct sequencing and safety. 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 Managing Attorney Goals PT [facility] Goals Time Frame: Apr 25, 2023 Roll Left & Right (QC): 6 (Pt will be Mod I with bed mobility ) Sit to Lying (QC): 6 (Pt will be Mod I with bed mobility ) Lying-Sitting on Side/Bed(QC): 6 (Pt will be Mod I with bed mobility ) Sit to Stand (QC): 4 (Pt will be SBA for functional transfers ) Chair/Svx-nn-Oidcx Xfer(QC): 4 (Pt will be SBA for functional transfers ) Toilet Transfer (QC): 4 (Pt will be SBA for functional transfers ) Car Transfer (QC): 4 (Pt will be SBA for functional transfers ) Does the Patient Walk: Yes Walk 10 feet (QC): 4 (Pt will be SBA for walking with the FWW ) Walk 50ft with 2 Turns (QC): 4 (Pt will be SBA for walking with the FWW ) Walk 150 ft (QC): 4 (Pt will be SBA for walking with the FWW ) Walking 10ft on Uneven Surface: 4 (Pt will be SBA for walking with the FWW ) 1 Step (curb) (QC): 4 (SBA for steps ) 4 Steps (QC): 4 (SBA for steps ) 12 Steps (QC): 9 Picking up an Object (QC): 6 (with piping drafter ) Does the Pt use WC or Scooter?: No Wheel 50 feet with 2 turns (QC: 9 Type: N/A Wheel 150 feet: 9 Type: N/A PT Plan Treatment/Plan Treatment Plan: Continue Plan of Care Treatment Plan: Bed Mobility, Concurrent Therapy, Education, Functional Activity [place], Functional Strength, Group Therapy, Gait, Safety, Therapeutic Exercise, Transfers Treatment Duration: Apr 25, 2023 Frequency: At least 5 of 7 days/Wk (IRF) Estimated Hrs Per Day: 1.5 hours per day Patient and/or Family Agrees t: Yes Time Time In: 0800 Time Out: 929 DATE: Apr 17, 2023 Total Billed Treatment Time: 90 Total Billed Treatment 1 EX GT x 3 FA x 2 Sarika Garcia PUBLICITY CONSULTANT Apr 17, 2023 09:34
--- NOTE | 2023-04-17 10:00 | Progress Note ---
BEENA MCCABE 04/17/23 1000: Subjective Date Seen by a Provider: Apr 17, 2023 Time Seen by a Provider: 08:15 Subjective/Events-last exam Patient said he was doing okay, and that his foot feeling better. Said the diabetic education he had yesterday was helpful. Patient says pain is present, and that he also has pain in the knees- however, it is nonradiating. Patient is tolerating dressing changes. Pain is constant, alleviated by pain medication which is taken every four hours. Upper extremity edema is present- 1+ bilaterally. Review of Systems General: No Chills, No Night Sweats, No Fatigue, No Malaise, No Appetite, No Other HEENT: Head Aches Pulmonary: No Dyspnea, No Cough, No Pleuritic Chest Pain, No Other Cardiovascular: Edema (upper extremity edema); No: Chest Pain, Palpitations, Orthopnea, Paroxysmal Noc. Dyspnea, Lt Headedness, Other Gastrointestinal: No: Nausea, Vomiting, Abdominal Pain, Diarrhea, Constipation, Melena, Hematochezia, Other Genitourinary: No Dysuria, No Frequency, No Incontinence, No Hematuria, No Retention, No Other Musculoskeletal: leg pain (knee pain), foot pain Neurological: No: Weakness, Numbness, Incoordination, Change in speech, Confusion, Seizures, Other Focused Exam Sepsis Stage: Ruled Out Respiratory: No Chest Non Tender, No Lungs Clear, No Normal Breath Sounds, No No Accessory Muscle Use, No No Respiratory Distress, No Accessory Muscle Use, No Crackles, No Decreased Breath Sounds, No Expiration, No Inspiration, No Pleural Rub, No Rales, No Respiratory Distress, No Rhonci, No Stridor, No Wheezing, No Other Cardiovascular: Regular Rate, Rhythm, No JVD, Normal Peripheral Pulses Peripheral Pulses: 2+ Radial Pulses (R), 2+ Radial Pulses (L) Skin: normal color Objective Exam Last Set of Vital Signs Vital Signs Date Time Temp Pulse Resp B/P (MAP) Pulse Ox O2 Delivery O2 Flow Rate FiO2 04/17/23 07:23 36.2 66 18 143/79 (100) 92 Room Air 04/16/23 07:41 0.00 0.00 Capillary Refill : I&O Intake and Output 04/17/23 00:00 Intake Total 2020 ml Output Total 3250 ml Balance -1230 ml Intake Oral 1420 ml IV Total 600 ml Output Urine Total 3250 ml # Bowel Movements 1 Results Lab Laboratory Tests 04/16/23 10:26: Glucometer 85 04/16/23 15:22: Glucometer 92 04/16/23 20:08: Glucometer 97 04/17/23 06:36: Glucometer 97 Assessment/Plan Assessment/Plan Assess & Plan/Chief Complaint left 2nd toe open wound Puncture wound at the bottom of left foot Upper extremity edema Continue wound care- wound care will follow up with patient OSEAS CHRISTIAN DO 04/18/23 1308: Subjective Subjective/Events-last exam Doing okay. Foot feeling good. Less edema. Denies n/v fever sweats chills shortness of breath or chest pain. Objective Exam General: Alert, Oriented X3 HEENT: Atraumatic, PERRLA Neck: Supple, No JVD Heart: Regular Rate Abdomen: Soft, No Tenderness Extremities: Other (left second toe amputation site, clean, top of foot improving, minimal edema, ulcer bottom of left foot improving.) Skin: Other (see above) Neuro: Normal Speech, Sensation Intact Psych/Mental Status: Mental Status NL, Mood NL Assessment/Plan Assessment/Plan Assess & Plan/Chief Complaint left 2nd toe open wound Puncture wound at the bottom of left foot Upper extremity edema Continue wound care- wound care will follow up with patient will see periodically Supervisory-Addendum Brief Verification & Attestation Participated in pt care: history, MDM, physical Personally performed: exam, history, MDM, supervision of care Care discussed with: Medical Student Procedures: n/a Results interpretation: Verified all documentation Verification and Attestation of Medical Student E/M Service A medical student performed and documented this service in my presence. I reviewed and verified all information documented by the medical student and made modifications to such information, when appropriate. I personally performed the physical exam and medical decision making. Oseas Christian, Apr 17, 2023,13:08 BEENA MCCABE Apr 17, 2023 10:00 OSEAS CHRISTIAN DO Apr 18, 2023 13:08
--- NOTE | 2023-04-17 11:00 | Occupational Ther Daily Note ---
OT Current Status-Daily Note Subjective Pt alert, sitting in recliner. Pt agrees to therapy. Pt c/o R knee pain, nrsg aware. Mental Status/Objective Patient Orientation: Person, Place, Time, Situation Attachments: IV ADL-Treatment SBA/CGA for sit<-->stand then transferred to w/c and propelled into bathroom to complete oral care/grooming independently. Set up for UBD. After session, pt sitting in recliner with call light/phone in reach. All needs met in room. Therapy Code Descriptions/Definitions Functional [place] Measure: 0=Not Assessed/NA 4=Minimal Assistance 1=Total Assistance 5=Supervision or Setup 2=Maximal Assistance 6=Modified [place] 3=Moderate Assistance 7=Complete IndependenceSCALE: Activities may be completed with or without assistive devices. 4-Hzxtnzdlgi-epufldr completes the activity by him/herself with no assistance from a helper. 5-Set-up or Clean-up Assistance-helper sets up or cleans up; patient completes activity. [place] assists only prior to or following the activity. 4-Supervision or Touching Assistance-helper provides verbal cues and/or touching/steadying and/or contact guard assistance as patient completes activity. Assistance may be provided throughout the activity or intermittently. 3-Partial/Moderate Assistance-helper does LESS THAN HALF the effort. [place] lifts, holds or supports trunk or limbs, but provides less than half the effort. 2-Substantial/Maximal Assistance-helper does MORE THAN HALF the effort. [place] lifts or holds trunk or limbs and provides more than half the effort. 4-Qexsxkjkd-dfhlmw does ALL the effort. Patient does none of the effort to complete the activity. Or, the assistance of 2 or more helpers is required for the patient to complete the activity. If activity was not attempted, code reason: 7-Patient Refused. 9-Not Applicable-not attempted and the patient did not perform the activity before the current illness, exacerbation or injury. 10-Not Attempted due to Environmental Limitations-(lack of equipment, weather restraints, etc.). 88-Not Attempted due to Medical Conditions or Safety Concerns. Oral Hygiene (QC): 6 Upper Body Dressing (QC): 5 Other Treatment Pt completed B UE exercises against gravity to increase AROM and strength. OT Short Term Goals Short Term Goals Time Frame: Apr 18, 2023 Eatin Oral hygiene: 6 OT Fci Goals Fci Goals Acute change in mental status: 0 Inattention: 0 Disorganized thinkin Altered level of consciousness: 0 Eating (QC): 6 Oral Hygiene (QC): 6 Toileting Hygiene (QC): 6 Shower/Bathe Self (QC): 6 Upper Body Dressing (QC): 6 Lower Body Dressing (QC): 6 On/Off Footwear (QC): 6 1=Demonstrate adherence to instructed precautions during ADL tasks. 2=Patient will verbalize/demonstrate understanding of assistive devices/modifications for ADL. 3=Patient will improve strength/tolerance for activity to enable patient to perform ADL's. OT Education/Plan Problem List/Assessment Assessment: Decreased Activ Tolerance, Decreased UE Strength, Impaired Self- Care Skills Discharge Recommendations Plan/Recommendations: Continue POC Treatment Plan/Plan of Care Patient would benefit from OT for education, treatment and training to promote independence in ADL's, mobility, safety and/or upper extremity function for ADL's. Plan of Care: ADL Retraining, Caregiver Training, Concurrent Therapy, Functional Mobility, Group Exercise/Act as Ind, Orthotic Fitting/Training, UE Funct Exercise/Act Treatment Duration: Apr 27, 2023 Frequency: At least 5 of 7 days/Wk (IRF) Estimated Hrs Per Day: 1.5 hours per day Agreement: Yes Rehab Potential: Good Time Start Time: 10:00 Stop Time: 11:00 DATE: Apr 17, 2023 Total Time Billed (hr/min): 60 Billed Treatment Time 1 visit-ADL 2 (35 min) EX 2 (25 min) EUFEMIA BOWEN Apr 17, 2023 11:00
--- NOTE | 2023-04-17 14:14 | Occupational Ther Daily Note ---
OT Current Status-Daily Note Subjective Pt alert, lying in bed. Pt agrees to therapy. No c/o pain. Staff came into room to complete procedure 15 min into therapy session. Mental Status/Objective Patient Orientation: Person, Place, Time, Situation Attachments: IV ADL-Treatment Therapy Code Descriptions/Definitions Functional [place] Measure: 0=Not Assessed/NA 4=Minimal Assistance 1=Total Assistance 5=Supervision or Setup 2=Maximal Assistance 6=Modified [place] 3=Moderate Assistance 7=Complete IndependenceSCALE: Activities may be completed with or without assistive devices. 1-Bumcgsueae-tszqots completes the activity by him/herself with no assistance from a helper. 5-Set-up or Clean-up Assistance-helper sets up or cleans up; patient completes activity. [place] assists only prior to or following the activity. 4-Supervision or Touching Assistance-helper provides verbal cues and/or touching/steadying and/or contact guard assistance as patient completes activity. Assistance may be provided throughout the activity or intermittently. 3-Partial/Moderate Assistance-helper does LESS THAN HALF the effort. [place] lifts, holds or supports trunk or limbs, but provides less than half the effort. 2-Substantial/Maximal Assistance-helper does MORE THAN HALF the effort. [place] lifts or holds trunk or limbs and provides more than half the effort. 6-Xyowiotex-itoper does ALL the effort. Patient does none of the effort to complete the activity. Or, the assistance of 2 or more helpers is required for the patient to complete the activity. If activity was not attempted, code reason: 7-Patient Refused. 9-Not Applicable-not attempted and the patient did not perform the activity before the current illness, exacerbation or injury. 10-Not Attempted due to Environmental Limitations-(lack of equipment, weather restraints, etc.). 88-Not Attempted due to Medical Conditions or Safety Concerns. Other Treatment Skilled instruction for theraband HEP completed to increase B UE strength for daily functional tasks. After therapy, pt lying in bed with call light/phone in reach. Nrsg present in room. All needs met. OT Short Term Goals Short Term Goals Time Frame: Apr 18, 2023 Eatin Oral hygiene: 6 OT Nursing Administrator Goals Nursing Administrator Goals Acute change in mental status: 0 Inattention: 0 Disorganized thinkin Altered level of consciousness: 0 Eating (QC): 6 Oral Hygiene (QC): 6 Toileting Hygiene (QC): 6 Shower/Bathe Self (QC): 6 Upper Body Dressing (QC): 6 Lower Body Dressing (QC): 6 On/Off Footwear (QC): 6 1=Demonstrate adherence to instructed precautions during ADL tasks. 2=Patient will verbalize/demonstrate understanding of assistive devices/modifications for ADL. 3=Patient will improve strength/tolerance for activity to enable patient to perform ADL's. OT Education/Plan Problem List/Assessment Assessment: Decreased Activ Tolerance, Decreased UE Strength Discharge Recommendations Plan/Recommendations: Continue POC Treatment Plan/Plan of Care Patient would benefit from OT for education, treatment and training to promote independence in ADL's, mobility, safety and/or upper extremity function for ADL's. Plan of Care: ADL Retraining, Caregiver Training, Concurrent Therapy, Functional Mobility, Group Exercise/Act as Ind, Orthotic Fitting/Training, UE Funct Exercise/Act Treatment Duration: Apr 27, 2023 Frequency: At least 5 of 7 days/Wk (IRF) Estimated Hrs Per Day: 1.5 hours per day Agreement: Yes Rehab Potential: Good Time Start Time: 13:00 Stop Time: 13:15 DATE: Apr 17, 2023 Total Time Billed (hr/min): 15 Billed Treatment Time 1 visit-EX 1 (15 min) EUFEMIA BOWEN Apr 17, 2023 14:14
--- NOTE | 2023-04-17 14:47 | Diagnostic Imaging Report ---
PICC line Left PICC catheter tip distally projects over the mid to lower SVC in good alignment. No focal consolidation. No effusion. No pneumothorax. IMPRESSION: Left PICC line placed in the mid to lower SVC in good position. Dictated by: Dictated on workstation # [id number]
[2023-04-17] MEDS: DICLOFENAC 1% GEL 100 GM TUBE TOP SCH ×3 (14:51→20:01)
--- NOTE | 2023-04-17 15:00 | Occupational Ther Daily Note ---
OT Current Status-Daily Note Subjective Pt alert, though visibly tired. Pt agrees to therapy. Pt agrees to therapy. No c/o pain. Mental Status/Objective Patient Orientation: Person, Place, Time, Situation ADL-Treatment Therapy Code Descriptions/Definitions Functional [place] Measure: 0=Not Assessed/NA 4=Minimal Assistance 1=Total Assistance 5=Supervision or Setup 2=Maximal Assistance 6=Modified [place] 3=Moderate Assistance 7=Complete IndependenceSCALE: Activities may be completed with or without assistive devices. 4-Brzxjxjpvp-hnetwci completes the activity by him/herself with no assistance from a helper. 5-Set-up or Clean-up Assistance-helper sets up or cleans up; patient completes activity. [place] assists only prior to or following the activity. 4-Supervision or Touching Assistance-helper provides verbal cues and/or touching/steadying and/or contact guard assistance as patient completes activity. Assistance may be provided throughout the activity or intermittently. 3-Partial/Moderate Assistance-helper does LESS THAN HALF the effort. [place] lifts, holds or supports trunk or limbs, but provides less than half the effort. 2-Substantial/Maximal Assistance-helper does MORE THAN HALF the effort. [place] lifts or holds trunk or limbs and provides more than half the effort. 0-Prcbxxgrp-rysunh does ALL the effort. Patient does none of the effort to complete the activity. Or, the assistance of 2 or more helpers is required for the patient to complete the activity. If activity was not attempted, code reason: 7-Patient Refused. 9-Not Applicable-not attempted and the patient did not perform the activity before the current illness, exacerbation or injury. 10-Not Attempted due to Environmental Limitations-(lack of equipment, weather restraints, etc.). 88-Not Attempted due to Medical Conditions or Safety Concerns. Other Treatment Discussed pt's home environment and equipment that may be used for independence. Pt would benefit from tub transfer bench, but not interested at this time. Pt states that he will complete sponge baths at this time. Pt states that he has family bring him meals and all he needs to do is warm up. Pt's home is not accessible for w/c, pt will need FWW then possibly a walker basket for independence. After session, pt sitting in recliner with call light/phone in reach. All needs met in room. Education OT Patient Education: Use of adapted equipment Teaching Recipient: Patient Teaching Methods: Demonstration, Discussion Response to Teaching: Verbalize Understanding, Return Demonstration OT Short Term Goals Short Term Goals Time Frame: Apr 18, 2023 Eatin Oral hygiene: 6 OT Long-Term Goals Machine Made Shoe Unit Worker Goals Acute change in mental status: 0 Inattention: 0 Disorganized thinkin Altered level of consciousness: 0 Eating (QC): 6 Oral Hygiene (QC): 6 Toileting Hygiene (QC): 6 Shower/Bathe Self (QC): 6 Upper Body Dressing (QC): 6 Lower Body Dressing (QC): 6 On/Off Footwear (QC): 6 1=Demonstrate adherence to instructed precautions during ADL tasks. 2=Patient will verbalize/demonstrate understanding of assistive devices/modifications for ADL. 3=Patient will improve strength/tolerance for activity to enable patient to perform ADL's. OT Education/Plan Problem List/Assessment Assessment: Decreased Activ Tolerance, Decreased UE Strength, Impaired Self- Care Skills Discharge Recommendations Plan/Recommendations: Continue POC Treatment Plan/Plan of Care Patient would benefit from OT for education, treatment and training to promote independence in ADL's, mobility, safety and/or upper extremity function for ADL's. Plan of Care: ADL Retraining, Caregiver Training, Concurrent Therapy, Functional Mobility, Group Exercise/Act as Ind, Orthotic Fitting/Training, UE Funct Exercise/Act Treatment Duration: Apr 27, 2023 Frequency: At least 5 of 7 days/Wk (IRF) Estimated Hrs Per Day: 1.5 hours per day Agreement: Yes Rehab Potential: Good Time Start Time: 14:30 Stop Time: 14:45 DATE: Apr 17, 2023 Total Time Billed (hr/min): 15 Billed Treatment Time 1 visit-FA 1 (15 min) EUFEMIA BOWEN Apr 17, 2023 15:00
[2023-04-17] MEDS: VANCOMYCIN INJECTION 1,000 MG in NS (IVPB) 250 ML 250 ML IV SCH ×2 (15:09→19:36)
[2023-04-17 20:10] VITALS: BP 137/75
[2023-04-18] MEDS: VANCOMYCIN INJECTION 1,000 MG in NS (IVPB) 250 ML 250 ML IV SCH ×2 (04:10→17:48)
[2023-04-18] MEDS: inSUlin ASPART 1 UNIT/0.01 ML (PER UNIT) SC SCH ×4 (05:18→20:30)
--- NOTE | 2023-04-18 05:56 | PM&R Progress Note ---
Subjective HPI/CC On Admission Date Seen by Provider: Apr 18, 2023 Time Seen by Provider: 09:00 Subjective/Events-last exam 04/18/2023: Slow recovery Self pay status is a challenge for services Midline changed to left arm 04/17/2023: Patient doing much better Ambulating around better Pain is still an issue Bowel regimen maintained Changing out midline due to irritated site on right arm 04/16/2023: Improved overall No pain reported IV abx maintained Midline maintained Labs reviewed 04/15/2023: Patient doing about the same Poor motivation Flat affect Midline will be attempted because Dr. Christian wants IV antibiotics to continue 04/14/2023: Very slow recovery Patient seems to lack the motivation overall on an on-going basis Updated patient on his borderline DM with hga1c 6.0 so offered DM education Mo nday Wound needs aggressive care IV abx maintained Review of Systems General: Fatigue, Malaise Objective Exam Vital Signs Vital Signs Date Time Temp Pulse Resp B/P (MAP) Pulse Ox O2 Delivery O2 Flow Rate FiO2 04/18/23 19:08 36.9 72 18 135/82 (99) 93 Room Air 04/16/23 07:41 0.00 0.00 Capillary Refill : General Appearance: No Apparent Distress, WD/WN, Chronically ill HEENT: PERRL/EOMI, Normal ENT Inspection, Pharynx Normal Neck: Full Range of Motion, Normal Inspection, Non Tender, Supple, Carotid Bruit Respiratory: Chest Non Tender, Lungs Clear, Normal Breath Sounds, No Accessory Muscle Use, No Respiratory Distress Cardiovascular: Regular Rate, Rhythm, No Edema, No Gallop, No JVD, No Murmur, Normal Peripheral Pulses Gastrointestinal: Normal Bowel Sounds, No Organomegaly, No Pulsatile Mass, Non Tender, Soft Back: Normal Inspection, No CVA Tenderness, No Vertebral Tenderness Extremity: Normal Capillary Refill, Normal Inspection, Normal Range of Motion, Non Tender, No Calf Tenderness, No Pedal Edema Neurologic/Psychiatric: Alert, Oriented x3, shop welder II-XII Norm as Tested, Abnormal Gait, Depressed Affect, Motor Weakness (Generalized weakness) Skin: Normal Color, Warm/Dry, Other ( left foot in dressing) Lymphatic: No Adenopathy Results/Procedures Lab Patient resulted labs reviewed. FIM Transfers Therapy Code Descriptions/Definitions Functional [place] Measure: 0=Not Assessed/NA 4=Minimal Assistance 1=Total Assistance 5=Supervision or Setup 2=Maximal Assistance 6=Modified [place] 3=Moderate Assistance 7=Complete IndependenceSCALE: Activities may be completed with or without assistive devices. 7-Kggcfpfbkd-lrqkezn completes the activity by him/herself with no assistance from a helper. 5-Set-up or Clean-up Assistance-helper sets up or cleans up; patient completes activity. [place] assists only prior to or following the activity. 4-Supervision or Touching Assistance-helper provides verbal cues and/or touching/steadying and/or contact guard assistance as patient completes activity. Assistance may be provided throughout the activity or intermittently. 3-Partial/Moderate Assistance-helper does LESS THAN HALF the effort. [place] lifts, holds or supports trunk or limbs, but provides less than half the effort. 2-Substantial/Maximal Assistance-helper does MORE THAN HALF the effort. [place] lifts or holds trunk or limbs and provides more than half the effort. 3-Tyiaksphc-wrrunm does ALL the effort. Patient does none of the effort to complete the activity. Or, the assistance of 2 or more helpers is required for the patient to complete the activity. If activity was not attempted, code reason: 7-Patient Refused. 9-Not Applicable-not attempted and the patient did not perform the activity before the current illness, exacerbation or injury. 10-Not Attempted due to Environmental Limitations-(lack of equipment, weather restraints, etc.). 88-Not Attempted due to Medical Conditions or Safety Concerns. Roll Left to Right (QC): 4 Sit to Lying (QC): 4 Sit to Stand (QC): 4 Chair/Epg-yb-Ynzmu Xfer(QC): 4 Car Transfer (QC): 4 Gait Training Does the Patient Walk?: Yes Walk 10 feet (QC): 4 Walk 50 ft with 2 Turns(QC): 4 Walk 150 ft (QC): 88 Walking 10ft/uneven surface-QC: 88 Gait Assistive Device: FWW Wheelchair Training Does the Pt Use a Wheelchair?: No Wheel 50 ft with 2 turns (QC): 9 Wheel 150 ft (QC): 9 Type of Wheelchair: N/A Stair Training 1 Step (curb) (QC): 88 4 Steps (QC): 88 12 Steps (QC): 88 Balance Picking up an Object (QC): 3 ADL-Treatment Eating (QC): 6 Oral Hygiene (QC): 6 Shower/Bathe Self (QC): 5 Upper Body Dressing (QC): 5 Lower Body Dressing (QC): 3 On/Off Footwear (QC): 2 Toileting Hygiene (QC): 1 Assessment/Plan Assessment and Plan Assess & Plan/Chief Complaint Assessment: Debility following left second toe amputation with slow recovery History of left second toe osteomyelitis Hypertension Hyperlipidemia Atrial fibrillation Rheumatoid arthritis Peripheral vascular disease Obesity DM HGA1C 6.0 04/08/23 Poor motivation Constipation Plan: Home meds Cardiology appreciated Fall risk Pain control 04/14/2023: DM education Sunday Aggressive bowel regimen 04/15/2023: Midline Supportive care 04/16/2023: IV abx via midline 04/17/2023: Supportive care Change out midline 04/18/2023: Monitor wound (1) Amputation of toe (2) Atrial fibrillation with rapid ventricular response Status: Acute IBAN LEI DO Apr 18, 2023 05:56
[2023-04-18] MEDS: POTASSIUM CHLORIDE 20 MEQ TABLET PO SCH (06:02)
[2023-04-18] MEDS: PIPERACILLIN SODIUM/TAZOBACTAM 4.5 GM in NS (IVPB) 100 ML 100 ML IV SCH ×3 (06:09→23:38)
[2023-04-18] MEDS: oxyCODONE IMMEDIATE RELEASE 5 MG TABLET PO PRN ×4 (06:09→18:41)
[2023-04-18] MEDS: dilTIAZem ER 240 MG CAPSULE PO SCH (07:40)
[2023-04-18] MEDS: LOSARTAN 100 MG (COZAAR) TABLET PO SCH (07:41)
[2023-04-18] MEDS: APIXABAN 5 MG TABLET PO SCH ×2 (07:41→20:36)
[2023-04-18] MEDS: SENNOSIDES 8.6 MG (SENOKOT) TAB PO SCH ×2 (07:41→20:36)
[2023-04-18] MEDS: MELOXICAM 7.5 MG (MOBIC) TABLET PO SCH (07:41)
[2023-04-18] MEDS: FUROSEMIDE 40 MG TABLET PO SCH (07:41)
[2023-04-18] MEDS: DICLOFENAC 1% GEL 100 GM TUBE TOP SCH ×4 (07:42→20:36)
[2023-04-18 07:46] VITALS: BP 176/95
[2023-04-18] MEDS: DOCUSATE SODIUM 100 MG CAPSULE PO SCH ×2 (07:52→20:36)
[2023-04-18] MEDS: polyethylene glycoL POWDER 17 GM (MIRALAX) PACK PO SCH ×2 (07:52→20:22)
[2023-04-18 08:17] VITALS: BP 139/77
--- NOTE | 2023-04-18 11:24 | Occupational Ther Daily Note ---
OT Current Status-Daily Note Subjective Pt alert, sitting in recliner. Pt does not c/o pain. Agrees to therapy. Mental Status/Objective Patient Orientation: Person, Place, Time, Situation Attachments: IV ADL-Treatment Pt agrees to shower. Pt SPT from recliner to w/c CGA for safety. Pt completed shower using shower bench, grabbars, hand held shower and LH sponge with SBA for safety. Pt doffs R sock by self, assist to don. Will introduce AE for LBD next session. CGA to hike pants over hips, min A to thread over feet. Set up for UBD. Independent for oral care/grooming. After session, pt sitting in recliner with call light/phone in reach. All needs met in room. Therapy Code Descriptions/Definitions Functional [place] Measure: 0=Not Assessed/NA 4=Minimal Assistance 1=Total Assistance 5=Supervision or Setup 2=Maximal Assistance 6=Modified [place] 3=Moderate Assistance 7=Complete IndependenceSCALE: Activities may be completed with or without assistive devices. 7-Zrsdsgkgrz-zcntteu completes the activity by him/herself with no assistance fr om a helper. 5-Set-up or Clean-up Assistance-helper sets up or cleans up; patient completes activity. [place] assists only prior to or following the activity. 4-Supervision or Touching Assistance-helper provides verbal cues and/or touching/steadying and/or contact guard assistance as patient completes activity. Assistance may be provided throughout the activity or intermittently. 3-Partial/Moderate Assistance-helper does LESS THAN HALF the effort. [place] lifts, holds or supports trunk or limbs, but provides less than half the effort. 2-Substantial/Maximal Assistance-helper does MORE THAN HALF the effort. [place] lifts or holds trunk or limbs and provides more than half the effort. 5-Doyykrvsa-hsflew does ALL the effort. Patient does none of the effort to complete the activity. Or, the assistance of 2 or more helpers is required for the patient to complete the activity. If activity was not attempted, code reason: 7-Patient Refused. 9-Not Applicable-not attempted and the patient did not perform the activity before the current illness, exacerbation or injury. 10-Not Attempted due to Environmental Limitations-(lack of equipment, weather restraints, etc.). 88-Not Attempted due to Medical Conditions or Safety Concerns. Oral Hygiene (QC): 6 Shower/Bathe Self (QC): 4 (Sitting 100% of the time) Upper Body Dressing (QC): 5 Lower Body Dressing (QC): 3 On/Off Footwear: 3 OT Short Term Goals Short Term Goals Time Frame: Apr 18, 2023 Eatin Oral hygiene: 6 OT Alf Goals Export Administrator Goals Acute change in mental status: 0 Inattention: 0 Disorganized thinkin Altered level of consciousness: 0 Eating (QC): 6 Oral Hygiene (QC): 6 Toileting Hygiene (QC): 6 Shower/Bathe Self (QC): 6 Upper Body Dressing (QC): 6 Lower Body Dressing (QC): 6 On/Off Footwear (QC): 6 1=Demonstrate adherence to instructed precautions during ADL tasks. 2=Patient will verbalize/demonstrate understanding of assistive devices/modifications for ADL. 3=Patient will improve strength/tolerance for activity to enable patient to perform ADL's. OT Education/Plan Problem List/Assessment Assessment: Decreased Activ Tolerance, Decreased UE Strength, Impaired Self- Care Skills Discharge Recommendations Plan/Recommendations: Continue POC Treatment Plan/Plan of Care Patient would benefit from OT for education, treatment and training to promote independence in ADL's, mobility, safety and/or upper extremity function for ADL's. Plan of Care: ADL Retraining, Caregiver Training, Concurrent Therapy, Functional Mobility, Group Exercise/Act as Ind, Orthotic Fitting/Training, UE Funct Exercise/Act Treatment Duration: Apr 27, 2023 Frequency: At least 5 of 7 days/Wk (IRF) Estimated Hrs Per Day: 1.5 hours per day Agreement: Yes Rehab Potential: Good Time Start Time: 11:00 Stop Time: 12:00 DATE: Apr 18, 2023 Total Time Billed (hr/min): 60 Billed Treatment Time 1 visit-ADL 4 (60 min) EUFEMIA BOWEN Apr 18, 2023 11:24
[2023-04-18] MEDS: HYPOCHLOROUS ACID/NaCl (VASHE) 250 ML IR SCH (13:00)
--- NOTE | 2023-04-18 13:07 | Physical Therapy Daily Note ---
PT Daily Note-Current Subjective Pt was inm recliner upon arrival and willing for therapy. nursing was administering meds. and aid was aiding LE clothes change. pt states 7/10 pain in ankles and bottom of the feet. nursing was notified and nursing gave a pain pill and Volterin Gel was administered to ankles and knees to ease pain. pt was left in recliner with call light and all needs met after therapy this day. Pain Section J - Health Conditions 1. Rarely or not at all 2. Occasionally 3. Frequently 4. Almost constantly 8. Unable to answer Pain Effect on Sleep: 4 Pain Interference with Therapy: 4 Pain Interference w/Day-to-Day: 4 Mental Status Patient Orientation: Person, Place, Time, Situation Transfers SCALE: Activities may be completed with or without assistive devices. 6-Bgtuagcvhf-dffrvii completes the activity by him/herself with no assistance from a helper. 5-Set-up or Clean-up Assistance-helper sets up or cleans up; patient completes activity. [place] assists only prior to or following the activity. 4-Supervision or Touching Assistance-helper provides verbal cues and/or touching/steadying and/or contact guard assistance as patient completes activity. Assistance may be provided throughout the activity or intermittently. 3-Partial/Moderate Assistance-helper does LESS THAN HALF the effort. [place] lifts, holds or supports trunk or limbs, but provides less than half the effort. 2-Substantial/Maximal Assistance-helper does MORE THAN HALF the effort. [place] lifts or holds trunk or limbs and provides more than half the effort. 6-Aklujzqmy-hcqqal does ALL the effort. Patient does none of the effort to complete the activity. Or, the assistance of 2 or more helpers is required for the patient to complete the activity. If activity was not attempted, code reason: 7-Patient Refused. 9-Not Applicable-not attempted and the patient did not perform the activity before the current illness, exacerbation or injury. 10-Not Attempted due to Environmental Limitations-(lack of equipment, weather restraints, etc.). 88-Not Attempted due to Medical Conditions or Safety Concerns. Sit to Stand (QC): 5 Chair/Xii-kq-Diiut Xfer(QC): 5 Toilet Transfer (QC): 4 Weight Bearing Right Lower Extremity: Right Full Weight Bearing Left Lower Extremity: Left Partial Weight Bearing Patient was instructed in L heel only weight bearing due to wound Gait Training Walk 10 feet (QC): 4 Walk 50 ft with 2 Turns(QC): 4 Stair Training 4 Steps (QC): 4 Exercises Seated Therapy Exercises: Ankle pumps, Sit to stand, Long arc quads, Hip flexion, Hamstring Curls, Glut set Seated Reps: 13 Treatments Pt preformed ambulation and 4 stairs with CGA with VC for safety and sequencing. pt made fair progress secondary to pain in bottom of feet, ankles and knees. Assessment Current Status: Fair Progress PT Cotton Expert Goals Cotton Expert Goals PT Senior Care Goals Time Frame: Apr 25, 2023 Roll Left & Right (QC): 6 (Pt will be Mod I with bed mobility ) Sit to Lying (QC): 6 (Pt will be Mod I with bed mobility ) Lying-Sitting on Side/Bed(QC): 6 (Pt will be Mod I with bed mobility ) Sit to Stand (QC): 4 (Pt will be SBA for functional transfers ) Chair/Uiy-mh-Hvykn Xfer(QC): 4 (Pt will be SBA for functional transfers ) Toilet Transfer (QC): 4 (Pt will be SBA for functional transfers ) Car Transfer (QC): 4 (Pt will be SBA for functional transfers ) Does the Patient Walk: Yes Walk 10 feet (QC): 4 (Pt will be SBA for walking with the FWW ) Walk 50ft with 2 Turns (QC): 4 (Pt will be SBA for walking with the FWW ) Walk 150 ft (QC): 4 (Pt will be SBA for walking with the FWW ) Walking 10ft on Uneven Surface: 4 (Pt will be SBA for walking with the FWW ) 1 Step (curb) (QC): 4 (SBA for steps ) 4 Steps (QC): 4 (SBA for steps ) 12 Steps (QC): 9 Picking up an Object (QC): 6 (with community outreach advocate ) Does the Pt use WC or Scooter?: No Wheel 50 feet with 2 turns (QC: 9 Type: N/A Wheel 150 feet: 9 Type: N/A PT Plan Treatment/Plan Treatment Plan: Continue Plan of Care Treatment Plan: Bed Mobility, Concurrent Therapy, Education, Functional A ctivity [place], Functional Strength, Group Therapy, Gait, Safety, Therapeutic Exercise, Transfers Treatment Duration: Apr 25, 2023 Frequency: At least 5 of 7 days/Wk (IRF) Estimated Hrs Per Day: 1.5 hours per day Patient and/or Family Agrees t: Yes Time Time In: 0930 Time Out: 1100 DATE: Apr 18, 2023 Total Billed Treatment Time: 90 Total Billed Treatment 1 fa x 4 gt x2 Sarika Garcia HOT PATCHER Apr 18, 2023 13:07
--- NOTE | 2023-04-18 13:36 | Progress Note - Surgery ---
JOEY OWENS 04/18/23 1336: Subjective Date Seen by a Provider: Apr 18, 2023 Time Seen by a Provider: 07:30 Subjective/Events-last exam Subjective/Events-last exam Patient said he was doing okay. He says his right food is hurting and wants a boot. Said the diabetic education he had yesterday was helpful. Patient says pain is present, and that he also has pain in the knees- however, it is nonr adiating. Patient is tolerating dressing changes and amputation site looks better per wound care. Pain is constant, alleviated by pain medication which is taken every four hours. Pt is eating and is in good spirits. Review of Systems General: No Chills, No Night Sweats, No Fatigue, No Malaise, No Appetite, No Other HEENT: No Head Aches, No Visual Changes, No Eye Pain, No Ear Pain, No Dysphasia, No Sinus Congestion, No Post Nasal Drip, No Sore Throat, No Other Pulmonary: No Dyspnea, No Cough, No Pleuritic Chest Pain, No Other Cardiovascular: No: Chest Pain, Palpitations, Orthopnea, Paroxysmal Noc. Dyspnea, Edema, Lt Headedness, Other Focused Exam Respiratory: No Chest Non Tender, No Lungs Clear, No Normal Breath Sounds, No No Accessory Muscle Use, No No Respiratory Distress, No Accessory Muscle Use, No Crackles, No Decreased Breath Sounds, No Expiration, No Inspiration, No Pleural Rub, No Rales, No Respiratory Distress, No Rhonci, No Stridor, No Wheezing, No Other Cardiovascular: No Regular Rate, Rhythm, No No Edema, No No Gallop, No No JVD, No No Murmur, No Normal Peripheral Pulses, No Bradycardia, No Diastolic Murmur, No Systolic Murmur, No Extra Beats, No Friction Rub, No Gallop/S3, No Gallop/S4, No Irregularly Irregular, No JVD, No Tachycardia, No Other Skin: No normal color, No warm/dry, No cyanosis, No cool, No diaphoresis, No damp, No ecchymosis, No jaundice, No mottled, No pallor, No rash, No tattoos/piercings, No ulcerations, No rash on exposed areas, No ulcerations on exposed areas, No other Objective Exam Vital Signs Date Time Temp Pulse Resp B/P (MAP) Pulse Ox O2 Delivery O2 Flow Rate FiO2 04/18/23 08:00 Room Air 04/18/23 07:46 36.6 78 16 176/95 (122) 94 Room Air 04/17/23 20:10 Room Air 04/17/23 20:10 36.5 70 16 137/75 (95) 93 Room Air I & O 04/18/23 07:00 Intake Total 2330 ml Output Total 3950 ml Balance -1620 ml Capillary Refill : General Appearance: No Apparent Distress, WD/WN; No Anxious; Chronically ill; No Cachetic, No Obese, No Severe Distress, No Thin, No Other HEENT: PERRL/EOMI, Normal ENT Inspection, Pharynx Normal; No Pharyngeal Erythema, No Photophobia, No Scleral Icterus (L), No Scleral Icterus (R), No TM Abnormal (L), No TM Abnormal (R), No Tonsillar Exudate, No Tonsillar Enlargement, No Other Neck: Full Range of Motion, Normal Inspection, Non Tender, Supple; No JVD, No Limited Range of Motion, No Lymphadenopathy (L), No Lymphadenopathy (R), No Tender Lateral, No Tender Midline, No Thyromegaly, No Other Respiratory: Chest Non Tender, Lungs Clear, Normal Breath Sounds, No Accessory Muscle Use, No Respiratory Distress; No Accessory Muscle Use, No Crackles, No Decreased Breath Sounds, No Expiration, No Inspiration, No Pleural Rub, No Rales, No Respiratory Distress, No Rhonci, No Stridor, No Wheezing, No Other Cardiovascular: Regular Rate, Rhythm, No Edema, No Gallop, No JVD, No Murmur, Normal Peripheral Pulses; No Bradycardia, No Diastolic Murmur, No Systolic Murmur, No Extra Beats, No Friction Rub, No Gallop/S3, No Gallop/S4, No Irregularly Irregular, No JVD, No Tachycardia, No Other Peripheral Pulses: 2+ Radial Pulses (R), 2+ Radial Pulses (L) Gastrointestinal: No normal bowel sounds; non tender, soft; No no organomegaly, No no pulsatile mass, No abnormal bowel sounds, No distended, No guarding, No rebound, No tenderness, No hernia, No mass, No hepatomegaly, No spleenomegaly, No other Extremity: Normal Capillary Refill, Normal Inspection, Normal Range of Motion, Non Tender, No Calf Tenderness, No Pedal Edema; No Calf Tenderness, No Inflammation, No Pedal Edema, No Pelvis Stable, No Slow Capillary Refill, No Swelling, No Other Neurologic/Psychiatric: Alert, Oriented x3, Normal Mood/Affect, engine builder 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 Norm as Tested; No Abnormal engine builder II-XII; Abnormal Gait; No Aphasia; Depressed Affect; No Disoriented, No EOM Palsy, No Facial Droop; Motor Weakness (Generalized weakness); No Sensory Deficit, No Other Skin: Normal Color, Warm/Dry; No Cool, No Cyanosis, No Damp, No Diaphoresis, No Ecchymosis, No Erythema, No Jaundice, No Mottled, No Pallor, No Petechia, No Rash, No Tattoos/Piercings; Other ( left foot in dressing) Lymphatic: No Adenopathy; No Axilla Node Tender (L), No Axilla Node Tender (R), No Inguinal Node Tender (L), No Inguinal Node Tender (R) Results Lab Laboratory Tests 04/17/23 15:08: Glucometer 108 04/17/23 20:04: Glucometer 117H 04/18/23 05:17: Glucometer 100 04/18/23 10:54: Glucometer 80 Assessment/Plan Assessment/Plan 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 Left leg wounds feeling better. About to get in the shower and dressing intact. Denies n/v fever sweats chills shortness of breath or chest pain. Objective Exam General Appearance: No Apparent Distress, Chronically ill HEENT: PERRL/EOMI, Normal ENT Inspection Neck: Non Tender, Supple Respiratory: Chest Non Tender, No Accessory Muscle Use, No Respiratory Distress Cardiovascular: Regular Rate, Rhythm, No JVD Gastrointestinal: non tender Extremity: Non Tender, Other (left calf) Neurologic/Psychiatric: Alert, Oriented x3 Skin: Normal Color, Warm/Dry Lymphatic: No Adenopathy Assessment/Plan Assessment/Plan Assessment/Plan left 2nd toe open wound Puncture wound at the bottom of left foot Upper extremity edema Continue wound care will see periodically Supervisory-Addendum Brief Verification & Attestation Participated in pt care: history, MDM, physical Personally performed: exam, history, MDM, supervision of care Care discussed with: Medical Student Procedures: n/a Results interpretation: Verified all documentation Verification and Attestation of Medical Student E/M Service A medical student performed and documented this service in my presence. I reviewed and verified all information documented by the medical student and made modifications to such information, when appropriate. I personally performed the physical exam and medical decision making. Oseas Christian, Apr 18, 2023,16:36 JOEY OWENS Apr 18, 2023 13:36 OSEAS CHRISTIAN DO Apr 18, 2023 16:36
--- NOTE | 2023-04-18 14:15 | Occupational Ther Daily Note ---
OT Current Status-Daily Note Subjective Pt alert, sitting in recliner. Nrsg in room changing dressing. Pt agrees to therapy. Mental Status/Objective Patient Orientation: Person, Place, Time, Situation Attachments: IV ADL-Treatment Therapy Code Descriptions/Definitions Functional [place] Measure: 0=Not Assessed/NA 4=Minimal Assistance 1=Total Assistance 5=Supervision or Setup 2=Maximal Assistance 6=Modified [place] 3=Moderate Assistance 7=Complete IndependenceSCALE: Activities may be completed with or without assistive devices. 8-Ebuhrzxwzf-dvvzkxi completes the activity by him/herself with no assistance from a helper. 5-Set-up or Clean-up Assistance-helper sets up or cleans up; patient completes activity. [place] assists only prior to or following the activity. 4-Supervision or Touching Assistance-helper provides verbal cues and/or touching/steadying and/or contact guard assistance as patient completes activity. Assistance may be provided throughout the activity or intermittently. 3-Partial/Moderate Assistance-helper does LESS THAN HALF the effort. [place] lifts, holds or supports trunk or limbs, but provides less than half the effort. 2-Substantial/Maximal Assistance-helper does MORE THAN HALF the effort. [place] lifts or holds trunk or limbs and provides more than half the effort. 6-Yznilvxbl-gnfbzz does ALL the effort. Patient does none of the effort to complete the activity. Or, the assistance of 2 or more helpers is required for the patient to complete the activity. If activity was not attempted, code reason: 7-Patient Refused. 9-Not Applicable-not attempted and the patient did not perform the activity before the current illness, exacerbation or injury. 10-Not Attempted due to Environmental Limitations-(lack of equipment, weather restraints, etc.). 88-Not Attempted due to Medical Conditions or Safety Concerns. Other Treatment Pt educated on AE for LBD. Pt unable to demonstrate understanding of AE due to nrsg changing dressing on foot. Pt does verbalize understanding. Pt then completed B UE strengthening using medium resistance theraband 1 set 10 reps 2 exercises. After therapy, pt sitting in recliner with call light/phone in reach. Nrsg in room. All needs met. OT Short Term Goals Short Term Goals Time Frame: Apr 18, 2023 Eatin Oral hygiene: 6 OT Jail Goals Jail Goals Acute change in mental status: 0 Inattention: 0 Disorganized thinkin Altered level of consciousness: 0 Eating (QC): 6 Oral Hygiene (QC): 6 Toileting Hygiene (QC): 6 Shower/Bathe Self (QC): 6 Upper Body Dressing (QC): 6 Lower Body Dressing (QC): 6 On/Off Footwear (QC): 6 1=Demonstrate adherence to instructed precautions during ADL tasks. 2=Patient will verbalize/demonstrate understanding of assistive devices/modifications for ADL. 3=Patient will improve strength/tolerance for activity to enable patient to per form ADL's. OT Education/Plan Problem List/Assessment Assessment: Decreased Activ Tolerance, Decreased UE Strength, Impaired Self- Care Skills, Restricted Funct UE ROM Discharge Recommendations Plan/Recommendations: Continue POC Treatment Plan/Plan of Care Patient would benefit from OT for education, treatment and training to promote independence in ADL's, mobility, safety and/or upper extremity function for ADL's. Plan of Care: ADL Retraining, Caregiver Training, Concurrent Therapy, Functional Mobility, Group Exercise/Act as Ind, Orthotic Fitting/Training, UE Funct Exercise/Act Treatment Duration: Apr 27, 2023 Frequency: At least 5 of 7 days/Wk (IRF) Estimated Hrs Per Day: 1.5 hours per day Agreement: Yes Rehab Potential: Good Time Start Time: 13:30 Stop Time: 14:00 DATE: Apr 18, 2023 Total Time Billed (hr/min): 30 Billed Treatment Time 1 visit-EX 1 (10 min) FA 1 (20 min) EUFEMIA BOWEN Apr 18, 2023 14:15
[2023-04-18 19:08] VITALS: BP 135/82
[2023-04-19] MEDS: VANCOMYCIN INJECTION 1,000 MG in NS (IVPB) 250 ML 250 ML IV SCH (03:48)
[2023-04-19] MEDS: POTASSIUM CHLORIDE 20 MEQ TABLET PO SCH (05:40)
[2023-04-19] MEDS: inSUlin ASPART 1 UNIT/0.01 ML (PER UNIT) SC SCH ×4 (05:55→20:30)
[2023-04-19 07:41] VITALS: BP 184/87
[2023-04-19] MEDS: DOCUSATE SODIUM 100 MG CAPSULE PO SCH ×2 (07:58→22:21)
[2023-04-19] MEDS: LOSARTAN 100 MG (COZAAR) TABLET PO SCH (07:58)
[2023-04-19] MEDS: oxyCODONE IMMEDIATE RELEASE 5 MG TABLET PO PRN ×4 (07:58→22:22)
[2023-04-19] MEDS: dilTIAZem ER 240 MG CAPSULE PO SCH (07:58)
[2023-04-19] MEDS: APIXABAN 5 MG TABLET PO SCH ×2 (07:58→22:22)
[2023-04-19] MEDS: FUROSEMIDE 40 MG TABLET PO SCH (07:58)
[2023-04-19] MEDS: MELOXICAM 7.5 MG (MOBIC) TABLET PO SCH (07:58)
[2023-04-19] MEDS: SENNOSIDES 8.6 MG (SENOKOT) TAB PO SCH ×2 (07:59→22:22)
[2023-04-19] MEDS: DICLOFENAC 1% GEL 100 GM TUBE TOP SCH ×4 (07:59→22:15)
[2023-04-19] MEDS: polyethylene glycoL POWDER 17 GM (MIRALAX) PACK PO SCH ×2 (08:01→22:25)
--- NOTE | 2023-04-19 10:56 | Physical Therapy Daily Note ---
PT Daily Note-Current Subjective Pt in bed upon arrival and good for therapy. pt stated 7.5/10 pain in BK and bottom of both feet. "feels like a stone bruise on the bottom of my feet". pt was left in recliner at the end of therapy with call light and all needs met. Pain Numeric Pain Scale: 7 Location: Joint Location Body Site: Foot Section J - Health Conditions 1. Rarely or not at all 2. Occasionally 3. Frequently 4. Almost constantly 8. Unable to answer Pain Effect on Sleep: 4 Pain Interference with Therapy: 4 Pain Interference w/Day-to-Day: 4 Mental Status Patient Orientation: Person, Place, Time, Situation Transfers SCALE: Activities may be completed with or without assistive devices. 9-Mtguhjcgzx-uehjnqw completes the activity by him/herself with no assistance from a helper. 5-Set-up or Clean-up Assistance-helper sets up or cleans up; patient completes activity. [place] assists only prior to or following the activity. 4-Supervision or Touching Assistance-helper provides verbal cues and/or to uching/steadying and/or contact guard assistance as patient completes activity. Assistance may be provided throughout the activity or intermittently. 3-Partial/Moderate Assistance-helper does LESS THAN HALF the effort. [place] lifts, holds or supports trunk or limbs, but provides less than half the effort. 2-Substantial/Maximal Assistance-helper does MORE THAN HALF the effort. [place] lifts or holds trunk or limbs and provides more than half the effort. 1-Whpgwoies-rfskqy does ALL the effort. Patient does none of the effort to complete the activity. Or, the assistance of 2 or more helpers is required for the patient to complete the activity. If activity was not attempted, code reason: 7-Patient Refused. 9-Not Applicable-not attempted and the patient did not perform the activity before the current illness, exacerbation or injury. 10-Not Attempted due to Environmental Limitations-(lack of equipment, weather restraints, etc.). 88-Not Attempted due to Medical Conditions or Safety Concerns. Sit to Stand (QC): 5 Chair/Xku-kg-[place] Xfer(QC): 5 Toilet Transfer (QC): 5 Weight Bearing Right Lower Extremity: Right Full Weight Bearing Left Lower Extremity: Left Partial Weight Bearing Patient was instructed in L heel only weight bearing due to wound Gait Training Walk 10 feet (QC): 4 Walk 50 ft with 2 Turns(QC): 4 Walk 150 ft (QC): 4 Treatments Pt ambulated 205 ft with RW and SBA with WC follow behind for frequent rest b reaks. pt is able to ambulate 27, 28, 32,56, and 62 feet with rest in between but is able to ambulate further distances each time. PT requires rest breaks secondary to pain. Pt is able to preform bed mobility independently. sit to stand with SBA as well as Bed to chair transfer with SBA using RW. pt is able to preform WC to Recliner stand pivot transfer independently with no RW this day. 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 Switchbox Assembler Goals Switchbox Assembler Goals PT Intermediate Goals Time Frame: Apr 25, 2023 Roll Left & Right (QC): 6 (Pt will be Mod I with bed mobility ) Sit to Lying (QC): 6 (Pt will be Mod I with bed mobility ) Lying-Sitting on Side/Bed(QC): 6 (Pt will be Mod I with bed mobility ) Sit to Stand (QC): 4 (Pt will be SBA for functional transfers ) Chair/Lxm-zn-Yermf Xfer(QC): 4 (Pt will be SBA for functional transfers ) Toilet Transfer (QC): 4 (Pt will be SBA for functional transfers ) Car Transfer (QC): 4 (Pt will be SBA for functional transfers ) Does the Patient Walk: Yes Walk 10 feet (QC): 4 (Pt will be SBA for walking with the FWW ) Walk 50ft with 2 Turns (QC): 4 (Pt will be SBA for walking with the FWW ) Walk 150 ft (QC): 4 (Pt will be SBA for walking with the FWW ) Walking 10ft on Uneven Surface: 4 (Pt will be SBA for walking with the FWW ) 1 Step (curb) (QC): 4 (SBA for steps ) 4 Steps (QC): 4 (SBA for steps ) 12 Steps (QC): 9 Picking up an Object (QC): 6 (with hotel maintenance engineer ) Does the Pt use WC or Scooter?: No Wheel 50 feet with 2 turns (QC: 9 Type: N/A Wheel 150 feet: 9 Type: N/A PT Plan Treatment/Plan Treatment Plan: Continue Plan of Care Treatment Plan: Bed Mobility, Concurrent Therapy, Education, Functional Activity [place], Functional Strength, Group Therapy, Gait, Safety, Therapeutic Exercise, Transfers Treatment Duration: Apr 25, 2023 Frequency: At least 5 of 7 days/Wk (IRF) Estimated Hrs Per Day: 1.5 hours per day Patient and/or Family Agrees t: Yes Time Time In: 744 Time Out: 914 DATE: Apr 19, 2023 Total Billed Treatment Time: 90 Total Billed Treatment 1 FA GT x 5 Sarika Garcia CLOTH MERCERIZER BACK TENDER Apr 19, 2023 10:56
--- NOTE | 2023-04-19 11:20 | PM&R Progress Note ---
Subjective HPI/CC On Admission Date Seen by Provider: Apr 19, 2023 Time Seen by Provider: 11:45 Subjective/Events-last exam 04/19/2023: Patient doing really well Much improved status Flat affect continues but that is baseline Pain is improved 04/18/2023: Slow recovery Self pay status is a challenge for services Midline changed to left arm 04/17/2023: Patient doing much better Ambulating around better Pain is still an issue Bowel regimen maintained Changing out midline due to irritated site on right arm 04/16/2023: Improved overall No pain reported IV abx maintained Midline maintained Labs reviewed 04/15/2023: Patient doing about the same Poor motivation Flat affect Midline will be attempted because Dr. Christian wants IV antibiotics to continue 04/14/2023: Very slow recovery Patient seems to lack the motivation overall on an on-going basis Updated patient on his borderline DM with hga1c 6.0 so offered DM education Sunday Wound needs aggressive care IV abx maintained Review of Systems General: Fatigue, Malaise Objective Exam Vital Signs Vital Signs Date Time Temp Pulse Resp B/P (MAP) Pulse Ox O2 Delivery O2 Flow Rate FiO2 04/19/23 21:15 93 Room Air 04/19/23 19:42 35.2 72 16 127/72 (90) 04/16/23 07:41 0.00 0.00 Capillary Refill : General Appearance: No Apparent Distress, WD/WN, Chronically ill HEENT: PERRL/EOMI, Normal ENT Inspection, Pharynx Normal Neck: Full Range of Motion, Normal Inspection, Non Tender, Supple, Carotid Bruit Respiratory: Chest Non Tender, Lungs Clear, Normal Breath Sounds, No Accessory Muscle Use, No Respiratory Distress Cardiovascular: Regular Rate, Rhythm, No Edema, No Gallop, No JVD, No Murmur, Normal Peripheral Pulses Gastrointestinal: Normal Bowel Sounds, No Organomegaly, No Pulsatile Mass, Non Tender, Soft Back: Normal Inspection, No CVA Tenderness, No Vertebral Tenderness Extremity: Normal Capillary Refill, Normal Inspection, Normal Range of Motion, Non Tender, No Calf Tenderness, No Pedal Edema Neurologic/Psychiatric: Alert, Oriented x3, 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 [facility]IM Transfers Therapy Code Descriptions/Definitions Functional [place] Measure: 0=Not Assessed/NA 4=Minimal Assistance 1=Total Assistance 5=Supervision or Setup 2=Maximal Assistance 6=Modified [place] 3=Moderate Assistance 7=Complete IndependenceSCALE: Activities may be completed with or without assistive devices. 5-Owbrmzvjsb-ewrxpqm completes the activity by him/herself with no assistance from a helper. 5-Set-up or Clean-up Assistance-helper sets up or cleans up; patient completes activity. [place] assists only prior to or following the activity. 4-Supervision or Touching Assistance-helper provides verbal cues and/or touching/steadying and/or contact guard assistance as patient completes activity. Assistance may be provided throughout the activity or intermittently. 3-Partial/Moderate Assistance-helper does LESS THAN HALF the effort. [place] lifts, holds or supports trunk or limbs, but provides less than half the effort. 2-Substantial/Maximal Assistance-helper does MORE THAN HALF the effort. [place] lifts or holds trunk or limbs and provides more than half the effort. 6-Akygbjmpz-qksyny does ALL the effort. Patient does none of the effort to complete the activity. Or, the assistance of 2 or more helpers is required for the patient to complete the activity. If activity was not attempted, code reason: 7-Patient Refused. 9-Not Applicable-not attempted and the patient did not perform the activity before the current illness, exacerbation or injury. 10-Not Attempted due to Environmental Limitations-(lack of equipment, weather restraints, etc.). 88-Not Attempted due to Medical Conditions or Safety Concerns. Roll Left to Right (QC): 4 Sit to Lying (QC): 4 Sit to Stand (QC): 5 Chair/Tbh-eq-Odtso Xfer(QC): 5 Car Transfer (QC): 4 Gait Training Does the Patient Walk?: Yes Walk 10 feet (QC): 4 Walk 50 ft with 2 Turns(QC): 4 Walk 150 ft (QC): 4 Walking 10ft/uneven surface-QC: 88 Gait Assistive Device: FWW Wheelchair Training Does the Pt Use a Wheelchair?: No Wheel 50 ft with 2 turns (QC): 9 Wheel 150 ft (QC): 9 Type of Wheelchair: N/A Stair Training 1 Step (curb) (QC): 88 4 Steps (QC): 4 12 Steps (QC): 88 Balance Picking up an Object (QC): 3 ADL-Treatment Eating (QC): 6 Oral Hygiene (QC): 6 Shower/Bathe Self (QC): 4 (Sitting 100% of the time) Upper Body Dressing (QC): 5 Lower Body Dressing (QC): 3 On/Off Footwear (QC): 3 Toileting Hygiene (QC): 1 Assessment/Plan Assessment and Plan Assess & Plan/Chief Complaint Assessment: Debility following left second toe amputation with slow recovery History of left second toe osteomyelitis Hypertension Hyperlipidemia Atrial fibrillation Rheumatoid arthritis Peripheral vascular disease Obesity DM HGA1C 6.0 04/08/23 Poor motivation Constipation Plan: Home meds Cardiology appreciated Fall risk Pain control 04/14/2023: DM education Sunday Aggressive bowel regimen 04/15/2023: Midline Supportive care 04/16/2023: IV abx via midline 04/17/2023: Supportive care Change out midline 04/18/2023: Monitor wound 04/19/2023: Continue antibiotics Supportive care (1) Amputation of toe (2) Atrial fibrillation with rapid ventricular response Status: Acute IBAN LEI DO Apr 19, 2023 11:20
--- NOTE | 2023-04-19 11:22 | Occupational Ther Daily Note ---
OT Current Status-Daily Note Subjective Pt alert, sitting in recliner. Pt visibly tired and c/o fatigue after PT session. Pt was happy that he ambulated as far as he did. Pt agrees to therapy. Mental Status/Objective Patient Orientation: Person, Place, Time, Situation Attachments: IV ADL-Treatment Pt agrees to sponge bath sitting at sink. Min A for SPT from recliner to w/c due to fatigue. Set up for UBD. Pt fatigued from previous therapy and required more assistance for LBD than typically. Independent with eating and oral care. Min A for bed mobility. Pt takes increased time to complete all tasks due to fatigue. After therapy session, pt sitting up in bed eating lunch. Call light/phone in reach. All needs met. Therapy Code Descriptions/Definitions Functional [place] Measure: 0=Not Assessed/NA 4=Minimal Assistance 1=Total Assistance 5=Supervision or Setup 2=Maximal Assistance 6=Modified [place] 3=Moderate Assistance 7=Complete IndependenceSCALE: Activities may be completed with or without assistive devices. 1-Ddvzfnwhni-kaareth completes the activity by him/herself with no assistance from a helper. 5-Set-up or Clean-up Assistance-helper sets up or cleans up; patient completes activity. [place] assists only prior to or following the activity. 4-Supervision or Touching Assistance-helper provides verbal cues and/or touching/steadying and/or contact guard assistance as patient completes activity. Assistance may be provided throughout the activity or intermittently. 3-Partial/Moderate Assistance-helper does LESS THAN HALF the effort. [place] lifts, holds or supports trunk or limbs, but provides less than half the effort. 2-Substantial/Maximal Assistance-helper does MORE THAN HALF the effort. [place] lifts or holds trunk or limbs and provides more than half the effort. 3-Scyocuinn-xboily does ALL the effort. Patient does none of the effort to complete the activity. Or, the assistance of 2 or more helpers is required for the patient to complete the activity. If activity was not attempted, code reason: 7-Patient Refused. 9-Not Applicable-not attempted and the patient did not perform the activity before the current illness, exacerbation or injury. 10-Not Attempted due to Environmental Limitations-(lack of equipment, weather restraints, etc.). 88-Not Attempted due to Medical Conditions or Safety Concerns. OT Short Term Goals Short Term Goals Time Frame: Apr 18, 2023 Eatin Oral hygiene: 6 OT Halfway Goals Gasoline Pump Mechanic Goals Acute change in mental status: 0 Inattention: 0 Disorganized thinkin Altered level of consciousness: 0 Eating (QC): 6 Oral Hygiene (QC): 6 Toileting Hygiene (QC): 6 Shower/Bathe Self (QC): 6 Upper Body Dressing (QC): 6 Lower Body Dressing (QC): 6 On/Off Footwear (QC): 6 1=Demonstrate adherence to instructed precautions during ADL tasks. 2=Patient will verbalize/demonstrate understanding of assistive devices/modifications for ADL. 3=Patient will improve strength/tolerance for activity to enable patient to perform ADL's. OT Education/Plan Problem List/Assessment Assessment: Decreased Activ Tolerance, Decreased UE Strength, Impaired Funct Balance, Impaired Self-Care Skills Discharge Recommendations Plan/Recommendations: Continue POC Treatment Plan/Plan of Care Patient would benefit from OT for education, treatment and training to promote independence in ADL's, mobility, safety and/or upper extremity function for ADL' s. Plan of Care: ADL Retraining, Caregiver Training, Concurrent Therapy, Functional Mobility, Group Exercise/Act as Ind, Orthotic Fitting/Training, UE Funct Exercise/Act Treatment Duration: Apr 27, 2023 Frequency: At least 5 of 7 days/Wk (IRF) Estimated Hrs Per Day: 1.5 hours per day Agreement: Yes Rehab Potential: Good Time Start Time: 11:00 Stop Time: 12:00 DATE: Apr 19, 2023 Total Time Billed (hr/min): 60 Billed Treatment Time 1 visit-ADL 4 (60 min) EUFEMIA BOWEN Apr 19, 2023 11:22
--- NOTE | 2023-04-19 13:39 | Physical Therapy Daily Note ---
PT Daily Note-Current Subjective Pt laying in bed upon arrival and good for therapy. pt states 8/10 pain and asked nursing for a pain pill. pt was left in bed after therapy with call light and all needs met after therapy this day. Pain Section J - Health Conditions 1. Rarely or not at all 2. Occasionally 3. Frequently 4. Almost constantly 8. Unable to answer Pain Effect on Sleep: 4 Pain Interference with Therapy: 4 Pain Interference w/Day-to-Day: 4 Mental Status Patient Orientation: Person, Time, Situation Transfers SCALE: Activities may be completed with or without assistive devices. 1-Hbsockmmvq-tgteham completes the activity by him/herself with no assistance from a helper. 5-Set-up or Clean-up Assistance-helper sets up or cleans up; patient completes activity. [place] assists only prior to or following the activity. 4-Supervision or Touching Assistance-helper provides verbal cues and/or touching/steadying and/or contact guard assistance as patient completes activity. Assistance may be provided throughout the activity or intermittently. 3-Partial/Moderate Assistance-helper does LESS THAN HALF the effort. [place] lifts, holds or supports trunk or limbs, but provides less than half the effort. 2-Substantial/Maximal Assistance-helper does MORE THAN HALF the effort. [place] lifts or holds trunk or limbs and provides more than half the effort. 3-Bfkzdbmvk-uokkxf does ALL the effort. Patient does none of the effort to complete the activity. Or, the assistance of 2 or more helpers is required for the patient to complete the activity. If activity was not attempted, code reason: 7-Patient Refused. 9-Not Applicable-not attempted and the patient did not perform the activity before the current illness, exacerbation or injury. 10-Not Attempted due to Environmental Limitations-(lack of equipment, weather restraints, etc.). 88-Not Attempted due to Medical Conditions or Safety Concerns. Weight Bearing Right Lower Extremity: Right Full Weight Bearing Left Lower Extremity: Left Partial Weight Bearing Patient was instructed in L heel only weight bearing due to wound Exercises Supine Ex: Bridging, Ankle pumps, Quad Set, Glut sets, Heel Slides, Short Arc Quads, Straight leg raise, Hip abd/add Supine Reps: 15 Treatments Pt preformed laying supine ther-ex in all planes of motion available. pt preformed 15 x 3 sets with rest in be tween each set secondary to pain. 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 Rehabilitation Psychologist Goals Long-Term Goals PT Rehabilitation Psychologist Goals Time Frame: Apr 25, 2023 Roll Left & Right (QC): 6 (Pt will be Mod I with bed mobility ) Sit to Lying (QC): 6 (Pt will be Mod I with bed mobility ) Lying-Sitting on Side/Bed(QC): 6 (Pt will be Mod I with bed mobility ) Sit to Stand (QC): 4 (Pt will be SBA for functional transfers ) Chair/Erf-pw-Irhno Xfer(QC): 4 (Pt will be SBA for functional transfers ) Toilet Transfer (QC): 4 (Pt will be SBA for functional transfers ) Car Transfer (QC): 4 (Pt will be SBA for functional transfers ) Does the Patient Walk: Yes Walk 10 feet (QC): 4 (Pt will be SBA for walking with the FWW ) Walk 50ft with 2 Turns (QC): 4 (Pt will be SBA for walking with the FWW ) Walk 150 ft (QC): 4 (Pt will be SBA for walking with the FWW ) Walking 10ft on Uneven Surface: 4 (Pt will be SBA for walking with the FWW ) 1 Step (curb) (QC): 4 (SBA for steps ) 4 Steps (QC): 4 (SBA for steps ) 12 Steps (QC): 9 Picking up an Object (QC): 6 (with clinical trials specialist ) Does the Pt use WC or Scooter?: No Wheel 50 feet with 2 turns (QC: 9 Type: N/A Wheel 150 feet: 9 Type: N/A PT Plan Treatment/Plan Treatment Plan: Continue Plan of Care Treatment Plan: Bed Mobility, Concurrent Therapy, Education, Functional Activity Cheatn, Functional Strength, Group Therapy, Gait, Safety, Therapeutic Exercise, Transfers Treatment Duration: Apr 25, 2023 Frequency: At least 5 of 7 days/Wk (IRF) Estimated Hrs Per Day: 1.5 hours per day Patient and/or Family Agrees t: Yes Time Time In: 1300 Time Out: 1330 DATE: Apr 19, 2023 Total Billed Treatment Time: 30 Total Billed Treatment 1 EX x 2 Sarika Garcia MAILROOM PERSONNEL Apr 19, 2023 13:39
[2023-04-19 19:42] VITALS: BP 127/72
[2023-04-20] MEDS: oxyCODONE IMMEDIATE RELEASE 5 MG TABLET PO PRN ×3 (05:26→19:44)
[2023-04-20] MEDS: POTASSIUM CHLORIDE 20 MEQ TABLET PO SCH (05:26)
[2023-04-20] MEDS: inSUlin ASPART 1 UNIT/0.01 ML (PER UNIT) SC SCH ×4 (05:40→20:19)
--- NOTE | 2023-04-20 06:54 | PM&R Progress Note ---
Subjective HPI/CC On Admission Date Seen by Provider: Apr 20, 2023 Time Seen by Provider: 10:00 Subjective/Events-last exam 04/20/2023: Having right ankle pain xray obtained appeared to be abnormal so consulted Dr Daugherty No major issues otherwise Slow recovery 04/19/2023: Patient doing really well Much improved status Flat affect continues but that is baseline Pain is improved 04/18/2023: Slow recovery Self pay status is a challenge for services Midline changed to left arm 04/17/2023: Patient doing much better Ambulating around better Pain is still an issue Bowel regimen maintained Changing out midline due to irritated site on right arm 04/16/2023: Improved overall No pain reported IV abx maintained Midline maintained Labs reviewed 04/15/2023: Patient doing about the same Poor motivation Flat affect Midline will be attempted because Dr. Christian wants IV antibiotics to continue 04/14/2023: Very slow recovery Patient seems to lack the motivation overall on an on-going basis Updated patient on his borderline DM with hga1c 6.0 so offered DM education M onday Wound needs aggressive care IV abx maintained Review of Systems General: Fatigue, Malaise Objective Exam Vital Signs Vital Signs Date Time Temp Pulse Resp B/P (MAP) Pulse Ox O2 Delivery O2 Flow Rate FiO2 04/20/23 09:08 95 Room Air 04/20/23 07:38 36.6 75 16 174/75 (108) 04/16/23 07:41 0.00 0.00 Capillary Refill : General Appearance: No Apparent Distress, WD/WN, Chronically ill HEENT: PERRL/EOMI, Normal ENT Inspection, Pharynx Normal Neck: Full Range of Motion, Normal Inspection, Non Tender, Supple, Carotid Bruit Respiratory: Chest Non Tender, Lungs Clear, Normal Breath Sounds, No Accessory Muscle Use, No Respiratory Distress Cardiovascular: Regular Rate, Rhythm, No Edema, No Gallop, No JVD, No Murmur, Normal Peripheral Pulses Gastrointestinal: Normal Bowel Sounds, No Organomegaly, No Pulsatile Mass, Non Tender, Soft Back: Normal Inspection, No CVA Tenderness, No Vertebral Tenderness Extremity: Normal Capillary Refill, Normal Inspection, Normal Range of Motion, Non Tender, No Calf Tenderness, No Pedal Edema Neurologic/Psychiatric: Alert, Oriented x3, bingo floater II-XII Norm as Tested, Abnormal Gait, Depressed Affect, Motor Weakness (Generalized weakness) Skin: Normal Color, Warm/Dry, Other ( left foot in dressing) Lymphatic: No Adenopathy Results/Procedures Lab Patient resulted labs reviewed. FIM Transfers Therapy Code Descriptions/Definitions Functional [place] Measure: 0=Not Assessed/NA 4=Minimal Assistance 1=Total Assistance 5=Supervision or Setup 2=Maximal Assistance 6=Modified [place] 3=Moderate Assistance 7=Complete IndependenceSCALE: Activities may be completed with or without assistive devices. 4-Lhrtvqqkgn-nwnkfei completes the activity by him/herself with no assistance from a helper. 5-Set-up or Clean-up Assistance-helper sets up or cleans up; patient completes activity. [place] assists only prior to or following the activity. 4-Supervision or Touching Assistance-helper provides verbal cues and/or touching/steadying and/or contact guard assistance as patient completes activity. Assistance may be provided throughout the activity or intermittently. 3-Partial/Moderate Assistance-helper does LESS THAN HALF the effort. [place] lifts, holds or supports trunk or limbs, but provides less than half the effort. 2-Substantial/Maximal Assistance-helper does MORE THAN HALF the effort. [place] lifts or holds trunk or limbs and provides more than half the effort. 0-Cgamuxwmq-mrrvtc does ALL the effort. Patient does none of the effort to complete the activity. Or, the assistance of 2 or more helpers is required for the patient to complete the activity. If activity was not attempted, code reason: 7-Patient Refused. 9-Not Applicable-not attempted and the patient did not perform the activity before the current illness, exacerbation or injury. 10-Not Attempted due to Environmental Limitations-(lack of equipment, weather restraints, etc.). 88-Not Attempted due to Medical Conditions or Safety Concerns. Roll Left to Right (QC): 4 Sit to Lying (QC): 4 Sit to Stand (QC): 5 Chair/Ira-pe-Mupvn Xfer(QC): 5 Car Transfer (QC): 4 Gait Training Does the Patient Walk?: Yes Walk 10 feet (QC): 4 Walk 50 ft with 2 Turns(QC): 4 Walk 150 ft (QC): 4 Walking 10ft/uneven surface-QC: 88 Gait Assistive Device: FWW Wheelchair Training Does the Pt Use a Wheelchair?: No Wheel 50 ft with 2 turns (QC): 9 Wheel 150 ft (QC): 9 Type of Wheelchair: N/A Stair Training 1 Step (curb) (QC): 88 4 Steps (QC): 4 12 Steps (QC): 88 Balance Picking up an Object (QC): 3 ADL-Treatment Eating (QC): 6 Oral Hygiene (QC): 6 Shower/Bathe Self (QC): 4 (Sitting 100% of the time) Upper Body Dressing (QC): 5 Lower Body Dressing (QC): 3 On/Off Footwear (QC): 3 Toileting Hygiene (QC): 1 Assessment/Plan Assessment and Plan Assess & Plan/Chief Complaint Assessment: Debility following left second toe amputation with slow recovery History of left second toe osteomyelitis Hypertension Hyperlipidemia Atrial fibrillation Rheumatoid arthritis Peripheral vascular disease Obesity DM HGA1C 6.0 04/08/23 Poor motivation Constipation Right ankle pain Plan: Home meds Cardiology appreciated Fall risk Pain control 04/14/2023: DM education Sunday Aggressive bowel regimen 04/15/2023: Midline Supportive care 04/16/2023: IV abx via midline 04/17/2023: Supportive care Change out midline 04/18/2023: Monitor wound 04/19/2023: Continue antibiotics Supportive care 04/20/2023: Monitor closely (1) Amputation of toe (2) Atrial fibrillation with rapid ventricular response Status: Acute IBAN LEI DO Apr 20, 2023 06:54
[2023-04-20 07:38] VITALS: BP 174/75
--- NOTE | 2023-04-20 08:16 | Occupational Ther Daily Note ---
OT Current Status-Daily Note Subjective Pt alert, lying in bed. Pt agrees to therapy. Pt c/o overall pain though increase pain and weakness in R ankle. Pt states nrsg brought pain meds at 0530. Mental Status/Objective Patient Orientation: Person, Place, Time, Situation Attachments: IV ADL-Treatment Pt ambulated to bathroom using FWW with min A due to pain/weakness in R ankle. Mod A for toilet transfer. Min A for toileting. Mod A for LBD. Pt sat at sink to complete oral care and sponge bath independently. After session, pt sitting in recliner with call light/phone in reach. All needs met in room. Therapy Code Descriptions/Definitions Functional [place] Measure: 0=Not Assessed/NA 4=Minimal Assistance 1=Total Assistance 5=Supervision or Setup 2=Maximal Assistance 6=Modified [place] 3=Moderate Assistance 7=Complete IndependenceSCALE: Activities may be completed with or without assistive devices. 6-Mymlyuuhqf-nbmdqev completes the activity by him/herself with no assistance from a helper. 5-Set-up or Clean-up Assistance-helper sets up or cleans up; patient completes activity. [place] assists only prior to or following the activity. 4-Supervision or Touching Assistance-helper provides verbal cues and/or touching/steadying and/or contact guard assistance as patient completes activity. Assistance may be provided throughout the activity or intermittently. 3-Partial/Moderate Assistance-helper does LESS THAN HALF the effort. [place] lifts, holds or supports trunk or limbs, but provides less than half the effort. 2-Substantial/Maximal Assistance-helper does MORE THAN HALF the effort. [place] lifts or holds trunk or limbs and provides more than half the effort. 5-Nybebvcbr-lamzyh does ALL the effort. Patient does none of the effort to complete the activity. Or, the assistance of 2 or more helpers is required for the patient to complete the activity. If activity was not attempted, code reason: 7-Patient Refused. 9-Not Applicable-not attempted and the patient did not perform the activity before the current illness, exacerbation or injury. 10-Not Attempted due to Environmental Limitations-(lack of equipment, weather restraints, etc.). 88-Not Attempted due to Medical Conditions or Safety Concerns. Eating (QC): 6 Oral Hygiene (QC): 6 Upper Body Dressing (QC): 5 Lower Body Dressing (QC): 3 (mod) Toileting Hygiene (QC): 3 (mod) OT Short Term Goals Short Term Goals Time Frame: Apr 18, 2023 Eatin Oral hygiene: 6 OT Refractory Repairer Goals Senior Living Goals Acute change in mental status: 0 Inattention: 0 Disorganized thinkin Altered level of consciousness: 0 Eating (QC): 6 Oral Hygiene (QC): 6 Toileting Hygiene (QC): 6 Shower/Bathe Self (QC): 6 Upper Body Dressing (QC): 6 Lower Body Dressing (QC): 6 On/Off Footwear (QC): 6 1=Demonstrate adherence to instructed precautions during ADL tasks. 2=Patient will verbalize/demonstrate understanding of assistive devices/modifications for ADL. 3=Patient will improve strength/tolerance for activity to enable patient to perform ADL's. OT Education/Plan Problem List/Assessment Assessment: Decreased Activ Tolerance, Decreased UE Strength, Impaired Funct Balance, Impaired Self-Care Skills Discharge Recommendations Plan/Recommendations: Continue POC Treatment Plan/Plan of Care Patient would benefit from OT for education, treatment and training to promote independence in ADL's, mobility, safety and/or upper extremity function for ADL's. Plan of Care: ADL Retraining, Caregiver Training, Concurrent Therapy, Functional Mobility, Group Exercise/Act as Ind, Orthotic Fitting/Training, UE Funct Exercise/Act Treatment Duration: Apr 27, 2023 Frequency: At least 5 of 7 days/Wk (IRF) Estimated Hrs Per Day: 1.5 hours per day Agreement: Yes Rehab Potential: Good Time Start Time: 07:45 Stop Time: 08:30 DATE: Apr 20, 2023 Total Time Billed (hr/min): 45 Billed Treatment Time 1 visit-ADL 3 (45 min) EUFEMIA BOWEN Apr 20, 2023 08:16
[2023-04-20] MEDS: dilTIAZem ER 240 MG CAPSULE PO SCH (08:24)
[2023-04-20] MEDS: DOCUSATE SODIUM 100 MG CAPSULE PO SCH ×2 (08:24→20:28)
[2023-04-20] MEDS: LOSARTAN 100 MG (COZAAR) TABLET PO SCH (08:24)
[2023-04-20] MEDS: MELOXICAM 7.5 MG (MOBIC) TABLET PO SCH (08:24)
[2023-04-20] MEDS: APIXABAN 5 MG TABLET PO SCH ×2 (08:24→20:28)
[2023-04-20] MEDS: FUROSEMIDE 40 MG TABLET PO SCH (08:24)
[2023-04-20] MEDS: polyethylene glycoL POWDER 17 GM (MIRALAX) PACK PO SCH ×2 (08:24→20:37)
[2023-04-20] MEDS: SENNOSIDES 8.6 MG (SENOKOT) TAB PO SCH ×2 (08:24→20:38)
[2023-04-20] MEDS: DICLOFENAC 1% GEL 100 GM TUBE TOP SCH ×4 (08:31→20:30)
--- NOTE | 2023-04-20 11:29 | Physical Therapy Daily Note ---
PT Daily Note-Current Subjective Pt was in recliner upon arrival into room and willing for therapy. pt stated 7/10 pain in B knees and ankles. pt states his right ankle is "really hurting" and can barley put weight on it. spoke with nursing about this. pt was left in recliner at the end of therapy session with call light and all needs met. Pain Section J - Health Conditions 1. Rarely or not at all 2. Occasionally 3. Frequently 4. Almost constantly 8. Unable to answer Pain Effect on Sleep: 4 Pain Interference with Therapy: 4 Pain Interference w/Day-to-Day: 4 Mental Status Patient Orientation: Person, Place, Time, Situation Transfers SCALE: Activities may be completed with or without assistive devices. 9-Koekfqmpmn-splezxb completes the activity by him/herself with no assistance from a helper. 5-Set-up or Clean-up Assistance-helper sets up or cleans up; patient completes activity. [place] assists only prior to or following the activity. 4-Supervision or Touching Assistance-helper provides verbal cues and/or touching/steadying and/or contact guard assistance as patient completes activity. Assistance may be provided throughout the activity or intermittently. 3-Partial/Moderate Assistance-helper does LESS THAN HALF the effort. [place] lifts, holds or supports trunk or limbs, but provides less than half the effort. 2-Substantial/Maximal Assistance-helper does MORE THAN HALF the effort. [place] lifts or holds trunk or limbs and provides more than half the effort. 8-Qphlbxayd-cmdfgu does ALL the effort. Patient does none of the effort to complete the activity. Or, the assistance of 2 or more helpers is required for the patient to complete the activity. If activity was not attempted, code reason: 7-Patient Refused. 9-Not Applicable-not attempted and the patient did not perform the activity before the current illness, exacerbation or injury. 10-Not Attempted due to Environmental Limitations-(lack of equipment, weather restraints, etc.). 88-Not Attempted due to Medical Conditions or Safety Concerns. Weight Bearing Right Lower Extremity: Right Full Weight Bearing Left Lower Extremity: Left Partial Weight Bearing Patient was instructed in L heel only weight bearing due to wound Exercises Supine Ex: Ankle pumps, Quad Set, Glut sets, Heel Slides, Short Arc Quads, Straight leg raise, Hip abd/add Seated Therapy Exercises: Long arc quads, Hip flexion, Hamstring Curls, Hip abd/add, Glut set Treatments Pt preformed sitting there-ex with gravity and gravity eliminated with BLE in all planes of motion. pt preformed 3 sets with and 3 sets without gravity with rest in between secondary to pain. Assessment Current Status: Fair Progress PT Chcf Goals Chcf Goals PT Metal Grader Goals Time Frame: Apr 25, 2023 Roll Left & Right (QC): 6 (Pt will be Mod I with bed mobility ) Sit to Lying (QC): 6 (Pt will be Mod I with bed mobility ) Lying-Sitting on Side/Bed(QC): 6 (Pt will be Mod I with bed mobility ) Sit to Stand (QC): 4 (Pt will be SBA for functional transfers ) Chair/Cvq-az-Esgib Xfer(QC): 4 (Pt will be SBA for functional transfers ) Toilet Transfer (QC): 4 (Pt will be SBA for functional transfers ) Car Transfer (QC): 4 (Pt will be SBA for functional transfers ) Does the Patient Walk: Yes Walk 10 feet (QC): 4 (Pt will be SBA for walking with the FWW ) Walk 50ft with 2 Turns (QC): 4 (Pt will be SBA for walking with the FWW ) Walk 150 ft (QC): 4 (Pt will be SBA for walking with the FWW ) Walking 10ft on Uneven Surface: 4 (Pt will be SBA for walking with the FWW ) 1 Step (curb) (QC): 4 (SBA for steps ) 4 Steps (QC): 4 (SBA for steps ) 12 Steps (QC): 9 Picking up an Object (QC): 6 (with paving foreman ) Does the Pt use WC or Scooter?: No Wheel 50 feet with 2 turns (QC: 9 Type: N/A Wheel 150 feet: 9 Type: N/A PT Plan Treatment/Plan Treatment Plan: Continue Plan of Care Treatment Plan: Bed Mobility, Concurrent Therapy, Education, Functional Activity [place], Functional Strength, Group Therapy, Gait, Safety, Therapeutic Exercise, Transfers Treatment Duration: Apr 25, 2023 Frequency: At least 5 of 7 days/Wk (IRF) Estimated Hrs Per Day: 1.5 hours per day Patient and/or Family Agrees t: Yes Time Time In: 0900 Time Out: 1000 DATE: Apr 20, 2023 Total Billed Treatment Time: 60 Total Billed Treatment 1 EX x 4 Sarika Garcia BOBJ DEVELOPER Apr 20, 2023 11:29
--- NOTE | 2023-04-20 13:28 | Therapy Group Daily Note ---
Therapy Daily Group Note Patient Education Topic Home Safety, Other List Below (ARU expectations/AE for home safety) Exercises LE Seated Exercise, UE Exercise Session Ratio (pt:therapist): 4:1 Goal of Session: Education on ARU Expectations, UE/LE Strengthing Goal Met for this Session: Yes Pt Benefit of Group: Contributions to Others, F/U Use of Strategies @Home, Increased Functional Safety, Increased Functional Strength, Improved Cognition, Recognition of Peers, Socialization Other/Notes Pt transported via w/c to therapy gym for OT group. Group consisted of introductions (name), socialization, B UE/LE seated exercises, education on AE and safety for home environment. Pt introduced self appropriately and actively listened to peers. Pt able to complete B UE/LE strengthening using light resistance theraband, modifications due to SOA. Pt verbalized understanding of educational topics by giving own strategies and personal experiences. After therapy, pt sitting in recliner eating lunch. Call light/phone in reach. All needs met in room. Start Time: 11:00 Stop Time: 12:15 Total Billed Treatment Time: 75 Total Billed Treatment 1-GRP EUFEMIA BOWEN Apr 20, 2023 13:28
--- NOTE | 2023-04-20 13:50 | Diagnostic Imaging Report ---
EXAMINATION: Right ankle radiographs, 3 views. COMPARISON: Right ankle radiographs October 02, 2018. HISTORY: 67-year-old male, right ankle pain. FINDINGS: There is a small calcaneal heel spur. There is a transverse lucency at the level of the tip of the medial malleolus which may reflect an age-indeterminate nondisplaced fracture. The alignment of the ankle mortise is unremarkable. There is some irregularity of the posterior malleolus compatible with sequela of prior injury. IMPRESSION: 1. Age-indeterminate nondisplaced transverse fracture of the tip of the medial malleolus. This is not clearly present on October 02, 2018. 2. Unremarkable alignment of the ankle mortise Dictated by: Dictated on workstation # [id number]
--- NOTE | 2023-04-20 15:46 | CONSULTATION REPORT ---
DATE OF SERVICE: 04/20/2023 REASON FOR CONSULTATION: Questionable right ankle fracture. HISTORY OF PRESENT ILLNESS: The patient is a 67-year-old gentleman on the rehab unit, who has had no trauma, but apparently was having ankle pain. Radiographs were obtained. There is questionable lucency of his medial malleolus. I reviewed his radiographs. There is no acute injury to his medial malleolus to my reading. Even if there is a nondisplaced avulsion fracture, he can continue to weight bear as tolerated with activities as tolerated with a walker as he has been doing. IMPRESSION: No need for orthopedic intervention. Continue with as is. Job ID: [id number] DocumentID: [id number] Dictated Date: 04/20/2023 15:35:34 [employer]er Date: 04/20/2023 15:45:00 Dictated By: SUNIL OQUENDO MD
[2023-04-20 20:02] VITALS: BP 147/67
[2023-04-21] MEDS: oxyCODONE IMMEDIATE RELEASE 5 MG TABLET PO PRN ×4 (05:37→20:27)
[2023-04-21] MEDS: inSUlin ASPART 1 UNIT/0.01 ML (PER UNIT) SC SCH ×4 (05:38→20:28)
--- NOTE | 2023-04-21 06:37 | PM&R Progress Note ---
Subjective HPI/CC On Admission Date Seen by Provider: Apr 21, 2023 Time Seen by Provider: 11:00 Subjective/Events-last exam 04/21/2023: Doing well Flat affect continues which complicates medical recovery Bleeding from wound No falls Pain controlled Appreciate Dr Daugherty assessment of xray WBAT rec 04/20/2023: Having right ankle pain xray obtained appeared to be abnormal so consulted Dr Daugherty No major issues otherwise Slow recovery 04/19/2023: Patient doing really well Much improved status Flat affect continues but that is baseline Pain is improved 04/18/2023: Slow recovery Self pay status is a challenge for services Midline changed to left arm 04/17/2023: Patient doing much better Ambulating around better Pain is still an issue Bowel regimen maintained Changing out midline due to irritated site on right arm 04/16/2023: Improved overall No pain reported IV abx maintained Midline maintained Labs reviewed 04/15/2023: Patient doing about the same Poor motivation Flat affect Midline will be attempted because Dr. Christian wants IV antibiotics to continue 04/14/2023: Very slow recovery Patient seems to lack the motivation overall on an on-going basis Updated patient on his borderline DM with hga1c 6.0 so offered DM education Sunday Wound needs aggressive care IV abx maintained Review of Systems General: Fatigue, Malaise Objective Exam Vital Signs Vital Signs Date Time Temp Pulse Resp B/P (MAP) Pulse Ox O2 Delivery O2 Flow Rate FiO2 04/21/23 09:50 Room Air 04/21/23 08:00 36.4 78 16 126/69 (88) 95 04/16/23 07:41 0.00 0.00 Capillary Refill : General Appearance: No Apparent Distress, WD/WN, Chronically ill HEENT: PERRL/EOMI, Normal ENT Inspection, Pharynx Normal Neck: Full Range of Motion, Normal Inspection, Non Tender, Supple, Carotid Bruit Respiratory: Chest Non Tender, Lungs Clear, Normal Breath Sounds, No Accessory Muscle Use, No Respiratory Distress Cardiovascular: Regular Rate, Rhythm, No Edema, No Gallop, No JVD, No Murmur, Normal Peripheral Pulses Gastrointestinal: Normal Bowel Sounds, No Organomegaly, No Pulsatile Mass, Non Tender, Soft Back: Normal Inspection, No CVA Tenderness, No Vertebral Tenderness Extremity: Normal Capillary Refill, Normal Inspection, Normal Range of Motion, Non Tender, No Calf Tenderness, No Pedal Edema Neurologic/Psychiatric: Alert, Oriented x3, health information management director II-XII Norm as Tested, Abnormal Gait, Depressed Affect, Motor Weakness (Generalized weakness) Skin: Normal Color, Warm/Dry, Other ( left foot in dressing) Lymphatic: No Adenopathy Results/Procedures Lab Laboratory Tests 04/21/23 06:55 Patient resulted labs reviewed. FIM Transfers Therapy Code Descriptions/Definitions Functional [place] Measure: 0=Not Assessed/NA 4=Minimal Assistance 1=Total Assistance 5=Supervision or Setup 2=Maximal Assistance 6=Modified [place] 3=Moderate Assistance 7=Complete IndependenceSCALE: Activities may be completed with or without assistive devices. 7-Ujwiiwutba-alfodkf completes the activity by him/herself with no assistance from a helper. 5-Set-up or Clean-up Assistance-helper sets up or cleans up; patient completes activity. [place] assists only prior to or following the activity. 4-Supervision or Touching Assistance-helper provides verbal cues and/or touching/steadying and/or contact guard assistance as patient completes activity. Assistance may be provided throughout the activity or intermittently. 3-Partial/Moderate Assistance-helper does LESS THAN HALF the effort. [place] lifts, holds or supports trunk or limbs, but provides less than half the effort. 2-Substantial/Maximal Assistance-helper does MORE THAN HALF the effort. [place] lifts or holds trunk or limbs and provides more than half the effort. 0-Tequcrzxo-ccyknl does ALL the effort. Patient does none of the effort to complete the activity. Or, the assistance of 2 or more helpers is required for the patient to complete the activity. If activity was not attempted, code reason: 7-Patient Refused. 9-Not Applicable-not attempted and the patient did not perform the activity before the current illness, exacerbation or injury. 10-Not Attempted due to Environmental Limitations-(lack of equipment, weather restraints, etc.). 88-Not Attempted due to Medical Conditions or Safety Concerns. Roll Left to Right (QC): 4 Sit to Lying (QC): 4 Sit to Stand (QC): 5 Chair/Bos-el-Fperv Xfer(QC): 5 Car Transfer (QC): 4 Gait Training Does the Patient Walk?: Yes Walk 10 feet (QC): 4 Walk 50 ft with 2 Turns(QC): 4 Walk 150 ft (QC): 4 Walking 10ft/uneven surface-QC: 88 Gait Assistive Device: FWW Wheelchair Training Does the Pt Use a Wheelchair?: No Wheel 50 ft with 2 turns (QC): 9 Wheel 150 ft (QC): 9 Type of Wheelchair: N/A Stair Training 1 Step (curb) (QC): 88 4 Steps (QC): 4 12 Steps (QC): 88 Balance Picking up an Object (QC): 3 ADL-Treatment Eating (QC): 6 Oral Hygiene (QC): 6 Shower/Bathe Self (QC): 4 (Sitting 100% of the time) Upper Body Dressing (QC): 5 Lower Body Dressing (QC): 3 (mod) On/Off Footwear (QC): 3 Toileting Hygiene (QC): 3 (mod) Assessment/Plan Assessment and Plan Assess & Plan/Chief Complaint Assessment: Debility following left second toe amputation with slow recovery History of left second toe osteomyelitis Hypertension Hyperlipidemia Atrial fibrillation Rheumatoid arthritis Peripheral vascular disease Obesity DM HGA1C 6.0 04/08/23 Poor motivation Constipation Right ankle pain Plan: Home meds Cardiology appreciated Fall risk Pain control 04/14/2023: DM education Sunday Aggressive bowel regimen 04/15/2023: Midline Supportive care 04/16/2023: IV abx via midline 04/17/2023: Supportive care Change out midline 04/18/2023: Monitor wound 04/19/2023: Continue antibiotics Supportive care 04/20/2023: Monitor closely 04/21/2023: Monitor closely Monitor bleeding (1) Amputation of toe (2) Atrial fibrillation with rapid ventricular response Status: Acute IBAN LEI DO Apr 21, 2023 06:37
[2023-04-21] MEDS: POTASSIUM CHLORIDE 20 MEQ TABLET PO SCH (06:59)
[2023-04-21 07:02] LABS: BASOPHILS # (AUTO) 0.1 10^3/uL (0.0-0.1); BASOPHILS % (AUTO) 1 % (0-10); EOSINOPHILS # (AUTO) 0.1 10^3/uL (0.0-0.3); EOSINOPHILS % (AUTO) 1 % (0-10); HEMATOCRIT 35 % (40-54); HEMOGLOBIN 11.3 g/dL (13.3-17.7); LYMPHOCYTES # (AUTO) 1.4 10^3/uL (1.0-4.0); LYMPHOCYTES % (AUTO) 11 % (12-44); MEAN CORPUSCULAR HEMOGLOBIN 30 pg (25-34); MEAN CORPUSCULAR HGB CONC 33 g/dL (32-36); MEAN CORPUSCULAR VOLUME 91 fL (80-99); MEAN PLATELET VOLUME 8.8 fL (9.0-12.2); MONOCYTES % (AUTO) 8 % (0-12); NEUTROPHILS # (AUTO) 10.9 10^3/uL (1.8-7.8); NEUTROPHILS % (AUTO) 79 % (42-75); PLATELET COUNT 830 10^3/uL (130-400); WHITE BLOOD COUNT 13.8 10^3/uL (4.3-11.0)
[2023-04-21 07:17] LABS: CALCIUM 9.9 MG/DL (8.5-10.1)
[2023-04-21 07:19] LABS: TOTAL PROTEIN 6.8 GM/DL (6.4-8.2)
[2023-04-21 07:20] LABS: BILIRUBIN,TOTAL 0.8 MG/DL (0.1-1.0)
[2023-04-21 07:22] LABS: CREATININE SERUM 0.79 MG/DL (0.60-1.30)
[2023-04-21 08:00] VITALS: BP 126/69
[2023-04-21] MEDS: SENNOSIDES 8.6 MG (SENOKOT) TAB PO SCH ×2 (08:40→20:27)
[2023-04-21] MEDS: APIXABAN 5 MG TABLET PO SCH ×2 (08:40→20:28)
[2023-04-21] MEDS: dilTIAZem ER 240 MG CAPSULE PO SCH (08:40)
[2023-04-21] MEDS: FUROSEMIDE 40 MG TABLET PO SCH (08:40)
[2023-04-21] MEDS: LOSARTAN 100 MG (COZAAR) TABLET PO SCH (08:40)
[2023-04-21] MEDS: MELOXICAM 7.5 MG (MOBIC) TABLET PO SCH (08:41)
[2023-04-21] MEDS: DOCUSATE SODIUM 100 MG CAPSULE PO SCH ×2 (08:43→20:27)
[2023-04-21] MEDS: polyethylene glycoL POWDER 17 GM (MIRALAX) PACK PO SCH ×2 (08:43→19:37)
[2023-04-21] MEDS: DICLOFENAC 1% GEL 100 GM TUBE TOP SCH ×4 (08:44→19:37)
[2023-04-21] MEDS: HYPOCHLOROUS ACID/NaCl (VASHE) 250 ML IR SCH (10:32)
[2023-04-21] MEDS: CATHETER FLUSH 10 ML SYR IVP SCH (20:28)
[2023-04-21 20:57] VITALS: BP 129/73
[2023-04-22] MEDS: POTASSIUM CHLORIDE 20 MEQ TABLET PO SCH (06:23)
[2023-04-22] MEDS: CATHETER FLUSH 10 ML SYR IVP SCH ×3 (06:23→20:24)
[2023-04-22] MEDS: inSUlin ASPART 1 UNIT/0.01 ML (PER UNIT) SC SCH ×4 (06:23→20:31)
--- NOTE | 2023-04-22 07:06 | PM&R Progress Note ---
Subjective HPI/CC On Admission Date Seen by Provider: Apr 22, 2023 Time Seen by Provider: 12:00 Subjective/Events-last exam 04/22/2023: Patient doing pretty well Supportive care continues Very difficult to move around Bleeding has stopped 04/21/2023: Doing well Flat affect continues which complicates medical recovery Bleeding from wound No falls Pain controlled Appreciate Dr Daugherty assessment of xray WBAT rec 04/20/2023: Having right ankle pain xray obtained appeared to be abnormal so consulted Dr Daugherty No major issues otherwise Slow recovery 04/19/2023: Patient doing really well Much improved status Flat affect continues but that is baseline Pain is improved 04/18/2023: Slow recovery Self pay status is a challenge for services Midline changed to left arm 04/17/2023: Patient doing much better Ambulating around better Pain is still an issue Bowel regimen maintained Changing out midline due to irritated site on right arm 04/16/2023: Improved overall No pain reported IV abx maintained Midline maintained Labs reviewed 04/15/2023: Patient doing about the same Poor motivation Flat affect Midline will be attempted because Dr. Christian wants IV antibiotics to continue 04/14/2023: Very slow recovery Patient seems to lack the motivation overall on an on-going basis Updated patient on his borderline DM with hga1c 6.0 so offered DM education Sunday Wound needs aggressive care IV abx maintained Review of Systems General: Fatigue, Malaise Objective Exam Vital Signs Vital Signs Date Time Temp Pulse Resp B/P (MAP) Pulse Ox O2 Delivery O2 Flow Rate FiO2 04/22/23 09:00 Room Air 04/22/23 08:09 36.2 77 18 138/76 (96) 95 04/16/23 07:41 0.00 0.00 Capillary Refill : General Appearance: No Apparent Distress, WD/WN, Chronically ill HEENT: PERRL/EOMI, Normal ENT Inspection, Pharynx Normal Neck: Full Range of Motion, Normal Inspection, Non Tender, Supple, Carotid Bruit Respiratory: Chest Non Tender, Lungs Clear, Normal Breath Sounds, No Accessory Muscle Use, No Respiratory Distress Cardiovascular: Regular Rate, Rhythm, No Edema, No Gallop, No JVD, No Murmur, Normal Peripheral Pulses Gastrointestinal: Normal Bowel Sounds, No Organomegaly, No Pulsatile Mass, Non Tender, Soft Back: Normal Inspection, No CVA Tenderness, No Vertebral Tenderness Extremity: Normal Capillary Refill, Normal Inspection, Normal Range of Motion, Non Tender, No Calf Tenderness, No Pedal Edema Neurologic/Psychiatric: Alert, Oriented x3, progressive care manager II-XII Norm as Tested, Abnormal Gait, Depressed Affect, Motor Weakness (Generalized weakness) Skin: Normal Color, Warm/Dry, Other ( left foot in dressing) Lymphatic: No Adenopathy Results/Procedures Lab Patient resulted labs reviewed. FIM Transfers Therapy Code Descriptions/Definitions Functional [place] Measure: 0=Not Assessed/NA 4=Minimal Assistance 1=Total Assistance 5=Supervision or Setup 2=Maximal Assistance 6=Modified [place] 3=Moderate Assistance 7=Complete IndependenceSCALE: Activities may be completed with or without assistive devices. 4-Tndevrbael-covemeh completes the activity by him/herself with no assistance from a helper. 5-Set-up or Clean-up Assistance-helper sets up or cleans up; patient completes activity. [place] assists only prior to or following the activity. 4-Supervision or Touching Assistance-helper provides verbal cues and/or touching/steadying and/or contact guard assistance as patient completes activity. Assistance may be provided throughout the activity or intermittently. 3-Partial/Moderate Assistance-helper does LESS THAN HALF the effort. [place] lifts, holds or supports trunk or limbs, but provides less than half the effort. 2-Substantial/Maximal Assistance-helper does MORE THAN HALF the effort. [place] lifts or holds trunk or limbs and provides more than half the effort. 7-Qwmxlubhp-zdrjjr does ALL the effort. Patient does none of the effort to complete the activity. Or, the assistance of 2 or more helpers is required for the patient to complete the activity. If activity was not attempted, code reason: 7-Patient Refused. 9-Not Applicable-not attempted and the patient did not perform the activity before the current illness, exacerbation or injury. 10-Not Attempted due to Environmental Limitations-(lack of equipment, weather restraints, etc.). 88-Not Attempted due to Medical Conditions or Safety Concerns. Roll Left to Right (QC): 4 Sit to Lying (QC): 4 Sit to Stand (QC): 5 Chair/Eyn-xm-Ngiqh Xfer(QC): 5 Car Transfer (QC): 4 Gait Training Does the Patient Walk?: Yes Walk 10 feet (QC): 4 Walk 50 ft with 2 Turns(QC): 4 Walk 150 ft (QC): 4 Walking 10ft/uneven surface-QC: 88 Gait Assistive Device: FWW Wheelchair Training Does the Pt Use a Wheelchair?: No Wheel 50 ft with 2 turns (QC): 9 Wheel 150 ft (QC): 9 Type of Wheelchair: N/A Stair Training 1 Step (curb) (QC): 88 4 Steps (QC): 4 12 Steps (QC): 88 Balance Picking up an Object (QC): 3 ADL-Treatment Eating (QC): 6 Oral Hygiene (QC): 6 Shower/Bathe Self (QC): 4 (Sitting 100% of the time) Upper Body Dressing (QC): 5 Lower Body Dressing (QC): 3 (mod) On/Off Footwear (QC): 3 Toileting Hygiene (QC): 3 (mod) Assessment/Plan Assessment and Plan Assess & Plan/Chief Complaint Assessment: Debility following left second toe amputation with slow recovery History of left second toe osteomyelitis Hypertension Hyperlipidemia Atrial fibrillation Rheumatoid arthritis Peripheral vascular disease Obesity DM HGA1C 6.0 04/08/23 Poor motivation Constipation Right ankle pain Plan: Home meds Cardiology appreciated Fall risk Pain control 04/14/2023: DM education Sunday Aggressive bowel regimen 04/15/2023: Midline Supportive care 04/16/2023: IV abx via midline 04/17/2023: Supportive care Change out midline 04/18/2023: Monitor wound 04/19/2023: Continue antibiotics Supportive care 04/20/2023: Monitor closely 04/21/2023: Monitor closely Monitor bleeding 04/22/2023: Check labs in the morning (1) Amputation of toe (2) Atrial fibrillation with rapid ventricular response Status: Acute IBAN LEI DO Apr 22, 2023 07:06
[2023-04-22 08:09] VITALS: BP 138/76
[2023-04-22] MEDS: FUROSEMIDE 40 MG TABLET PO SCH (08:32)
[2023-04-22] MEDS: MELOXICAM 7.5 MG (MOBIC) TABLET PO SCH (08:32)
[2023-04-22] MEDS: APIXABAN 5 MG TABLET PO SCH ×2 (08:32→20:24)
[2023-04-22] MEDS: DICLOFENAC 1% GEL 100 GM TUBE TOP SCH ×4 (08:32→21:03)
[2023-04-22] MEDS: dilTIAZem ER 240 MG CAPSULE PO SCH (08:32)
[2023-04-22] MEDS: SENNOSIDES 8.6 MG (SENOKOT) TAB PO SCH ×2 (08:32→20:24)
[2023-04-22] MEDS: LOSARTAN 100 MG (COZAAR) TABLET PO SCH (08:32)
[2023-04-22] MEDS: DOCUSATE SODIUM 100 MG CAPSULE PO SCH ×2 (08:32→20:24)
[2023-04-22] MEDS: oxyCODONE IMMEDIATE RELEASE 5 MG TABLET PO PRN ×3 (08:33→18:47)
[2023-04-22] MEDS: polyethylene glycoL POWDER 17 GM (MIRALAX) PACK PO SCH ×2 (08:33→20:24)
--- NOTE | 2023-04-22 09:02 | Progress Note - Surgery ---
BEENA MCCABE 04/22/23 0902: Subjective Date Seen by a Provider: Apr 22, 2023 Time Seen by a Provider: 09:00 Subjective/Events-last exam Patient said he was doing okay. He has flat affect. His right foot is still in pain. His pain is still present in both feet and is aggrevated by movement, alleviated by rest. The pain is a 7/10 in his feet and is non radiating. Pain is alleviated by pain medication which he is taking every 4 hours. He has had periods over night where he isnt taking his pain medication per nurse. Patient is tolerating dressing changes. Yesterday morning he had increased bleeding from the wound site at 10 AM and noon, but upon inspection of the wound site this morning there is no more bleeding. Focused Exam Sepsis Stage: Ruled Out Respiratory: Chest Non Tender, No Accessory Muscle Use, No Respiratory Distress Cardiovascular: Regular Rate, Rhythm, Normal Peripheral Pulses Peripheral Pulses: 2+ Radial Pulses (R), 2+ Radial Pulses (L) Skin: normal color Objective Exam Vital Signs Date Time Temp Pulse Resp B/P (MAP) Pulse Ox O2 Delivery O2 Flow Rate FiO2 04/22/23 08:09 36.2 77 18 138/76 (96) 95 Room Air 04/21/23 20:57 36.8 83 20 129/73 (91) 96 Room Air 04/21/23 20:20 Room Air 04/21/23 09:50 Room Air I & O 04/22/23 07:00 Intake Total 740 ml Output Total 1700 ml Balance -960 ml Capillary Refill : General Appearance: No Apparent Distress, WD/WN HEENT: PERRL/EOMI, Normal ENT Inspection, Pharynx Normal Neck: Full Range of Motion, Normal Inspection Respiratory: Chest Non Tender, Lungs Clear, Normal Breath Sounds, No Accessory Muscle Use, No Respiratory Distress Cardiovascular: Regular Rate, Rhythm, No Gallop, No JVD, No Murmur, Normal Peripheral Pulses Peripheral Pulses: 2+ Radial Pulses (R), 2+ Radial Pulses (L) Gastrointestinal: non tender Extremity: Normal Capillary Refill, Normal Inspection, Normal Range of Motion, Non Tender, No Calf Tenderness Neurologic/Psychiatric: Alert, Oriented x3, Abnormal Gait, Depressed Affect, Motor Weakness (Generalized weakness) Skin: Normal Color, Other ( left foot in dressing) Lymphatic: No Adenopathy Results Lab Laboratory Tests 04/21/23 11:05: Glucometer 100 04/21/23 16:00: Glucometer 80 04/21/23 20:26: Glucometer 128H 04/22/23 06:21: Glucometer 114H Assessment/Plan Assessment/Plan Assessment/Plan Left second toe amputation with slow recovery Hypertension Hyperlipidemia Atrial fibrillation Rheumatoid arthritis Peripheral vascular disease Right ankle pain- fracture at tip of medial malleolus Plan: Home meds Continue diabetes education Wound care Pain control OSEAS CHRISTIAN DO 04/22/23 1022: Subjective Subjective/Events-last exam Had bleeding from wound yesterday. No longer having bleeding. Pain controlled with medication. Deneis n/v fever sweats chills shortness of breath or chest pain. Objective Exam General Appearance: No Apparent Distress, WD/WN HEENT: PERRL/EOMI, Normal ENT Inspection Neck: Full Range of Motion, Normal Inspection Respiratory: Chest Non Tender, No Accessory Muscle Use, No Respiratory Distress Cardiovascular: Regular Rate, Rhythm, No JVD Gastrointestinal: non tender, soft Extremity: Other (left foot wound dorsal aspect and left second toe ampuation open wound.) Neurologic/Psychiatric: Alert, Depressed Affect Skin: Normal Color, Warm/Dry Lymphatic: No Adenopathy Assessment/Plan Assessment/Plan Assessment/Plan s/p left second toe amputation continue wound care continue rehab Supervisory-Addendum Brief Verification & Attestation Participated in pt care: history, MDM, physical Personally performed: exam, history, MDM, supervision of care Care discussed with: Medical Student Procedures: n/a Results interpretation: Verified all documentation Verification and Attestation of Medical Student E/M Service A medical student performed and documented this service in my presence. I reviewed and verified all information documented by the medical student and made modifications to such information, when appropriate. I personally performed the physical exam and medical decision making. Oseas Christian, Apr 22, 2023,10:22 BEENA MCCABE Apr 22, 2023 09:02 OSEAS CHRISTIAN DO Apr 22, 2023 10:22
[2023-04-22] MEDS: LACTULOSE SYRUP 10GM/15ML 30ML UDC PO PRN (14:11)
[2023-04-22 19:48] VITALS: BP 120/71
[2023-04-22] MEDS: HYPOCHLOROUS ACID/NaCl (VASHE) 250 ML IR SCH (20:25)
[2023-04-23] MEDS: oxyCODONE IMMEDIATE RELEASE 5 MG TABLET PO PRN ×5 (04:08→21:47)
[2023-04-23] MEDS: CATHETER FLUSH 10 ML SYR IVP SCH ×3 (05:27→21:49)
[2023-04-23] MEDS: POTASSIUM CHLORIDE 20 MEQ TABLET PO SCH (05:28)
[2023-04-23 05:38] LABS: BASOPHILS # (AUTO) 0.2 10^3/uL (0.0-0.1); BASOPHILS % (AUTO) 2 % (0-10); EOSINOPHILS # (AUTO) 0.4 10^3/uL (0.0-0.3); EOSINOPHILS % (AUTO) 4 % (0-10); HEMATOCRIT 36 % (40-54); HEMOGLOBIN 11.8 g/dL (13.3-17.7); LYMPHOCYTES # (AUTO) 1.2 10^3/uL (1.0-4.0); LYMPHOCYTES % (AUTO) 11 % (12-44); MEAN CORPUSCULAR HEMOGLOBIN 30 pg (25-34); MEAN CORPUSCULAR HGB CONC 33 g/dL (32-36); MEAN CORPUSCULAR VOLUME 90 fL (80-99); MEAN PLATELET VOLUME 8.7 fL (9.0-12.2); MONOCYTES # (AUTO) 0.9 10^3/uL (0.0-1.0); MONOCYTES % (AUTO) 9 % (0-12); NEUTROPHILS % (AUTO) 73 % (42-75); PLATELET COUNT 826 10^3/uL (130-400); WHITE BLOOD COUNT 10.9 10^3/uL (4.3-11.0)
--- NOTE | 2023-04-23 05:49 | PM&R Progress Note ---
Subjective HPI/CC On Admission Date Seen by Provider: Apr 23, 2023 Time Seen by Provider: 11:30 Subjective/Events-last exam 04/23/2023: Doing well No pain reported except foot No bleeding Needs SNF 04/22/2023: Patient doing pretty well Supportive care continues Very difficult to move around Bleeding has stopped 04/21/2023: Doing well Flat affect continues which complicates medical recovery Bleeding from wound No falls Pain controlled Appreciate Dr Daugherty assessment of xray WBAT rec 04/20/2023: Having right ankle pain xray obtained appeared to be abnormal so consulted Dr Daugherty No major issues otherwise Slow recovery 04/19/2023: Patient doing really well Much improved status Flat affect continues but that is baseline Pain is improved 04/18/2023: Slow recovery Self pay status is a challenge for services Midline changed to left arm 04/17/2023: Patient doing much better Ambulating around better Pain is still an issue Bowel regimen maintained Changing out midline due to irritated site on right arm 04/16/2023: Improved overall No pain reported IV abx maintained Midline maintained Labs reviewed 04/15/2023: Patient doing about the same Poor motivation Flat affect Midline will be attempted because Dr. Christian wants IV antibiotics to continue 04/14/2023: Very slow recovery Patient seems to lack the motivation overall on an on-going basis Updated patient on his borderline DM with hga1c 6.0 so offered DM education Sunday Wound needs aggressive care IV abx maintained Review of Systems General: Fatigue, Malaise Objective Exam Vital Signs Vital Signs Date Time Temp Pulse Resp B/P (MAP) Pulse Ox O2 Delivery O2 Flow Rate FiO2 04/23/23 20:00 36.3 76 20 100/67 (78) 92 Room Air Capillary Refill : General Appearance: No Apparent Distress, WD/WN, Chronically ill HEENT: PERRL/EOMI, Normal ENT Inspection, Pharynx Normal Neck: Full Range of Motion, Normal Inspection, Non Tender, Supple, Carotid Bruit Respiratory: Chest Non Tender, Lungs Clear, Normal Breath Sounds, No Accessory Muscle Use, No Respiratory Distress Cardiovascular: Regular Rate, Rhythm, No Edema, No Gallop, No JVD, No Murmur, Normal Peripheral Pulses Gastrointestinal: Normal Bowel Sounds, No Organomegaly, No Pulsatile Mass, Non Tender, Soft Back: Normal Inspection, No CVA Tenderness, No Vertebral Tenderness Extremity: Normal Capillary Refill, Normal Inspection, Normal Range of Motion, Non Tender, No Calf Tenderness, No Pedal Edema Neurologic/Psychiatric: Alert, Oriented x3, geological scout II-XII Norm as Tested, Abnormal Gait, Depressed Affect, Motor Weakness (Generalized weakness) Skin: Normal Color, Warm/Dry, Other ( left foot in dressing) Lymphatic: No Adenopathy Results/Procedures Lab Laboratory Tests 04/23/23 05:30 Patient resulted labs reviewed. FIM Transfers Therapy Code Descriptions/Definitions Functional [place] Measure: 0=Not Assessed/NA 4=Minimal Assistance 1=Total Assistance 5=Supervision or Setup 2=Maximal Assistance 6=Modified [place] 3=Moderate Assistance 7=Complete IndependenceSCALE: Activities may be completed with or without assistive devices. 5-Kqjztjznvv-muoqevr completes the activity by him/herself with no assistance from a helper. 5-Set-up or Clean-up Assistance-helper sets up or cleans up; patient completes activity. [place] assists only prior to or following the activity. 4-Supervision or Touching Assistance-helper provides verbal cues and/or touching/steadying and/or contact guard assistance as patient completes activity. Assistance may be provided throughout the activity or intermittently. 3-Partial/Moderate Assistance-helper does LESS THAN HALF the effort. [place] lifts, holds or supports trunk or limbs, but provides less than half the effort. 2-Substantial/Maximal Assistance-helper does MORE THAN HALF the effort. [place] lifts or holds trunk or limbs and provides more than half the effort. 4-Jxoqpyrny-ajpxit does ALL the effort. Patient does none of the effort to complete the activity. Or, the assistance of 2 or more helpers is required for the patient to complete the activity. If activity was not attempted, code reason: 7-Patient Refused. 9-Not Applicable-not attempted and the patient did not perform the activity before the current illness, exacerbation or injury. 10-Not Attempted due to Environmental Limitations-(lack of equipment, weather restraints, etc.). 88-Not Attempted due to Medical Conditions or Safety Concerns. Roll Left to Right (QC): 4 Sit to Lying (QC): 4 Sit to Stand (QC): 5 Chair/Xxi-ml-Zhmbi Xfer(QC): 5 Car Transfer (QC): 4 Gait Training Does the Patient Walk?: Yes Walk 10 feet (QC): 4 Walk 50 ft with 2 Turns(QC): 4 Walk 150 ft (QC): 4 Walking 10ft/uneven surface-QC: 88 Gait Assistive Device: FWW Wheelchair Training Does the Pt Use a Wheelchair?: No Wheel 50 ft with 2 turns (QC): 9 Wheel 150 ft (QC): 9 Type of Wheelchair: N/A Stair Training 1 Step (curb) (QC): 88 4 Steps (QC): 4 12 Steps (QC): 88 Balance Picking up an Object (QC): 3 ADL-Treatment Eating (QC): 6 Oral Hygiene (QC): 6 Shower/Bathe Self (QC): 4 (Sitting 100% of the time) Upper Body Dressing (QC): 5 Lower Body Dressing (QC): 3 (mod) On/Off Footwear (QC): 3 Toileting Hygiene (QC): 3 (mod) Assessment/Plan Assessment and Plan Assess & Plan/Chief Complaint Assessment: Debility following left second toe amputation with slow recovery History of left second toe osteomyelitis Hypertension Hyperlipidemia Atrial fibrillation Rheumatoid arthritis Peripheral vascular disease Obesity DM HGA1C 6.0 04/08/23 Poor motivation Constipation Right ankle pain Plan: Home meds Cardiology appreciated Fall risk Pain control 04/14/2023: DM education Sunday Aggressive bowel regimen 04/15/2023: Midline Supportive care 04/16/2023: IV abx via midline 04/17/2023: Supportive care Change out midline 04/18/2023: Monitor wound 04/19/2023: Continue antibiotics Supportive care 04/20/2023: Monitor closely 04/21/2023: Monitor closely Monitor bleeding 04/22/2023: Check labs in the morning 04/23/2023: Await SNF (1) Amputation of toe (2) Atrial fibrillation with rapid ventricular response Status: Acute IBAN LEI DO Apr 23, 2023 05:49
[2023-04-23 05:52] LABS: POTASSIUM 4.4 MMOL/L (3.6-5.0)
[2023-04-23 05:54] LABS: CALCIUM 10.2 MG/DL (8.5-10.1)
[2023-04-23 05:55] LABS: TOTAL PROTEIN 7.1 GM/DL (6.4-8.2)
[2023-04-23 05:57] LABS: BILIRUBIN,TOTAL 0.6 MG/DL (0.1-1.0)
[2023-04-23 05:58] LABS: CREATININE SERUM 0.87 MG/DL (0.60-1.30)
[2023-04-23] MEDS: inSUlin ASPART 1 UNIT/0.01 ML (PER UNIT) SC SCH ×4 (06:06→21:45)
[2023-04-23 06:51] VITALS: BP 121/60
[2023-04-23] MEDS: MELOXICAM 7.5 MG (MOBIC) TABLET PO SCH (08:00)
[2023-04-23] MEDS: DOCUSATE SODIUM 100 MG CAPSULE PO SCH ×2 (08:00→21:47)
[2023-04-23] MEDS: dilTIAZem ER 240 MG CAPSULE PO SCH (08:00)
[2023-04-23] MEDS: LOSARTAN 100 MG (COZAAR) TABLET PO SCH (08:00)
[2023-04-23] MEDS: APIXABAN 5 MG TABLET PO SCH ×2 (08:00→21:47)
[2023-04-23] MEDS: FUROSEMIDE 40 MG TABLET PO SCH (08:00)
[2023-04-23] MEDS: polyethylene glycoL POWDER 17 GM (MIRALAX) PACK PO SCH ×2 (08:01→21:45)
--- NOTE | 2023-04-23 08:03 | Progress Note - Surgery ---
BEENA MCCABE 04/23/23 0803: Subjective Date Seen by a Provider: Apr 23, 2023 Time Seen by a Provider: 07:00 Subjective/Events-last exam Patient said he was doing okay. He has flat affect but is eating breakfast. His right foot is still in pain and he rates it as 8/10. His left foot is still present and he rates it as 6/10. Pain is alleviated by pain medication which he has begun taking less often per nurse. He has had periods over night where he isnt taking his pain medication per nurse. Patient is tolerating dressing changes and noted that the bleeding has stopped. His blood sugar has been controlled at 114 last night and 96 this morning. The pt has a girlfriend to support him. He is worried he wont be able to get around well at home. Review of Systems General: No Chills, No Night Sweats; Appetite Pulmonary: Cough Genitourinary: No Dysuria Musculoskeletal: foot pain Focused Exam Skin: warm/dry (2nd Left toe amputation site was inspected. Wound is looking better. There is erythema at the margins, but no bleeding. ) Objective Exam Vital Signs Date Time Temp Pulse Resp B/P (MAP) Pulse Ox O2 Delivery O2 Flow Rate FiO2 04/23/23 06:51 36.6 73 16 121/60 (80) 93 Room Air 04/22/23 20:20 Room Air 04/22/23 19:48 36.3 76 20 120/71 (87) 94 Room Air 04/22/23 09:00 Room Air 04/22/23 08:09 36.2 77 18 138/76 (96) 95 Room Air I & O 04/23/23 07:00 Intake Total 890 ml Output Total 1750 ml Balance -860 ml Capillary Refill : General Appearance: No Apparent Distress, WD/WN, Chronically ill HEENT: PERRL/EOMI, Normal ENT Inspection, Pharynx Normal Neck: Full Range of Motion, Normal Inspection, Non Tender, Supple, Carotid Brui t Respiratory: Chest Non Tender, Lungs Clear, Normal Breath Sounds, No Accessory Muscle Use, No Respiratory Distress Cardiovascular: Regular Rate, Rhythm, No Edema, No Gallop, No JVD, No Murmur, Normal Peripheral Pulses Peripheral Pulses: 2+ Radial Pulses (R), 2+ Radial Pulses (L) Gastrointestinal: non tender, soft Extremity: Normal Capillary Refill, Normal Inspection, Normal Range of Motion, Non Tender, No Calf Tenderness, No Pedal Edema Neurologic/Psychiatric: Alert, Oriented x3, drivers license examiner II-XII Norm as Tested, Abnormal Gait, Depressed Affect, Motor Weakness (Generalized weakness) Skin: Normal Color, Warm/Dry, Other ( left foot in dressing) Lymphatic: No Adenopathy Results Lab Laboratory Tests 04/22/23 11:06: Glucometer 97 04/22/23 16:48: Glucometer 84 04/22/23 20:28: Glucometer 114H 04/23/23 05:30: White Blood Count 10.9, Red Blood Count 3.97L, Hemoglobin 11.8L, Hematocrit 36L, Mean Corpuscular Volume 90, Mean Corpuscular Hemoglobin 30, Mean Corpuscular Hemoglobin Concent 33, Red Cell Distribution Width 12.9, Platelet Count 826H, Mean Platelet Volume 8.7L, Immature Granulocyte % (Auto) 2, Neutrophils (%) (Auto) 73, Lymphocytes (%) (Auto) 11L, Monocytes (%) (Auto) 9, Eosinophils (%) (Auto) 4, Basophils (%) (Auto) 2, Neutrophils # (Auto) 8.0H, Lymphocytes # (Auto) 1.2, Monocytes # (Auto) 0.9, Eosinophils # (Auto) 0.4H, Basophils # (Auto) 0.2H, Immature Granulocyte # (Auto) 0.2H, Sodium Level 138, Potassium Level 4.4, Chloride Level 100, Carbon Dioxide Level 27, Anion Gap 11, Blood Urea Nitrogen 24H, Creatinine 0.87, Estimat Glomerular Filtration Rate 93, BUN/Creatinine Ratio 28, Glucose Level 96, Calcium Level 10.2H, Corrected Calcium 11.0H, Total Bilirubin 0.6, Aspartate Amino Transf (AST/SGOT) 39H, Alanine Aminotransferase (ALT/SGPT) 37, Alkaline Phosphatase 169H, Total Protein 7.1, Albumin 3.0L Assessment/Plan Assessment/Plan Assessment/Plan s/p left second toe amputation continue wound care continue rehab and increase ambulation if possible Begin to prepare pt for caring for himself at home OSEAS CHRISTIAN DO 04/23/23 1642: Subjective Subjective/Events-last exam Doing okay. Pain in b/l feet and making difficulty with rehab but doing it. Pain medication helps. Wound dressing going okay. Not having further bleeding episodes. Denies n/v fever sweats chills shortness of breath or chest pain. Objective Exam General Appearance: No Apparent Distress, Chronically ill HEENT: PERRL/EOMI, Normal ENT Inspection Neck: Full Range of Motion, Non Tender Respiratory: Chest Non Tender, No Accessory Muscle Use, No Respiratory Distress Cardiovascular: Regular Rate, Rhythm, No JVD Gastrointestinal: non tender, soft Extremity: Normal Capillary Refill, Other (left foot open wound from second toe ampuat) Neurologic/Psychiatric: Alert, Oriented x3, Depressed Affect, Motor Weakness (Generalized weakness) Skin: Normal Color, Warm/Dry, Other (dorsum of foot wound improving, open wound improving, plantar ulcer improving) Lymphatic: No Adenopathy Assessment/Plan Assessment/Plan Assessment/Plan s/p left second toe amputation continue wound care continue rehab and increase ambulation if possible Begin to prepare pt for caring for himself at home Will need continued wound care Supervisory-Addendum Brief Verification & Attestation Participated in pt care: history, MDM, physical Personally performed: exam, history, MDM, supervision of care Care discussed with: Medical Student Procedures: n/a Results interpretation: Verified all documentation Verification and Attestation of Medical Student E/M Service A medical student performed and documented this service in my presence. I reviewed and verified all information documented by the medical student and made modifications to such information, when appropriate. I personally performed the physical exam and medical decision making. Oseas Christian, Apr 23, 2023,16:43 BEENA MCCABE Apr 23, 2023 08:03 OSEAS CHRISTIAN DO Apr 23, 2023 16:42
[2023-04-23] MEDS: SENNOSIDES 8.6 MG (SENOKOT) TAB PO SCH ×2 (09:41→21:47)
--- NOTE | 2023-04-23 11:02 | Physical Therapy Daily Note ---
PT Daily Note-Current Subjective Pt in bed upon arrival and good for therapy. pt states his pain is really bad when he stands on the right bottom of the foot and the left ankle and both knees. pt reports current pain at a 7/10. nursing reports giving pain med 15 mins prior. nursing is working on an order for a k=pad for knees to aid with the pain as well. Dr states no more pain med to be given to pt other then prescribed originally. Pt was left in recliner at the end of therapy with pain level 8/10 after movement. pt has call light in hand and all needs met. Pain Section J - Health Conditions 1. Rarely or not at all 2. Occasionally 3. Frequently 4. Almost constantly 8. Unable to answer Pain Effect on Sleep: 4 Pain Interference with Therapy: 4 Pain Interference w/Day-to-Day: 4 Mental Status Patient Orientation: Person, Place, Time, Situation Transfers SCALE: Activities may be completed with or without assistive devices. 9-Blyrvkucfv-xxiwkvr completes the activity by him/herself with no assistance from a helper. 5-Set-up or Clean-up Assistance-helper sets up or cleans up; patient completes activity. [place] assists only prior to or following the activity. 4-Supervision or Touching Assistance-helper provides verbal cues and/or touching/steadying and/or contact guard assistance as patient completes activity. Assistance may be provided throughout the activity or intermittently. 3-Partial/Moderate Assistance-helper does LESS THAN HALF the effort. [place] lifts, holds or supports trunk or limbs, but provides less than half the effort. 2-Substantial/Maximal Assistance-helper does MORE THAN HALF the effort. [place] lifts or holds trunk or limbs and provides more than half the effort. 6-Llxkvblzv-dguwxq does ALL the effort. Patient does none of the effort to complete the activity. Or, the assistance of 2 or more helpers is required for the patient to complete the activity. If activity was not attempted, code reason: 7-Patient Refused. 9-Not Applicable-not attempted and the patient did not perform the activity before the current illness, exacerbation or injury. 10-Not Attempted due to Environmental Limitations-(lack of equipment, weather restraints, etc.). 88-Not Attempted due to Medical Conditions or Safety Concerns. Roll Left & Right (QC): 6 Sit to Lying (QC): 6 Lying to Sitting/Side of Bed(Q: 6 Sit to Stand (QC): 4 Chair/Ndx-bm-Tfhdm Xfer(QC): 4 Toilet Transfer (QC): 4 Car Transfer (QC): 88 Weight Bearing Right Lower Extremity: Right Full Weight Bearing Left Lower Extremity: Left Partial Weight Bearing Patient was instructed in L heel only weight bearing due to wound Gait Training Walk 10 feet (QC): 88 Walk 50 ft with 2 Turns(QC): 88 Walk 150 ft (QC): 88 Walking 10ft/uneven surface-QC: 88 Wheelchair Training Wheel 50 ft with 2 turns (QC): 9 Wheel 150 ft (QC): 9 Stair Training 1 Step (curb) (QC): 88 4 Steps (QC): 88 12 Steps (QC): 88 Exercises Seated Therapy Exercises: Long arc quads, Hip flexion, Hamstring Curls, Hip abd/add, Glut set Seated Reps: 12 Treatments Pt preformed bed mobility with independence with increased time. Pt preformed sit to stand with CGA for balance and safety as pt states it feels like his knees and ankles are going to buckle. Pt preformed stand pivot transfers with 3- 4 steps when pivoting with CGA and VC for safety with increased time secondary to pain. Pt preformed sitting there ex in all planes of motion available with BLE with increased time secondary to pain and after resting pt is able to continue movement. Assessment Current Status: Fair Progress PT Penitentiary Goals Penitentiary Goals PT Penitentiary Goals Time Frame: Apr 25, 2023 Roll Left & Right (QC): 6 (Pt will be Mod I with bed mobility ) Sit to Lying (QC): 6 (Pt will be Mod I with bed mobility ) Lying-Sitting on Side/Bed(QC): 6 (Pt will be Mod I with bed mobility ) Sit to Stand (QC): 4 (Pt will be SBA for functional transfers ) Chair/Rfy-nb-Qslem Xfer(QC): 4 (Pt will be SBA for functional transfers ) Toilet Transfer (QC): 4 (Pt will be SBA for functional transfers ) Car Transfer (QC): 4 (Pt will be SBA for functional transfers ) Does the Patient Walk: Yes Walk 10 feet (QC): 4 (Pt will be SBA for walking with the FWW ) Walk 50ft with 2 Turns (QC): 4 (Pt will be SBA for walking with the FWW ) Walk 150 ft (QC): 4 (Pt will be SBA for walking with the FWW ) Walking 10ft on Uneven Surface: 4 (Pt will be SBA for walking with the FWW ) 1 Step (curb) (QC): 4 (SBA for steps ) 4 Steps (QC): 4 (SBA for steps ) 12 Steps (QC): 9 Picking up an Object (QC): 6 (with roll tender ) Does the Pt use WC or Scooter?: No Wheel 50 feet with 2 turns (QC: 9 Type: N/A Wheel 150 feet: 9 Type: N/A PT Plan Treatment/Plan Treatment Plan: Continue Plan of Care Treatment Plan: Bed Mobility, Concurrent Therapy, Education, Functional Activity [place], Functional Strength, Group Therapy, Gait, Safety, Therapeutic Exercise, Transfers Treatment Duration: Apr 25, 2023 Frequency: At least 5 of 7 days/Wk (IRF) Estimated Hrs Per Day: 1.5 hours per day Patient and/or Family Agrees t: Yes Time Time In: 0800 Time Out: 0930 DATE: Apr 23, 2023 Total Billed Treatment Time: 90 Total Billed Treatment 1 EX x 4 FA x 2 Sarika Garcia [employer] DEVELOPER Apr 23, 2023 11:02
[2023-04-23] MEDS: DICLOFENAC 1% GEL 100 GM TUBE TOP SCH ×4 (11:42→21:49)
[2023-04-23] MEDS: HYPOCHLOROUS ACID/NaCl (VASHE) 250 ML IR SCH (11:42)
--- NOTE | 2023-04-23 11:59 | Occupational Ther Daily Note ---
OT Current Status-Daily Note Subjective Pt agrees to therapy. Pain rated at 6/10. Mental Status/Objective Patient Orientation: Person, Place, Time, Situation Attachments: IV ADL-Treatment Pt agrees to shower. Pt SPT from recliner to w/c mod A due to increase pain with R foot and for safety. Pt completed shower using BSC, grabbars, hand held shower and LH sponge sitting 100% of the time, set up for covering IV and foot dressing. Pt doffs R sock by self, dons after set up. Using last ironer, pt able to thread clothing over feet then mod A for sit to stand, CGA while pt hikes pants over hips. Set up for UBD. Independent for oral care/grooming sitting at sink. Independent with eating. CGA for toileting. Mod A for toilet transfer. Pt unable to ambulate to complete tasks at this time due to increase pain with feet, rating 6/10. Pt is demonstrating independence with w/c mobility while completing tasks at w/c level. Pt is now requiring increased assistance with SPT and ambulation due to pain. Pt states that home environment is not conducive to w/c and is not able to use FWW for distances at this time due to pain. After session, pt sitting in recliner with call light/phone in reach. All needs met in room. Therapy Code Descriptions/Definitions Functional Emanuel Measure: 0=Not Assessed/NA 4=Minimal Assistance 1=Total Assistance 5=Supervision or Setup 2=Maximal Assistance 6=Modified Emanuel 3=Moderate Assistance 7=Complete IndependenceSCALE: Activities may be completed with or without assistive devices. 5-Bupytdtnkh-hyzebjy completes the activity by him/herself with no assistance from a helper. 5-Set-up or Clean-up Assistance-helper sets up or cleans up; patient completes activity. [place] assists only prior to or following the activity. 4-Supervision or Touching Assistance-helper provides verbal cues and/or touching/steadying and/or contact guard assistance as patient completes activity. Assistance may be provided throughout the activity or intermittently. 3-Partial/Moderate Assistance-helper does LESS THAN HALF the effort. [place] li fts, holds or supports trunk or limbs, but provides less than half the effort. 2-Substantial/Maximal Assistance-helper does MORE THAN HALF the effort. [place] lifts or holds trunk or limbs and provides more than half the effort. 1-Gdmqvramx-gqcnpe does ALL the effort. Patient does none of the effort to complete the activity. Or, the assistance of 2 or more helpers is required for the patient to complete the activity. If activity was not attempted, code reason: 7-Patient Refused. 9-Not Applicable-not attempted and the patient did not perform the activity before the current illness, exacerbation or injury. 10-Not Attempted due to Environmental Limitations-(lack of equipment, weather restraints, etc.). 88-Not Attempted due to Medical Conditions or Safety Concerns. Eating (QC): 6 Oral Hygiene (QC): 6 Shower/Bathe Self (QC): 5 Upper Body Dressing (QC): 5 Lower Body Dressing (QC): 3 On/Off Footwear: 5 Toileting Hygiene (QC): 4 Toilet Transfer (QC): 3 BIMS CAM BIMS Expression of Ideas and Wants: Without Difficulty Understanding Verbal Content: Understands Brief Interview/Mental Status: Yes IRF LAMIN BIMS: IRF LAMIN BIMS Response (Comments) Value Repitition of Three Words Three 3 Recalls Socks Yes, No Cue Required 2 Recalls Blue Yes, No Cue Required 2 Recalls Bed Yes, No Cue Required 2 Year Correct 3 Month Accurate Within 5 Days 2 Day Correct 1 Total 15 Patient Normally Able to Recal: Current Session, Location of own room, Staff Names and faces, That he/she in a [facility] Should Staff Asses. Mental St.: No CAM Mental Status Change/Baseline: 0 Inattention: 0 Disorganized thinkin Altered level of consciousness: 0 OT Short Term Goals Short Term Goals Time Frame: Apr 18, 2023 Eatin Oral hygiene: 6 OT Long-Term Goals Livestock Trader Goals Acute change in mental status: 0 Inattention: 0 Disorganized thinkin Altered level of consciousness: 0 Eating (QC): 6 (met) Oral Hygiene (QC): 6 (met) Toileting Hygiene (QC): 6 (not met) Shower/Bathe Self (QC): 6 (not met) Upper Body Dressing (QC): 6 (not met) Lower Body Dressing (QC): 6 (not met) On/Off Footwear (QC): 6 (not met) 1=Demonstrate adherence to instructed precautions during ADL tasks. 2=Patient will verbalize/demonstrate understanding of assistive devices/modifications for ADL. 3=Patient will improve strength/tolerance for activity to enable patient to perform ADL's. OT Education/Plan Problem List/Assessment Assessment: Decreased Activ Tolerance, Impaired Funct Balance, Impaired Self- Care Skills Discharge Recommendations Plan/Recommendations: Continue POC Treatment Plan/Plan of Care Patient would benefit from OT for education, treatment and training to promote independence in ADL's, mobility, safety and/or upper extremity function for ADL's. Plan of Care: ADL Retraining, Caregiver Training, Concurrent Therapy, Functional Mobility, Group Exercise/Act as Ind, Orthotic Fitting/Training, UE Funct Exercise/Act Treatment Duration: Apr 27, 2023 Frequency: At least 5 of 7 days/Wk (IRF) Estimated Hrs Per Day: 1.5 hours per day Agreement: Yes Rehab Potential: Good Time Start Time: 10:00 Stop Time: 11:30 DATE: Apr 23, 2023 Total Time Billed (hr/min): 90 Billed Treatment Time 1 visit-ADL 6 (90 min) EUFEMIA BOWEN Apr 23, 2023 11:59
[2023-04-23] MEDS: ACETAMINOPHEN 325 MG TABLET PO PRN (16:20)
[2023-04-23 20:00] VITALS: BP 100/67
[2023-04-24] MEDS: inSUlin ASPART 1 UNIT/0.01 ML (PER UNIT) SC SCH ×4 (05:51→21:21)
[2023-04-24] MEDS: POTASSIUM CHLORIDE 20 MEQ TABLET PO SCH (06:15)
[2023-04-24] MEDS: CATHETER FLUSH 10 ML SYR IVP SCH ×3 (06:16→21:44)
[2023-04-24] MEDS: oxyCODONE IMMEDIATE RELEASE 5 MG TABLET PO PRN ×4 (06:16→21:23)
--- NOTE | 2023-04-24 06:25 | PM&R Progress Note ---
Subjective HPI/CC On Admission Date Seen by Provider: Apr 24, 2023 Time Seen by Provider: 09:00 Subjective/Events-last exam 04/24/2023: Patient doing about the same Awaiting aggressive transfer education in order to return home with family Pain is about the same 04/23/2023: Doing well No pain reported except foot No bleeding Needs SNF 04/22/2023: Patient doing pretty well Supportive care continues Very difficult to move around Bleeding has stopped 04/21/2023: Doing well Flat affect continues which complicates medical recovery Bleeding from wound No falls Pain controlled Appreciate Dr Daugherty assessment of xray WBAT rec 04/20/2023: Having right ankle pain xray obtained appeared to be abnormal so consulted Dr Daugherty No major issues otherwise Slow recovery 04/19/2023: Patient doing really well Much improved status Flat affect continues but that is baseline Pain is improved 04/18/2023: Slow recovery Self pay status is a challenge for services Midline changed to left arm 04/17/2023: Patient doing much better Ambulating around better Pain is still an issue Bowel regimen maintained Changing out midline due to irritated site on right arm 04/16/2023: Improved overall No pain reported IV abx maintained Midline maintained Labs reviewed 04/15/2023: Patient doing about the same Poor motivation Flat affect Midline will be attempted because Dr. Christian wants IV antibiotics to continue 04/14/2023: Very slow recovery Patient seems to lack the motivation overall on an on-going basis Updated patient on his borderline DM with hga1c 6.0 so offered DM education Sunday Wound needs aggressive care IV abx maintained Review of Systems General: Fatigue, Malaise Neurological: Weakness Objective Exam Vital Signs Vital Signs Date Time Temp Pulse Resp B/P (MAP) Pulse Ox O2 Delivery O2 Flow Rate FiO2 04/24/23 21:20 97 Room Air 04/24/23 20:10 37.0 77 20 123/64 (83) Capillary Refill : General Appearance: No Apparent Distress, WD/WN, Chronically ill HEENT: PERRL/EOMI, Normal ENT Inspection, Pharynx Normal Neck: Full Range of Motion, Normal Inspection, Non Tender, Supple, Carotid Bruit Respiratory: Chest Non Tender, Lungs Clear, Normal Breath Sounds, No Accessory Muscle Use, No Respiratory Distress Cardiovascular: Regular Rate, Rhythm, No Edema, No Gallop, No JVD, No Murmur, Normal Peripheral Pulses Gastrointestinal: Normal Bowel Sounds, No Organomegaly, No Pulsatile Mass, Non Tender, Soft Back: Normal Inspection, No CVA Tenderness, No Vertebral Tenderness Extremity: Normal Capillary Refill, Normal Inspection, Normal Range of Motion, Non Tender, No Calf Tenderness, No Pedal Edema Neurologic/Psychiatric: Alert, Oriented x3, litigation associate II-XII Norm as Tested, Abnormal Gait, Depressed Affect, Motor Weakness (Generalized weakness) Skin: Normal Color, Warm/Dry, Other ( left foot in dressing) Lymphatic: No Adenopathy Results/Procedures Lab Patient resulted labs reviewed. FIM Transfers Therapy Code Descriptions/Definitions Functional [place] Measure: 0=Not Assessed/NA 4=Minimal Assistance 1=Total Assistance 5=Supervision or Setup 2=Maximal Assistance 6=Modified [place] 3=Moderate Assistance 7=Complete IndependenceSCALE: Activities may be completed with or without assistive devices. 5-Kowrzwbxef-ctwczgu completes the activity by him/herself with no assistance from a helper. 5-Set-up or Clean-up Assistance-helper sets up or cleans up; patient completes activity. [place] assists only prior to or following the activity. 4-Supervision or Touching Assistance-helper provides verbal cues and/or touching/steadying and/or contact guard assistance as patient completes activity. Assistance may be provided throughout the activity or intermittently. 3-Partial/Moderate Assistance-helper does LESS THAN HALF the effort. [place] lifts, holds or supports trunk or limbs, but provides less than half the effort. 2-Substantial/Maximal Assistance-helper does MORE THAN HALF the effort. [place] lifts or holds trunk or limbs and provides more than half the effort. 6-Hfqyzkjqf-ckxnwc does ALL the effort. Patient does none of the effort to complete the activity. Or, the assistance of 2 or more helpers is required for the patient to complete the activity. If activity was not attempted, code reason: 7-Patient Refused. 9-Not Applicable-not attempted and the patient did not perform the activity before the current illness, exacerbation or injury. 10-Not Attempted due to Environmental Limitations-(lack of equipment, weather restraints, etc.). 88-Not Attempted due to Medical Conditions or Safety Concerns. Roll Left to Right (QC): 6 Sit to Lying (QC): 6 Sit to Stand (QC): 4 Chair/Mko-bp-Gqytq Xfer(QC): 4 Car Transfer (QC): 88 Gait Training Does the Patient Walk?: Yes Walk 10 feet (QC): 88 Walk 50 ft with 2 Turns(QC): 88 Walk 150 ft (QC): 88 Walking 10ft/uneven surface-QC: 88 Gait Assistive Device: FWW Wheelchair Training Does the Pt Use a Wheelchair?: No Wheel 50 ft with 2 turns (QC): 9 Wheel 150 ft (QC): 9 Type of Wheelchair: N/A Stair Training 1 Step (curb) (QC): 88 4 Steps (QC): 88 12 Steps (QC): 88 Balance Picking up an Object (QC): 3 ADL-Treatment Eating (QC): 6 Oral Hygiene (QC): 6 Shower/Bathe Self (QC): 5 Upper Body Dressing (QC): 5 Lower Body Dressing (QC): 3 On/Off Footwear (QC): 5 Toileting Hygiene (QC): 4 Toilet Transfer (QC): 3 Assessment/Plan Assessment and Plan Assess & Plan/Chief Complaint Assessment: Debility following left second toe amputation with slow recovery History of left second toe osteomyelitis Hypertension Hyperlipidemia Atrial fibrillation Rheumatoid arthritis Peripheral vascular disease Obesity DM HGA1C 6.0 04/08/23 Poor motivation Constipation Right ankle pain Plan: Home meds Cardiology appreciated Fall risk Pain control 04/14/2023: DM education Sunday Aggressive bowel regimen 04/15/2023: Midline Supportive care 04/16/2023: IV abx via midline 04/17/2023: Supportive care Change out midline 04/18/2023: Monitor wound 04/19/2023: Continue antibiotics Supportive care 04/20/2023: Monitor closely 04/21/2023: Monitor closely Monitor bleeding 04/22/2023: Check labs in the morning 04/23/2023: Await SNF 04/24/2023: Supportive care (1) Amputation of toe (2) Atrial fibrillation with rapid ventricular response Status: Acute IBAN LEI DO Apr 24, 2023 06:25
[2023-04-24 07:05] VITALS: BP 124/71
[2023-04-24] MEDS: SENNOSIDES 8.6 MG (SENOKOT) TAB PO SCH ×2 (07:30→21:22)
[2023-04-24] MEDS: dilTIAZem ER 240 MG CAPSULE PO SCH (07:30)
[2023-04-24] MEDS: DOCUSATE SODIUM 100 MG CAPSULE PO SCH ×2 (07:30→21:22)
[2023-04-24] MEDS: MELOXICAM 7.5 MG (MOBIC) TABLET PO SCH (07:30)
[2023-04-24] MEDS: LOSARTAN 100 MG (COZAAR) TABLET PO SCH (07:31)
[2023-04-24] MEDS: FUROSEMIDE 40 MG TABLET PO SCH (07:31)
[2023-04-24] MEDS: APIXABAN 5 MG TABLET PO SCH ×2 (07:33→21:22)
[2023-04-24] MEDS: DICLOFENAC 1% GEL 100 GM TUBE TOP SCH ×4 (07:34→21:43)
[2023-04-24] MEDS: polyethylene glycoL POWDER 17 GM (MIRALAX) PACK PO SCH ×2 (08:18→21:20)
--- NOTE | 2023-04-24 11:51 | Physical Therapy Daily Note ---
PT Daily Note-Current Subjective Pt in rehab gym with VILCHIS upon arrival. Pt is agreeable to PT. Pt reported B feet/ankle pain at 8/10. Co-tx with OT ([id number]), skills of 2 clinicians required to decrease fall risk, increase overall strength, decrease knee/foot pain and increase activity tolerance. PT focusing on sit to stands, ambulation, and transfers, while OT focusing on B UE placement during mobility, functional mobility and ADLs. Pain Numeric Pain Scale: 8 Location Body Site: Ankle (B) Section J - Health Conditions 1. Rarely or not at all 2. Occasionally 3. Frequently 4. Almost constantly 8. Unable to answer Pain Effect on Sleep: 3 Pain Interference with Therapy: 4 Pain Interference w/Day-to-Day: 3 Mental Status Attachments: IV Transfers SCALE: Activities may be completed with or without assistive devices. 3-Uxfbbwfsmr-nmcnngb completes the activity by him/herself with no assistance from a helper. 5-Set-up or Clean-up Assistance-helper sets up or cleans up; patient completes activity. [place] assists only prior to or following the activity. 4-Supervision or Touching Assistance-helper provides verbal cues and/or touching/steadying and/or contact guard assistance as patient completes activity. Assistance may be provided throughout the activity or intermittently. 3-Partial/Moderate Assistance-helper does LESS THAN HALF the effort. Warren lifts, holds or supports trunk or limbs, but provides less than half the effort. 2-Substantial/Maximal Assistance-helper does MORE THAN HALF the effort. [place] lifts or holds trunk or limbs and provides more than half the effort. 5-Aucjsgrsv-zxwutg does ALL the effort. Patient does none of the effort to complete the activity. Or, the assistance of 2 or more helpers is required for the patient to complete the activity. If activity was not attempted, code reason: 7-Patient Refused. 9-Not Applicable-not attempted and the patient did not perform the activity before the current illness, exacerbation or injury. 10-Not Attempted due to Environmental Limitations-(lack of equipment, weather restraints, etc.). 88-Not Attempted due to Medical Conditions or Safety Concerns. Sit to Stand (QC): 4 Chair/Pwp-zt-Tkksj Xfer(QC): 4 Weight Bearing Right Lower Extremity: Right Full Weight Bearing Left Lower Extremity: Left Partial Weight Bearing Patient was instructed in L heel only weight bearing due to wound Gait Training Does the Patient Walk?: No and Walking Goal IS indicated Distance: 20ft Walk 10 feet (QC): 4 Walk 50 ft with 2 Turns(QC): 88 Walk 150 ft (QC): 88 Walking 10ft/uneven surface-QC: 88 Gait Persons Needed: 2 Gait Assistive Device: FWW Wheelchair Training Does the Pt Use a Wheelchair?: Yes Wheel 50 ft with 2 turns (QC): 6 Wheel 150 ft (QC): 6 Type of Wheelchair: Manual Treatments Co-tx with OT ([id number]), skills of 2 clinicians required to decrease fall risk, increase overall strength, decrease knee/foot pain and increase activity tolerance. PT focusing on sit to stands, ambulation, and transfers, while OT focusing on B UE placement during mobility, functional mobility and ADLs. Pt completed 2 pull to stand transfers at the // bars with CGA/Min A. Pt stood for 2 bouts of 3 min with SBA/CGA, while working on a puzzle. Pt completed sit to stand transfer from the w/c with SBA. Pt ambulated 20ft with the FWW and CGA (w/c follow for improved safety). Pt completed 15 min on the nu-step on level 3. Pt completed seated B LE Ther Ex x 15 reps each with the red Tband. Pt completed w/c mobility x 200ft with Mod I. Pt completed sit to stand transfer from the w/c with CGA/Min A. Pt transferred to the recliner. Pt sitting in the recliner at the end of PT with call light in reach and all needs met. Assessment Current Status: Good Progress Pt tolerated PT well with good effort PT Pediatric Ophthalmologist Goals Pediatric Ophthalmologist Goals PT Pediatric Ophthalmologist Goals Time Frame: Apr 25, 2023 Roll Left & Right (QC): 6 (Pt will be Mod I with bed mobility ) Sit to Lying (QC): 6 (Pt will be Mod I with bed mobility ) Lying-Sitting on Side/Bed(QC): 6 (Pt will be Mod I with bed mobility ) Sit to Stand (QC): 4 (Pt will be SBA for functional transfers ) Chair/Aij-hn-Xknwj Xfer(QC): 4 (Pt will be SBA for functional transfers ) Toilet Transfer (QC): 4 (Pt will be SBA for functional transfers ) Car Transfer (QC): 4 (Pt will be SBA for functional transfers ) Does the Patient Walk: Yes Walk 10 feet (QC): 4 (Pt will be SBA for walking with the FWW ) Walk 50ft with 2 Turns (QC): 4 (Pt will be SBA for walking with the FWW ) Walk 150 ft (QC): 4 (Pt will be SBA for walking with the FWW ) Walking 10ft on Uneven Surface: 4 (Pt will be SBA for walking with the FWW ) 1 Step (curb) (QC): 4 (SBA for steps ) 4 Steps (QC): 4 (SBA for steps ) 12 Steps (QC): 9 Picking up an Object (QC): 6 (with paint spray tender ) Does the Pt use WC or Scooter?: No Wheel 50 feet with 2 turns (QC: 9 Type: N/A Wheel 150 feet: 9 Type: N/A PT Plan Problem List Problem List: Activity Tolerance, Functional Strength, Safety, Balance, Gait, Transfer, Bed Mobility, ROM Treatment/Plan Treatment Plan: Continue Plan of Care Treatment Plan: Bed Mobility, Concurrent Therapy, Education, Functional Activity [place], Functional Strength, Group Therapy, Gait, Safety, Therapeutic Exercise, Transfers Treatment Duration: Apr 25, 2023 Frequency: At least 5 of 7 days/Wk (IRF) Estimated Hrs Per Day: 1.5 hours per day Patient and/or Family Agrees t: Yes Safety Risks/Education Patient Education: Gait Training, Transfer Techniques, Reviewed Precautions, W/C Management, Safety Issues Teaching Recipient: Patient Teaching Methods: Demonstration, Discussion Response to Teaching: Verbalize Understanding, Return Demonstration, Reinforcement Needed Discharge Recommendations Therapy Discharge Recommendati: Home & Family Equpiment Recommendations-D/C: 3 in 1 Commode, Wheelchair Cushion, Front Wheeled Walker, Wheelchair Ramp, Railings, Shower Chair, Manual Wheelchair Discharge Status/Home Program Cont per POC Barriers to Progress B LE pain, weakness Target Placement Home Time Time In: 1000 Time Out: 1130 DATE: Apr 24, 2023 Total Billed Treatment Time: 90 Total Billed Treatment 90 min total from [id number]; Co-tx for 30 min from [id number] 1 visit FA x 4 GT x 1 EX X 1 ANTONIO REICH PT Apr 24, 2023 11:51
--- NOTE | 2023-04-24 13:20 | Occupational Ther Daily Note ---
OT Current Status-Daily Note Subjective Pt alert, lying in bed. Pt agrees to therapy. C/o pain in supine 12/25, in standing 03/26. Co-treat with PT ([id number]), skills of 2 clinicians required to decrease fall risk while completing dynamic standing tasks to work on functional mobility during daily living tasks. PT focusing on sit to stands, balance and transfers while OT focusing on B UE placement during functional mobility, dynamic standing balance and B UE strengthening. Mental Status/Objective Patient Orientation: Person, Place, Time, Situation ADL-Treatment Pt declines shower. CGA for sit to stand from high surface then CGA for safety for SPT using FWW. Sitting at sink, pt completes oral care and sponge bath independently. Using audiology director, pt donned/doffed briefs with CGA. Therapy Code Descriptions/Definitions Functional [place] Measure: 0=Not Assessed/NA 4=Minimal Assistance 1=Total Assistance 5=Supervision or Setup 2=Maximal Assistance 6=Modified [place] 3=Moderate Assistance 7=Complete IndependenceSCALE: Activities may be completed with or without assistive devices. 4-Uoukcbqxcm-ytmtgao completes the activity by him/herself with no assistance from a helper. 5-Set-up or Clean-up Assistance-helper sets up or cleans up; patient completes activity. [place] assists only prior to or following the activity. 4-Supervision or Touching Assistance-helper provides verbal cues and/or touching/steadying and/or contact guard assistance as patient completes activity. Assistance may be provided throughout the activity or intermittently. 3-Partial/Moderate Assistance-helper does LESS THAN HALF the effort. [place] lifts, holds or supports trunk or limbs, but provides less than half the effort. 2-Substantial/Maximal Assistance-helper does MORE THAN HALF the effort. [place] lifts or holds trunk or limbs and provides more than half the effort. 2-Drtxfcxbn-eghgac does ALL the effort. Patient does none of the effort to complete the activity. Or, the assistance of 2 or more helpers is required for the patient to complete the activity. If activity was not attempted, code reason: 7-Patient Refused. 9-Not Applicable-not attempted and the patient did not perform the activity before the current illness, exacerbation or injury. 10-Not Attempted due to Environmental Limitations-(lack of equipment, weather restraints, etc.). 88-Not Attempted due to Medical Conditions or Safety Concerns. Oral Hygiene (QC): 6 Upper Body Dressing (QC): 5 Lower Body Dressing (QC): 4 Other Treatment Pt completed B UE exercises to increase strength and activity tolerance for daily functional tasks. Skilled instruction for correct technique and modifications during exercises. Arm bike completed 8 min at 25 friedman resistance. Working on dynamic standing balance at //bars, pt able to offload B UE's to complete gross/fine motor task without LOB with SBA/CGA. Pt then left in care of PT. All needs met. OT Short Term Goals Short Term Goals Time Frame: Apr 18, 2023 Eatin Oral hygiene: 6 OT Manager [employer] Director Goals Jail Goals Acute change in mental status: 0 Inattention: 0 Disorganized thinkin Altered level of consciousness: 0 Eating (QC): 6 (met) Oral Hygiene (QC): 6 (met) Toileting Hygiene (QC): 6 (not met) Shower/Bathe Self (QC): 6 (not met) Upper Body Dressing (QC): 6 (not met) Lower Body Dressing (QC): 6 (not met) On/Off Footwear (QC): 6 (not met) 1=Demonstrate adherence to instructed precautions during ADL tasks. 2=Patient will verbalize/demonstrate understanding of assistive devices/modifications for ADL. 3=Patient will improve strength/tolerance for activity to enable patient to perform ADL's. OT Education/Plan Problem List/Assessment Assessment: Decreased Activ Tolerance, Decreased UE Strength, Impaired Funct Balance, Impaired Self-Care Skills Discharge Recommendations Plan/Recommendations: Continue POC Treatment Plan/Plan of Care Patient would benefit from OT for education, treatment and training to promote independence in ADL's, mobility, safety and/or upper extremity function for ADL's. Plan of Care: ADL Retraining, Caregiver Training, Concurrent Therapy, Functional Mobility, Group Exercise/Act as Ind, Orthotic Fitting/Training, UE Funct Exercise/Act Treatment Duration: Apr 27, 2023 Frequency: At least 5 of 7 days/Wk (IRF) Estimated Hrs Per Day: 1.5 hours per day Agreement: Yes Rehab Potential: Good Time Start Time: 09:00 Stop Time: 10:30 DATE: Apr 24, 2023 Total Time Billed (hr/min): 90 Billed Treatment Time 1 visit-ADL 3 (45 min) EX 3 (45 min) co-treat with PT [id number], individual [id number] EUFEMIA BOWEN Apr 24, 2023 13:20
[2023-04-24] MEDS: HYPOCHLOROUS ACID/NaCl (VASHE) 250 ML IR SCH (13:55)
[2023-04-24 20:10] VITALS: BP 123/64
--- NOTE | 2023-04-25 05:35 | PM&R Progress Note ---
Subjective HPI/CC On Admission Date Seen by Provider: Apr 25, 2023 Time Seen by Provider: 13:00 Subjective/Events-last exam 04/25/2023: Set for discharge tomorrow Doing pretty well with transfers No major concerns 04/24/2023: Patient doing about the same Awaiting aggressive transfer education in order to return home with family Pain is about the same 04/23/2023: Doing well No pain reported except foot No bleeding Needs SNF 04/22/2023: Patient doing pretty well Supportive care continues Very difficult to move around Bleeding has stopped 04/21/2023: Doing well Flat affect continues which complicates medical recovery Bleeding from wound No falls Pain controlled Appreciate Dr Daugherty assessment of xray WBAT rec 04/20/2023: Having right ankle pain xray obtained appeared to be abnormal so consulted Dr Daugherty No major issues otherwise Slow recovery 04/19/2023: Patient doing really well Much improved status Flat affect continues but that is baseline Pain is improved 04/18/2023: Slow recovery Self pay status is a challenge for services Midline changed to left arm 04/17/2023: Patient doing much better Ambulating around better Pain is still an issue Bowel regimen maintained Changing out midline due to irritated site on right arm 04/16/2023: Improved overall No pain reported IV abx maintained Midline maintained Labs reviewed 04/15/2023: Patient doing about the same Poor motivation Flat affect Midline will be attempted because Dr. Christian wants IV antibiotics to continue 04/14/2023: Very slow recovery Patient seems to lack the motivation overall on an on-going basis Updated patient on his borderline DM with hga1c 6.0 so offered DM education Sunday Wound needs aggressive care IV abx maintained Review of Systems General: Fatigue, Malaise Objective Exam Vital Signs Vital Signs Date Time Temp Pulse Resp B/P (MAP) Pulse Ox O2 Delivery O2 Flow Rate FiO2 04/25/23 09:00 93 Room Air 04/25/23 08:51 36.8 86 16 98/56 (70) Capillary Refill : General Appearance: No Apparent Distress, WD/WN, Chronically ill HEENT: PERRL/EOMI, Normal ENT Inspection, Pharynx Normal Neck: Full Range of Motion, Normal Inspection, Non Tender, Supple, Carotid Bruit Respiratory: Chest Non Tender, Lungs Clear, Normal Breath Sounds, No Accessory Muscle Use, No Respiratory Distress Cardiovascular: Regular Rate, Rhythm, No Edema, No Gallop, No JVD, No Murmur, Normal Peripheral Pulses Gastrointestinal: Normal Bowel Sounds, No Organomegaly, No Pulsatile Mass, Non Tender, Soft Back: Normal Inspection, No CVA Tenderness, No Vertebral Tenderness Extremity: Normal Capillary Refill, Normal Inspection, Normal Range of Motion, Non Tender, No Calf Tenderness, No Pedal Edema Neurologic/Psychiatric: Alert, Oriented x3, system manager II-XII Norm as Tested, Abnormal Gait, Depressed Affect, Motor Weakness (Generalized weakness) Skin: Normal Color, Warm/Dry, Other ( left foot in dressing) Lymphatic: No Adenopathy Results/Procedures Lab Patient resulted labs reviewed. FIM Transfers Therapy Code Descriptions/Definitions Functional [place] Measure: 0=Not Assessed/NA 4=Minimal Assistance 1=Total Assistance 5=Supervision or Setup 2=Maximal Assistance 6=Modified [place] 3=Moderate Assistance 7=Complete IndependenceSCALE: Activities may be completed with or without assistive devices. 7-Riggrnqzdv-ysooxcd completes the activity by him/herself with no assistance from a helper. 5-Set-up or Clean-up Assistance-helper sets up or cleans up; patient completes activity. [place] assists only prior to or following the activity. 4-Supervision or Touching Assistance-helper provides verbal cues and/or touching/steadying and/or contact guard assistance as patient completes activity. Assistance may be provided throughout the activity or intermittently. 3-Partial/Moderate Assistance-helper does LESS THAN HALF the effort. [place] lifts, holds or supports trunk or limbs, but provides less than half the effort. 2-Substantial/Maximal Assistance-helper does MORE THAN HALF the effort. [place] lifts or holds trunk or limbs and provides more than half the effort. 4-Lcnbyoktt-ktxufy does ALL the effort. Patient does none of the effort to complete the activity. Or, the assistance of 2 or more helpers is required for the patient to complete the activity. If activity was not attempted, code reason: 7-Patient Refused. 9-Not Applicable-not attempted and the patient did not perform the activity before the current illness, exacerbation or injury. 10-Not Attempted due to Environmental Limitations-(lack of equipment, weather restraints, etc.). 88-Not Attempted due to Medical Conditions or Safety Concerns. Roll Left to Right (QC): 6 Sit to Lying (QC): 6 Sit to Stand (QC): 4 Chair/Avz-np-Uhcxw Xfer(QC): 4 Car Transfer (QC): 88 Gait Training Does the Patient Walk?: No and Walking Goal IS indicated Distance: 20ft Walk 10 feet (QC): 4 Walk 50 ft with 2 Turns(QC): 88 Walk 150 ft (QC): 88 Walking 10ft/uneven surface-QC: 88 Gait Persons Needed: 2 Gait Assistive Device: FWW Wheelchair Training Does the Pt Use a Wheelchair?: Yes Wheel 50 ft with 2 turns (QC): 6 Wheel 150 ft (QC): 6 Type of Wheelchair: Manual Stair Training 1 Step (curb) (QC): 88 4 Steps (QC): 88 12 Steps (QC): 88 Balance Picking up an Object (QC): 3 ADL-Treatment Eating (QC): 6 Oral Hygiene (QC): 6 Shower/Bathe Self (QC): 5 Upper Body Dressing (QC): 5 Lower Body Dressing (QC): 4 On/Off Footwear (QC): 5 Toileting Hygiene (QC): 4 Toilet Transfer (QC): 3 Assessment/Plan Assessment and Plan Assess & Plan/Chief Complaint Assessment: Debility following left second toe amputation with slow recovery History of left second toe osteomyelitis Hypertension Hyperlipidemia Atrial fibrillation Rheumatoid arthritis Peripheral vascular disease Obesity DM HGA1C 6.0 04/08/23 Poor motivation Constipation Right ankle pain Plan: Home meds Cardiology appreciated Fall risk Pain control 04/14/2023: DM education Sunday Aggressive bowel regimen 04/15/2023: Midline Supportive care 04/16/2023: IV abx via midline 04/17/2023: Supportive care Change out midline 04/18/2023: Monitor wound 04/19/2023: Continue antibiotics Supportive care 04/20/2023: Monitor closely 04/21/2023: Monitor closely Monitor bleeding 04/22/2023: Check labs in the morning 04/23/2023: Await SNF 04/24/2023: Supportive care 04/25/2023: Supportive care Discharge home tomorrow (1) Amputation of toe (2) Atrial fibrillation with rapid ventricular response Status: Acute IBAN LEI DO Apr 25, 2023 05:35
[2023-04-25] MEDS: POTASSIUM CHLORIDE 20 MEQ TABLET PO SCH (06:17)
[2023-04-25] MEDS: oxyCODONE IMMEDIATE RELEASE 5 MG TABLET PO PRN ×3 (06:19→17:49)
[2023-04-25] MEDS: CATHETER FLUSH 10 ML SYR IVP SCH ×3 (06:23→21:07)
[2023-04-25] MEDS: inSUlin ASPART 1 UNIT/0.01 ML (PER UNIT) SC SCH ×4 (06:30→21:15)
--- NOTE | 2023-04-25 07:44 | Progress Note - Surgery ---
JOEY OWENS 04/25/23 0744: Subjective Date Seen by a Provider: Apr 25, 2023 Time Seen by a Provider: 07:20 Subjective/Events-last exam Pt was awake when and watching TV when visiting this morning. He said his night was ok but he couldn't sleep well. He has a flat affect and does not want to talk. He sad his L foot has not been bleeding and pain is controlled. He reports that he walked 20 feet yesterday and moved 200 feet in a wheelchair. He continues to be worried about going home. He is hungry for breakfast. Review of Systems General: No Chills, No Night Sweats HEENT: No Visual Changes, No Eye Pain Cardiovascular: No: Palpitations Gastrointestinal: No: Vomiting, Abdominal Pain Genitourinary: No Frequency, No Incontinence Musculoskeletal: No: neck pain, shoulder pain, arm pain, back pain, hand pain Neurological: No: Change in speech, Seizures Focused Exam Respiratory: Chest Non Tender, No Accessory Muscle Use, No Respiratory Distress Cardiovascular: Regular Rate, Rhythm, No JVD Skin: normal color, warm/dry; No ecchymosis, No jaundice Objective Exam Vital Signs Date Time Temp Pulse Resp B/P (MAP) Pulse Ox O2 Delivery O2 Flow Rate FiO2 04/24/23 21:20 97 Room Air 04/24/23 20:10 37.0 77 20 123/64 (83) 97 Room Air 04/24/23 09:01 Room Air I & O 04/25/23 07:00 Intake Total 1440 ml Output Total 1825 ml Balance -385 ml Capillary Refill : General Appearance: No Apparent Distress, WD/WN, Chronically ill HEENT: PERRL/EOMI, Normal ENT Inspection, Pharynx Normal Neck: Full Range of Motion, Normal Inspection, Non Tender, Supple, Carotid Bruit Respiratory: Chest Non Tender, Lungs Clear, Normal Breath Sounds, No Accessory Muscle Use, No Respiratory Distress Cardiovascular: Regular Rate, Rhythm, No Edema, No Gallop, No JVD, No Murmur, Normal Peripheral Pulses Peripheral Pulses: 2+ Radial Pulses (R), 2+ Radial Pulses (L) Gastrointestinal: non tender, soft Extremity: Normal Capillary Refill, Normal Inspection, Normal Range of Motion, Non Tender, No Calf Tenderness, No Pedal Edema Neurologic/Psychiatric: Alert, Oriented x3, insurance account representative II-XII Norm as Tested, Abnormal Gait, Depressed Affect, Motor Weakness (Generalized weakness) Skin: Normal Color, Warm/Dry, Other ( left foot in dressing) Lymphatic: No Adenopathy Results Lab Laboratory Tests 04/24/23 12:05: Glucometer 88 04/24/23 16:15: Glucometer 97 04/24/23 21:20: Glucometer 97 04/25/23 06:31: Glucometer 97 Assessment/Plan Assessment/Plan Assessment/Plan s/p left second toe amputation continue wound care continue rehab and increase ambulation as possible Begin to prepare pt for caring for himself at home Will need continued wound care OSEAS CHRISTIAN DO 04/25/23 1409: Subjective Subjective/Events-last exam Doing well. Tolerating wound care to left foot. Feels like its getting better. Objective Exam General Appearance: No Apparent Distress, Chronically ill HEENT: PERRL/EOMI, Normal ENT Inspection Neck: Normal Inspection, Non Tender Respiratory: Chest Non Tender, No Accessory Muscle Use, No Respiratory Distress Cardiovascular: Regular Rate, Rhythm, No JVD Gastrointestinal: non tender, soft Extremity: Other Neurologic/Psychiatric: Alert, Depressed Affect, Motor Weakness (Generalized weakness) Skin: Other ( left foot 2nd toe open wound, top of foot improving) Lymphatic: No Adenopathy Assessment/Plan Assessment/Plan Assessment/Plan s/p left second toe amputation continue wound care continue rehab and increase ambulation as possible Begin to prepare pt for caring for himself at home Will need continued wound care Supervisory-Addendum Brief Verification & Attestation Participated in pt care: history, MDM, physical Personally performed: exam, history, MDM, supervision of care Care discussed with: Medical Student Procedures: n/a Results interpretation: Verified all documentation Verification and Attestation of Medical Student E/M Service A medical student performed and documented this service in my presence. I reviewed and verified all information documented by the medical student and made modifications to such information, when appropriate. I personally performed the physical exam and medical decision making. Oseas Christian, Apr 25, 2023,14:09 JOEY OWENS Apr 25, 2023 07:44 OSEAS CHRISTIAN DO Apr 25, 2023 14:09
--- NOTE | 2023-04-25 08:04 | Occupational Ther Daily Note ---
OT Current Status-Daily Note Subjective Pt alert, lying in bed. Pt agrees to therapy. C/o pain 4/10 at rest, 7/10 in standing. Mental Status/Objective Patient Orientation: Person, Place, Time, Situation Attachments: IV ADL-Treatment Pt agrees to shower. Pt SPT from recliner to w/c SBA using FWW, continued pain in B LE/feet. Pt completed shower using BSC, grabbars, hand held shower and LH sponge sitting 100% of the time, set up for covering IV and foot dressing. Pt doffs R sock by self, dons after set up then assist to don/doff L walking shoe. Using waste duster, pt able to thread clothing over feet then close SBA for sit to stand, close SBA while pt hikes pants over hips. Set up for UBD. Independent for oral care/grooming sitting at sink. Independent with eating. CGA for toileting. Pt is slow and takes increased time to stand from lower surface. CGA for toilet transfer. Pt is demonstrating independence with w/c mobility while completing tasks at w/c level. Pt states that home environment is not conducive to w/c and is not able to use FWW for distances at this time due to pain. After session, pt sitting in recliner with call light/phone in reach. All needs met in room. Therapy Code Descriptions/Definitions Functional [place] Measure: 0=Not Assessed/NA 4=Minimal Assistance 1=Total Assistance 5=Supervision or Setup 2=Maximal Assistance 6=Modified [place] 3=Moderate Assistance 7=Complete IndependenceSCALE: Activities may be completed with or without assistive devices. 9-Wemnmvykqf-dxdlyzz completes the activity by him/herself with no assistance from a helper. 5-Set-up or Clean-up Assistance-helper sets up or cleans up; patient completes activity. [place] assists only prior to or following the activity. 4-Supervision or Touching Assistance-helper provides verbal cues and/or touching/steadying and/or contact guard assistance as patient completes activity. Assistance may be provided throughout the activity or intermittently. 3-Partial/Moderate Assistance-helper does LESS THAN HALF the effort. [place] lifts, holds or supports trunk or limbs, but provides less than half the effort. 2-Substantial/Maximal Assistance-helper does MORE THAN HALF the effort. [place] lifts or holds trunk or limbs and provides more than half the effort. 8-Vxgrvgitp-qiiuqf does ALL the effort. Patient does none of the effort to complete the activity. Or, the assistance of 2 or more helpers is required for the patient to complete the activity. If activity was not attempted, code reason: 7-Patient Refused. 9-Not Applicable-not attempted and the patient did not perform the activity before the current illness, exacerbation or injury. 10-Not Attempted due to Environmental Limitations-(lack of equipment, weather restraints, etc.). 88-Not Attempted due to Medical Conditions or Safety Concerns. Eating (QC): 6 Oral Hygiene (QC): 6 Shower/Bathe Self (QC): 5 (Using BSC for shower requires set up to cover L foot due to bandages/wound. Independent sitting at sink for sponge bath) Upper Body Dressing (QC): 5 Lower Body Dressing (QC): 4 On/Off Footwear: 3 Toileting Hygiene (QC): 4 Toilet Transfer (QC): 4 BIMS CAM BIMS Expression of Ideas and Wants: Without Difficulty Understanding Verbal Content: Understands Brief Interview/Mental Status: Yes IRF LAMIN BIMS: IRF LAMIN BIMS Response (Comments) Value Repitition of Three Words Three 3 Recalls Socks Yes, No Cue Required 2 Recalls Blue Yes, No Cue Required 2 Recalls Bed Yes, No Cue Required 2 Year Correct 3 Month Accurate Within 5 Days 2 Day Correct 1 Total 15 Patient Normally Able to Recal: Current Session, Location of own room, Staff Names and faces, That he/she in a [facility] Should Staff Asses. Mental St.: No CAM Mental Status Change/Baseline: 0 Inattention: 0 Disorganized thinkin Altered level of consciousness: 0 OT Short Term Goals Short Term Goals Time Frame: Apr 18, 2023 Eatin Oral hygiene: 6 OT Fiscal Agent Goals Prison Goals Acute change in mental status: 0 Inattention: 0 Disorganized thinkin Altered level of consciousness: 0 Eating (QC): 6 (met) Oral Hygiene (QC): 6 (met) Toileting Hygiene (QC): 6 (not met) Shower/Bathe Self (QC): 6 (not met) Upper Body Dressing (QC): 6 (not met) Lower Body Dressing (QC): 6 (not met) On/Off Footwear (QC): 6 (not met) 1=Demonstrate adherence to instructed precautions during ADL tasks. 2=Patient will verbalize/demonstrate understanding of assistive devices/modifications for ADL. 3=Patient will improve strength/tolerance for activity to enable patient to perform ADL's. OT Education/Plan Problem List/Assessment Assessment: Decreased Activ Tolerance, Impaired Funct Balance, Impaired Self- Care Skills Discharge Recommendations Plan/Recommendations: Continue POC Therapy Discharge Recommendati: Home & Family, Post Acute PT Equpiment Recommendations-D/C: Extended Bath Bench, Fire Equipment Inspector Helper Treatment Plan/Plan of Care Patient would benefit from OT for education, treatment and training to promote independence in ADL's, mobility, safety and/or upper extremity function for ADL's. Plan of Care: ADL Retraining, Caregiver Training, Concurrent Therapy, Functional Mobility, Group Exercise/Act as Ind, Orthotic Fitting/Training, UE Funct Exercise/Act Treatment Duration: Apr 27, 2023 Frequency: At least 5 of 7 days/Wk (IRF) Estimated Hrs Per Day: 1.5 hours per day Agreement: Yes Rehab Potential: Good Time Start Time: 07:00 Stop Time: 08:30 DATE: Apr 25, 2023 Total Time Billed (hr/min): 90 Billed Treatment Time 1 visit-ADL 6 (90 min) EUFEMIA BOWEN Apr 25, 2023 08:04
[2023-04-25] MEDS: polyethylene glycoL POWDER 17 GM (MIRALAX) PACK PO SCH ×2 (08:41→21:15)
[2023-04-25] MEDS: DOCUSATE SODIUM 100 MG CAPSULE PO SCH ×2 (08:49→21:07)
[2023-04-25] MEDS: MELOXICAM 7.5 MG (MOBIC) TABLET PO SCH (08:49)
[2023-04-25] MEDS: APIXABAN 5 MG TABLET PO SCH ×2 (08:49→21:07)
[2023-04-25] MEDS: SENNOSIDES 8.6 MG (SENOKOT) TAB PO SCH ×2 (08:49→21:15)
[2023-04-25] MEDS: DICLOFENAC 1% GEL 100 GM TUBE TOP SCH ×4 (08:50→21:07)
[2023-04-25 08:51] VITALS: BP 98/56
[2023-04-25] MEDS: LOSARTAN 100 MG (COZAAR) TABLET PO SCH (10:06)
[2023-04-25] MEDS: dilTIAZem ER 240 MG CAPSULE PO SCH (10:07)
[2023-04-25] MEDS: FUROSEMIDE 40 MG TABLET PO SCH (10:25)
--- NOTE | 2023-04-25 13:27 | Wound Care Assessment ---
Wound Care Assessment Date Seen by Provider: Apr 25, 2023 Time Seen by Provider: 11:00 Chief Complaint Cellulitis, GBS bacteremia, presumed osteomyelitis HPI This 67 year old gentleman presented to the ER with gross edema and erythema to left foot. He reports ulceration to L. 2 toe and plantar foot for >1 year. His PCP (Dr. Dubois) advised he see wound care long ago (September) but patient declined due to a desire to "continue working and ability to heal it up himself". He is noted to have GBS bacteremia as well as wound infection. He was taken to the OR for surgical debridement/amputation. He did have a wound on his plantar MTH that probes to site of amputation. This is now resolved. I did check CT to rule out necrotizing fasciitis as well. CT did not reveal necrotizing fasciitis, further abscess, or osteomyelitis. Culture primarily positive for GBS, but also with MSSA and pseudomonas in small amounts. He was treated with prolonged course of targeted antibiotics with great results. He does not have a h/o DM2. Arterial dopplers with monophasic flow to L. superficial femoral without significant stenosis. Further evaluation may be indicated in the future should he fail to heal. He does have risk factors for PAD (atrial fibrillation). He continues to improve and viability of wound bed much better than post- operatively. I strongly urged he follow up with wound care. He remains at risk for loss of limb due to severity of initial infection. Past Medical History: Admits Heart Disease, Admits Peripheral Artery Disease Smoking Status: Former Smoker Alcohol Use: Denies Use Exam Vital Signs Date Time Temp Pulse Resp B/P (MAP) Pulse Ox O2 Delivery O2 Flow Rate FiO2 04/25/23 09:00 93 Room Air 04/25/23 08:51 36.8 86 16 98/56 (70) Capillary Refill : General Appearance: WD/WN, no apparent distress HEENT: other (normal hearing) Neck: full range of motion Respiratory: no respiratory distress, no accessory muscle use Extremities: pedal edema Neurologic/Psychiatric: alert, normal mood/affect, oriented x 3 Skin Problem Location: lower extremities Skin Character: drainage, erythema, swelling Amputation site: The epithelialization is none. There is no tunneling or undermining. Drainage is large and serosanguinous. Granulation is medium and pink. Necrotic is medium and slough. margins with epibole. Periwound greatly improved. Results Laboratory Tests 04/24/23 16:15: Glucometer 97 04/24/23 21:20: Glucometer 97 04/25/23 06:31: Glucometer 97 04/25/23 12:20: Glucometer 102 Assessment/Plan/Dx Assessment: 1. Osteomyelitis 2 toe with chronic ulceration 2. Cellulitis L. foot/ankle 3. Peripheral neuropathy 4. GBS bacteremia (source wound infection) 5. Obesity 6. Atrial fibrillation 7. PAD Plan: 1. Vashe packing bid. Barrier ointment to periwound (thick layer bid). 2. Prolonged targeted course indicated with his bacteremia and presumed osteomyelitis 3. Will need podiatry upon healing for orthotics 4. Primary team 5. Primary team 6. Primary team 7. Should patient fail to heal with conventional treatments, further arterial evaluation may be indicated in light of ultrasound and medical history JASON BEAULIEU MD Apr 25, 2023 13:26
--- NOTE | 2023-04-25 14:51 | Physical Therapy Daily Note ---
PT Daily Note-Current Subjective Pt sitting in the recliner upon arrival. Pt is agreeable to PT. Pt reported B ankle pain at 7/10. Pain Numeric Pain Scale: 7 Location Body Site: Ankle (B) Section J - Health Conditions 1. Rarely or not at all 2. Occasionally 3. Frequently 4. Almost constantly 8. Unable to answer Pain Effect on Sleep: 3 Pain Interference with Therapy: 4 Pain Interference w/Day-to-Day: 3 Transfers SCALE: Activities may be completed with or without assistive devices. 6-Delmkfyqri-twxvfgr completes the activity by him/herself with no assistance from a helper. 5-Set-up or Clean-up Assistance-helper sets up or cleans up; patient completes activity. [place] assists only prior to or following the activity. 4-Supervision or Touching Assistance-helper provides verbal cues and/or touching/steadying and/or contact guard assistance as patient completes activity. Assistance may be provided throughout the activity or intermittently. 3-Partial/Moderate Assistance-helper does LESS THAN HALF the effort. [place] lifts, holds or supports trunk or limbs, but provides less than half the effort. 2-Substantial/Maximal Assistance-helper does MORE THAN HALF the effort. [place] lifts or holds trunk or limbs and provides more than half the effort. 3-Xcfluckma-cpuvec does ALL the effort. Patient does none of the effort to complete the activity. Or, the assistance of 2 or more helpers is required for the patient to complete the activity. If activity was not attempted, code reason: 7-Patient Refused. 9-Not Applicable-not attempted and the patient did not perform the activity before the current illness, exacerbation or injury. 10-Not Attempted due to Environmental Limitations-(lack of equipment, weather restraints, etc.). 88-Not Attempted due to Medical Conditions or Safety Concerns. Roll Left & Right (QC): 4 Sit to Lying (QC): 4 Lying to Sitting/Side of Bed(Q: 4 Sit to Stand (QC): 4 Chair/Qtk-nr-Ijicn Xfer(QC): 4 Toilet Transfer (QC): 4 Car Transfer (QC): 4 Weight Bearing Right Lower Extremity: Right Full Weight Bearing Left Lower Extremity: Left Partial Weight Bearing Patient was instructed in L heel only weight bearing due to wound Gait Training Does the Patient Walk?: No and Walking Goal IS indicated Distance: 10ft Walk 10 feet (QC): 4 Walk 50 ft with 2 Turns(QC): 88 Walk 150 ft (QC): 88 Walking 10ft/uneven surface-QC: 88 Gait Persons Needed: 1 Gait Assistive Device: FWW Wheelchair Training Does the Pt Use a Wheelchair?: Yes Wheel 50 ft with 2 turns (QC): 6 Wheel 150 ft (QC): 6 Type of Wheelchair: Manual Stair Training #of Steps: 2 1 Step (curb) (QC): 3 4 Steps (QC): 88 12 Steps (QC): 88 Stairs: Pattern: Step to Balance Picking up an Object (QC): 4 Special Test Comments [facility] standing balance scale = 2+/5 Treatments QCs completed on this date. Pt completed bed mobility and functional transfers, from various surfaces, including toilet and car transfers, with SBA. Pt required increased time and increased number of attempts to complete some transfers, but was able to complete with SBA. Pt was only able to ambulate ~ 10ft with the FWW and CGA, secondary to increased B feet/ankle/knee pain. Pt negotiated 2 steps with no HR and Min A. Pt completed seated B LE Ther Ex x 15 reps with the red Tband. Pt completed 10 min on the nu-step on level 2. Pt sitting up in the r ecliner upon completion of PT with call light in reach and all needs met. Assessment Current Status: Fair Progress Pt tolerated PT fairly with good effort, but was limited due to increased pain. PT Cryptologist Goals Cryptologist Goals PT Cryptologist Goals Time Frame: Apr 25, 2023 Roll Left & Right (QC): 6 (Pt will be Mod I with bed mobility ) Sit to Lying (QC): 6 (Pt will be Mod I with bed mobility ) Lying-Sitting on Side/Bed(QC): 6 (Pt will be Mod I with bed mobility ) Sit to Stand (QC): 4 (Pt will be SBA for functional transfers ) Chair/Hpn-eg-Qfqwg Xfer(QC): 4 (Pt will be SBA for functional transfers ) Toilet Transfer (QC): 4 (Pt will be SBA for functional transfers ) Car Transfer (QC): 4 (Pt will be SBA for functional transfers ) Does the Patient Walk: Yes Walk 10 feet (QC): 4 (Pt will be SBA for walking with the FWW ) Walk 50ft with 2 Turns (QC): 4 (Pt will be SBA for walking with the FWW ) Walk 150 ft (QC): 4 (Pt will be SBA for walking with the FWW ) Walking 10ft on Uneven Surface: 4 (Pt will be SBA for walking with the FWW ) 1 Step (curb) (QC): 4 (SBA for steps ) 4 Steps (QC): 4 (SBA for steps ) 12 Steps (QC): 9 Picking up an Object (QC): 6 (with canvas shop laborer ) Does the Pt use WC or Scooter?: No Wheel 50 feet with 2 turns (QC: 9 Type: N/A Wheel 150 feet: 9 Type: N/A PT Plan Problem List Problem List: Activity Tolerance, Functional Strength, Safety, Balance, Gait, Transfer, Bed Mobility, ROM Treatment/Plan Treatment Plan: Continue Plan of Care (d/c from ARU to home on 04/26/23) Treatment Plan: Bed Mobility, Concurrent Therapy, Education, Functional Activity [place], Functional Strength, Group Therapy, Gait, Safety, Therapeutic Exercise, Transfers Treatment Duration: Apr 25, 2023 Frequency: At least 5 of 7 days/Wk (IRF) Estimated Hrs Per Day: 1.5 hours per day Patient and/or Family Agrees t: Yes Safety Risks/Education Patient Education: Gait Training, Transfer Techniques, Steps, Reviewed Precautions, Correct Positioning, W/C Management, Safety Issues Teaching Recipient: Patient Teaching Methods: Demonstration, Discussion Response to Teaching: Verbalize Understanding, Return Demonstration Discharge Recommendations Therapy Discharge Recommendati: Home & Family Equpiment Recommendations-D/C: 3 in 1 Commode, Wheelchair Cushion, Lift Chair, Wheelchair Ramp, Railings, Shower Chair, Manual Wheelchair Discharge Status/Home Program D/C from ARU to home on 04/26/23 Barriers to Progress Increased pain Target Placement Home with SO Time Time In: 1000 Time Out: 1130 DATE: Apr 25, 2023 Total Billed Treatment Time: 90 Total Billed Treatment 90 min 1 visit GT x 1 EX x 1 FA x 4 ANTONIO REICH PT Apr 25, 2023 14:51
[2023-04-25 20:15] VITALS: BP 122/70
[2023-04-25] MEDS ORDERED: FURO40TA4 PO (20:32)
[2023-04-25] MEDS ORDERED: APIX5TAB PO (20:32)
[2023-04-25] MEDS ORDERED: ASPI-1238 PO (20:32)
[2023-04-25] MEDS ORDERED: LOSA100T58 PO (20:32)
[2023-04-25] MEDS ORDERED: DILT240C90 PO (20:32)
[2023-04-25] MEDS ORDERED: OXC5T PO (20:32)
[2023-04-25] MEDS ORDERED: ATOR10TA66 PO (20:32)
[2023-04-25] MEDS ORDERED: MELO15TA39 PO (20:32)
--- NOTE | 2023-04-25 20:33 | D/C HH Face to Face Order ---
D/C Face to Face Orders Reconcile Patient Problems Problems Reviewed?: Yes Instructions for Patient Via [employer], Patient Instructions/FollowUp: PCP as scheduled Physician to follow Patient: PCP Discharge Diet for Home: No Restrictions Patient Problems: Left toe amputation Patient Data-Allergies,Ht & Wt Patient Allergies: Coded Allergies: No Known Drug Allergies (Unverified , 10/01/18) Height (Feet): 5 Height (Inches): 11.00 Weight (Pounds): 232 Home Health Need/Face to Face Date of Face to Face: Apr 25, 2023 Clinical Findings: Generalized weakness and fatigue, Instability, Muscle weakness, Non or partial weight bearing, Pain with ambulation I have seen Pt pfiv-wb-focy: Yes Discharged To: Home Diagnosis/Conditions: toe amputation Patient is Homebound due to: Luis fall risk due to instabilty, Non-weight bearing, Pain w/ambulation Homebound Status Due to the above stated illness, injury or surgical procedure (medical condition or diagnosis) and associated clinical findings, the patient is homebound because of his/her inability to leave home except with aid of a supportive device and/or person AND leaving the home requires a considerable and taxing effort or is medically contraindicated. Pt req the following assistanc: Walker, Wheelchair Home Health Nursing Orders Home Health Services Order: Nursing Services, Varnish Blender-Evaluate & Treat, Physical Therapy-Evaluate & Treat Home Health Infusion Therapy Line Start Date: Apr 17, 2023 Certify Stmt I certify that this patient is under my care and that I, a nurse practitioner or a physician; a automobile mechanic assistant working with me, had a face to face encounter that - meets the physician face to face encounter requirements with this patient as dated. IBAN LEI DO Apr 25, 2023 20:33
[2023-04-25] MEDS: HYPOCHLOROUS ACID/NaCl (VASHE) 250 ML IR SCH (21:07)
[2023-04-26] MEDS: oxyCODONE IMMEDIATE RELEASE 5 MG TABLET PO PRN ×3 (01:49→10:43)
[2023-04-26] MEDS: inSUlin ASPART 1 UNIT/0.01 ML (PER UNIT) SC SCH ×2 (05:34→11:52)
--- NOTE | 2023-04-26 05:47 | Discharge Summary ---
Diagnosis/Chief Complaint Date of Admission Apr 13, 2023 at 10:30 Date of Discharge Discharge Date: Apr 26, 2023 Discharge Diagnosis Assessment: Debility following left second toe amputation with slow recovery History of left second toe osteomyelitis Hypertension Hyperlipidemia Atrial fibrillation Rheumatoid arthritis Peripheral vascular disease Obesity DM HGA1C 6.0 04/08/23 Poor motivation Constipation Right ankle pain Plan: Home meds Cardiology appreciated Fall risk Pain control 04/14/2023: DM education Sunday Aggressive bowel regimen 04/15/2023: Midline Supportive care 04/16/2023: IV abx via midline 04/17/2023: Supportive care Change out midline 04/18/2023: Monitor wound 04/19/2023: Continue antibiotics Supportive care 04/20/2023: Monitor closely 04/21/2023: Monitor closely Monitor bleeding 04/22/2023: Check labs in the morning 04/23/2023: Await SNF 04/24/2023: Supportive care 04/25/2023: Supportive care Discharge home tomorrow (1) Amputation of toe (2) Atrial fibrillation with rapid ventricular response Status: Acute Discharge Summary Discharge Physical Examination Allergies: Coded Allergies: No Known Drug Allergies (Unverified , 10/01/18) Vitals & I&Os Vital Signs Date Time Temp Pulse Resp B/P (MAP) Pulse Ox O2 Delivery O2 Flow Rate FiO2 04/26/23 15:24 36.6 77 16 128/75 93 Room Air 0.00 General Appearance: Alert, Oriented X3, Cooperative Respiratory: Clear to Auscultation Cardiovascular: Regular Rate Psych/Mental Status: Mental Status NL Hospital Course Was the Problem List Reviewed?: Yes Hospital course: Patient had an uneventful hospital course after transferring from fourth floor after left second toe amputation due to chronic ulceration with osteomyelitis. He did complete IV antibiotics during hospital course. He had a very slow recovery due to generalized debility and he required pain medication on a regular basis for the pain. Apathy created slow recovery but supportive environment was helpful in motivating and creating a nurturing environment while in inpatient rehab. 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 Labs (last 24 hrs) Laboratory Tests 04/13/23 11:39: Glucometer 102 04/13/23 16:44: Glucometer 93 04/13/23 21:48: Glucometer 155H 04/14/23 05:50: White Blood Count 16.6H, Red Blood Count 4.02L, Hemoglobin 11.9L, Hematocrit 36L , Mean Corpuscular Volume 89, Mean Corpuscular Hemoglobin 30, Mean Corpuscular Hemoglobin Concent 33, Red Cell Distribution Width 13.6, Platelet Count 452H, Mean Platelet Volume 9.4, Immature Granulocyte % (Auto) 4, Neutrophils (%) (Auto) 80H, Lymphocytes (%) (Auto) 8L, Monocytes (%) (Auto) 6, Eosinophils (%) (Auto) 1, Basophils (%) (Auto) 1, Neutrophils # (Auto) 13.4H, Lymphocytes # (Auto) 1.2, Monocytes # (Auto) 1.1H, Eosinophils # (Auto) 0.1, Basophils # (Auto) 0.1, Immature Granulocyte # (Auto) 0.7H, Sodium Level 138, Potassium Level 3.0L, Chloride Level 99, Carbon Dioxide Level 28, Anion Gap 11, Blood Urea Nitrogen 14, Creatinine 0.80, Estimat Glomerular Filtration Rate 96, BUN/Creatinine Ratio 18, Glucose Level 111H, Calcium Level 9.4, Corrected Calcium 10.4H, Total Bilirubin 0.6, Aspartate Amino Transf (AST/SGOT) 44H, Alanine Aminotransferase (ALT/SGPT) 25, Alkaline Phosphatase 166H, Total Protein 6.3L, Albumin 2.8L 04/14/23 12:38: Glucometer 151H 04/14/23 16:43: Glucometer 104 04/14/23 21:49: Glucometer 132H 04/15/23 06:22: Glucometer 146H 04/15/23 09:45: Vancomycin Level Trough 11.9 04/15/23 10:43: Glucometer 137H 04/15/23 15:13: Glucometer 88 04/15/23 20:23: Glucometer 103 04/16/23 06:05: White Blood Count 15.7H, Red Blood Count 4.02L, Hemoglobin 12.0L, Hematocrit 36L , Mean Corpuscular Volume 89, Mean Corpuscular Hemoglobin 30, Mean Corpuscular Hemoglobin Concent 33, Red Cell Distribution Width 13.1, Platelet Count 686H, Mean Platelet Volume 9.1, Immature Granulocyte % (Auto) 2, Neutrophils (%) (Auto) 85H, Lymphocytes (%) (Auto) 9L, Monocytes (%) (Auto) 4, Eosinophils (%) (Auto) 0, Basophils (%) (Auto) 0, Neutrophils # (Auto) 13.4H, Lymphocytes # (Auto) 1.4, Monocytes # (Auto) 0.6, Eosinophils # (Auto) 0.1, Basophils # (Auto) 0.1, Immature Granulocyte # (Auto) 0.3H, Neutrophils % (Manual) 83, Lymphocytes % (Manual) 8, Monocytes % (Manual) 7, Eosinophils % (Manual) 2, Toxic Granulation 2+, Platelet Estimate INCREASED, Blood Morphology Comment NORMAL, Sodium Level 139, Potassium Level 3.6, Chloride Level 101, Carbon Dioxide Level 29, Anion Gap 9, Blood Urea Nitrogen 21H, Creatinine 0.77, Estimat Glomerular Filtration Rate 97, BUN/Creatinine Ratio 27, Glucose Level 114H, Calcium Level 9.8, Corrected Calcium 10.7H, Total Bilirubin 0.6, Aspartate Amino Transf (AST/SGOT) 57H, Alanine Aminotransferase (ALT/SGPT) 38, Alkaline Phosphatase 179H, Total Protein 6.8, Albumin 2.9L 04/16/23 10:26: Glucometer 85 04/16/23 15:22: Glucometer 92 04/16/23 20:08: Glucometer 97 04/17/23 06:36: Glucometer 97 04/17/23 10:42: Glucometer 98 04/17/23 15:08: Glucometer 108 04/17/23 20:04: Glucometer 117H 04/18/23 05:17: Glucometer 100 04/18/23 10:54: Glucometer 80 04/18/23 15:10: Glucometer 108 04/18/23 20:23: Glucometer 138H 04/19/23 05:51: Glucometer 90 04/19/23 10:51: Glucometer 84 04/19/23 15:41: Glucometer 112H 04/19/23 20:06: Glucometer 128H 04/20/23 05:39: Glucometer 82 04/20/23 10:57: Glucometer 109 04/20/23 16:06: Glucometer 105 04/20/23 20:17: Glucometer 121H 04/21/23 05:31: Glucometer 105 04/21/23 06:55: White Blood Count 13.8H, Red Blood Count 3.81L, Hemoglobin 11.3L, Hematocrit 35L , Mean Corpuscular Volume 91, Mean Corpuscular Hemoglobin 30, Mean Corpuscular Hemoglobin Concent 33, Red Cell Distribution Width 13.0, Platelet Count 830H, Mean Platelet Volume 8.8L, Immature Granulocyte % (Auto) 1, Neutrophils (%) (Auto) 79H, Lymphocytes (%) (Auto) 11L, Monocytes (%) (Auto) 8, Eosinophils (%) (Auto) 1, Basophils (%) (Auto) 1, Neutrophils # (Auto) 10.9H, Lymphocytes # (Auto) 1.4, Monocytes # (Auto) 1.0, Eosinophils # (Auto) 0.1, Basophils # (Auto) 0.1, Immature Granulocyte # (Auto) 0.2H, Sodium Level 137, Potassium Level 4.0, Chloride Level 100, Carbon Dioxide Level 24, Anion Gap 13, Blood Urea Nitrogen 21H, Creatinine 0.79, Estimat Glomerular Filtration Rate 96, BUN/Creatinine Ratio 27, Glucose Level 100, Calcium Level 9.9, Corrected Calcium 10.7H, Total Bilirubin 0.8, Aspartate Amino Transf (AST/SGOT) 26, Alanine Aminotransferase (ALT/SGPT) 27, Alkaline Phosphatase 167H, Total Protein 6.8, Albumin 3.0L 04/21/23 11:05: Glucometer 100 04/21/23 16:00: Glucometer 80 04/21/23 20:26: Glucometer 128H 04/22/23 06:21: Glucometer 114H 04/22/23 11:06: Glucometer 97 04/22/23 16:48: Glucometer 84 04/22/23 20:28: Glucometer 114H 04/23/23 05:30: White Blood Count 10.9, Red Blood Count 3.97L, Hemoglobin 11.8L, Hematocrit 36L, Mean Corpuscular Volume 90, Mean Corpuscular Hemoglobin 30, Mean Corpuscular Hemoglobin Concent 33, Red Cell Distribution Width 12.9, Platelet Count 826H, Mean Platelet Volume 8.7L, Immature Granulocyte % (Auto) 2, Neutrophils (%) (Auto) 73, Lymphocytes (%) (Auto) 11L, Monocytes (%) (Auto) 9, Eosinophils (%) (Auto) 4, Basophils (%) (Auto) 2, Neutrophils # (Auto) 8.0H, Lymphocytes # (Auto) 1.2, Monocytes # (Auto) 0.9, Eosinophils # (Auto) 0.4H, Basophils # (Auto) 0.2H, Immature Granulocyte # (Auto) 0.2H, Sodium Level 138, Potassium Level 4.4, Chloride Level 100, Carbon Dioxide Level 27, Anion Gap 11, Blood Urea Nitrogen 24H, Creatinine 0.87, Estimat Glomerular Filtration Rate 93, BUN/Creatinine Ratio 28, Glucose Level 96, Calcium Level 10.2H, Corrected Calcium 11.0H, Total Bilirubin 0.6, Aspartate Amino Transf (AST/SGOT) 39H, Alanine Aminotransferase (ALT/SGPT) 37, Alkaline Phosphatase 169H, Total Protein 7.1, Albumin 3.0L 04/23/23 10:45: Glucometer 95 04/23/23 15:03: Glucometer 105 04/23/23 21:42: Glucometer 104 04/24/23 05:17: Glucometer 76 04/24/23 12:05: Glucometer 88 04/24/23 16:15: Glucometer 97 04/24/23 21:20: Glucometer 97 04/25/23 06:31: Glucometer 97 04/25/23 12:20: Glucometer 102 04/25/23 17:15: Glucometer 106 04/25/23 21:12: Glucometer 93 04/26/23 05:32: Glucometer 89 04/26/23 11:19: Glucometer 109 Pending Labs Laboratory Tests 04/13/23 11:39: Glucometer 102 04/13/23 16:44: Glucometer 93 04/13/23 21:48: Glucometer 155 04/14/23 05:50: White Blood Count 16.6, Red Blood Count 4.02, Hemoglobin 11.9, Hematocrit 36, Mean Corpuscular Volume 89, Mean Corpuscular Hemoglobin 30, Mean Corpuscular Hemoglobin Concent 33, Red Cell Distribution Width 13.6, Platelet Count 452, Mean Platelet Volume 9.4, Immature Granulocyte % (Auto) 4, Neutrophils (%) (Auto) 80, Lymphocytes (%) (Auto) 8, Monocytes (%) (Auto) 6, Eosinophils (%) (Auto) 1, Basophils (%) (Auto) 1, Neutrophils # (Auto) 13.4, Lymphocytes # (Auto) 1.2, Monocytes # (Auto) 1.1, Eosinophils # (Auto) 0.1, Basophils # (Auto) 0.1, Immature Granulocyte # (Auto) 0.7, Sodium Level 138, Potassium Level 3.0, Chloride Level 99, Carbon Dioxide Level 28, Anion Gap 11, Blood Urea Nitrogen 14 , Creatinine 0.80, Estimat Glomerular Filtration Rate 96, BUN/Creatinine Ratio 18, Glucose Level 111, Calcium Level 9.4, Corrected Calcium 10.4, Total Bilirubin 0.6, Aspartate Amino Transf (AST/SGOT) 44, Alanine Aminotransferase (ALT/SGPT) 25, Alkaline Phosphatase 166, Total Protein 6.3, Albumin 2.8 04/14/23 12:38: Glucometer 151 04/14/23 16:43: Glucometer 104 04/14/23 21:49: Glucometer 132 04/15/23 06:22: Glucometer 146 04/15/23 09:45: Vancomycin Level Trough 11.9 04/15/23 10:43: Glucometer 137 04/15/23 15:13: Glucometer 88 04/15/23 20:23: Glucometer 103 04/16/23 06:05: White Blood Count 15.7, Red Blood Count 4.02, Hemoglobin 12.0, Hematocrit 36, Mean Corpuscular Volume 89, Mean Corpuscular Hemoglobin 30, Mean Corpuscular Hemoglobin Concent 33, Red Cell Distribution Width 13.1, Platelet Count 686, Mean Platelet Volume 9.1, Immature Granulocyte % (Auto) 2, Neutrophils (%) (Auto) 85, Lymphocytes (%) (Auto) 9, Monocytes (%) (Auto) 4, Eosinophils (%) (Auto) 0, Basophils (%) (Auto) 0, Neutrophils # (Auto) 13.4, Lymphocytes # (Auto) 1.4, Monocytes # (Auto) 0.6, Eosinophils # (Auto) 0.1, Basophils # (Auto) 0.1, Immature Granulocyte # (Auto) 0.3, Neutrophils % (Manual) 83, Lymphocytes % (Manual) 8, Monocytes % (Manual) 7, Eosinophils % (Manual) 2, Toxic Granulation 2+, Platelet Estimate INCREASED, Blood Morphology Comment NORMAL, Sodium Level 139, Potassium Level 3.6, Chloride Level 101, Carbon Dioxide Level 29, Anion Gap 9, Blood Urea Nitrogen 21, Creatinine 0.77, Estimat Glomerular Filtration Rate 97, BUN/Creatinine Ratio 27, Glucose Level 114, Calcium Level 9.8, Corrected Calcium 10.7, Total Bilirubin 0.6, Aspartate Amino Transf (AST/SGOT) 57, Alanine Aminotransferase (ALT/SGPT) 38, Alkaline Phosphatase 179, Total Protein 6.8, Albumin 2.9 04/16/23 10:26: Glucometer 85 04/16/23 15:22: Glucometer 92 04/16/23 20:08: Glucometer 97 04/17/23 06:36: Glucometer 97 04/17/23 10:42: Glucometer 98 04/17/23 15:08: Glucometer 108 04/17/23 20:04: Glucometer 117 04/18/23 05:17: Glucometer 100 04/18/23 10:54: Glucometer 80 04/18/23 15:10: Glucometer 108 04/18/23 20:23: Glucometer 138 04/19/23 05:51: Glucometer 90 04/19/23 10:51: Glucometer 84 04/19/23 15:41: Glucometer 112 04/19/23 20:06: Glucometer 128 04/20/23 05:39: Glucometer 82 04/20/23 10:57: Glucometer 109 04/20/23 16:06: Glucometer 105 04/20/23 20:17: Glucometer 121 04/21/23 05:31: Glucometer 105 04/21/23 06:55: White Blood Count 13.8, Red Blood Count 3.81, Hemoglobin 11.3, Hematocrit 35, Mean Corpuscular Volume 91, Mean Corpuscular Hemoglobin 30, Mean Corpuscular Hemoglobin Concent 33, Red Cell Distribution Width 13.0, Platelet Count 830, Mean Platelet Volume 8.8, Immature Granulocyte % (Auto) 1, Neutrophils (%) (Auto) 79, Lymphocytes (%) (Auto) 11, Monocytes (%) (Auto) 8, Eosinophils (%) (Auto) 1, Basophils (%) (Auto) 1, Neutrophils # (Auto) 10.9, Lymphocytes # (Auto) 1.4, Monocytes # (Auto) 1.0, Eosinophils # (Auto) 0.1, Basophils # (Auto) 0.1, Immature Granulocyte # (Auto) 0.2, Sodium Level 137, Potassium Level 4.0, Chloride Level 100, Carbon Dioxide Level 24, Anion Gap 13, Blood Urea Nitrogen 21, Creatinine 0.79, Estimat Glomerular Filtration Rate 96, BUN/Creatinine Ratio 27, Glucose Level 100, Calcium Level 9.9, Corrected Calcium 10.7, Total Bilirubin 0.8, Aspartate Amino Transf (AST/SGOT) 26, Alanine Aminotransferase (ALT/SGPT) 27, Alkaline Phosphatase 167, Total Protein 6.8, Albumin 3.0 04/21/23 11:05: Glucometer 100 04/21/23 16:00: Glucometer 80 04/21/23 20:26: Glucometer 128 04/22/23 06:21: Glucometer 114 04/22/23 11:06: Glucometer 97 04/22/23 16:48: Glucometer 84 04/22/23 20:28: Glucometer 114 04/23/23 05:30: White Blood Count 10.9, Red Blood Count 3.97, Hemoglobin 11.8, Hematocrit 36, Mean Corpuscular Volume 90, Mean Corpuscular Hemoglobin 30, Mean Corpuscular Hemoglobin Concent 33, Red Cell Distribution Width 12.9, Platelet Count 826, Mean Platelet Volume 8.7, Immature Granulocyte % (Auto) 2, Neutrophils (%) (Auto) 73, Lymphocytes (%) (Auto) 11, Monocytes (%) (Auto) 9, Eosinophils (%) (Auto) 4, Basophils (%) (Auto) 2, Neutrophils # (Auto) 8.0, Lymphocytes # (Auto) 1.2, Monocytes # (Auto) 0.9, Eosinophils # (Auto) 0.4, Basophils # (Auto) 0.2, Immature Granulocyte # (Auto) 0.2, Sodium Level 138, Potassium Level 4.4, Chloride Level 100, Carbon Dioxide Level 27, Anion Gap 11, Blood Urea Nitrogen 24, Creatinine 0.87, Estimat Glomerular Filtration Rate 93, BUN/Creatinine Ratio 28, Glucose Level 96, Calcium Level 10.2, Corrected Calcium 11.0, Total Bilirubin 0.6, Aspartate Amino Transf (AST/SGOT) 39, Alanine Aminotransferase (ALT/SGPT) 37, Alkaline Phosphatase 169, Total Protein 7.1, Albumin 3.0 04/23/23 10:45: Glucometer 95 04/23/23 15:03: Glucometer 105 04/23/23 21:42: Glucometer 104 04/24/23 05:17: Glucometer 76 04/24/23 12:05: Glucometer 88 04/24/23 16:15: Glucometer 97 04/24/23 21:20: Glucometer 97 04/25/23 06:31: Glucometer 97 04/25/23 12:20: Glucometer 102 04/25/23 17:15: Glucometer 106 04/25/23 21:12: Glucometer 93 04/26/23 05:32: Glucometer 89 04/26/23 11:19: Glucometer 109 Discharge Home Medications: Active Scripts Active Oxyir Tablet (Oxycodone HCl) 5 Mg Tab 5-10 Mg PO Q4H PRN Aspirin EC (Aspirin) 81 Mg Tablet.dr 81 Mg PO DAILY Eliquis (Apixaban) 5 Mg Tablet 5 Mg PO BID Diltiazem 24Hr Cd (Diltiazem HCl) 240 Mg Cap.er.24h 240 Mg PO DAILY Losartan Potassium 100 Mg Tablet 100 Mg PO DAILY Atorvastatin Calcium 10 Mg Tablet 10 Mg PO HS Furosemide 40 Mg Tablet 40 Mg PO DAILY Meloxicam 15 Mg Tablet 15 Mg PO DAILY Reported One Daily Complete (Multivitamin with Minerals) 1 Each Tablet 1 Each PO DAILY Vitamin D3 (Cholecalciferol (Vitamin D3)) 125 Mcg (5000 Unit) Tablet 250 Mcg PO DAILY TAKES 2 (125MCG) TABS Zinc (Zinc Sulfate) 50 Mg Tablet 50 Mg PO DAILY Tylenol Extra Strength (Acetaminophen) 500 Mg Tablet 1,000 Mg PO Q6H PRN TAKES 2 (500MG) TABS Instructions to patient/family Please see electronic discharge instructions given to patient. Diagnosis/Problems Diagnosis/Problems (1) Amputation of toe (2) Atrial fibrillation with rapid ventricular response Status: Acute IBAN LEI DO Apr 26, 2023 05:47
[2023-04-26] MEDS: CATHETER FLUSH 10 ML SYR IVP SCH (06:31)
[2023-04-26] MEDS: POTASSIUM CHLORIDE 20 MEQ TABLET PO SCH (06:31)
[2023-04-26 07:14] VITALS: BP 128/75
[2023-04-26] MEDS: dilTIAZem ER 240 MG CAPSULE PO SCH (08:30)
[2023-04-26] MEDS: MELOXICAM 7.5 MG (MOBIC) TABLET PO SCH (08:30)
[2023-04-26] MEDS: SENNOSIDES 8.6 MG (SENOKOT) TAB PO SCH (08:30)
[2023-04-26] MEDS: APIXABAN 5 MG TABLET PO SCH (08:30)
[2023-04-26] MEDS: polyethylene glycoL POWDER 17 GM (MIRALAX) PACK PO SCH (08:30)
[2023-04-26] MEDS: FUROSEMIDE 40 MG TABLET PO SCH (08:30)
[2023-04-26] MEDS: LOSARTAN 100 MG (COZAAR) TABLET PO SCH (08:30)
[2023-04-26] MEDS: DOCUSATE SODIUM 100 MG CAPSULE PO SCH (08:30)
[2023-04-26] MEDS: DICLOFENAC 1% GEL 100 GM TUBE TOP SCH (08:38)
[2023-04-26] MEDS: ACETAMINOPHEN 325 MG TABLET PO PRN (08:38)
[2023-04-26 15:24] VITALS: BP 128/75
--- NOTE | 2023-04-26 15:47 | Therapy Team Discharge Summary ---
Therapy Discharge Summary Discharge Recommendations Date of Discharge Apr 26, 2023 at 14:30 Therapy D/C Recommendations: Home w/ Family Support, Physical Therapy Home Care Physical Therapy Pt is a 67 y/o male who went to the ED on 04/08/23 for L foot pain; 04/10/23 s/p L 2nd toe amputation; 04/13/23 ARU admission. At [facility], pt was Int with no AD and driving. Upon PT eval, pt was SBA/CGA/Min A for bed mobility, Mod/Max A for functional transfers, and only able to ambulate ~ 10ft with the FWW and Min/Mod A. PT focused on B LE strengthening, pain control, functional mobility/transfers, walking, steps, balance/safety, endurance, and Ind. Pt progressed fairly with PT and was limited by high pain levels in B feet/ankles/knees. Pt met some set goals and was able to complete bed mobility, functional transfers, and walking with the FWW for short distances at SBA/Mod I. Pt was able to negotiate 2 steps with no HR and Min A. Pt was Mod I with w/c mobility. Pt d/c from ARU to home with SO assistance and HHC on 04/26/23; D/C from PT at this time. Roll Left to Right (QC): 4 Sit to Lying (QC): 4 Lying to Sitting/Side of Bed(Q: 4 Sit to Stand (QC): 4 Chair/Que-et-Fyilj Xfer(QC): 4 Toilet Transfer (QC): 4 Car Transfer (QC): 4 Does the Patient Walk: Yes Mode of Locomotion: Both Anticipated Mode of Locomotion: Both Walk 10 feet (QC): 4 Walk 50 ft with 2 Turns(QC): 88 Walk 150 ft (QC): 88 Walking 10ft on uneven surface: 88 Distance: 10ft Gait Assistive Device: FWW Does the Pt Use a Wheelchair: Yes Wheel 50 ft with 2 turns (QC): 6 Wheel 150 ft (QC): 6 Type of Wheelchair: Manual #of Steps: 2 1 Step (curb) (QC): 3 4 Steps (QC): 88 12 Steps (QC): 88 Walking Assistive Device: Walker Balance Sitting Static: Good Balance Sitting Dynamic: Fair Balance-Standing Static: Fair Picking up an Object (QC): 4 Occupational Therapy Decreased Activ Tolerance, Impaired Funct Balance, Impaired Self-Care Skills Eating (QC): 6 Oral Hygiene (QC): 6 Shower/Bathe Self (QC): 5 (Using BSC for shower requires set up to cover L foot due to bandages/wound. Independent sitting at sink for sponge bath) Upper Body Dressing (QC): 5 Lower Body Dressing (QC): 4 On/Off Footwear (QC): 3 Toileting Hygiene (QC): 4 PT Mcc Goals Mcc Goals PT Facilities Maintenance Manager Goals Time Frame: Apr 25, 2023 Roll Left to Right (QC): 6 (Pt will be Mod I with bed mobility ) Sit to Lying (QC): 6 (Pt will be Mod I with bed mobility ) Lying-Sitting on Side/Bed(QC): 6 (Pt will be Mod I with bed mobility ) Sit to Stand (QC): 4 (Pt will be SBA for functional transfers ) Chair/Vyj-iy-Swrsu Xfer(QC): 4 (Pt will be SBA for functional transfers ) Toilet/Commode Transfer (QC): 4 (Pt will be SBA for functional transfers ) Car Transfer (QC): 4 (Pt will be SBA for functional transfers ) Does the Patient Walk: Yes Walk 10 feet (QC): 4 (Pt will be SBA for walking with the FWW ) Walk 10ft-Uneven Surface(QC): 4 (Pt will be SBA for walking with the FWW ) Walk 50ft with 2 Turns (QC): 4 (Pt will be SBA for walking with the FWW ) Walk 150 ft (QC): 4 (Pt will be SBA for walking with the FWW ) Does the Pt use WC or Scooter?: No Wheel 50 feet with 2 turns (QC: 9 Type: N/A Wheel 150 feet: 9 Type: N/A 1 Step (curb) (QC): 4 (SBA for steps ) 4 Steps (QC): 4 (SBA for steps ) 12 Steps (QC): 9 Picking up an Object (QC): 6 (with nail welter ) OT Mcc Goals Facilities Maintenance Manager Goals Acute change in mental status: 0 Inattention: 0 Disorganized thinkin Altered level of consciousness: 0 Eating (QC): 6 (met) Oral Hygiene (QC): 6 (met) Toileting Hygiene (QC): 6 (not met) Shower/Bathe Self (QC): 6 (not met) Upper Body Dressing (QC): 6 (not met) Lower Body Dressing (QC): 6 (not met) On/Off Footwear (QC): 6 (not met) 1=Demonstrate adherence to instructed precautions during ADL tasks. 2=Patient will verbalize/demonstrate understanding of assistive devices/modifications for ADL. 3=Patient will improve strength/tolerance for activity to enable patient to perform ADL's. ANTONIO REICH PT Apr 26, 2023 15:47
--- NOTE | 2023-04-27 09:14 | Therapy Team Discharge Summary ---
Therapy Discharge Summary Discharge Recommendations Date of Discharge Apr 26, 2023 at 14:30 Therapy D/C Recommendations: Home w/ Family Support, Physical Therapy Home Care Physical Therapy Roll Left to Right (QC): 4 Sit to Lying (QC): 4 Lying to Sitting/Side of Bed(Q: 4 Sit to Stand (QC): 4 Chair/Eoe-np-Ckwdj Xfer(QC): 4 Toilet Transfer (QC): 4 Car Transfer (QC): 4 Does the Patient Walk: Yes Mode of Locomotion: Both Anticipated Mode of Locomotion: Both Walk 10 feet (QC): 4 Walk 50 ft with 2 Turns(QC): 88 Walk 150 ft (QC): 88 Walking 10ft on uneven surface: 88 Distance: 10ft Gait Assistive Device: FWW Does the Pt Use a Wheelchair: Yes Wheel 50 ft with 2 turns (QC): 6 Wheel 150 ft (QC): 6 Type of Wheelchair: Manual #of Steps: 2 1 Step (curb) (QC): 3 4 Steps (QC): 88 12 Steps (QC): 88 Walking Assistive Device: Walker Balance Sitting Static: Good Balance Sitting Dynamic: Fair Balance-Standing Static: Fair Picking up an Object (QC): 4 Occupational Therapy 67 y/o male who went to the ED on 04/08/23 for L foot pain; 04/10/23 s/p L 2nd toe amputation; 04/13/23 ARU admission. At [facility], pt was Int with no AD and driving. Upon OT eval, pt was SBA/CGA/Min A for bed mobility, Mod/Max A for functional transfers, Mod/Max assist for ADLs. PT focused on B UE strengthening, pain control, functional mobility/transfers, dressing sequence, hygiene, balance/safety, endurance, and Ind. Pt progressed fairly with OT and was limited by high pain levels in B feet/ankles/knees. Pt met some set goals and was able to complete bed mobility, functional transfers, and walking with the FWW for short distances at SBA/Mod I. Pt was able to negotiate 2 steps with no HR and Min A. Pt was Mod I with w/c mobility. Pt d/c from ARU to home with SO assistance and HHC on 04/26/23 Decreased Activ Tolerance, Impaired Funct Balance, Impaired Self-Care Skills Eating (QC): 6 Oral Hygiene (QC): 6 Shower/Bathe Self (QC): 5 (Using BSC for shower requires set up to cover L foot due to bandages/wound. Independent sitting at sink for sponge bath) Upper Body Dressing (QC): 5 Lower Body Dressing (QC): 4 On/Off Footwear (QC): 3 Toileting Hygiene (QC): 4 PT Rn Heart Goals Longterm Goals PT Rn Heart Goals Time Frame: Apr 25, 2023 Roll Left to Right (QC): 6 (Pt will be Mod I with bed mobility ) Sit to Lying (QC): 6 (Pt will be Mod I with bed mobility ) Lying-Sitting on Side/Bed(QC): 6 (Pt will be Mod I with bed mobility ) Sit to Stand (QC): 4 (Pt will be SBA for functional transfers ) Chair/Gcs-bo-Jeean Xfer(QC): 4 (Pt will be SBA for functional transfers ) Toilet/Commode Transfer (QC): 4 (Pt will be SBA for functional transfers ) Car Transfer (QC): 4 (Pt will be SBA for functional transfers ) Does the Patient Walk: Yes Walk 10 feet (QC): 4 (Pt will be SBA for walking with the FWW ) Walk 10ft-Uneven Surface(QC): 4 (Pt will be SBA for walking with the FWW ) Walk 50ft with 2 Turns (QC): 4 (Pt will be SBA for walking with the FWW ) Walk 150 ft (QC): 4 (Pt will be SBA for walking with the FWW ) Does the Pt use WC or Scooter?: No Wheel 50 feet with 2 turns (QC: 9 Type: N/A Wheel 150 feet: 9 Type: N/A 1 Step (curb) (QC): 4 (SBA for steps ) 4 Steps (QC): 4 (SBA for steps ) 12 Steps (QC): 9 Picking up an Object (QC): 6 (with steel inspector ) OT Longterm Goals Longterm Goals Acute change in mental status: 0 Inattention: 0 Disorganized thinkin Altered level of consciousness: 0 Eating (QC): 6 (met) Oral Hygiene (QC): 6 (met) Toileting Hygiene (QC): 6 (not met) Shower/Bathe Self (QC): 6 (not met) Upper Body Dressing (QC): 6 (not met) Lower Body Dressing (QC): 6 (not met) On/Off Footwear (QC): 6 (not met) 1=Demonstrate adherence to instructed precautions during ADL tasks. 2=Patient will verbalize/demonstrate understanding of assistive devices/modifications for ADL. 3=Patient will improve strength/tolerance for activity to enable patient to perform ADL's. YAZMIN SANDY OT Apr 27, 2023 09:14
== END 2023-04-26 14:30 | disposition home health service (06) | DRG 560 ==
PROVIDERS: ADMIT Internal Medicine; ATTEND Internal Medicine
DX: Z47.81 Encounter for orthopedic aftercare following surgical amputation (principal); L03.116 Cellulitis of left lower limb; L97.429 Non-pressure chronic ulcer of left heel and midfoot with unspecified severity; Z89.422 Acquired absence of other left toe(s); E11.42 Type 2 diabetes mellitus with diabetic polyneuropathy; I10 Essential (primary) hypertension; I48.91 Unspecified atrial fibrillation; E11.51 Type 2 diabetes mellitus with diabetic peripheral angiopathy without gangrene; S82.54XA Nondisplaced fracture of medial malleolus of right tibia, initial encounter for closed fracture; E66.9 Obesity, unspecified; E78.00 Pure hypercholesterolemia, unspecified; K59.00 Constipation, unspecified; E78.5 Hyperlipidemia, unspecified; M06.9 Rheumatoid arthritis, unspecified; B95.1 Streptococcus, group B, as the cause of diseases classified elsewhere; Z79.4 Long term (current) use of insulin; Z68.36 Body mass index [BMI] 36.0-36.9, adult; Z79.01 Long term (current) use of anticoagulants; Z87.891 Personal history of nicotine dependence; Z79.82 Long term (current) use of aspirin; Z79.899 Other long term (current) drug therapy; X58.XXXA Exposure to other specified factors, initial encounter
CPT/HCPCS: 36410; 36415; 36569; 71045; 73610; 76937; 80053; 80202; 82947; 85007; 85025; 85027; 94760

== ENCOUNTER → 2023-05-03 | Outpatient (CLI) | payer SELFPAY ==
[~2023-05-03] MED LIST changes: +OXC5T PO
== END ==
LOC: LAB 13:46
PROVIDERS: ATTEND Family Medicine
DX: R97.20 Elevated prostate specific antigen [PSA] (principal)
CPT/HCPCS: 36415; 84153

== ENCOUNTER → 2023-06-27 | Outpatient (CLI) | payer SELFPAY ==
--- NOTE | 2023-06-27 14:17 | Diagnostic Imaging Report ---
EXAMINATION: Left ankle radiographs, 3 views. COMPARISON: None. HISTORY: 67-year-old male, left ankle pain and swelling. FINDINGS: There is prominent nonspecific soft tissue swelling at the level of the ankle. The alignment of the ankle mortise is unremarkable. There are vascular calcifications. There is no identified acute fracture. There is no large tibiotalar joint effusion. The tibiotalar and subtalar joint spaces appear well-preserved. IMPRESSION: 1. Extensive soft tissue swelling in the region of the left ankle without identified acute osseous abnormality. Dictated by: Dictated on workstation # [id number]
== END ==
LOC: RAD 13:29
PROVIDERS: ATTEND Surgery
DX: M25.472 Effusion, left ankle (principal); M79.89 Other specified soft tissue disorders; M25.572 Pain in left ankle and joints of left foot
CPT/HCPCS: 73610